=== PATIENT | female | born 1965 | race Caucasian/White ===

== ENCOUNTER 2020-06-04 13:06 | Emergency (ER) | payer OTHER, SELFPAY ==
[2020-06-04 13:21] VITALS: BP 126/82; PULSE 76; RESP 18; TEMP 37.2; O2SAT 96; BMI 27.1
--- NOTE | 2020-06-04 13:35 | ED_ITS ---
HPI - Animal Bite General Chief Complaint: Animal Bite Stated Complaint: Dog bite Time Seen by Provider: 06/04/20 13:23 Source: patient Mode of arrival: ambulatory Limitations: no limitations History of Present Illness HPI narrative: 50 for a female with no known past medical history presenting with complaint of dog bite to the palmar aspect of the right hand occurred just prior to arrival at home. She was petting her neighbor's dog and bit her causing abrasion like laceration to the palmar aspect just inferior to the webbing between the 4th and 5th finger. Dog is up-to-date on vaccination. She is not sure when her last tetanus vaccination was. States she did not have any pain discomfort just realized the laceration when she has slight bleeding. Currently there is no active bleeding. She has no other complaints. MD complaint: animal bite Onset (ago): minute(s) Animal: dog Description of animal: household pet Mechanism: bite Severity scale (1-10): 2 Context: playing with animal Associated symptoms: none Treatments prior to arrival: wound dressing(s) and irrigation Related Data Patient tetanus UTD: No Previous Rx's Medication Instructions Recorded amoxicillin-pot clavulanate 1 tab PO Q12H 10 Days #20 tab 06/04/20 [Augmentin] Allergies Allergy/AdvReac Type Severity Reaction Status Date / Time aspirin Allergy Unknown Unknown Verified 06/04/20 13:24 ibuprofen Allergy Unknown heartburns Verified 10/29/13 00:00 No Known Allergies Allergy Unverified 04/30/20 18:28 [No Known Allergies*] Review of Systems Review of Systems: Constitutional: No Weight loss, No Fever, No Chills, No Night Sweats, No Fatigue, No Malaise ENT/Mouth: No Hearing loss, No Ear Pain, No Nasal Congestion, No Sinus Pain, No Hoarseness, No sore throat, No Rhinorrhea, No Swallowing Difficulty Eyes: No Eye Pain, No Swelling, No Redness, No Foreign Body, No Discharge, No Vision Changes Cardiovascular: No Chest Pain, No SOB, No Dyspnea on Exertion, No Orthopnea, No Edema, No Palpitations Respiratory: No Cough, No Sputum, No Wheezing\ Gastrointestinal: No abdominal Pain Genitourinary: Musculoskeletal: No joint pain, No Myalgias, No Joint Swelling Skin: No Skin Lesions, No rash Neuro: No Weakness, No Numbness, No Paresthesias, No Loss of Consciousness, No Dizziness, No Headache Psych: No Anxiety/Panic, No Depression, No SI/HI/AH/VH, No Social Issues, Heme/Lymph: No Bruising, No Bleeding,No Lymphadenopathy Endocrine: No Polyuria, No Polydipsia, No Temperature Intolerance Yes all other systems are reviewed and are negative REPLACED BY [facility] Past Medical History Attestation statement: The following information was validated with the patient. Medical History (Updated 06/04/20 @ 13:55 by Marc Zelaya NP) Anxiety Depression Physical Exam Vital Signs: Vital Signs: Vital Signs Temp Pulse Resp BP Pulse Ox 06/04/20 13:21 98.9 F 76 18 126/82 96 Body Mass Index 27.1 Reviewed Course Course Course Narrative: Risk and benefits of having animal bite sutured including increased risk of infection versus cosmetic outcome versus loss of function this was reviewed. Patient was subsequently consented given localized anesthetic with 1% lidocaine and 1 loose suture was applied. No localized signs of infection induration or tender palpation. Full range of motion. Laceration superficial. Started on oral Augmentin/Tdap given. Patient will be discharged with clear precaution return follow-up instructions and 3 day wound check. Procedures Laceration Laceration 1: Site: hand (right hand ) Side (If applicable): right Size (cm): 1.5 Description: linear Depth: simple, single layer Local Anesthetic: lidocaine 1% Amount of anesthesia used (mL): 3 Pre-repair: irrigated extensively Skin layer closed with: nylon Size (cm): 4-0 Number of sutures: 1 Technique: simple, interrupted MDM - Animal Bite MDM Narrative Medical decision making narrative: Does not fully through the adipose tissue. Full range of motion. Able to make a fist. Finger to thumb within normal limits. Differential Diagnosis Differential diagnosis: Likely bite by animal and dog bite; Unlikely cat bite and rabies contact Lab Data Attestation: I reviewed the patient's lab results. Discharge Plan Discharge Clinical Impression: Bite by animal, Dog bite, Tetanus Patient Disposition: Home, Self-Care Instructions: Diphtheria/Acellular Pertussis/Tetanus Booster Vaccine (Tdap) (By..., Animal Bite (ED), Laceration (ED) Additional Instructions: today you were seen for the dog bite to her right and the cause a superficial laceration to the palmar aspect of the hand. Risk and benefits of getting a suture were reviewed. One suture was placed. Keep site clean and dry You are given a tetanus vaccination Given a dose of antibiotics Given antibiotics for 10 days Have recheck in 3 days to make sure there is no infection Have suture removed in 7-10 days Return if any concerns or worsening symptoms Otherwise return in 7-10 days to have your sutures removed Thank you Prescriptions: New amoxicillin-pot clavulanate [Augmentin] 875-125 mg tablet 1 tab PO Q12H 10 Days Qty: 20 RF: 0 Referrals: Marc Zelaya, HORSESHOER [Emergency Midlevel Provider] - 1 week ( return in 7-10 days to have sutures removed Have recheck through her primary care doctor in 3 days Return sooner if any concerns or worsening symptoms)
[2020-06-04] MEDS: Lidocaine HCl 1 % MPF 5 ML VIAL SUBCUT (13:38)
[2020-06-04] MEDS: Amoxicillin/Potassium Clav 875 MG TABLET PO (13:38)
== END 2020-06-04 14:08 | disposition home or self-care (01) ==
LOC: HO.ED 14:02
PROVIDERS: Emergency Provider Emergency Medicine
DX: S61.411A Laceration without foreign body of right hand, initial encounter (principal); S60.511A Abrasion of right hand, initial encounter; M79.641 Pain in right hand; W54.0XXA Bitten by dog, initial encounter; Y93.9 Activity, unspecified; Y92.009 Unspecified place in unspecified non-institutional (private) residence as the place of occurrence of the external cause; Y99.9 Unspecified external cause status
CPT/HCPCS: 12001; 90471; 90715; 99282; 99284

== ENCOUNTER 2020-06-08 10:20 | Emergency (ER) | payer OTHER, SELFPAY ==
[2020-06-08 11:04] VITALS: BP 117/81; PULSE 68; RESP 17; TEMP 36.6; O2SAT 97; BMI 27.1
--- NOTE | 2020-06-08 11:38 | ED_ITS ---
HPI - Wound/Laceration General Chief Complaint: Wound/Laceration Stated Complaint: suture removal Time Seen by Provider: 06/08/20 11:29 Source: patient Mode of arrival: ambulatory History of Present Illness HPI narrative: 54-year-old female with no significant past medical history presenting to ED for wound check s/p dog bite to right hand. Patient was seen and treated in the ED on 06/04, prescribed Augmentin, 1 suture was placed in pa lmar aspect of hand. Denies issues/complaints since wound repair. Denies fever, chills, drainage, streaking, redness Onset (ago): day(s) Related Data Previous Rx's Medication Instructions Recorded amoxicillin-pot clavulanate 1 tab PO Q12H 10 Days #20 tab 06/04/20 [Augmentin] Allergies Allergy/AdvReac Type Severity Reaction Status Date / Time aspirin Allergy Unknown Unknown Verified 06/04/20 13:24 ibuprofen Allergy Unknown heartburns Verified 10/29/13 00:00 No Known Allergies Allergy Verified 06/08/20 11:06 [No Known Allergies*] Review of Systems Review of Systems: Constitutional: No Weight loss, No Fever, No Chillsain Musculoskeletal: No joint pain, No Myalgias, No Joint Swelling Skin: + Skin Lesions, No rash Neuro: No Weakness, No Numbness, No Paresthesias Yes all other systems are reviewed and are negative [facility] Past Medical History Source: nursing notes reviewed Medical History (Updated 06/08/20 @ 11:38 by CHRISTIANO Polanco) Anxiety Depression Social History Social History Advance Directives: No Advance Directives Information Provided: No Physical Exam Vital Signs: Vital Signs: Vital Signs Temp Pulse Resp BP Pulse Ox 06/08/20 11:04 97.9 F 68 17 117/81 97 Body Mass Index 27.1 Const: General: cooperative and healthy appearing Orientation/consciousness: patient oriented x3 Limitations: no limitations HENMT: Head: Yes normal to inspection Ears: hearing grossly normal bilaterally General nose exam: Normal external nose present Face and sinus: Yes normal facial exam Eyes: General: appearance normal, both eyes and all related structures EOM: EOMs intact bilaterally Neck: Neck: Yes normal visual inspection Resp: Effort & Inspection: normal respiratory effort Cardio: Peripheral pulses: radial pulses present Skin: Rashes: no rashes Wounds: no wounds Neuro: General: patient oriented x3 Gait exam (Neuro): Normal gait present Extrem: Other: healing laceration noted to right hand palmar aspect between 4-5th digits with 1 suture intact. No surrounding erythema, fluctuance, induration, or streaking Discharge Plan Discharge Clinical Impression: Visit for wound check Patient Disposition: Home, Self-Care Instructions: Laceration (ED) Additional Instructions: your laceration is healing nicely. Continue taking previously prescribed antibiotic The sutures should be taken out 7-10 days after they were initially put in , which would be or Monday if area begins to look infected, is red, there is drainage, streaking, or you fever return to the ED immediately Prescriptions: No Action amoxicillin-pot clavulanate [Augmentin] 875-125 mg tablet 1 tab PO Q12H 10 Days Qty: 20 RF: 0 Referrals: Physician,Unknown [Primary Care Provider] - 5 days ( return to the ED in 3-5 days to have your stitches taken out)
== END 2020-06-08 11:43 | disposition home or self-care (01) ==
PROVIDERS: Emergency Provider Emergency Medicine
DX: Z48.00 Encounter for change or removal of nonsurgical wound dressing (principal)
CPT/HCPCS: 99283

== ENCOUNTER 2021-04-23 08:03 | Inpatient (IN) | payer OTHER, SELFPAY ==
[2021-04-23] VITALS (18 sets, daily range): BP systolic 100–149; BP diastolic 50–78; PULSE 32–49; RESP 10–20; TEMP 36.3–36.8; O2SAT 92–99; BMI 24.4; BMI 25.1
--- NOTE | ~2021-04-23 | CT_ITS ---
EXAMINATION: CT HEAD WITHOUT CONTRAST CLINICAL INFORMATION: Dizziness COMPARISON: MRI brain without and with contrast 06/24/2013 TECHNIQUE: Contiguous axial imaging was performed from the skull base to vertex without intravenous administration of contrast. Additional 2-D coronal and sagittal reformatted images are generated on the CT workstation and uploaded to PACS. This CT examination was performed using dose optimization techniques as appropriate, variously including the following: *Automated exposure control *Adjustment of mA and/or kV according to patient size (this includes techniques or standardized protocols for targeted exams where dose is matched to indication/reason for exam; i.e. extremities or head) *Use of iterative reconstruction technique DLP: 601 mGy-cm FINDINGS: There is no intracranial hemorrhage, hematoma, or extra-axial fluid collection. The ventricles are normal in size. There is no hydrocephalus, edema, or mass effect. The downey-white matter differentiation appears symmetric. There is no visible acute territorial infarct or mass lesion. The calvarium appears intact. There is no pneumocephalus or orbital emphysema. The visualized sinuses and middle ears and mastoid air cells show no significant mucosal thickening. There are no air-fluid levels. CT/CT head/brain wo con IMPRESSION: Unremarkable noncontrast CT head.
--- NOTE | ~2021-04-23 | XR_ITS ---
EXAMINATION: XR CHEST CLINICAL INFORMATION: Follow-up. New pacer wire placement. COMPARISON: None TECHNIQUE: Frontal view of the chest was obtained. FINDINGS: Lungs are slightly hyperexpanded. No evidence of pulmonary edema, pleural effusion or pneumothorax. Again noted is a dual lead cardiac pacemaker with intact leads in stable position compared to 04/24/2021. The tips of the leads overlie the right atrium and apex of right ventricle. The visualized bones are intact. XR/XR chest 1V IMPRESSION: * No pneumothorax. No evidence of complications from dual-chamber cardiac pacemaker placement. * No evidence of active congestive heart failure.
--- NOTE | ~2021-04-23 | FL_ITS ---
EXAMINATION: XR FLUOROSCOPY WITH IMAGES CLINICAL INFORMATION: Pacemaker insertion. COMPARISON: CXR from 08/24/2018 TECHNIQUE: Fluoroscopic imaging equipment utilized in the operating room for pacemaker insertion. Fluoroscopy time: 4 minutes DAP: 24.7 Gycm2 Images: 3 images are saved. FL/FL guidance in OR FINDINGS AND IMPRESSION: Fluoroscopic imaging equipment utilized during pacemaker insertion. The visualized cardiac pacing leads are intact and terminate over the right atrium and apex of right ventricle.
--- NOTE | ~2021-04-23 | XR_ITS ---
EXAMINATION: XR CHEST CLINICAL INFORMATION: New pacemaker COMPARISON: None TECHNIQUE: Frontal view of the chest was obtained. FINDINGS: Dual-lead pacemaker overlies left pectoral region with leads terminating over the right atrium and right ventricle. No pneumothorax. No pleural effusion or airspace consolidation. Lung volumes are normal. Cardiac and mediastinal contours are normal. No acute osseous findings. XR/XR chest 1V IMPRESSION: No acute pulmonary findings. Pacemaker leads terminate over the right atrium and right ventricle.
--- NOTE | 2021-04-23 08:30 | PC.NURSE ---
per pt - ?tia sx yesterday, pt thought that she had some slurred speech which was resolved. mlp (alla) aware. no neuro deficits noted.
--- NOTE | 2021-04-23 08:36 | ECG_ITS ---
Test Reason : GENERALMEDICATION Blood Pressure : / mmHG Vent. Rate : 070 BPM Atrial Rate : 070 BPM P-R Int : 188 ms QRS Dur : 098 ms QT Int : 548 ms P-R-T Axes : 065 056 054 degrees QTc Int : 591 ms Sinus rhythm with frequent , and consecutive Premature ventricular complexes Prolonged QT Abnormal ECG When compared with ECG of 23-APR-2021 08:44, Premature ventricular complexes are now Present Vent. rate has increased BY 32 BPM QT has lengthened Referred By: Randy Washington Electronically Signed By:ALANA AYALA
--- NOTE | 2021-04-23 08:51 | ED_ITS ---
HPI - General Adult General Chief complaint: General Medical Stated complaint: DIZZY Time Seen by Provider: 04/23/21 08:24 Source: patient Mode of arrival: ambulatory Limitations: no limitations History of Present Illness HPI narrative: Patient presents to ED for dizziness since Monday. Patient describes dizziness with tingling in hands and arms with nausea since Monday. Patient describes dizziness as like she is about to fall. Patient denies any new medication. Patient denies any change in diet or drug use. Patient denies any new meds. Patient denies being on any beta-opal. Patient denies any slurred speech, loss of vision, or paralysis of extremities. Denies any recent head trauma. Patient denies any facial droop. Related Data Previous Rx's Medication Instructions Recorded amoxicillin 875 mg-potassium 1 tab PO Q12H 10 Days #20 tab 06/04/20 clavulanate 125 mg tablet (Augmentin) Allergies Allergy/AdvReac Type Severity Reaction Status Date / Time aspirin Allergy Unknown Unknown Verified 06/04/20 13:24 ibuprofen Allergy Unknown heartburns Verified 10/29/13 00:00 No Known Allergies Allergy Verified 06/08/20 11:06 [No Known Allergies*] Review of Systems Review of Systems: Yes all other systems are reviewed and are negative Constitutional: Constitutional: Reports as per HPI and Reports no additional constitutional complaints Eyes: Eyes: Reports as per HPI and Reports no additional eye complaints ENT: Reports system reviewed and no additional complaints, except as documented, Reports as per HPI and Reports dizziness Cardiovascular: Cardiovascular: Reports as per HPI and Reports no additional cardiovascular complaints Gastrointestinal: Gastrointestinal: Reports as per HPI, Reports no additional gastrointestinal complaints, Reports nausea and Reports vomiting Genitourinary: Genitourinary: Reports no additional female genitourinary complaints and Reports as per HPI Musculoskeletal: Musculoskeletal: Reports no additional musculoskeletal complaints and Reports as per HPI Neurologic: Reports system reviewed and no additional complaints, except as documented, Reports as per HPI and Reports dizziness PMFSH Past Medical History Medical History (Updated 04/23/21 @ 15:45 by CHRISTIANO Lanier) Anxiety Depression Social History Social History Alcohol intake: never Patient Tobacco Use Status: Current everyday Tobacco user Use of substances other than those prescribed or required for medical reasons: No Advance Directives: Yes Advance Directives Information Provided: Yes Advance Directives on File: No Physical Exam Vital Signs: Vital Signs: Last Vital Signs Temp 97.8 F 04/23/21 14:55 Pulse 37 L 04/23/21 15:05 Resp 20 04/23/21 15:00 BP 116/67 04/23/21 15:05 Pulse Ox 95 04/23/21 15:00 Body Mass Index 24.4 Const: General: cooperative, healthy appearing, comfortable, no acute distress, well developed, alert, awake and Physically active HENMT: Head: Yes normal to inspection, Yes No palpable skull fracture present, Yes normocephalic and Yes atraumatic Eyes: General: appearance normal, both eyes and all related structures Neck: Neck: Yes normal visual inspection, Yes full ROM, Yes no lymphadenopathy, Yes no meningeal signs, Yes trachea midline, Yes supple and No tender Chest: Chest palpation & inspection: normal inspection of the chest and normal palpation of entire chest wall Resp: Effort & Inspection: normal respiratory effort and able to speak in co mplete sentences Cardio: Jugular venous distension: no JVD Heart sounds: S1 normal heart sound present and S2 normal heart sound present GI: Inspection: Yes normal to inspection and No abdominal wall ecchymosis Palpation (GI): Soft to palpation, not firm, nontender, no guarding and not rigid : General: No CVA tenderness and Yes no CVA tenderness Back/Spine/Pelvis: Back: no CVA tenderness, No CVA tenderness and No back tenderness Skin: General skin exam: no rashes or lesions noted and elasticity normal Neuro: Other: Negative facial droop. Negative slurred speech. All extremities equal strength 5+. Finger to nose and rapid hand movement intact. Negative pronator drift. General: no meningeal signs Extrem: General: Yes normal to inspection and Yes full ROM Psych: Appearance: grossly normal, well kempt and not disheveled Course Course Course Narrative: Patient bradycardic in the 30s on the monitor sinus. Blood pressure normotensive. With a cardiac evaluation and EKG. Electrolytes including magnesium ordered. Fluids ordered. Will consult cardiology. Reevaluation(s) Reevaluation #1: Patient head CT normal. First troponin positive. Negative for any neuro deficits. Patient still feel dizzy. Fluids ordered. Dr. Hines the cork grinder made aware. Patient denies any chest pain. Time: 11:29 Reevaluation #2: Patient rhythm strip shows PVC so new EKG was ordered which shows sinus bradycardia with PVCs. Dr. Davidson was contacted who came to evaluate the patient. Bedside heart ultrasound negative for any structural damage. He recommends pacemaker and epinephrine drip. Dr. Hines [facility] came to evaluate patient and recommend patient be admitted to ICU and that epinephrine should be canceled and patient placed on dopamine drip. Patient admitted to ICU. Time: 13:25 Medical Decision Making MDM Narrative Medical decision making narrative: Sinus bradycardia with PVCs. Will need pacemaker Lab Data Result diagrams: 04/23/21 09:10 04/23/21 09:10 Labs: Lab Results 04/23/21 04/23/21 04/23/21 Range/Units 09: 09:10 09:10 WBC 10.0 (4.8-10.8) X10*3/uL RBC 4.75 (4.20-5.50) X10*6/uL Hgb 14.3 (12.0-16.0) g/dl Hct 41.8 (37-47) % MCV 88.0 (80-98) fL MCH 30.1 (27.0-33.0) pg MCHC 34.2 (31.0-35.0) g/dl RDW 11.7 (11.0-16.0) % Plt Count 246 (160-400) X10*3/uL MPV 10.3 (9.4-12.3) fL Immature Gran % (Auto) 0.5 H (0.0-0.4) % Neut % (Auto) 68.8 (45-73) % Lymph % (Auto) 24.2 (20-40) % Nobles % (Auto) 5.8 (2-11) % Eos % (Auto) 0.3 (0-4) % Baso % (Auto) 0.4 (0-2) % Lymph # (Auto) 2.4 (1.2-4.9) X10*3/uL Nobles # (Auto) 0.6 (0.1-1.2) X10*3/uL Eos # (Auto) 0.0 (0.0-0.4) X10*3/uL Baso # (Auto) 0.0 (0.0-0.2) X10*3/uL Abs Immat Gran (auto) 0.05 H (0.00-0.03) X10*3/uL Absolute Neuts (auto) 6.9 (2.0-8.3) X10*3/uL Absolute Nucleated RBC 0.000 (0.0-0.012) X10*3/uL Nucleated RBC % (auto) 0.0 (0.0-0.2) /100WBC PT (9.9-13.0) SEC INR (0.9-1.1) APTT (24.1-38.0) SEC Sodium 138 (135-145) mmol/L Potassium 5.6 H (3.3-5.1) mmol/L Chloride 101 (96-108) mmol/L Carbon Dioxide 29 (22-29) mmol/L Anion Gap 14 (12-20) BUN 7 L (9-16) mg/dL Creatinine 0.81 (0.5-1.4) mg/dL Estim Creat Clear Calc 90.5 Estimated GFR > 60 Random Glucose 134 H (60-115) mg/dL Calcium 10.4 H (8.4-10.2) mg/dL Magnesium 2.0 (1.6-2.6) mg/dL Total Bilirubin 0.5 (0.0-1.0) mg/dL AST 25 (5-31) U/L ALT 27 (0-31) U/L Alkaline Phosphatase 67 (39-117) U/L Total Creatine Kinase 45 (26-140) U/L Troponin I High Sens (<3.5-17.0) ng/L Total Protein 7.0 (6.5-8.0) g/dL Albumin 4.5 (3.5-5.0) g/dL TSH 0.34 (0.32-4.0) uIU/mL Free T4 (0.71-1.85) ng/dL COVID-19 ([facility]) (Negative) COVID-19 Clin Com 04/23/21 04/23/21 04/23/21 Range/Units 09:10 09:10 09:10 WBC (4.8-10.8) X10*3/uL RBC (4.20-5.50) X10*6/uL Hgb (12.0-16.0) g/dl Hct (37-47) % MCV (80-98) fL MCH (27.0-33.0) pg MCHC (31.0-35.0) g/dl RDW (11.0-16.0) % Plt Count (160-400) X10*3/uL MPV (9.4-12.3) fL Immature Gran % (Auto) (0.0-0.4) % Neut % (Auto) (45-73) % Lymph % (Auto) (20-40) % Nobles % (Auto) (2-11) % Eos % (Auto) (0-4) % Baso % (Auto) (0-2) % Lymph # (Auto) (1.2-4.9) X10*3/uL Nobles # (Auto) (0.1-1.2) X10*3/uL Eos # (Auto) (0.0-0.4) X10*3/uL Baso # (Auto) (0.0-0.2) X10*3/uL Abs Immat Gran (auto) (0.00-0.03) X10*3/uL Absolute Neuts (auto) (2.0-8.3) X10*3/uL Absolute Nucleated RBC (0.0-0.012) X10*3/uL Nucleated RBC % (auto) (0.0-0.2) /100WBC PT 14.8 H (9.9-13.0) SEC INR 1.3 H (0.9-1.1) APTT 33.0 (24.1-38.0) SEC Sodium (135-145) mmol/L Potassium (3.3-5.1) mmol/L Chloride (96-108) mmol/L Carbon Dioxide (22-29) mmol/L Anion Gap (12-20) BUN (9-16) mg/dL Creatinine (0.5-1.4) mg/dL Estim Creat Clear Calc Estimated GFR Random Glucose (60-115) mg/dL Calcium (8.4-10.2) mg/dL Magnesium (1.6-2.6) mg/dL Total Bilirubin (0.0-1.0) mg/dL AST (5-31) U/L ALT (0-31) U/L Alkaline Phosphatase (39-117) U/L Total Creatine Kinase (26-140) U/L Troponin I High Sens 28.2 H* (<3.5-17.0) ng/L Total Protein (6.5-8.0) g/dL Albumin (3.5-5.0) g/dL TSH (0.32-4.0) uIU/mL Free T4 1.12 (0.71-1.85) ng/dL COVID-19 ([facility]) (Negative) COVID-19 Clin Com 04/23/21 04/23/21 Range/Units 09:11 11:29 WBC (4.8-10.8) X10*3/uL RBC (4.20-5.50) X10*6/uL Hgb (12.0-16.0) g/dl Hct (37-47) % MCV (80-98) fL MCH (27.0-33.0) pg MCHC (31.0-35.0) g/dl RDW (11.0-16.0) % Plt Count (160-400) X10*3/uL MPV (9.4-12.3) fL Immature Gran % (Auto) (0.0-0.4) % Neut % (Auto) (45-73) % Lymph % (Auto) (20-40) % Nobles % (Auto) (2-11) % Eos % (Auto) (0-4) % Baso % (Auto) (0-2) % Lymph # (Auto) (1.2-4.9) X10*3/uL Nobles # (Auto) (0.1-1.2) X10*3/uL Eos # (Auto) (0.0-0.4) X10*3/uL Baso # (Auto) (0.0-0.2) X10*3/uL Abs Immat Gran (auto) (0.00-0.03) X10*3/uL Absolute Neuts (auto) (2.0-8.3) X10*3/uL Absolute Nucleated RBC (0.0-0.012) X10*3/uL Nucleated RBC % (auto) (0.0-0.2) /100WBC PT (9.9-13.0) SEC INR (0.9-1.1) APTT (24.1-38.0) SEC Sodium (135-145) mmol/L Potassium (3.3-5.1) mmol/L Chloride (96-108) mmol/L Carbon Dioxide (22-29) mmol/L Anion Gap (12-20) BUN (9-16) mg/dL Creatinine (0.5-1.4) mg/dL Estim Creat Clear Calc Estimated GFR Random Glucose (60-115) mg/dL Calcium (8.4-10.2) mg/dL Magnesium (1.6-2.6) mg/dL Total Bilirubin (0.0-1.0) mg/dL AST (5-31) U/L ALT (0-31) U/L Alkaline Phosphatase (39-117) U/L Total Creatine Kinase (26-140) U/L Troponin I High Sens 27.2 H* (<3.5-17.0) ng/L Total Protein (6.5-8.0) g/dL Albumin (3.5-5.0) g/dL TSH (0.32-4.0) uIU/mL Free T4 (0.71-1.85) ng/dL COVID-19 ([facility]) Negative (Negative) COVID-19 Clin Com See Note ECG Data Interpretation: EKG 1: Miguel sinus bradycardia. Ventricular rate 38. Pr interval 192. QRS 102. QTC 459. Negative STEMI EKG 2: Sinus rhythm with PVC. Ventricular rate 70. Frontal 188. QRS 98. QTC 591. Negative STEMI Critical Care Time Critical Care Time Critical Care Time: Yes Total Critical Care Time: 60 Attestation: Labs ordered. Patient placed on pacer pads. Cardiology was notified. ICU attending notified. Patient started on dopamine drip. Discharge Plan Discharge Clinical Impression: Symptomatic bradycardia Patient Disposition: Admitted As Inpatient
[2021-04-23] MEDS: 0.9 % Sodium Chloride 1,000 ML 999 ML IV (09:13)
--- NOTE | 2021-04-23 09:26 | PC.NURSE ---
hr 32-42 pt /o extreme tirednes,, dry mouth, mlp (alla) aware.
[2021-04-23 09:28] LABS: MANUAL DIFF FLAG NO
[2021-04-23 09:30] LABS: Basophils Percent Auto 0.4 % (0-2); Eosinophils Percent Auto 0.3 % (0-4); Hematocrit 41.8 % (37-47); Hemoglobin 14.3 g/dl (12.0-16.0); Imm Gran Abs Auto 0.05 X10*3/uL (0.00-0.03); Imm Gran Pct Auto 0.5 % (0.0-0.4); Lymphocytes Absolute Auto 2.4 X10*3/uL (1.2-4.9); Lymphocytes Percent Auto 24.2 % (20-40); Mean Corpuscular HGB Conc 34.2 g/dl (31.0-35.0); Mean Corpuscular Hemoglobin 30.1 pg (27.0-33.0); Mean Platelet Volume 10.3 fL (9.4-12.3); Monocytes Absolute Auto 0.6 X10*3/uL (0.1-1.2); Monocytes Percent Auto 5.8 % (2-11); Neutrophils Absolute Auto 6.9 X10*3/uL (2.0-8.3); Neutrophils Percent Auto 68.8 % (45-73); Platelet Count 246 X10*3/uL (160-400); Red Blood Count 4.75 X10*6/uL (4.20-5.50); Red Cell Distribution Width 11.7 % (11.0-16.0)
[2021-04-23 09:36] LABS: INTERNATIONAL NORM RATIO 1.3 (0.9-1.1); Prothrombin Time 14.8 SEC (9.9-13.0)
[2021-04-23 09:44] LABS: IDNOW Serial# 9DD0AD1C
[2021-04-23 09:45] LABS: COVID-19 Test Negative (Negative)
[2021-04-23 09:50] LABS: Alanine Aminotransferase 27 U/L (0-31); Albumin Level 4.5 g/dL (3.5-5.0); Alkaline Phosphatase 67 U/L (39-117); Anion Gap 14 (12-20); Aspartate Amino Transferase 25 U/L (5-31); Bilirubin Total 0.5 mg/dL (0.0-1.0); Blood Urea Nitrogen 7 mg/dL (9-16); Calcium 10.4 mg/dL (8.4-10.2); Carbon Dioxide 29 mmol/L (22-29); Chloride 101 mmol/L (96-108); Creatinine Clr Calc Pharmacy 90.5; Estimated Glomerular Filt Rate > 60; Glucose Random 134 mg/dL (60-115); Potassium 5.6 mmol/L (3.3-5.1); Sodium 138 mmol/L (135-145)
[2021-04-23 09:53] LABS: Troponin-I High Sensitivity 28.2 ng/L (<3.5-17.0)
[2021-04-23 10:13] LABS: TSH reflex Free T4 0.34 uIU/mL (0.32-4.0)
--- NOTE | 2021-04-23 10:19 | CA_ITS ---
Transthoracic Echocardiogram Patient (Last, First, Middle): Ivette Mckenzie, Gender: Female Date of : 1965 Age: 55 Procedure Date: 04/23/2021 Procedure Type: Transthoracic Echocardiogram Location: ER Height: 182.88 cm Weight: 81.65 kg BSA: 2.04 m2 Heart Rate: bpm BP: 94 / 55 mmHg Insole Coverer: HAN Referring MD: Randy ALVARADO Symptoms: positive troponin with bradycardia Study Quality: Fair ECG Rhythm: Sinus Conclusions: - The left ventricular systolic function is normal. The calculated ejection fraction is 60% by biplane method. - No obvious valvular pathology seen on this study. Findings Left Ventricle Normal left ventricular cavity size. There is normal left ventricular wall thickness. The left ventricular systolic function is normal. The calculated ejection fraction is 60% by biplane method. There is no evidence of regional wall motion abnormalities. Diastolic function is normal for age. Right Ventricle Normal right ventricular cavity size and systolic function. Atria Both atria are normal in size. Aortic Valve There is a normal trileaflet aortic valve. There is no aortic valve stenosis. There is no aortic valve regurgitation. Mitral Valve There is trace mitral valve regurgitation. There is no mitral valve stenosis. Posterior leaflet not well visualized. Pulmonic Valve The pulmonic valve was not well visualized. Tricuspid Valve Normal tricuspid valve structure. There is trace tricuspid valve regurgitation. The pulmonary artery systolic pressure is normal. Great Vessels The asc aorta and aortic arch are normal in size. Venous The inferior vena cava is normal in size and collapses greater than 50% with inspiration. Pericardium/Pleural There is no evidence of pericardial effusion. Prior Study Comparison No prior study available for comparison. Recommendations, Care & Conclusions No obvious valvular pathology seen on this study. Measurements 2D Linear Measurements IVSd: 0.95 0.6-0.9/0.6-1.0 cm LVIDd: 4.10 3.9-5.3/4.2-5.9 cm LVIDd Index: 2.01 2.4-3.2/2.2-3.1 cm/m2 LVIDs: 2.96 2.0-3.6 cm LVPWd: 0.76 0.7-1.1 cm Ao Root: 3.40 2.1-3.5 cm LA Diam: 3.10 2.7-3.8/3.0-4.0 cm LAIDs Index: 1.52 1.5-2.3 cm/m2 LV Mass: 132.71 67-162/88-224 g LV Mass Index: 65.05 43-95/49-115 g/m2 LVOT Diam: 2.20 3.0+(-)1.3 cm 2D Systolic Function EF 4C: 61.10 >55% EF 2C: 63.20 >55% EF BiP: 60.30 >55% Mitral Valve MV Pk E: 0.55 MV PK A: 0.64 MV Decel Time: 576.00 E/A: 0.90 E'Lateral: 7.07 E'Medial: 9.25 E/E' Med: 6.00 E/E' Lat: 7.80 PHT: 169.00 MVA PHT: 1.30 Decel [place]: 0.96 Aortic Valve AoV Pk Garcia: 1.32 AoV Mn Garcia: 0.89 AoV VTI: 0.35 AoV Pk Grad: 7.00 Aov Mn Grad: 4.00 THAD Cont.VTI: 2.43 LVOT LVOT Pk Garcia: 0.91 LVOT Mn Garcia: 0.56 LVOT VTI: 0.22 LVOT Pk Grad: 3.00 LVOT Mn Grad: 2.00 LVOT Diam: 2.20 LVOT Area: 3.80 Diastolic Function MV Pk E: 0.55 MV Pk A: 0.64 E/A: 0.90 E'Medial: 9.25 E/E' Med: 6.00 E' Laterial: 7.07 E/E' Lat: 7.80 Right Ventricle TAPSE (mm): 2.82 TVS' Garcia: 13.70 Tricuspid Valve TR Pk Garcia: 2.44 TR Pk Grad: 24.00 RA Press: 3.00 RVSP: 27.00 Great Vessels Aorta Ao Root-2D: 3.40 2.0-3.7 cm Ao Asc: 2.90 2.1-3.4 cm Ao Arch: 3.10 Updated in Other Vendor System with Status of Final Darren Hines MD electronically signed on 04/23/2021 1:55:52 PM with status of Final
[2021-04-23] MEDS: Sodium Polystyrene Sulfon/Sorb 15 GM/60 ML ORAL.SUSP 45 GM PO (10:35)
--- NOTE | 2021-04-23 11:00 | PC.NURSE ---
pt placed on pacer pads.
--- NOTE | 2021-04-23 11:30 | PC.NURSE ---
icu and cardiac md(s) are at bedside, pt is aware of plan of care for admission to hosp. pt continues to be a/o x 3 no sob/wade noted skin pink warm dry speaks in full sentences. pt denies any pain/disc, c/o occasional numbness in bill hands.
--- NOTE | 2021-04-23 11:33 | ECG_ITS ---
Test Reason : BRADYCARDIA Blood Pressure : / mmHG Vent. Rate : 038 BPM Atrial Rate : 038 BPM P-R Int : 192 ms QRS Dur : 102 ms QT Int : 578 ms P-R-T Axes : 048 064 049 degrees QTc Int : 459 ms Marked sinus bradycardia Abnormal ECG No previous ECGs available Referred By: Randy Washington Electronically Signed By:ALNAA AYALA
[2021-04-23] MEDS: Magnesium Sulfate/H2O 2 GM/50 ML PIGGYBACK IV (11:44)
--- NOTE | 2021-04-23 11:59 | PC.NURSE ---
pacer pads applied. zoll at bedside. second iv established. pt comntinues to be naz in 30s. no diuzziness or chest pain at this time.
[2021-04-23 12:17] LABS: Troponin-I High Sensitivity 27.2 ng/L (<3.5-17.0)
--- NOTE | 2021-04-23 12:57 | P.HPCC_ITS ---
History of Present Illness Date of Service: 04/23/21 Chief Complaint: Syncope weakness and fatigue 55-year-old female smoker on no medications with no past medical history no cardiac disease and no family history of cardiac disease or sudden presents with multiple episodes of near-syncope always prevented from falling by grabbing onto a railing or wall and was noted to be in sinus bradycardia with prolonged QT interval of 560 milliseconds with runs of nonsustained V-tach probably bradycardia induced and therefore a risk for torsade Clearly needs to be admitted for permanent pacing as an overdrive mechanism Review of Systems Review of Systems: Yes all other systems are reviewed and are negative [facility] Past Medical History Medical History (Updated 04/23/21 @ 13:01 by Christy Davidson MD) Anxiety Depression Social History Social History Alcohol intake: never Patient Tobacco Use Status: Current everyday Tobacco user Use of substances other than those prescribed or required for medical reasons: No Advance Directives: Yes Advance Directives Information Provided: Yes Advance Directives on File: No Meds Allergies Allergy/AdvReac Type Severity Reaction Status Date / Time aspirin Allergy Unknown Unknown Verified 06/04/20 13:24 ibuprofen Allergy Unknown heartburns Verified 10/29/13 00:00 No Known Allergies Allergy Verified 06/08/20 11:06 [No Known Allergies*] Active Medications: Current Medications Generic Name Dose Route Start Last Admin Trade Name Freq PRN Reason Stop Dose Admin Magnesium Sulfate 2 gm in 50 mls @ 25 mls/hr 04/23/21 11:40 04/23/21 11:44 Magnesium Sulfate/H2o IV 04/23/21 13:39 50 mls/hr ONCE ONE Administration Epinephrine 5 mg/ Dextrose 255 mls @ 0 mls/hr 04/23/21 12:15 IVCONT .Q0M HORACE Protocol Per Protocol Dextrose/Sodium Chloride 1,000 mls @ 50 mls/hr 04/23/21 12:45 D5ns IVCONT .Q20H HORACE Dopamine HCl/Dextrose 400 mg in 250 mls @ 0 mls/hr 04/23/21 13:00 IVCONT .Q0M HORACE Protocol Per Protocol Cefazolin Sodium 1 gm/ Sodium 50 mls @ 100 mls/hr 04/23/21 12:53 Chloride IV 04/23/21 13:22 PREOP ONE Physical Exam Vital Signs: Vital Signs: Last Vital Signs Temp 98.3 F 04/23/21 08:22 Pulse 37 L 04/23/21 10:34 Resp 16 04/23/21 10:34 BP 149/76 H 04/23/21 10:34 Pulse Ox 95 04/23/21 10:34 Body Mass Index 24.4 Normal vital signs and awake alert oriented and nonfocal neurologically Bedside echo with normal class 1 function LV RV and no primary valve or pericardial disease Lungs clear with no adventitious sounds Abdomen benign no organomegaly Skin intact with no edema Results Labs CBC and Chem 7: 04/23/21 09:10 04/23/21 09:10 Labs: Laboratory Results - last 24 hr 04/23/21 04/23/21 04/23/21 09:09 09:10 09:10 MCV 88.0 MCH 30.1 MCHC 34.2 RDW 11.7 Plt Count 246 MPV 10.3 Immature Gran % (Auto) 0.5 H Neut % (Auto) 68.8 Lymph % (Auto) 24.2 [place] % (Auto) 5.8 Eos % (Auto) 0.3 Baso % (Auto) 0.4 Lymph # (Auto) 2.4 [place] # (Auto) 0.6 Eos # (Auto) 0.0 Baso # (Auto) 0.0 Abs Immat Gran (auto) 0.05 H Absolute Neuts (auto) 6.9 Absolute Nucleated RBC 0.000 Nucleated RBC % (auto) 0.0 PT INR APTT Anion Gap 14 Estim Creat Clear Calc 90.5 Estimated GFR > 60 Random Glucose 134 H Calcium 10.4 H Magnesium 2.0 Total Bilirubin 0.5 AST 25 ALT 27 Alkaline Phosphatase 67 Total Creatine Kinase 45 Troponin I High Sens Total Protein 7.0 Albumin 4.5 TSH 0.34 COVID-19 ([facility]) COVID-19 Clin Com 04/23/21 04/23/21 04/23/21 09:10 09:10 09:11 MCV MCH MCHC RDW Plt Count MPV Immature Gran % (Auto) Neut % (Auto) Lymph % (Auto) [place] % (Auto) Eos % (Auto) Baso % (Auto) Lymph # (Auto) [place] # (Auto) Eos # (Auto) Baso # (Auto) Abs Immat Gran (auto) Absolute Neuts (auto) Absolute Nucleated RBC Nucleated RBC % (auto) PT 14.8 H INR 1.3 H APTT 33.0 Anion Gap Estim Creat Clear Calc Estimated GFR Random Glucose Calcium Magnesium Total Bilirubin AST ALT Alkaline Phosphatase Total Creatine Kinase Troponin I High Sens 28.2 H* Total Protein Albumin TSH COVID-19 ([facility]) Negative COVID-19 Clin Com See Note 04/23/21 11:29 MCV MCH MCHC RDW Plt Count MPV Immature Gran % (Auto) Neut % (Auto) Lymph % (Auto) [place] % (Auto) Eos % (Auto) Baso % (Auto) Lymph # (Auto) [place] # (Auto) Eos # (Auto) Baso # (Auto) Abs Immat Gran (auto) Absolute Neuts (auto) Absolute Nucleated RBC Nucleated RBC % (auto) PT INR APTT Anion Gap Estim Creat Clear Calc Estimated GFR Random Glucose Calcium Magnesium Total Bilirubin AST ALT Alkaline Phosphatase Total Creatine Kinase Troponin I High Sens 27.2 H* Total Protein Albumin TSH COVID-19 ([facility]) COVID-19 Clin Com Imaging Radiologist's Impressions: Impressions Head CT 04/23/21 09:27 IMPRESSION: Unremarkable noncontrast CT head. Assessment and Plan (1) Symptomatic bradycardia: Status: Acute (2) Ventricular tachycardia, polymorphic: Status: Acute Admitted and temporizing with either epinephrine or dopamine to overdrive pace and then permanent dual-chamber pacemaker insertion
[2021-04-23] MEDS: Dextrose 5 % and 0.9 % NaCl 1,000 ML 50 ML IVCONT (13:06)
--- NOTE | 2021-04-23 13:18 | P.CONCA_ITS ---
History of Present Illness History of Present Illness Date of Service: 04/23/21 Chief complaint: DIZZY Narrative: This is a cardiology consultation regarding bradycardia. Patient denies any previous cardiac history whatsoever. No history of any coronary artery disease myocardial infarction of cardiomyopathy or arrhythmias are affect new cardiac issues all. She states that she was in her usual state of health till about 2 days ago or so. Then she started having a lot of dizziness. No clear anginal-type chest pains or in fact any chest pain whatsoever. No shortness of breath or any other cardiac symptoms. She was then evaluated in the ER and found to have significant sinus bradycardia and hence we have been asked to see her. Patient does not take any rate control medications at all. Review of Systems Review of Systems: Yes all other systems are reviewed and are negative Cardiovascular: Cardiovascular: Reports as per HPI, Reports no additional cardiovascular complaints, Denies acrocyanosis, Denies cool extremities, Denies painful fingertips, Denies chest pain, Denies chest pain at rest, Denies diaphoresis, Denies syncope, Denies irregular heart rhythm, Denies claudication, Denies leg edema, Reports lightheadedness, Denies palpitations and Denies dyspnea Respiratory: Respiratory: Denies dyspnea Neurologic: Denies syncope Endocrine: Endocrine: Denies palpitations PMFSH Past Medical History Medical History (Updated 04/23/21 @ 13:01 by Christy Davidson MD) Anxiety Depression Family History Pertinent family history: No significant family history Social History Social History Alcohol intake: never Patient Tobacco Use Status: Current everyday Tobacco user Use of substances other than those prescribed or required for medical reasons: No Advance Directives: Yes Advance Directives Information Provided: Yes Advance Directives on File: No Meds Allergies Allergy/AdvReac Type Severity Reaction Status Date / Time aspirin Allergy Unknown Unknown Verified 06/04/20 13:24 ibuprofen Allergy Unknown heartburns Verified 10/29/13 00:00 No Known Allergies Allergy Verified 06/08/20 11:06 [No Known Allergies*] Active Medications: Current Medications Generic Name Dose Route Start Last Admin Trade Name Freq PRN Reason Stop Dose Admin Magnesium Sulfate 2 gm in 50 mls @ 25 mls/hr 04/23/21 11:40 04/23/21 13:03 Magnesium Sulfate/H2o IV 04/23/21 13:39 Infused ONCE ONE Infusion Epinephrine 5 mg/ Dextrose 255 mls @ 0 mls/hr 04/23/21 12:15 IVCONT .Q0M HORACE Protocol Per Protocol Dextrose/Sodium Chloride 1,000 mls @ 50 mls/hr 04/23/21 12:45 04/23/21 13:06 D5ns IVCONT 50 mls/hr .Q20H HORACE Administration Dopamine HCl/Dextrose 400 mg in 250 mls @ 0 mls/hr 04/23/21 13:00 IVCONT .Q0M HORACE Protocol Per Protocol Cefazolin Sodium 1 gm/ Sodium 50 mls @ 100 mls/hr 04/23/21 12:53 Chloride IV 04/23/21 13:22 PREOP ONE Physical Exam Vital Signs: Vital Signs: Last Vital Signs Temp 98.3 F 04/23/21 08:22 Pulse 37 L 04/23/21 10:34 Resp 16 04/23/21 10:34 BP 149/76 H 04/23/21 10:34 Pulse Ox 95 04/23/21 10:34 Body Mass Index 24.4 Const: General: cooperative and no acute distress HENMT: Other: Unremarkable Neck: Neck: Yes normal visual inspection Chest: Chest palpation & inspection: normal inspection of the chest Resp: Auscultation: clear to auscultation bilaterally, no crackles and no wheezes Cardio: Jugular venous distension: no JVD Palpation: normal PMI Heart sounds: S1 normal heart sound present, S2 normal heart sound present, no gallops, no murmurs and no rubs GI: Palpation (GI): Soft to palpation Back/Spine/Pelvis: Other: unremarkable Skin: General skin exam: no rashes or lesions noted Neuro: Cranial nerves: Yes Other cranial nerve findings present Extrem: General: Yes no clubbing, cyanosis or edema Psych: Mental Status: other Results Labs and Meds Result diagrams: 04/23/21 09:10 04/23/21 09:10 Lab results: Laboratory Results - last 24 hr 04/23/21 04/23/21 04/23/21 09:09 09:10 09:10 WBC 10.0 RBC 4.75 Hgb 14.3 Hct 41.8 MCV 88.0 MCH 30.1 MCHC 34.2 RDW 11.7 Plt Count 246 MPV 10.3 Immature Gran % (Auto) 0.5 H Neut % (Auto) 68.8 Lymph % (Auto) 24.2 Sharp % (Auto) 5.8 Eos % (Auto) 0.3 Baso % (Auto) 0.4 Lymph # (Auto) 2.4 Sharp # (Auto) 0.6 Eos # (Auto) 0.0 Baso # (Auto) 0.0 Abs Immat Gran (auto) 0.05 H Absolute Neuts (auto) 6.9 Absolute Nucleated RBC 0.000 Nucleated RBC % (auto) 0.0 PT INR APTT Sodium 138 Potassium 5.6 H Chloride 101 Carbon Dioxide 29 Anion Gap 14 BUN 7 L Creatinine 0.81 Estim Creat Clear Calc 90.5 Estimated GFR > 60 Random Glucose 134 H Calcium 10.4 H Magnesium 2.0 Total Bilirubin 0.5 AST 25 ALT 27 Alkaline Phosphatase 67 Total Creatine Kinase 45 Troponin I High Sens Total Protein 7.0 Albumin 4.5 TSH 0.34 COVID-19 ([facility]) COVID-19 [employer] 04/23/21 04/23/21 04/23/21 09:10 09:10 09:11 WBC RBC Hgb Hct MCV MCH MCHC RDW Plt Count MPV Immature Gran % (Auto) Neut % (Auto) Lymph % (Auto) Sharp % (Auto) Eos % (Auto) Baso % (Auto) Lymph # (Auto) Sharp # (Auto) Eos # (Auto) Baso # (Auto) Abs Immat Gran (auto) Absolute Neuts (auto) Absolute Nucleated RBC Nucleated RBC % (auto) PT 14.8 H INR 1.3 H APTT 33.0 Sodium Potassium Chloride Carbon Dioxide Anion Gap BUN Creatinine Estim Creat Clear Calc Estimated GFR Random Glucose Calcium Magnesium Total Bilirubin AST ALT Alkaline Phosphatase Total Creatine Kinase Troponin I High Sens 28.2 H* Total Protein Albumin TSH COVID-19 ([facility]) Negative COVID-19 [employer] Com See Note 04/23/21 11:29 WBC RBC Hgb Hct MCV MCH MCHC RDW Plt Count MPV Immature Gran % (Auto) Neut % (Auto) Lymph % (Auto) Sharp % (Auto) Eos % (Auto) Baso % (Auto) Lymph # (Auto) Sharp # (Auto) Eos # (Auto) Baso # (Auto) Abs Immat Gran (auto) Absolute Neuts (auto) Absolute Nucleated RBC Nucleated RBC % (auto) PT INR APTT Sodium Potassium Chloride Carbon Dioxide Anion Gap BUN Creatinine Estim Creat Clear Calc Estimated GFR Random Glucose Calcium Magnesium Total Bilirubin AST ALT Alkaline Phosphatase Total Creatine Kinase Troponin I High Sens 27.2 H* Total Protein Albumin TSH COVID-19 ([facility]) COVID-19 Clin Com ECG Interpretation: EKG on admission with sinus bradycardia at 38/Min. Normal MN/QTc. In the repeat EKG, there are frequent PVCs. Imaging Radiologist's impression: Impressions Head CT 04/23/21 09:27 IMPRESSION: Unremarkable noncontrast CT head. Assessment and Plan (1) Symptomatic bradycardia: Status: Acute (2) Ventricular tachycardia, polymorphic: Status: Acute Pertinent data reviewed. Hemoglobin 14.3. White cell count 10. Plate lets 246. Potassium 5.6. Creatinine 0.81. Calcium 10.4. High sensitive troponins are 28 and 27. TSH is 0.34. Preliminary review of echocardiogram is with normal EF and we will review in detail once completed. Overall, she has persistent bradycardia and runs of PVCs/NSVT and at risk for polymorphic ventricular tachycardia. No obvious precipitating factors for the sinus bradycardia and she does not appear to be having any acute coronary syndrome at this time. Slight troponin leak is mainly from the bradycardia itself. We discussed about further care and this includes implantation of permanent pacemaker. Considering the clinical situation, she is agreeable. We will plan on implanting pacemaker at the earliest opportunity. We will follow up with you. Procedures Date of Service Date of Service: 04/23/21
--- NOTE | 2021-04-23 14:20 | PC.NURSE ---
pt had a bm (diarrhea, medium) this rn noted that pt heart rate increased to 51. md aware.
--- NOTE | 2021-04-23 14:34 | PC.NURSE ---
PT HAD MEDIUM SIZED BROWN SEMI SOFT/LIQUID STOOL. PT CLEANSED, LINEN CHANGED AND PATIENT REPOSITIONED. TOLERATED WITHOUT INCIDENT
[2021-04-23 14:39] LABS: Free T4 (Free Thyroxine) 1.12 ng/dL (0.71-1.85)
[2021-04-23] MEDS: DOPamine HCL/D5W 400 MG/250 ML PLAST..BAG 6.12 MG IVCONT (15:05)
--- NOTE | 2021-04-23 19:08 | ECG_ITS ---
Test Reason : RHYTHM CHECK Blood Pressure : / mmHG Vent. Rate : 046 BPM Atrial Rate : 046 BPM P-R Int : 190 ms QRS Dur : 106 ms QT Int : 638 ms P-R-T Axes : 053 048 047 degrees QTc Int : 558 ms Sinus bradycardia Anterior infarct , age undetermined T wave inversion now evident in Anterior leads Prolonged QT Abnormal ECG When compared with ECG of 23-APR-2021 11:40, T wave inversion now evident in Anterior leads Premature ventricular complexes are no longer Present Referred By: Judy Pabon Electronically Signed By:ALANA AYALA
[2021-04-23] MEDS: LORazepam 2 MG/ML VIAL 0.5 MG IVPUSH (19:25)
[2021-04-23 19:43] LABS: Anion Gap 11 (12-20); Blood Urea Nitrogen 6 mg/dL (9-16); Calcium 9.1 mg/dL (8.4-10.2); Carbon Dioxide 28 mmol/L (22-29); Chloride 105 mmol/L (96-108); Creatinine Clr Calc Pharmacy 107.9; Estimated Glomerular Filt Rate > 60; Glucose Random 125 mg/dL (60-115); Phosphorus 2.8 mg/dL (2.7-4.5); Potassium 2.9 mmol/L (3.3-5.1); Sodium 141 mmol/L (135-145)
[2021-04-23 21:55] LABS: Potassium 2.7 mmol/L (3.3-5.1)
[2021-04-23 22:05] LABS: Troponin-I High Sensitivity 13.9 ng/L (<3.5-17.0)
[2021-04-23] MEDS: Potassium Phosphate 30 MMOL in 0.9 % Sodium Chloride 500 ML 85 MMOL IV (22:36)
--- NOTE | 2021-04-23 22:42 | PC.NURSE ---
Pt admitted to ICU at approx 1730. Pt A&Ox4. Reports feeling anxious, tearful, new orders for PRN 0.5mg IVP ativan with some effect. 2nd degree type II on tele, HR 40s. Dopamine titrated per protocol. PA aware of labs, new order for IV kphos x 1 bag. C/O headache, given PRN tylenol. Denies dizziness, lightheadness, CP, or SOB. Urinating on bedpan. Skin intact. Pt/family aware of plan of care for PPM in AM.
[2021-04-23] MEDS: Acetaminophen 325 MG TABLET 650 MG PO (22:50)
[2021-04-24] VITALS (15 sets, daily range): BP systolic 87–147; BP diastolic 45–92; PULSE 39–64; RESP 13–22; TEMP 36.1–36.6; O2SAT 92–97; BMI 23.0
--- NOTE | 2021-04-24 | ECG_ITS ---
Test Reason : SP PACER Blood Pressure : / mmHG Vent. Rate : 060 BPM Atrial Rate : 060 BPM P-R Int : 212 ms QRS Dur : 096 ms QT Int : 476 ms P-R-T Axes : 066 060 057 degrees QTc Int : 476 ms Atrial-paced rhythm with prolonged AV conduction Abnormal ECG When compared with ECG of 23-APR-2021 19:31, Electronic atrial pacemaker has replaced Sinus rhythm T wave inversion no longer evident in Anterior leads QT has shortened Referred By: Christy Davidson Electronically Signed By:ALANA AYALA
[2021-04-24] MEDS: LORazepam 2 MG/ML VIAL 0.5 MG IVPUSH ×3 (04:41→16:58)
[2021-04-24 04:46] LABS: MANUAL DIFF FLAG NO
[2021-04-24 04:50] LABS: Basophils Percent Auto 0.4 % (0-2); Eosinophils Absolute Auto 0.2 X10*3/uL (0.0-0.4); Eosinophils Percent Auto 1.8 % (0-4); Hematocrit 38.8 % (37-47); Hemoglobin 13.5 g/dl (12.0-16.0); Imm Gran Abs Auto 0.03 X10*3/uL (0.00-0.03); Imm Gran Pct Auto 0.3 % (0.0-0.4); Lymphocytes Absolute Auto 3.6 X10*3/uL (1.2-4.9); Lymphocytes Percent Auto 31.8 % (20-40); Mean Corpuscular HGB Conc 34.8 g/dl (31.0-35.0); Mean Corpuscular Hemoglobin 30.1 pg (27.0-33.0); Mean Corpuscular Volume 86.6 fL (80-98); Mean Platelet Volume 10.1 fL (9.4-12.3); Monocytes Absolute Auto 0.7 X10*3/uL (0.1-1.2); Monocytes Percent Auto 6.2 % (2-11); Neutrophils Absolute Auto 6.7 X10*3/uL (2.0-8.3); Neutrophils Percent Auto 59.5 % (45-73); Platelet Count 193 X10*3/uL (160-400); Red Blood Count 4.48 X10*6/uL (4.20-5.50); Red Cell Distribution Width 11.9 % (11.0-16.0); White Blood Count 11.2 X10*3/uL (4.8-10.8)
[2021-04-24 04:55] LABS: INTERNATIONAL NORM RATIO 1.3 (0.9-1.1)
[2021-04-24 04:58] LABS: Partial Thromboplastin Time 31.8 SEC (24.1-38.0)
[2021-04-24 05:04] LABS: Calcium 8.6 mg/dL (8.4-10.2); Magnesium 1.9 mg/dL (1.6-2.6); Phosphorus 4.7 mg/dL (2.7-4.5)
[2021-04-24 05:09] LABS: B Type Natriuretic Peptide 172 pg/mL (<100)
[2021-04-24 06:08] LABS: Anion Gap 12 (12-20); Blood Urea Nitrogen 4 mg/dL (9-16); Calcium 8.8 mg/dL (8.4-10.2); Carbon Dioxide 27 mmol/L (22-29); Chloride 104 mmol/L (96-108); Creatinine Clr Calc Pharmacy 111.1; Estimated Glomerular Filt Rate > 60; Glucose Random 119 mg/dL (60-115); Potassium 3.1 mmol/L (3.3-5.1); Sodium 140 mmol/L (135-145)
[2021-04-24] MEDS: Potassium Chloride Packet 20 MEQ PACKET PO ×2 (07:36→12:26)
[2021-04-24] MEDS: Potassium Chloride/H20 20 MEQ/100 ML PIGGYBACK 50 MEQ IV (07:36)
--- NOTE | 2021-04-24 09:04 | HO.ANESPROP2 ---
[facility] Active Problems Active Problems: All Active Problems (Updated 04/23/21 @ 15:45 by CHRISTIANO Lanier) Ventricular tachycardia, polymorphic (Acute) Symptomatic bradycardia (Acute) Past Medical History Medical History Anxiety Depression Functional capacity: independent ambulation Patient : No Family History Family history of problems with anesthesia: No Surgical History History of Problems with Anesthesia: No Social History Social History Household Members: Family Housing: House Do you presently have visiting nurse or other home services: No Alcohol intake: never Patient Tobacco Use Status: Current everyday Tobacco user Tobacco use type: Cigarette Cigarette Packs Per Day: 1 Cigarettes Per Day: 20.0 Smoked in Last 30 Days: Yes e-Cigarette/Vaping Use: Never Used Patient Interested in Nicotine Replacement: Yes Patient Given Instructions on How to Stop Smoking: Yes Date Education Initiated: 04/23/21 Use of substances other than those prescribed or required for medical reasons: Yes Substance Use Type: Marijuana Substance Use Frequency: Socially Last Used Substance: Days (ago) Currently Displaying Signs/Symptoms of Drug Intoxication Withdrawal: No Any prior treatment program specific to substance use: No Have you been hit, kicked, punched, or otherwise hurt by someone within the past year? If so, by whom?: No Do you feel safe in your current relationship?: Yes Is there a partner from a previous relationship who is making you feel unsafe now?: No Are you made to feel afraid or neglected: No Spiritual Healthcare Practices: last rights at end of life [employer] Healthcare Practices: last rights at end of life Cultural Healthcare Practices: none per patient Advance Directives: Yes Advance Directives Information Provided: Yes Advance Directives on File: No Advance Directives Date on File: 04/23/21 Do you have thoughts of harming others: None Do you have a plan to hurt others: No Plan Recently lost weight without trying: Yes How much weight loss: 24-33 pounds Eating poorly because of decreased appetite: Yes Nutrition screen score: 6 Nutrition Risks: Poor intake 0-25% >4 days Patient : No : No Poor oral hygiene: No Meds Allergies Allergy/AdvReac Type Severity Reaction Status Date / Time aspirin Allergy Unknown Unknown Verified 06/04/20 13:24 ibuprofen Allergy Unknown heartburns Verified 10/29/13 00:00 No Known Allergies Allergy Verified 06/08/20 11:06 [No Known Allergies*] Active Medications: Current Medications Generic Name Dose Route Start Last Admin Trade Name Freq PRN Reason Stop Dose Admin Dopamine HCl/Dextrose 400 mg in 250 mls @ 0 mls/hr 04/23/21 13:00 04/23/21 19:16 IVCONT 3 mcg/kg/min .Q0M HORACE 9.19 mls/hr Titration Protocol Per Protocol Lorazepam 0.5 mg 04/23/21 19:08 04/24/21 08:00 Lorazepam 2 Mg/Ml Vial IVPUSH 0.5 mg Q4H PRN Administration anxiety Exam Exam Date and Time: April 24, [id number] Height,Weight and Vital Signs: Height 6 ft Weight 77.1 kg Last Vital Signs Temp 97.8 F 04/24/21 08:00 Pulse 39 L 04/24/21 08:00 Resp 13 04/24/21 08:00 BP 87/69 L 04/24/21 08:00 Pulse Ox 96 04/24/21 08:00 Pertinent Lab Results Pertinent Lab Results: Laboratory Tests 04/23/21 04/23/21 04/23/21 09:09 09:10 09:10 WBC 10.0 RBC 4.75 Hgb 14.3 Hct 41.8 MCV 88.0 MCH 30.1 MCHC 34.2 RDW 11.7 Plt Count 246 MPV 10.3 Immature Gran % (Auto) 0.5 H Neut % (Auto) 68.8 Lymph % (Auto) 24.2 [place] % (Auto) 5.8 Eos % (Auto) 0.3 Baso % (Auto) 0.4 Lymph # (Auto) 2.4 [place] # (Auto) 0.6 Eos # (Auto) 0.0 Baso # (Auto) 0.0 Abs Immat Gran (auto) 0.05 H Absolute Neuts (auto) 6.9 Absolute Nucleated RBC 0.000 Nucleated RBC % (auto) 0.0 PT INR APTT Sodium 138 Potassium 5.6 H Chloride 101 Carbon Dioxide 29 Anion Gap 14 BUN 7 L Creatinine 0.81 Estim Creat Clear Calc 90.5 Estimated GFR > 60 Random Glucose 134 H Calcium 10.4 H Phosphorus Magnesium 2.0 Total Bilirubin 0.5 AST 25 ALT 27 Alkaline Phosphatase 67 Total Creatine Kinase 45 Troponin I High Sens B-Natriuretic Peptide Total Protein 7.0 Albumin 4.5 TSH 0.34 Free T4 COVID-19 ([facility]) COVID-19 Clin Com 04/23/21 04/23/21 04/23/21 09:10 09:10 09:10 WBC RBC Hgb Hct MCV MCH MCHC RDW Plt Count MPV Immature Gran % (Auto) Neut % (Auto) Lymph % (Auto) [place] % (Auto) Eos % (Auto) Baso % (Auto) Lymph # (Auto) [place] # (Auto) Eos # (Auto) Baso # (Auto) Abs Immat Gran (auto) Absolute Neuts (auto) Absolute Nucleated RBC Nucleated RBC % (auto) PT 14.8 H INR 1.3 H APTT 33.0 Sodium Potassium Chloride Carbon Dioxide Anion Gap BUN Creatinine Estim Creat Clear Calc Estimated GFR Random Glucose Calcium Phosphorus Magnesium Total Bilirubin AST ALT Alkaline Phosphatase Total Creatine Kinase Troponin I High Sens 28.2 H* B-Natriuretic Peptide Total Protein Albumin TSH Free T4 1.12 COVID-19 ([facility]) COVID-19 [employer] 04/23/21 04/23/21 04/23/21 09:11 11:29 19:14 WBC RBC Hgb Hct MCV MCH MCHC RDW Plt Count MPV Immature Gran % (Auto) Neut % (Auto) Lymph % (Auto) [place] % (Auto) Eos % (Auto) Baso % (Auto) Lymph # (Auto) [place] # (Auto) Eos # (Auto) Baso # (Auto) Abs Immat Gran (auto) Absolute Neuts (auto) Absolute Nucleated RBC Nucleated RBC % (auto) PT INR APTT Sodium 141 Potassium 2.9 L D Chloride 105 Carbon Dioxide 28 Anion Gap 11 L BUN 6 L Creatinine 0.68 Estim Creat Clear Calc 107.9 Estimated GFR > 60 Random Glucose 125 H Calcium 9.1 D Phosphorus 2.8 Magnesium 2.0 Total Bilirubin AST ALT Alkaline Phosphatase Total Creatine Kinase Troponin I High Sens 27.2 H* B-Natriuretic Peptide Total Protein Albumin TSH Free T4 COVID-19 ([facility]) Negative COVID-19 [employer] See Note 04/23/21 04/23/21 04/24/21 21:20 21:20 04:14 WBC 11.2 H RBC 4.48 Hgb 13.5 Hct 38.8 MCV 86.6 MCH 30.1 MCHC 34.8 RDW 11.9 Plt Count 193 MPV 10.1 Immature Gran % (Auto) 0.3 Neut % (Auto) 59.5 Lymph % (Auto) 31.8 [place] % (Auto) 6.2 Eos % (Auto) 1.8 Baso % (Auto) 0.4 Lymph # (Auto) 3.6 [place] # (Auto) 0.7 Eos # (Auto) 0.2 Baso # (Auto) 0.0 Abs Immat Gran (auto) 0.03 Absolute Neuts (auto) 6.7 Absolute Nucleated RBC 0.000 Nucleated RBC % (auto) 0.0 PT INR APTT Sodium Potassium 2.7 L Chloride Carbon Dioxide Anion Gap BUN Creatinine Estim Creat Clear Calc Estimated GFR Random Glucose Calcium Phosphorus Magnesium Total Bilirubin AST ALT Alkaline Phosphatase Total Creatine Kinase Troponin I High Sens 13.9 B-Natriuretic Peptide Total Protein Albumin TSH Free T4 COVID-19 ([facility]) [facility] 04/24/21 04/24/21 04/24/21 04:14 04:14 04:14 WBC RBC Hgb Hct MCV MCH MCHC RDW Plt Count MPV Immature Gran % (Auto) Neut % (Auto) Lymph % (Auto) [place] % (Auto) Eos % (Auto) Baso % (Auto) Lymph # (Auto) [place] # (Auto) Eos # (Auto) Baso # (Auto) Abs Immat Gran (auto) Absolute Neuts (auto) Absolute Nucleated RBC Nucleated RBC % (auto) PT 15.0 H INR 1.3 H APTT 31.8 Sodium Potassium Chloride Carbon Dioxide Anion Gap BUN Creatinine Estim Creat Clear Calc Estimated GFR Random Glucose Calcium 8.6 Phosphorus 4.7 H Magnesium 1.9 Total Bilirubin AST ALT Alkaline Phosphatase Total Creatine Kinase Troponin I High Sens B-Natriuretic Peptide 172 H Total Protein Albumin TSH Free T4 COVID-19 ([facility]) COVID-19 [employer] 04/24/21 05:24 WBC RBC Hgb Hct MCV MCH MCHC RDW Plt Count MPV Immature Gran % (Auto) Neut % (Auto) Lymph % (Auto) [place] % (Auto) Eos % (Auto) Baso % (Auto) Lymph # (Auto) [place] # (Auto) Eos # (Auto) Baso # (Auto) Abs Immat Gran (auto) Absolute Neuts (auto) Absolute Nucleated RBC Nucleated RBC % (auto) PT INR APTT Sodium 140 Potassium 3.1 L Chloride 104 Carbon Dioxide 27 Anion Gap 12 BUN 4 L Creatinine 0.66 Estim Creat Clear Calc 111.1 Estimated GFR > 60 Random Glucose 119 H Calcium 8.8 Phosphorus Magnesium Total Bilirubin AST ALT Alkaline Phosphatase Total Creatine Kinase Troponin I High Sens B-Natriuretic Peptide Total Protein Albumin TSH Free T4 COVID-19 ([facility]) COVID-19 Clin Com Airway Mallampati Class: II TM Dist: >3cm Neck ROM: Full Heart: vRRR Lungs: CTA Assessment and Plan Final Anesthetic Review Family History of Problems with Anesthesia: No History of Problems with Anesthesia: No
--- NOTE | 2021-04-24 10:20 | PC.NURSE ---
Addendum entered by David Ricketts RN 04/24/21 15:36: x2 episodes vpaced up to 120, x40 beats, asymptomatic, BP stable, then AV paced temporarily, now A paced. MD aware. No changes at this time. Addendum entered by David Ricketts RN 04/24/21 12:49: Pt returned from OR at 1200. VSS, apaced 60s bpm. Pt is tired, oriented x4. Passed swallow eval. Bed locked and in lowest position. 20meq K given. tyenol given for mild back pain. Original Note: Report given to OR nurse at bedside. Pt taken to OR at 0937, dopamine drip was turned off along with IV potassium per anesthesiologist.
--- NOTE | 2021-04-24 12:04 | PM.CCPN ---
Subjective Subjective Date of Service: 04/24/21 Interval History: 55-year-old female with symptomatic bradycardia primarily sinus node dysfunction but there is evidence of AV joanne disease as well with prolonged AV delay and with secondary QT prolongation with was having nonsustained runs of V-tach and therefore a torsade risk She now had an uneventful uncomplicated permanent dual-chamber pacemaker placement with base rate of 60 QRS has narrowed in to a degree no significant ventricular ectopy Post pacemaker she is out of bed able to eat QT interval has narrow to 476 milliseconds with no ventricular ectopy so the device worked well in theory Critical Care Time (minutes): 60 Physical Exam Vital Signs: Vital Signs: Last Vital Signs Temp 97.8 F 04/24/21 08:00 Pulse 39 L 04/24/21 09:00 Resp 22 H 04/24/21 09:00 BP 111/53 L 04/24/21 09:00 Pulse Ox 96 04/24/21 08:00 Body Mass Index 23.0 Awake alert and nonfocal neurologically Currently the atrially paced and occasionally actually AV paced as a demonstration that she has more diffuse conduction disease then just sinus joanne to pacemaker is working appropriately Warm well perfused with intact skin and chest x-ray demonstrating no complication, no pneumothorax and excellent wire position in right atrial appendage and right ventricular apex Chest clear without adventitious sounds Benign abdomen Objective Data Labs CBC & Chem 7: 04/24/21 04:14 04/25/21 07:50 Labs: Laboratory Results - last 24 hr 04/23/21 04/23/21 04/23/21 09:10 11:29 19:14 WBC RBC Hgb Hct MCV MCH MCHC RDW Plt Count MPV Immature Gran % (Auto) Neut % (Auto) Lymph % (Auto) [place] % (Auto) Eos % (Auto) Baso % (Auto) Lymph # (Auto) [place] # (Auto) Eos # (Auto) Baso # (Auto) Abs Immat Gran (auto) Absolute Neuts (auto) Absolute Nucleated RBC Nucleated RBC % (auto) PT INR APTT Sodium 141 Potassium 2.9 L D Chloride 105 Carbon Dioxide 28 Anion Gap 11 L BUN 6 L Creatinine 0.68 Estim Creat Clear Calc 107.9 Estimated GFR > 60 Random Glucose 125 H Calcium 9.1 D Phosphorus 2.8 Magnesium 2.0 Troponin I High Sens 27.2 H* B-Natriuretic Peptide Free T4 1.12 04/23/21 04/23/21 04/24/21 21:20 21:20 04:14 WBC 11.2 H RBC 4.48 Hgb 13.5 Hct 38.8 MCV 86.6 MCH 30.1 MCHC 34.8 RDW 11.9 Plt Count 193 MPV 10.1 Immature Gran % (Auto) 0.3 Neut % (Auto) 59.5 Lymph % (Auto) 31.8 [place] % (Auto) 6.2 Eos % (Auto) 1.8 Baso % (Auto) 0.4 Lymph # (Auto) 3.6 [place] # (Auto) 0.7 Eos # (Auto) 0.2 Baso # (Auto) 0.0 Abs Immat Gran (auto) 0.03 Absolute Neuts (auto) 6.7 Absolute Nucleated RBC 0.000 Nucleated RBC % (auto) 0.0 PT INR APTT Sodium Potassium 2.7 L Chloride Carbon Dioxide Anion Gap BUN Creatinine Estim Creat Clear Calc Estimated GFR Random Glucose Calcium Phosphorus Magnesium Troponin I High Sens 13.9 B-Natriuretic Peptide Free T4 04/24/21 04/24/21 04/24/21 04:14 04:14 04:14 WBC RBC Hgb Hct MCV MCH MCHC RDW Plt Count MPV Immature Gran % (Auto) Neut % (Auto) Lymph % (Auto) [place] % (Auto) Eos % (Auto) Baso % (Auto) Lymph # (Auto) [place] # (Auto) Eos # (Auto) Baso # (Auto) Abs Immat Gran (auto) Absolute Neuts (auto) Absolute Nucleated RBC Nucleated RBC % (auto) PT 15.0 H INR 1.3 H APTT 31.8 Sodium Potassium Chloride Carbon Dioxide Anion Gap BUN Creatinine Estim Creat Clear Calc Estimated GFR Random Glucose Calcium 8.6 Phosphorus 4.7 H Magnesium 1.9 Troponin I High Sens B-Natriuretic Peptide 172 H Free T4 04/24/21 05:24 WBC RBC Hgb Hct MCV MCH MCHC RDW Plt Count MPV Immature Gran % (Auto) Neut % (Auto) Lymph % (Auto) [place] % (Auto) Eos % (Auto) Baso % (Auto) Lymph # (Auto) [place] # (Auto) Eos # (Auto) Baso # (Auto) Abs Immat Gran (auto) Absolute Neuts (auto) Absolute Nucleated RBC Nucleated RBC % (auto) PT INR APTT Sodium 140 Potassium 3.1 L Chloride 104 Carbon Dioxide 27 Anion Gap 12 BUN 4 L Creatinine 0.66 Estim Creat Clear Calc 111.1 Estimated GFR > 60 Random Glucose 119 H Calcium 8.8 Phosphorus Magnesium Troponin I High Sens B-Natriuretic Peptide Free T4 Quality Stroke Does the patient have a stroke diagnosis?: No VTE Prior VTE?: No VTE Risk Level:: Medical - low VTE Device Contraindication: N/A - Device Ordered VTE Drug Contraindication: Treatment Not Indicated Progress Note: A&P Assessment and plan (1) Ventricular tachycardia, polymorphic: Status: Acute (2) Symptomatic bradycardia: Status: Acute (3) Sick sinus syndrome due to sinoatrial node dysfunction: Status: Acute (4) Hypokalemia: Status: Acute Assessment and Plan: Doing beautifully post pacemaker now well protected and a candidate to go to telemetry bed to ambulate
--- NOTE | 2021-04-24 12:06 | P.OP_ITS ---
Operative Note Operative Note Date of Service: 04/24/21 Narrative: After sterile preparation and draping using fluoroscopic guidance a [place] dual-chamber permanent pacemaker was placed without complication First perform subclavian venogram without complication highlighting the subclav benigno venous system and then made careful incision and dissection to the level of the prepectoral fascia partially creating the pocket along the plane of the prepectoral fascia and securing all bleeders at that point gained separate entry x2 with the easy success to the subclavian vein passing retrograde with Seldinger technique 2 J-tip guidewires to the right atrium With 6 Sammarinese sheaths by then at 1st passed an active fixation right ventricular lead to the right ventricular apex with screw deployed the wire was well tethered with good injury current a 3 mV of ventricular QRS complex and the im pedance of about a 1000 Ohms in stable capture threshold was 0.5 volts and a 10 volts there was no phrenic irritation so that lead was sewn in tethered to the pectoral muscle in the floor of the pocket I then passed an active fixation right atrial lead to the right atrial appendage with a screw deployed well tethered excellent injury current impedance 450 Ohms 2 million volt P-waves and capture threshold was 1 volt and at 10 volts no evidence of phrenic irritation so that lead was sewn in tethered to the pectoral muscle in the floor of the pocket I then completed dissection along the plane of the prepectoral fascia to create a pocket placed both leads and screw them in place in the generator both well tethered no change in impedance final interrogation was excellent and the lead and generator placed in the pocket and the wound was closed in 3 layers and sterilely dressed patient removed from the table awake alert and intact chest x- ray pending
[2021-04-24] MEDS: Acetaminophen 325 MG TABLET 650 MG PO (12:26)
[2021-04-24 13:17] LABS: Lyme Abs Screen <0.90 index
[2021-04-25] VITALS: BP 94/66; PULSE 62; RESP 18; TEMP 36.9; O2SAT 95
[2021-04-25] MEDS: LORazepam 2 MG/ML VIAL 0.5 MG IVPUSH (01:58)
[2021-04-25] MEDS: Acetaminophen 325 MG TABLET 650 MG PO (01:59)
[2021-04-25 03:37] VITALS: BP 135/84; PULSE 64; RESP 18; TEMP 36.8; O2SAT 97
[2021-04-25 07:08] VITALS: BP 117/72; PULSE 59; RESP 18; TEMP 36.4; O2SAT 96
[2021-04-25 08:23] LABS: Alanine Aminotransferase 22 U/L (0-31); Albumin Level 3.9 g/dL (3.5-5.0); Alkaline Phosphatase 58 U/L (39-117); Anion Gap 11 (12-20); Aspartate Amino Transferase 21 U/L (5-31); Blood Urea Nitrogen 7 mg/dL (9-16); Calcium 9.3 mg/dL (8.4-10.2); Carbon Dioxide 27 mmol/L (22-29); Chloride 104 mmol/L (96-108); Creatinine Clr Calc Pharmacy 104.7; Estimated Glomerular Filt Rate > 60; Glucose Random 103 mg/dL (60-115); Potassium 3.2 mmol/L (3.3-5.1); Sodium 139 mmol/L (135-145); Total Protein 6.3 g/dL (6.5-8.0)
--- NOTE | 2021-04-25 08:51 | MHC.CM.PN ---
Patient lives with ; no prior services, no equipment, patient drives, fully independent. to transport home when ready, plan is home with . CM to follow.
[2021-04-25 10:40] VITALS: O2SAT 98
--- NOTE | 2021-04-25 10:53 | PM.PNCARD ---
Subjective Subjective Date of Service: 04/25/21 Interval history: Feels well. No complaints. Review of Systems Review of Systems Yes all other systems are reviewed and are negative Cardiovascular: Reports as per HPI, Reports no additional cardiovascular complaints, Denies acrocyanosis, Denies cool extremities, Denies painful fingertips, Denies chest pain, Denies chest pain at rest, Denies diaphoresis, Denies syncope, Denies irregular heart rhythm, Denies claudication, Denies leg edema, Reports lightheadedness, Denies palpitations and Denies dyspnea Respiratory: Denies dyspnea Denies syncope Endocrine: Denies palpitations Physical Exam Vital Signs: Last Vital Signs Temp 97.5 F 04/25/21 07:08 Pulse 59 04/25/21 07:08 Resp 18 04/25/21 07:08 BP 117/72 04/25/21 07:08 Pulse Ox 96 04/25/21 07:08 Body Mass Index 23.0 Const General: cooperative and no acute distress [facility] Other: Unremarkable Neck Neck: Yes normal visual inspection Chest Chest palpation & inspection: normal inspection of the chest Resp Auscultation: clear to auscultation bilaterally, no crackles and no wheezes Cardio Jugular venous distension: no JVD Palpation: normal PMI Heart sounds: S1 normal heart sound present, S2 normal heart sound present, no gallops, no murmurs and no rubs GI Palpation (GI): Soft to palpation Back/Spine/Pelvis Other: unremarkable Skin General skin exam: no rashes or lesions noted Neuro Cranial nerves: Yes Other cranial nerve findings present Extrem General: Yes no clubbing, cyanosis or edema Psych Mental Status: other Results Labs and Meds Result diagrams: 04/24/21 04:14 04/25/21 07:50 Lab results: Laboratory Results - last 24 hr 04/23/21 04/25/21 09:10 07:50 Sodium 139 Potassium 3.2 L Chloride 104 Carbon Dioxide 27 Anion Gap 11 L BUN 7 L D Creatinine 0.70 Estim Creat Clear Calc 104.7 Estimated GFR > 60 Random Glucose 103 Calcium 9.3 Total Bilirubin 1.0 AST 21 ALT 22 Alkaline Phosphatase 58 Total Protein 6.3 L Albumin 3.9 Lyme Screen IgG & IgM <0.90 Imaging Radiologist's impression: Impressions Guidance Fluoroscopy 04/24/21 08:43 FINDINGS AND IMPRESSION: Fluoroscopic imaging equipment utilized during pacemaker insertion. The visualized cardiac pacing leads are intact and terminate over the right atrium and apex of right ventricle. Chest X-Ray 04/24/21 12:57 IMPRESSION: No acute pulmonary findings. Pacemaker leads terminate over the right atrium and right ventricle. Chest X-Ray 04/25/21 08:14 IMPRESSION: * No pneumothorax. No evidence of complications from dual-chamber cardiac pacemaker placement. * No evidence of active congestive heart failure. Progress Note: A&P Assessment and plan (1) Symptomatic bradycardia: Status: Acute (2) Ventricular tachycardia, polymorphic: Status: Acute Assessment and Plan: Status post permanent pacemaker implantation for symptomatic bradycardia/PVCs/NSVT. Now feels much better. Normal pacemaker check/CXR unremarkable. Discharge planning. FU in office will be arranged. Fall Risk Details Current Medications: Current Medications Generic Name Dose Route Start Last Admin Trade Name Freq PRN Reason Stop Dose Admin Acetaminophen 650 mg 04/25/21 01:36 04/25/21 01:59 Acetaminophen 325 Mg Tablet PO 650 mg Q6H PRN Administration Pain, Mild (Pain Scale 1-3) Lorazepam 0.5 mg 04/23/21 19:08 04/25/21 01:58 Lorazepam 2 Mg/Ml Vial IVPUSH 0.5 mg Q4H PRN Administration anxiety Time Spent With Patient Time: Total time spent is greater than 50% in coordination of care (as documented) at patient's floor/unit and/or counseling patient: Time with patient: less than 15 minutes Procedures Date of Service Date of Service: 04/25/21
[2021-04-25 10:54] VITALS: BP 126/82; PULSE 67; RESP 18; TEMP 36.5; O2SAT 98
--- NOTE | 2021-04-25 11:18 | P.DS_ITS ---
DS: Providers Provider Date of Service: 04/25/21 Date of admission: 04/23/21 12:28 Primary care physician: Unknown Physician Consults: 04/23/21 13:21 Consult to Cardiology Stat Consulting Provider: Darren Hines Reason for consultation: Bradycardia DS: Diagnosis Discharge Diagnosis (1) Symptomatic bradycardia: Status: Acute (2) Ventricular tachycardia, polymorphic: Status: Acute DS: Summary Hospital Course Hospital Course: Admission note HPI 55-year-old female smoker on no medications with no past medical history no cardiac disease and no family history of cardiac disease or sudden presents with multiple episodes of near-syncope always prevented from falling by grabbing onto a railing or wall and was noted to be in sinus bradycardia with prolonged QT interval of 560 milliseconds with runs of nonsustained V-tach probably bradycardia induced and therefore a risk for torsade Clearly needs to be admitted for permanent pacing as an overdrive mechanism Hospital course The patient was admitted for evaluation of near-syncope and symptomatic bradycardia with prolonged QT interval. Admitted to the ICU where she was monitored and cardiac dual-chamber permanent pacemaker was placed with good response as her symptoms resolved and she was able to ambulate with no reported lightheadedness or near-syncope. QTC resolved. No recurrence of NSVT. Repeated CXR showed no concerns over the place of the pacemaker. Interrogation was done and threshold acceptable. Plan is to follow up with Cardiology in 2 weeks as outpatient. Time Spent with Patient Time attestation: Total time spent providing and/or coordinating discharge services: Discharge coordination time: Greater than 30 minutes Quality: Stroke Does the patient have a stroke diagnosis?: No Physical Exam Vital Signs: Vital Signs: Last Vital Signs Temp 97.7 F 04/25/21 10:54 Pulse 67 04/25/21 10:54 Resp 18 04/25/21 10:54 BP 126/82 04/25/21 10:54 Pulse Ox 98 04/25/21 10:54 Body Mass Index 23.0 Const: Other: Constitutional : Alert, oriented, not in distress Neck : Normal inspection, Supple Cardiovascular : RRR, S1 S2, no lower extremity edema, site of surgery clean with no drainage or bleeding noticed. Respiratory : Good bilateral air entry, no crackles, wheezes or rhonchi Gastrointestinal: soft, lax, Normal bowel sounds, Non tender Skin : Warm, Dry Neurological : Alert & oriented x3, No focal deficit DS: Data Data Completed and Pending Labs on day of discharge: Laboratory Results - last 24 hr 04/23/21 04/25/21 09:10 07:50 Sodium 139 Potassium 3.2 L Chloride 104 Carbon Dioxide 27 Anion Gap 11 L BUN 7 L D Creatinine 0.70 Estim Creat Clear Calc 104.7 Estimated GFR > 60 Random Glucose 103 Calcium 9.3 Total Bilirubin 1.0 AST 21 ALT 22 Alkaline Phosphatase 58 Total Protein 6.3 L Albumin 3.9 Lyme Screen IgG & IgM <0.90 Discharge Plan Discharge Patient Disposition: Home, Self-Care Discharge Diagnosis: Symptomatic bradycardia Referrals: Physician,Unknown [Primary Care Provider] - 1 Week Discharge Medications: Continued amoxicillin-pot clavulanate [Augmentin] 875-125 mg tablet 1 tab PO Q12H 10 Days Qty: 20 RF: 0 Discharge Orders: Discharge Order (Routine); Ordered 04/25/21 Ordered By: Jenna Burt Diet: advance to usual diet Activity on Discharge: As tolerated Stand Alone Forms: Patient Portal Discharge page Care Plan Goals: Read below Health Concerns: Read below Plan of Treatment: You were evaluated for dizziness and weakness. Found to have significantly slow heart rate. Evaluated by divisional merchandising manager who placed a pacemaker with good response as your heart rate improved and her symptoms resolved. You were able to ambulate with no reported dizziness or lightheadedness. Assessment: Keep the wound area covered and clean To follow-up with cardiology in 2 weeks
--- NOTE | 2021-04-25 11:54 | MHC.CM.PN ---
D/C order for home, self care. Patient's transport is today.
[2021-04-26 07:46] LABS: Calcium, Ionized 5.2 mg/dL (4.8-5.6)
[2021-04-26 14:16] LABS: Triiodothyronine T3 Free 3.2 pg/mL (2.3-4.2)
== END 2021-04-25 12:55 | disposition home or self-care (01) | DRG 171 ==
LOC: HO.ED 08:24 → HO.EDOVER 15:31 → HO.ICU 15:33 → HO.IMC 04-24 18:15
PROVIDERS: Physician Assistant; Admitting Provider Internal Medicine Cardiovascular Disease; Emergency Provider Emergency Medicine; Visit Provider Student in an Organized Health Care Education/Training Program
PROC: 0JH606Z Insertion of Pacemaker, Dual Chamber into Chest Subcutaneous Tissue and Fascia, Open Approach (ICD-10-PCS; principal; 2021-04-24 09:00)
DX: R00.1 Bradycardia, unspecified (principal); F17.210 Nicotine dependence, cigarettes, uncomplicated; I47.2 Ventricular tachycardia; F32.9 Major depressive disorder, single episode, unspecified; Z71.6 Tobacco abuse counseling; F41.9 Anxiety disorder, unspecified; Z20.822 Contact with and (suspected) exposure to COVID-19; R94.31 Abnormal electrocardiogram [ECG] [EKG]; Z88.6 Allergy status to analgesic agent
CPT/HCPCS: 36415; 70450; 71045; 80048; 80053; 82310; 82330; 82550; 83735; 83880; 84100; 84132; 84439; 84443; 84481; 84484; 85025; 85610; 85730; 86617; 86618; 87635; 93005; 93306; 96361; 96365; 96366; 99285; 99291; C1785; C1892; J0690; J1265; J2060; J2250; J3475; Q9967

== ENCOUNTER 2021-04-26 07:32 | Emergency (ER) | payer OTHER, SELFPAY ==
[2021-04-26] VITALS (8 sets, daily range): BP systolic 71–156; BP diastolic 30–130; PULSE 60–83; RESP 16–20; TEMP 36.2–36.6; O2SAT 95–98; BMI 23.0; BMI 22.5
--- NOTE | ~2021-04-26 | CT_ITS ---
EXAMINATION: CT ANGIOGRAM OF THE CHEST WITH AND WITHOUT CONTRAST (CT PULMONARY ANGIOGRAM FOR PE) CLINICAL INFORMATION: Reason for Exam syncope, s/p pacemaker insertion/ r/o PE COMPARISON: Previous chest x-ray most recent from earlier the same day TECHNIQUE: Prior to contrast administration, noncontrast localization images were obtained. Subsequently, multidetector volumetric imaging was performed from the thoracic inlet to below the diaphragms following the administration of 65 mL Omnipaque 350 intravenous contrast. No contrast reaction reported Sagittal, coronal, and MIP oblique sagittal reformatted images were obtained on the CT workstation, uploaded to PACS, and reviewed. This CT examination was performed using dose optimization techniques as appropriate, variously including the following: *Automated exposure control *Adjustment of mA and/or kV according to patient size (this includes techniques or standardized protocols for targeted exams where dose is matched to indication/reason for exam; i.e. extremities or head) *Use of iterative reconstruction technique Total exam dose-length product 418 mGy-cm FINDINGS: QUALITY OF STUDY/CONTRAST BOLUS: Satisfactory. PULMONARY ARTERIES: No central or segmental pulmonary emboli. THORACIC AORTA: No aneurysm or dissection. LUNG: No focal consolidation, nodules or masses. PLEURA: No pleural effusion or pneumothorax. MEDIASTINUM: There is a left subclavian pacemaker in satisfactory position. Normal heart size. No pericardial effusion. No hilar or mediastinal lymphadenopathy. No evidence of septal bowing or right heart strain. CHEST WALL/AXILLA: There is a small amount of air seen in the left anterior chest wall adjacent to the new left pacemaker. No fluid collection is seen. OSSEOUS STRUCTURES: There are recent appearing left third through sixth rib fractures.. There are degenerative changes of the spine. UPPER ABDOMEN: Unremarkable. No reflux of contrast into the hepatic veins to suggest elevated right heart pressures. CT/CT angio chest PE protocol IMPRESSION: No evidence of pulmonary embolism. Mild emphysema. Recent-appearing left anterior third through sixth rib fractures. VTE: negative
--- NOTE | ~2021-04-26 | XR_ITS ---
EXAMINATION: XR CHEST CLINICAL INFORMATION: Recent pacer. Assess for pulmonary edema. COMPARISON: Chest radiographs 04/25/2021, 04/24/2021, 08/24/2018. TECHNIQUE: Portable upright AP x2 views of the chest are obtained. FINDINGS: There is bipolar pacemaker with atrial and ventricular leads. The heart is normal in size. The hilar and mediastinal contours are normal. Vascularity is unremarkable. There is no vascular congestion. No airspace consolidation, pleural reaction, or effusion. The costophrenic sulci are clear. XR/XR chest 1V IMPRESSION: Unremarkable examination.
--- NOTE | 2021-04-26 08:49 | ECG_ITS ---
Test Reason : DIZINESS Blood Pressure : / mmHG Vent. Rate : 063 BPM Atrial Rate : 063 BPM P-R Int : 192 ms QRS Dur : 166 ms QT Int : 542 ms P-R-T Axes : 066 -82 090 degrees QTc Int : 554 ms AV dual-paced rhythm with occasional ventricular-paced complexes Abnormal ECG When compared with ECG of 24-APR-2021 12:56, AV dual-paced rhythm is now Present Referred By: Caron Gonzales Electronically Signed By:ALANA AYALA
--- NOTE | 2021-04-26 08:51 | ED_ITS ---
HPI - Dizziness General Chief Complaint: Dizziness Stated Complaint: SOB,FALL,HTN Time Seen by Provider: 04/26/21 07:57 Source: patient and EMS Mode of arrival: EMS Limitations: no limitations History of Present Illness HPI Narrative: Patient comes emergency room complaining of 4 episodes of dizziness in the last 10 hours. Patient states that she has the sensation that the room is spinning, then stops. Patient denies syncopal episodes. Patient was discharged from the hospital yesterday. Two days ago patient had as [place] dual-chamber permanent pacemaker inserted. Patient denies chest pain, no shortness of breath. Related Data Previous Rx's Medication Instructions Recorded amoxicillin 875 mg-potassium 1 tab PO Q12H 10 Days #20 tab 06/04/20 clavulanate 125 mg tablet (Augmentin) Allergies Allergy/AdvReac Type Severity Reaction Status Date / Time aspirin Allergy Unknown Unknown Verified 06/04/20 13:24 ibuprofen Allergy Unknown heartburns Verified 10/29/13 00:00 No Known Allergies Allergy Verified 06/08/20 11:06 [No Known Allergies*] Review of Systems Review of Systems: Constitutional : No Weight loss, No Fever, No Chills, No Night Sweats, No Fatigue, No Malaise ENT/Mouth : No Hearing loss, No Ear Pain, No Nasal Congestion, No Sinus Pain, No Hoarseness, No sore throat, No Rhinorrhea, No Swallowing Difficulty Eyes: No Eye Pain, No Swelling, No Redness, No Foreign Body, No Discharge, No Vision Changes Cardiovascular : No Chest Pain, No SOB, No Dyspnea on Exertion, No Orthopnea, No Edema, No Palpitations Respiratory : No Cough, No Sputum, No Wheezing, No Smoke Exposure, No Dyspnea Gastrointestinal : No Nausea, No Vomiting, No Diarrhea, No Constipation, No abdominal Pain, No Hematochezia, No Melena Genitourinary : no irregular bleeding, No Dysuria, No Urinary Frequency, No Hematuria, No Urinary Incontinence, No Urgency, No Flank Pain, No Urinary Flow Changes, No Hesitancy Musculoskeletal : No joint pain, No Myalgias, No Joint Swelling Skin : No Skin Lesions, No rash Neuro : No Weakness, No Numbness, No Paresthesias, No Loss of Consciousness, complaining of dizziness/room spinning No Headache Psych : No Anxiety/Panic, No Depression, No SI/HI/AH/VH, No Social Issues, Heme/Lymph: No Bruising, No Bleeding,No Lymphadenopathy Endocrine : No Polyuria, No Polydipsia, No Temperature Intolerance [facility] Past Medical History Medical History Anxiety Depression Social History Social History Household Members: Family Housing: House Do you presently have visiting nurse or other home services: No Alcohol intake: never Patient Tobacco Use Status: Current everyday Tobacco user Tobacco use type: Cigarette Cigarette Packs Per Day: 1 Cigarettes Per Day: 20.0 e-Cigarette/Vaping Use: Never Used Use of substances other than those prescribed or required for medical reasons: No Substance Use Type: Marijuana Advance Directives: No Advance Directives Information Provided: No Advance Directives Date on File: 04/23/21 Patient : No Physical Exam Vital Signs: Vital Signs: Last Vital Signs Temp 97.9 F 04/26/21 14:05 Pulse 60 04/26/21 15:13 Resp 18 04/26/21 15:13 BP 131/90 H 04/26/21 15:13 Pulse Ox 96 04/26/21 15:13 Body Mass Index 23.0 Const: Other: Appearance: Alert. Oriented X3. No acute distress. Eyes: Pupils equal, round and reactive to light. ENT: Pharynx normal. Neck: Normal inspection. Neck supple. No lymph nodes noted. No crepitus CVS: Normal heart rate and rhythm. Pulses normal. Normal S1 and S2 Respiratory: No respiratory distress. Breath sounds normal. No Wheezing. No rales Abdomen: Soft and nontender. No rigidity. No distention. good BS x4 Skin: Skin warm and dry. Normal skin color. Normal skin turgor. Extremities: No lower extremity edema. No Lacerations. No Rash Neuro: Oriented X 3. No motor deficit. No sensory deficit. Moving all extermities. No slurred speech. Course Course Course Narrative: Around 945, patient was found wandering in the hallways, stating that no one has talked to her, patient states that she was feeling dizzy and she put her back against the wall in the hallway and lowered herself down. Patient did not hit her head, did not lose consciousness. I told the patient that we had previously discussed the reason she came to the hospital, her discharge, her pacemaker. Patient states that she does not remember at all having any conversation with me or her nurse. Patient was escorted back to her bed. At this time, patient was able to walk back to her bed, did not feel dizzy. Patient's labs are pending. At this time, EKG still pending. Unfortunately, we do not have any rooms available, no techs. EKG has been requested multiple times. Unfortunately, the EKG machine is broken Patient remains asymptomatic, I discussed the patient with Dr. Delgado. At this time, we will go ahead and obtain a CT scan to rule out PE, the echocardiogram has already been ordered, it is pending. Echocardiogram was reviewed by Dr. Delgado, seems that the patient has Takotsubo cardiomyopathy. Patient has an ejection fraction of approximately 30%, fluids have been discontinued. Patient will be started on heparin bolus and drip, patient will be transferred to [facility] to the cardiac catheterization lab The CTA for PE study radiology report is still pending CTA was negative for PE. Dr. Delgado helped us to arrange the transfer to [facility]. MDM - Dizziness Lab Data Result diagrams: 04/26/21 12:23 04/26/21 12:23 Labs: Lab Results 04/26/21 04/26/21 04/26/21 Range/Units 12:23 12:23 12:23 WBC 12.1 H (4.8-10.8) X10*3/uL RBC 4.82 (4.20-5.50) X10*6/uL Hgb 14.5 (12.0-16.0) g/dl Hct 41.4 (37-47) % MCV 85.9 (80-98) fL MCH 30.1 (27.0-33.0) pg MCHC 35.0 (31.0-35.0) g/dl RDW 11.8 (11.0-16.0) % Plt Count 203 (160-400) X10*3/uL MPV 10.3 (9.4-12.3) fL Immature Gran % (Auto) 0.3 (0.0-0.4) % Neut % (Auto) 57.7 (45-73) % Lymph % (Auto) 34.6 (20-40) % Barton % (Auto) 6.4 (2-11) % Eos % (Auto) 0.7 (0-4) % Baso % (Auto) 0.3 (0-2) % Lymph # (Auto) 4.2 (1.2-4.9) X10*3/uL Barton # (Auto) 0.8 (0.1-1.2) X10*3/uL Eos # (Auto) 0.1 (0.0-0.4) X10*3/uL Baso # (Auto) 0.0 (0.0-0.2) X10*3/uL Abs Immat Gran (auto) 0.04 H (0.00-0.03) X10*3/uL Absolute Neuts (auto) 7.0 (2.0-8.3) X10*3/uL Absolute Nucleated RBC 0.000 (0.0-0.012) X10*3/uL Nucleated RBC % (auto) 0.0 (0.0-0.2) /100WBC Sodium 141 (135-145) mmol/L Potassium 3.7 (3.3-5.1) mmol/L Chloride 102 (96-108) mmol/L Carbon Dioxide 29 (22-29) mmol/L Anion Gap 14 (12-20) BUN 7 L (9-16) mg/dL Creatinine 0.80 (0.5-1.4) mg/dL Estim Creat Clear Calc 91.6 Estimated GFR > 60 Random Glucose 134 H (60-115) mg/dL Calcium 9.8 (8.4-10.2) mg/dL Total Bilirubin 0.8 (0.0-1.0) mg/dL Direct Bilirubin 0.3 (0.0-0.5) mg/dL AST 38 H D (5-31) U/L ALT 39 H (0-31) U/L Alkaline Phosphatase 59 (39-117) U/L Troponin I High Sens 1024.7 H* D (<3.5-17.0) ng/L B-Natriuretic Peptide 1072 H (<100) pg/mL Total Protein 6.8 (6.5-8.0) g/dL Albumin 4.4 (3.5-5.0) g/dL Discharge Plan Discharge Clinical Impression: Elevated troponin, Takotsubo cardiomyopathy Patient Disposition: Xfer Acute Care Hospital Transfer Details: [facility] Prescriptions: No Action amoxicillin-pot clavulanate [Augmentin] 875-125 mg tablet 1 tab PO Q12H 10 Days Qty: 20 RF: 0
--- NOTE | 2021-04-26 09:07 | HO.POSTANES ---
Post Anesthesia Evaluation Post Anesthesia Evaluation Vital Signs: Vital Signs Temp Pulse Resp BP Pulse Ox 04/26/21 07:51 97.1 F 60 17 135/95 H 95 Anesthesia: Monitored Mental Status: Awake Pain Control: Satisfactory Nausea/Vomiting: None Hydration: Adequate Anesthesia-Related Issues: No Anes. Related Issues
[2021-04-26] MEDS: Meclizine HCl 25 MG TABLET 50 MG PO (10:17)
[2021-04-26 12:27] LABS: MANUAL DIFF FLAG NO
[2021-04-26 12:32] LABS: Basophils Percent Auto 0.3 % (0-2); Eosinophils Absolute Auto 0.1 X10*3/uL (0.0-0.4); Eosinophils Percent Auto 0.7 % (0-4); Hematocrit 41.4 % (37-47); Hemoglobin 14.5 g/dl (12.0-16.0); Imm Gran Abs Auto 0.04 X10*3/uL (0.00-0.03); Imm Gran Pct Auto 0.3 % (0.0-0.4); Lymphocytes Absolute Auto 4.2 X10*3/uL (1.2-4.9); Lymphocytes Percent Auto 34.6 % (20-40); Mean Corpuscular Hemoglobin 30.1 pg (27.0-33.0); Mean Corpuscular Volume 85.9 fL (80-98); Mean Platelet Volume 10.3 fL (9.4-12.3); Monocytes Absolute Auto 0.8 X10*3/uL (0.1-1.2); Monocytes Percent Auto 6.4 % (2-11); Neutrophils Percent Auto 57.7 % (45-73); Platelet Count 203 X10*3/uL (160-400); Red Blood Count 4.82 X10*6/uL (4.20-5.50); Red Cell Distribution Width 11.8 % (11.0-16.0); White Blood Count 12.1 X10*3/uL (4.8-10.8)
[2021-04-26 12:49] LABS: Alanine Aminotransferase 39 U/L (0-31); Albumin Level 4.4 g/dL (3.5-5.0); Alkaline Phosphatase 59 U/L (39-117); Anion Gap 14 (12-20); Aspartate Amino Transferase 38 U/L (5-31); Bilirubin Direct 0.3 mg/dL (0.0-0.5); Bilirubin Total 0.8 mg/dL (0.0-1.0); Blood Urea Nitrogen 7 mg/dL (9-16); Calcium 9.8 mg/dL (8.4-10.2); Carbon Dioxide 29 mmol/L (22-29); Chloride 102 mmol/L (96-108); Creatinine Clr Calc Pharmacy 91.6; Estimated Glomerular Filt Rate > 60; Glucose Random 134 mg/dL (60-115); Potassium 3.7 mmol/L (3.3-5.1); Sodium 141 mmol/L (135-145); Total Protein 6.8 g/dL (6.5-8.0)
[2021-04-26 12:59] LABS: B Type Natriuretic Peptide 1072 pg/mL (<100)
--- NOTE | 2021-04-26 13:16 | CA_ITS ---
Transthoracic Echocardiogram Patient (Last, First, Middle): Ivette Mckenzie, Gender: Female Date of : 1965 Age: 55 Procedure Date: 04/26/2021 Procedure Type: Transthoracic Echocardiogram Location: ER Height: 182.88 cm Weight: 77.11 kg BSA: 1.99 m2 Heart Rate: bpm BP: 104 / 74 mmHg Tape Coater: Referring MD: Caron Gonzales MD Symptoms: s/p pacemaker, elevated trop, BNP Study Quality: Fair/Contrast Conclusions: - The left ventricular systolic function is moderately decreased. The visually estimated ejection fraction is between 30-35%. - The entire apex, the mid anterior, mid inferior, mid anterolateral, mid inferoseptal, mid anteroseptal, and mid inferolateral segments are akinetic. - Takotsubo vs multivessel disease. Findings Procedure Information Contrast agent, definity, is being given per protocol without apparent complications. Left Ventricle Normal left ventricular cavity size. There is normal left ventricular wall thickness. The left ventricular systolic function is moderately decreased. The visually estimated ejection fraction is between 30-35%. There is evidence of regional wall motion abnormalities. Diastolic function is indeterminate on the basis of available data. Wall Motion Rest Echo Findings The entire apex, the mid anterior, mid inferior, mid anterolateral, mid inferoseptal, mid anteroseptal, and mid inferolateral segments are akinetic. Right Ventricle Normal right ventricular cavity size and systolic function. Venous The inferior vena cava is normal in size and collapses greater than 50% with inspiration. Pericardium/Pleural There is no evidence of pericardial effusion. Prior Study Comparison Significant changes compared to prior study dated: 04/23/2021. EF 30-35% with RWMA Measurements 2D Linear Measurements IVSd: 0.87 0.6-0.9/0.6-1.0 cm LVIDd: 4.81 3.9-5.3/4.2-5.9 cm LVIDd Index: 2.42 2.4-3.2/2.2-3.1 cm/m2 LVIDs: 3.77 2.0-3.6 cm LVPWd: 1.05 0.7-1.1 cm LV Mass: 201.00 67-162/88-224 g LV Mass Index: 101.00 43-95/49-115 g/m2 2D Systolic Function EF 4C: 20.70 >55% EF 2C: 22.00 >55% EF BiP: 21.40 >55% Mitral Valve E'Lateral: 11.90 E'Medial: 4.35 Diastolic Function E'Medial: 4.35 E' Laterial: 11.90 Tricuspid Valve TR Pk Garcia: 2.39 TR Pk Grad: 23.00 Updated in Other Vendor System with Status of Final Nick Delgado MD electronically signed on 04/26/2021 4:56:33 PM with status of Final
[2021-04-26] MEDS: 0.9 % Sodium Chloride 1,000 ML 999 ML IVCONT (15:11)
[2021-04-26] MEDS: iohexoL 350 MG/ML 100 ML INFUS..BTL IV (15:47)
--- NOTE | 2021-04-26 16:03 | PC.NURSE ---
IV fluids stopped at this time per Dr. Gonzales. Dr. Gonzales to patients bedside to update patient on plan of care for heparin and possible transfer to [facility]
--- NOTE | 2021-04-26 16:47 | P.CONCA_ITS ---
History of Present Illness History of Present Illness Date of Service: 04/26/21 Requesting physician: Caron Gonzales Chief complaint: NSTEMI Narrative: 55-year-old female who presented to [facility] on April 23 with symptomatic sinus bradycardia and underwent permanent pacemaker placement. She said she did fine after going home but then started developing dizziness and lightheadedness. With these symptoms she presented to us. She was found to be orthostatic. Her high sensitivity troponin levels were elevated along with BNP level. She denied any chest discomfort or shortness of breath. Echocardiography showing LAD territory wall motion abnormality. The presentation seems more like takotsubo rather than multivessel disease. She also had CT pulmonary angiogram in the ER which did not show any pulmonary embolism. She was found to be orthostatic which is likely cause for her dizziness. She was given IV fluids in the ER. Review of Systems Review of Systems: Dizziness Yes all other systems are reviewed and are negative PMFSH Past Medical History Medical History Anxiety Depression Social History Social History Household Members: Family Housing: House Do you presently have visiting nurse or other home services: No Alcohol intake: never Patient Tobacco Use Status: Current everyday Tobacco user Tobacco use type: Cigarette Cigarette Packs Per Day: 1 Cigarettes Per Day: 20.0 e-Cigarette/Vaping Use: Never Used Substance Use Type: Marijuana Advance Directives Date on File: 04/23/21 Meds Allergies Allergy/AdvReac Type Severity Reaction Status Date / Time aspirin Allergy Unknown Unknown Verified 06/04/20 13:24 ibuprofen Allergy Unknown heartburns Verified 10/29/13 00:00 No Known Allergies Allergy Verified 06/08/20 11:06 [No Known Allergies*] Active Medications: Current Medications Generic Name Dose Route Start Last Admin Trade Name Freq PRN Reason Stop Dose Admin Heparin Sodium (Porcine) 3,100 unit 04/26/21 16:15 Heparin Sodium,Porcine 5,000 Unit/Ml Vial 40 unit/kg (3100 unit) IVPUSH PROTOCOL BOLUS PRN 40 unit/kg - Heparin Protocol Protocol Heparin Sodium/Sodium Chloride 25,000 unit in 250 mls @ 0 mls/hr 04/26/21 16:15 IVCONT .Q0M HORACE Protocol Per Protocol Physical Exam Vital Signs: Vital Signs: Last Vital Signs Temp 97.9 F 04/26/21 14:05 Pulse 60 04/26/21 15:13 Resp 18 04/26/21 15:13 BP 131/90 H 04/26/21 15:13 Pulse Ox 96 04/26/21 15:13 Body Mass Index 23.0 GENERAL APPEARANCE: in no acute distress, pleasant. NECK: no carotid bruit, no jugular venous distention. SKIN: left chest wall pacemaker site looks stable. HEART: no murmurs, regular rate and rhythm. LUNGS: clear to auscultation bilaterally. ABDOMEN: soft, nontender. EXTREMITIES: no edema. PERIPHERAL PULSES: equal. NEUROLOGIC: No gross deficits, AAO X 3 Results Labs and Meds Result diagrams: 04/26/21 17:48 04/26/21 12:23 Lab results: Laboratory Results - last 24 hr 04/26/21 04/26/21 04/26/21 12:23 12:23 12:23 WBC 12.1 H RBC 4.82 Hgb 14.5 Hct 41.4 MCV 85.9 MCH 30.1 MCHC 35.0 RDW 11.8 Plt Count 203 MPV 10.3 Immature Gran % (Auto) 0.3 Neut % (Auto) 57.7 Lymph % (Auto) 34.6 Hall % (Auto) 6.4 Eos % (Auto) 0.7 Baso % (Auto) 0.3 Lymph # (Auto) 4.2 Hall # (Auto) 0.8 Eos # (Auto) 0.1 Baso # (Auto) 0.0 Abs Immat Gran (auto) 0.04 H Absolute Neuts (auto) 7.0 Absolute Nucleated RBC 0.000 Nucleated RBC % (auto) 0.0 Sodium 141 Potassium 3.7 Chloride 102 Carbon Dioxide 29 Anion Gap 14 BUN 7 L Creatinine 0.80 Estim Creat Clear Calc 91.6 Estimated GFR > 60 Random Glucose 134 H Calcium 9.8 Total Bilirubin 0.8 Direct Bilirubin 0.3 AST 38 H D ALT 39 H Alkaline Phosphatase 59 Troponin I High Sens 1024.7 H* D B-Natriuretic Peptide 1072 H Total Protein 6.8 Albumin 4.4 Imaging Radiologist's impression: Impressions Chest X-Ray 04/26/21 13:03 IMPRESSION: Unremarkable examination. Chest CTA 04/26/21 14:08 IMPRESSION: No evidence of pulmonary embolism. Mild emphysema. Recent-appearing left anterior third through sixth rib fractures. VTE: negative Assessment and Plan (1) Elevated troponin: Status: Acute (2) Takotsubo cardiomyopathy: Status: Acute Pleasant 55-year-old female who recently had permanent pacemaker placement who is presenting with dizziness. She has been found to be orthostatic and given IV fluids. Her high sensitivity troponin level significantly elevated lot with the BNP level. Echocardiography showing reduced ejection fraction of 30 35% with distal 2/3 of the left ventricle showing severe akinesis with normal basal function. Overall echocardiography is consistent with takotsubo cardiomyopathy. Obviously multivessel disease cannot be ruled out. I have discussed with her in detail and we are going to transfer to [facility] to undergo cardiac catheterization tomorrow. Keep NPO after midnight. In the meantime she should stay on aspirin heparin drip. Dizziness is due to orthostatic hypertension. She has been given IV fluids. I would be careful with too much fluids as she has reduced ejection fraction. Thank you for allowing me to participate in the care of your patient. Please feel free to contact me if you have any questions. Procedures Date of Service Date of Service: 04/26/21
[2021-04-26] MEDS: Aspirin Enteric Coated 325 MG TABLET.DR PO (17:50)
[2021-04-26] MEDS: Heparin Sodium,Porcine 5,000 UNIT/ML VIAL 4000 UNIT IVPUSH (17:50)
[2021-04-26] MEDS: Heparin Sodium,Porcine/1/2NS 25,000 UNIT/250 ML IV.SOLN 9.25 UNIT IVCONT (17:54)
[2021-04-26 18:00] LABS: Hematocrit 38.5 % (37-47); Hemoglobin 13.6 g/dl (12.0-16.0); Mean Corpuscular HGB Conc 35.3 g/dl (31.0-35.0); Mean Corpuscular Hemoglobin 30.4 pg (27.0-33.0); Mean Corpuscular Volume 85.9 fL (80-98); Mean Platelet Volume 10.5 fL (9.4-12.3); Platelet Count 177 X10*3/uL (160-400); Red Blood Count 4.48 X10*6/uL (4.20-5.50); Red Cell Distribution Width 11.9 % (11.0-16.0); White Blood Count 11.3 X10*3/uL (4.8-10.8)
[2021-04-26 18:01] LABS: INTERNATIONAL NORM RATIO 1.4 (0.9-1.1); Prothrombin Time 16.1 SEC (9.9-13.0)
[2021-04-26 18:03] LABS: Partial Thromboplastin Time 31.3 SEC (24.1-38.0)
[2021-04-26 18:13] LABS: COVID-19 Test Negative (Negative); IDNOW Serial# 9DD0AD1C
== END 2021-04-26 18:25 | disposition short-term general hospital (02) ==
PROVIDERS: Emergency Provider Emergency Medicine
DX: I51.81 Takotsubo syndrome (principal); R77.8 Other specified abnormalities of plasma proteins; R42 Dizziness and giddiness; R06.02 Shortness of breath; Z20.822 Contact with and (suspected) exposure to COVID-19; Z79.899 Other long term (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
CPT/HCPCS: 36415; 71045; 71275; 80048; 80076; 83880; 84484; 85025; 85027; 85610; 85730; 87635; 93005; 93308; 96361; 96365; 96366; 96375; 96376; 99285; Q9957; Q9967

== ENCOUNTER 2023-09-27 11:40 | Emergency (ER) | payer MEDICAID, SELFPAY ==
--- NOTE | ~2023-09-27 | XR_ITS ---
EXAMINATION: XR HIP, LEFT CLINICAL INFORMATION: Left hip pain. Injury COMPARISON: None available. TECHNIQUE: Two views of the left hip. AP view pelvis FINDINGS: There is normal symmetry of bilateral hip joints and SI joints. No visible acute fracture, dislocation or subluxation seen. SI joints are symmetrical and normal. The soft tissues are normal. AP and lateral frog-leg views left hip reveal maintained left hip joint space. There is no visible acute fracture or dislocation. The soft tissues are normal. XR/XR hip LT w [id number] IMPRESSION: Unremarkable left hip exam. No visible acute fracture or dislocation seen. Unremarkable AP pelvis.
--- NOTE | ~2023-09-27 | XR_ITS ---
EXAMINATION: XR LUMBOSACRAL SPINE CLINICAL INFORMATION: Injury rule out fracture COMPARISON: None available. TECHNIQUE: Three views of the lumbosacral spine. FINDINGS: Moderate leftward convexity centered at L3. There is trace right lateral listhesis of L2 on L3 and left lateral listhesis of L3 on L4. Vertebral body heights appear maintained. There is no evidence of acute fracture. Moderate to advanced multilevel degenerative disc disease with endplate osteophyte formation and facet arthropathy. No abnormality of the visualized bony pelvis. No soft tissue abnormality is identified. XR/XR lumbar spine 2-3V IMPRESSION: 1. No evidence of acute fracture 2. Leftward convexity of the lumbar spine and moderate to advanced multilevel spondylosis.
[2023-09-27 16:18] VITALS: BP 158/84; PULSE 98; RESP 15; TEMP 36.1; O2SAT 97; BMI 21.7
--- NOTE | 2023-09-27 16:26 | ED_ITS ---
HPI - General Adult General Chief complaint: Extremity Injury, Lower Stated complaint: L Side Low Back Hip Leg Pain Related Data Previous Rx's Medication Instructions Recorded amoxicillin 875 mg-potassium 1 tab PO Q12H 10 days #20 tabs 06/04/20 clavulanate 125 mg tablet (Augmentin) Allergies Allergy/AdvReac Type Severity Reaction Status Date / Time aspirin Allergy Unknown Unknown Verified 06/04/20 13:24 ibuprofen Allergy Unknown heartburns Verified 10/29/13 00:00 [facility] Past Medical History Medical History Anxiety Depression Social History Social History Household Members: Family Housing: House Do you presently have visiting nurse or other home services: No Alcohol intake: never Patient Tobacco Use Status: Current everyday Tobacco user Tobacco use type: Cigarette Cigarette Packs Per Day: 1 Cigarettes Per Day: 20.0 e-Cigarette/Vaping Use: Never Used Substance Use Type: Marijuana Advance Directives: No Advance Directives Date on File: 04/23/21 Physical Exam ED Vital Signs: Vital Signs - 24 hr 09/27/23 16:18 Temperature 97.0 F Pulse Rate 98 Respiratory Rate 15 Blood Pressure 158/84 H Pulse Oximetry 97 Oxygen Delivery Method Room Air BMI result Body Mass Index 21.7 Course Course Course Narrative: Patient complains of left hip and low back pain after a minor fall, is concerned and wants x-rays, denies any numbness weakness or incontinence, denies other injury Injury occurred over a month ago X-rays ordered This rapid medical exam done in triage pending full evaluation and dispo by ER provider Discharge Plan Discharge Prescriptions: No Action amoxicillin-pot clavulanate [Augmentin] 875-125 mg tablet 1 tab PO Q12H 10 Days Qty: 20 0RF Interventions: LWBS Worksheet Last Done: 09/27/23 12:26
== END 2023-09-27 20:40 | disposition left against medical advice (07) ==
PROVIDERS: Emergency Provider Emergency Medicine
DX: M25.552 Pain in left hip (principal); M54.50 Low back pain, unspecified; Z91.81 History of falling
CPT/HCPCS: 72100; 73502; 99281; 99283

== ENCOUNTER 2023-09-27 21:19 | Emergency (ER) | payer MEDICAID, SELFPAY ==
[2023-09-27 21:24] VITALS: BP 140/85; PULSE 87; RESP 18; TEMP 36.4; O2SAT 94; BMI 21.7
--- OUTSIDE RECORDS SUMMARY | 2023-09-28 01:34 | XMS_ITS | Continuity of Care Document ---
Author Name Unknown Organization [facility] Address [address] [address]- Care Team Providers Care Running Specialist Name Role Phone Nevaeh Cantu Primary Care Physician [phone] [place] [facility] [place] 09/26/22 - 01/20/23 [facility] [address] [address]- Attending Physician: Anna Marie Huynh Admitting Physician: Anna Marie Huynh Referring Physician: Anna Marie Huynh Allergies, Adverse Reactions, Alerts No Known Allergies Immunizations Given and Recorded Vaccine Date Status Refusal Reason tetanus/diphtheria/pertussis, acel(Tdap) 06/04/20 Recorded tetanus-diphtheria toxoids (Td) 1 07/29/10 Given 1Admin Note: vis given Medications carvedilol 3.125 mg oral tablet 3.125 mg, 1, tablet, By Mouth, 2 times a day, # 60 tablet, Refills 0, Tot. Refills 0, Maintenance, 04/28/21 12:49:00 EDT, Route to Pharmacy Electronically, [facility], Partial fill uponpatient request if the prescription is for a schedu... Start Date: 04/28/21 Status: Ordered duloxetine 60 mg oral enteric coated capsule 1 capsule = 60 mg, By Mouth, Daily, Prescribed by PCP 04/30/21, # 30 capsule, 2 Refills, Maintenance, 04/30/21 0:00:00 EDT, EC Capsule, Partial fill upon patient request if the prescription is for a schedule II opioid drug. Start Date: 04/30/21 Status: Ordered LORazepam 1 mg oral tablet 1 tablet = 1 mg, By Mouth, 2 times a day, PRN Other, Severe anxiety; Prescribed by PCP 04/30/21, # 60 tablet, 0 Refills, Maintenance, 04/30/21 0:00:00 EDT, Tablet, Partial fill upon patient request ifthe prescription is for a schedule II opioid drug. Start Date: 04/30/21 Status: Ordered nicotine 14 mg/24 hr transdermal film, extended release 1 patch, Topically, Daily, Prescribed by PCP 04/30/21, # 28 patch, 2 Refills, Maintenance, 04/30/21 0:00:00 EDT, Patch, Partial fill upon patient request if the prescription is for a schedule II opioid drug. Start Date: 04/30/21 Status: Ordered Nicotine 2 mg gum 1 each = 2 mg, Chew, Every 2 hours, PRN as needed for smoking cessation, as directed on package labeling; Prescribed by PCP 04/30/21, # 110 each, 2 Refills, Maintenance, 04/30/21 0:00:00 EDT, Gum, Partial fill upon patient request if the prescription i... Start Date: 04/30/21 Status: Ordered Problem List Condition Confirmation Course Effective Dates Status H ealth Status Informant Anxiety Confirmed 06/07/11 Active CTS - Carpal tunnel syndrome Confirmed Active Depression Confirmed 11/15/10 Active Depression Confirmed Active Diverticulitis Confirmed Active History of marijuana use Confirmed Active LBP - Low back pain Confirmed 11/15/10 Active Nicotine use disorder Confirmed Active Social History Social History Type Response Smoking Status Current every day sm oker; Type: Cigarettes; Tobacco use times per day: 1 ppd; entered on: 04/27/15 Sex Patient Care team information Care Team Personnel Name: Nevaeh Cantu Position: S Outreach Member Role: PCP Address: Address: [address] [place] [address]- Care Team Related Persons Name: HANNAH MARI Address: [address] [place], [place] [address]
--- OUTSIDE RECORDS SUMMARY | 2023-09-28 01:34 | XMS_ITS | Continuity of Care Document ---
Author Name Unknown Organization [facility] Address [address] [address]- Care Team Providers Care Refrigeration Service Technician Name Role Phone Nevaeh Cantu Primary Care Physician En[facility] [place] Date(s): 06/20/23 - 06/27/23 [facility] [address] [address]- Attending Physician: Anna Marie Huynh Admitting Physician: Anna Marie Huynh Referring Physician: Anna Marie Huynh Allergies, Adverse Reactions, Alerts No Known Allergies Immunizations Given and Recorded Vaccine Date Status Refusal Reason tetanus/diphtheria/pertussis, acel(Tdap) 06/04/20 Recorded tetanus-diphtheria toxoids (Td) 1 07/29/10 Given 1Admin Note: vis given Medications carvedilol 3.125 mg oral tablet 3.125 mg, 1, tablet, By Mouth, 2 times a day, # 180 tablet, Refills 3, Tot. Refills 3, Maintenance,05/17/23 7:54:00 EDT, Route to Pharmacy Electronically, [facility], Partial fill upon patient request if the prescription is for a schedule II... Start Date: 05/17/23 Status: Ordered duloxetine 60 mg oral enteric [...] Care Team Personnel Name: Nevaeh Cantu Position: [facility] Outreach Member Role: PCP Address: Address: [address] [place] [address]- Care Team Related Persons Name: BUNNY SILVER Name: HANNAH MARI Address: [address] [place] [address]
--- OUTSIDE RECORDS SUMMARY | 2023-09-28 01:34 | XMS_ITS | Continuity of Care Document ---
Author Name Unknown Organization [facility] Address [address] [address]- Care Team Providers Care Services Manager Name Role Phone Nevaeh Cantu Primary Care Physician [phone] [place] [facility] [place] 08/12/21 - 08/19/21 [facility] [address] [address]- Attending Physician: Anna Marie Huynh Admitting Physician: Anna Marie Huynh Referring Physician: Anna Marie Huynh Allergies, Adverse Reactions, Alerts Substance Reaction Severity Status NKA Active Immunizations Given and Recorded Vaccine Date Status Refusal Reason tetanus/diphtheria/pertussis, acel(Tdap) 06/04/20 Recorded tetanus-diphtheria toxoids (Td) 1 07/29/10 Given 1Admin Note: vis given Medications carvedilol 3.125 mg oral tablet 3.125 mg, 1, tablet, By Mouth, 2 times a day, # 60 tablet, Refills 0, Tot. Refills 0, Maintenance, 04/28/21 12:49:00 EDT, Route to Pharmacy Electronically, [facility], Partial fill uponpatient request if [...] Date: 04/30/21 Status: Ordered Problem List Condition Effective Dates Status Health Status Inform ant Anxiety(Confirmed) 06/07/11 Active CTS - Carpal tunnel syndrome(Confirmed) Active Depression(Confirmed) 11/15/10 Active Depression(Confirmed) Active Diverticulitis(Confirmed) Active History of marijuana use(Confirmed) Active LBP - Low back pain(Confirmed) 11/15/10 Active Nicotine use disorder(Confirmed) Active Social History Social History Type Response Smoking Status Current every day augie mckenna; Type: Cigarettes; Tobacco use times per day: 1 ppd; entered on: 04/27/15 Sex
--- OUTSIDE RECORDS SUMMARY | 2023-09-28 01:34 | XMS_ITS | Continuity of Care Document ---
Author Name Unknown Organization [facility] Address [address] [address]- Care Team Providers Care Cad Detailer Name Role Phone Nevaeh Cantu Primary Care Physician [phone] En[place] [facility] [place] Date(s): 11/12/21 - 11/19/21 [facility] [address] [address]- Attending Physician: Anna Marie Huynh Admitting Physician: [...] 04/28/21 12:49:00 EDT, Route to Pharmacy Electronically, [facility], Partial fill uponpatient request if [...]
--- OUTSIDE RECORDS SUMMARY | 2023-09-28 01:34 | XMS_ITS | Continuity of Care Document ---
Author Name Unknown Organization [facility] Address [address] [address]- Care Team Providers Care Java Developer With Security Clearance Name Role Phone Nevaeh Cantu Primary Care Physician En[place] [facility] [place] Date(s): 09/19/23 - 09/26/23 [facility] [address] [address]- Attending Physician: Anna Marie Huynh Admitting Physician: [...] 180 tablet, Refills 3, Tot. Refills 3, Maintenance,08/10/23 14:10:00 EST, Route to Pharmacy Electronically, [facility], Partial fill upon patient request if the prescription is for a schedule I... Start Date: 08/10/23 Status: Ordered duloxetine 60 mg oral enteric [...] Care Team Personnel Name: Nevaeh Cantu Position: [facility] Outreach Member Role: PCP Address: Address: [address] [place] [address]- Care Team Related Persons Name: BUNNY SILVER Name: HANNAH MARI Address: [address] [place], [place] [address]
--- OUTSIDE RECORDS SUMMARY | 2023-09-28 01:34 | XMS_ITS | Continuity of Care Document ---
Author Name Unknown Organization [facility] Address [address] [address]- Care Team Providers Care Community Health Navigator Name Role Phone Nevaeh Cantu Primary Care Physician [phone] [facility] [place]11/21 - 11/18/21 [facility] [address] [address]- Attending Physician: Alfredo Hallman MD Admitting Physician: Alfredo Hallman MD Referring Physician: Alfredo Hallman MD Allergies, Adverse Reactions, Alerts No Known Allergies Immunizations Given and Recorded Vaccine Date Status Refusal Reason tetanus/diphtheria/pertussis, acel(Tdap) 06/04/20 Recorded tetanus-diphtheria toxoids (Td) 1 07/29/10 Given 1Admin Note: vis given Medications carvedilol 3.125 mg oral tablet 3.125 mg, 1, tablet, By Mouth, 2 times a day, # 60 tablet, Refills 0, Tot. Refills 0, Maintenance, 04/28/21 12:49:00 EDT, Route to Pharmacy Electronically, [facility], Partial fill uponpatient request [...]
--- OUTSIDE RECORDS SUMMARY | 2023-09-28 01:34 | XMS_ITS | Continuity of Care Document ---
Author Name Unknown Organization [facility] Address [address] [address]- Care Team Providers Care Dry Folder Cloth Name Role Phone Nevaeh Cantu Primary Care Physician [phone] Encounter [facility] [place] Date(s): 06/23/23 - 06/30/23 [facility] [address] [address]- Attending Physician: Anna Marie Huynh Admitting Physician: [...] Maintenance,05/17/23 7:54:00 EDT, Route to Pharmacy Electronically, [facility], Partial fill upon patient [...] Care Team Personnel Name: Nevaeh Cantu Position: [facility] Outreach Member Role: PCP Address: Address: [address] [place] [address]- Care Team Related Persons Name: BUNNY SILVER Name: HANNAH MARI Address: [address] [place] [address]
--- OUTSIDE RECORDS SUMMARY | 2023-09-28 01:34 | XMS_ITS | Continuity of Care Document ---
Author Name Unknown Organization [facility] Address [address] [address]- Care Team Providers Care Business Development Intern Name Role Phone Nevaeh Cantu Primary Care Physician [place] [facility] [place](s): 08/09/23 - 09/08/23 [facility] [address] [address]- [place] Allergies, Adverse Reactions, Alerts No Known Allergies Immunizations Given and Recorded Vaccine Date Status Refusal Reason tetanus/diphtheria/pertussis, acel(Tdap) 06/04/20 Recorded tetanus-diphtheria toxoids (Td) 1 07/29/10 Given 1Admin Note: vis given Medications carvedilol 3.125 mg oral tablet 3.125 mg, 1, tablet, By Mouth, 2 times a day, # 180 tablet, Refills 3, Tot. Refills 3, Maintenance,08/10/23 14:10:00 EST, Route to Pharmacy Electronically, [facility], Partial fill upon patient [...] Care Team Personnel Name: Nevaeh Cantu Position: [facility] Outreach Member Role: PCP Address: Address: [address] [place] [address]- Care Team Related Persons Name: BUNNY SILVER Name: HANNAH MARI Address: [address] [place] [address]
--- OUTSIDE RECORDS SUMMARY | 2023-09-28 01:35 | XMS_ITS | Continuity of Care Document ---
Author Name Unknown Organization [facility] Address [address] [address]- Care Team Providers Care Steel Pickler Name Role Phone Nevaeh Cantu Primary Care Physician [id number] Date(s): 12/21/22 - 01/20/23 [facility] [address] [address]- Attending Physician: Matthew Lopez Admitting Physician: Matthew Lopez Referring Physician: AdmtrMatthew Allergies, Adverse Reactions, Alerts No Known Allergies Immunizations Given and Recorded Vaccine Date Status Refusal Reason tetanus/diphtheria/pertussis, acel(Tdap) 06/04/20 Recorded tetanus-diphtheria toxoids (Td) 1 07/29/10 Given 1Admin Note: vis given Medications carvedilol 3.125 mg oral tablet 3.125 mg, 1, tablet, By Mouth, 2 times a day, # 60 tablet, Refills 0, Tot. Refills 0, Maintenance, 04/28/21 12:49:00 EDT, Route to Pharmacy Electronically, [facility], Partial fill uponpatient request if [...] HOME Outreach Member Role: PCP Address: Address: [address] [place] [address]- Care Team Related Persons Name: HANNAH MARI OR RUDOLPH Address: [address] [place] [address]
--- OUTSIDE RECORDS SUMMARY | 2023-09-28 01:35 | XMS_ITS | Continuity of Care Document ---
Author Name Unknown Organization [facility] Address [address] [address]- Care Team Providers Care Area Intelligence Technician Name Role Phone Nevaeh Cantu Primary Care Physician [place] [facility] [place] 05/05/21 - 06/04/21 [facility] [address] [address]- [place] Allergies, Adverse Reactions, Alerts Substance Reaction Severity [...] 04/28/21 12:49:00 EDT, Route to Pharmacy Electronically, [facility], Partial fill uponpatient request [...] Response Smoking Status Current every day sm aver; Type: Cigarettes; Tobacco use times per day: 1 ppd; entered on: 04/27/15 Sex
--- OUTSIDE RECORDS SUMMARY | 2023-09-28 01:35 | XMS_ITS | Continuity of Care Document ---
Author Name Unknown Organization [facility] Address [address] [address]- Care Team Providers Care Reversing Mill Roller Name Role Phone Nevaeh Cantu Primary Care Physician [place] [facility] [place]23[place]23 - 07/23/23 [facility] [address] [address]- Attending Physician: Matthew Lopez Admitting Physician: AdmtrMatthew Referring Physician: Admtr, Ar8 Allergies, Adverse Reactions, Alerts No Known Allergies Immunizations Given and Recorded Vaccine Date Status Refusal Reason tetanus/diphtheria/pertussis, acel(Tdap) 06/04/20 Recorded tetanus-diphtheria toxoids (Td) 1 07/29/10 Given 1Admin Note: vis given Medications carvedilol 3.125 mg oral tablet 3.125 mg, 1, tablet, By Mouth, 2 times a day, # 180 tablet, Refills 3, Tot. Refills 3, Maintenance,05/17/23 7:54:00 EDT, Route to Pharmacy Electronically, [facility], Partial fill upon patient [...] S Outreach Member Role: PCP Address: Address: [address] [place] [address]- Care Team Related Persons Name: BUNNY SILVER Name: HANNAH MARI Address: [address] [place], [place] [address]
--- OUTSIDE RECORDS SUMMARY | 2023-09-28 01:35 | XMS_ITS | Continuity of Care Document ---
Author Name Unknown Organization [facility] Address [address] [place] [address]- Care Team Providers Care Senior Designer/Art Director Name Role Phone Nevaeh Cantu Primary Care Physician Encounter [place] Date(s): 04/30/21 - 05/30/21 [facility] [address] [place] [address]- [place] Allergies, Adverse Reactions, Alerts Substance Reaction [...]
--- OUTSIDE RECORDS SUMMARY | 2023-09-28 01:35 | XMS_ITS | Continuity of Care Document ---
Author Name Unknown Organization [facility] Address [address] [address]- Care Team Providers Care Credit Risk Analyst Name Role Phone Nevaeh Cantu Primary Care Physician [place] [facility] [place] 03/25/22 - 04/01/22 [facility] [address] [address]- Attending Physician: Anna Marie Huynh Admitting Physician: [...] 04/28/21 12:49:00 EDT, Route to Pharmacy Electronically, [facility], Partial fill uponpatient request [...]
--- OUTSIDE RECORDS SUMMARY | 2023-09-28 01:35 | XMS_ITS | Continuity of Care Document ---
Author Name Unknown Organization [facility] Address [address] [address]- Care Team Providers Care Garden Worker Name Role Phone Nevaeh Cantu Primary Care Physician [phone] En[place] [facility] [place] Date(s): 06/01/23 - 07/01/23 [facility] [address] [address]- [place] Allergies, Adverse Reactions, Alerts No Known Allergies Immunizations Given and Recorded Vaccine Date Status Refusal Reason tetanus/diphtheria/pertussis, acel(Tdap) 06/04/20 Recorded tetanus-diphtheria toxoids (Td) 1 07/29/10 Given 1Admin Note: vis given Medications carvedilol 3.125 mg oral tablet 3.125 mg, 1, tablet, By Mouth, 2 times a day, # 180 tablet, Refills 3, Tot. Refills 3, Maintenance,05/17/23 7:54:00 EDT, Route to Pharmacy Electronically, [facility], Partial fill upon patient [...] Care Team Personnel Name: Nevaeh Cantu Position: [facility] Outreach Member Role: PCP Address: Address: [address] [place] [address]- Care Team Related Persons Name: BUNNY SILVER Name: HANNAH MARI Address: [address] [place] [address]
--- OUTSIDE RECORDS SUMMARY | 2023-09-28 01:35 | XMS_ITS | Continuity of Care Document ---
Author Name Unknown Organization [facility] Address [address] [address]- Care Team Providers Care Ergonomics Consultant Name Role Phone Nevaeh Cantu Primary Care Physician En[place] [facility] [place] Date(s): 09/21/22 - 09/28/22 [facility] [address] [address]- Attending Physician: Anna Marie Huynh Admitting Physician: [...] 04/28/21 12:49:00 EDT, Route to Pharmacy Electronically, [facility], Partial fill uponpatient request [...] S Outreach Member Role: PCP Address: Address: [address] [place] [address]- Care Team Related Persons Name: HANNAH MARI Address: [address] [place] [address]
--- OUTSIDE RECORDS SUMMARY | 2023-09-28 01:35 | XMS_ITS | Continuity of Care Document ---
Author Name Unknown Organization [facility] Address [address] [address]- Care Team Providers Care Trailer Chief Name Role Phone Nevaeh Cantu Primary Care Physician [place] [facility] [place] 06/24/22 - 07/01/22 [facility] [address] [address]- Attending Physician: Anna Marie Huynh Admitting Physician: [...] 04/28/21 12:49:00 EDT, Route to Pharmacy Electronically, [facility], Partial fill uponpatient request if [...] S Outreach Member Role: PCP Address: Address: [address] [place] [address]- Care Team Related Persons Name: HANNAH MARI Address: [address] [place] [address]
--- OUTSIDE RECORDS SUMMARY | 2023-09-28 01:35 | XMS_ITS | Continuity of Care Document ---
Author Name Unknown Organization [facility] Address [address] [address]- Care Team Providers Care Cleaning Laborer Name Role Phone Nevaeh Cantu Primary Care Physician [place] [facility] [place] 02/27/23 - 03/29/23 [facility] [address] [address]- Attending Physician: Matthew Lopez Admitting Physician: AdmtrMatthew [...] 04/28/21 12:49:00 EDT, Route to Pharmacy Electronically, [facility], Partial fill uponpatient request [...] S Outreach Member Role: PCP Address: Address: [address] [place] [address]- Care Team Related Persons Name: BUNNY SILVER Name: HANNAH MARI Address: [address] [place], [place] [address]
--- OUTSIDE RECORDS SUMMARY | 2023-09-28 01:35 | XMS_ITS | Continuity of Care Document ---
Author Name Unknown Organization [facility] Address [address] [address]- Care Team Providers Care Towel Rolling Machine Operator Name Role Phone Nevaeh Cantu Primary Care Physician [phone] [facility] [place] Date(s): 06/23/21 - 06/30/21 [facility] [address] [address]- Attending Physician: Edith Duke MD Admitting Physician: Srikanth HUANG, Edith Referring Physician: Edith Duke MD Allergies, Adverse Reactions, Alerts Substance Reaction Severity [...] 04/28/21 12:49:00 EDT, Route to Pharmacy Electronically, [facility], Partial fill uponpatient request [...]
--- OUTSIDE RECORDS SUMMARY | 2023-09-28 01:35 | XMS_ITS | Continuity of Care Document ---
Author Name Unknown Organization [facility] Address [address] [address]- Care Team Providers Care Piercing Artist Name Role Phone Nevaeh Cantu Primary Care Physician En[place] [facility] [place] Date(s): 03/23/22 - 03/30/22 [facility] [address] [address]- Attending Physician: Anna Marie Huynh Admitting Physician: [...] 04/28/21 12:49:00 EDT, Route to Pharmacy Electronically, [facility], Partial fill uponpatient request [...]
--- OUTSIDE RECORDS SUMMARY | 2023-09-28 01:35 | XMS_ITS | Continuity of Care Document ---
Author Name Unknown Organization [facility] Address [address] [address]- Care Team Providers Care Party Plan Sales Unit Sales Leader Name Role Phone Nevaeh Cantu Primary Care Physician [phone] Encounter [facility] [place] Date(s): 11/30/22 - 02/15/23 [facility] [address] [address]- Attending Physician: Anna Marie Huynh Admitting Physician: Anna Marie Huynh Referring Physician: Nevaeh Cantu Allergies, Adverse Reactions, Alerts No Known Allergies Immunizations Given and Recorded Vaccine Date Status Refusal Reason tetanus/diphtheria/pertussis, acel(Tdap) 06/04/20 Recorded tetanus-diphtheria toxoids (Td) 1 07/29/10 Given 1Admin Note: vis given Medications carvedilol 3.125 mg oral tablet 3.125 mg, 1, tablet, By Mouth, 2 times a day, # 60 tablet, Refills 0, Tot. Refills 0, Maintenance, 04/28/21 12:49:00 EDT, Route to Pharmacy Electronically, [facility], Partial fill uponpatient request [...] Outreach Member Role: PCP Address: Address: [address] [place] [address]- Care Team Related Persons Name: HANNAH MARI Address: [address] [place] [address]
--- OUTSIDE RECORDS SUMMARY | 2023-09-28 01:35 | XMS_ITS | Continuity of Care Document ---
Author Name Unknown Organization [facility] Address [address] [address]- Care Team Providers Care Tap Dancer Name Role Phone Nevaeh Cantu Primary Care Physician En[place] [facility] [place] Date(s): 03/02/23 - 06/30/23 [facility] [address] [address]- Attending Physician: Anna Marie Huynh Admitting Physician: [...] Maintenance,05/17/23 7:54:00 EDT, Route to Pharmacy Electronically, [facility] # [facility], Partial fill upon patient [...] Care Team Personnel Name: Nevaeh Cantu Position: [facility] Outreach Member Role: PCP Address: Address: [address] [place] [address]- Care Team Related Persons Name: BUNNY SILVER Name: HANNAH MARI Address: [address] [place] [address]
--- OUTSIDE RECORDS SUMMARY | 2023-09-28 01:35 | XMS_ITS | Continuity of Care Document ---
Author Name Unknown Organization [facility] Address [address] [address]- Care Team Providers Care Software Development Analyst Name Role Phone Nevaeh Cantu Primary Care Physician En[place] [facility] [place] Date(s): 03/25/22 - 04/24/22 [facility] [address] [address]- Attending Physician: Matthew Lopez Admitting Physician: AdmMatthew espinal Referring Physician: Admtr, Ar8 Allergies, Adverse Reactions, [...] 04/28/21 12:49:00 EDT, Route to Pharmacy Electronically, [facility], Partial fill uponpatient request [...] Response Smoking Status Current every day augie oker; Type: Cigarettes; Tobacco use times per day: 1 ppd; entered on: 04/27/15 Sex Care Team Personnel Name: Nevaeh Cantu Address: [address] [place] [address]
--- OUTSIDE RECORDS SUMMARY | 2023-09-28 01:35 | XMS_ITS | Continuity of Care Document ---
Author Name Unknown Organization [facility] Address [address] [address]- Care Team Providers Care Coppersmith Apprentice Name Role Phone Nevaeh Cantu Primary Care Physician [place] [facility] [id number] Date(s): 12/16/21 - 01/15/22 [facility] [address] [address]- Attending Physician: Matthew Lopez Admitting Physician: Matthew [...] 04/28/21 12:49:00 EDT, Route to Pharmacy Electronically, [facility], Partial fill uponpatient request [...]
--- OUTSIDE RECORDS SUMMARY | 2023-09-28 01:35 | XMS_ITS | Continuity of Care Document ---
Author Name Unknown Organization [facility] Address [address] [address]- Care Team Providers Care Ammonia Print Operator Name Role Phone Nevaeh aCntu Primary Care Physician [phone] [place] [facility] [place]23 - 09/08/23 [facility] [address] [address] [place] Allergies, Adverse Reactions, Alerts No Known Allergies Immunizations Given and Recorded Vaccine Date Status Refusal Reason tetanus/diphtheria/pertussis, acel(Tdap) 06/04/20 Recorded tetanus-diphtheria toxoids (Td) 1 07/29/10 Given 1Admin Note: vis given Medications carvedilol 3.125 mg oral tablet 3.125 mg, 1, tablet, By Mouth, 2 times a day, # 180 tablet, Refills 3, Tot. Refills 3, Maintenance,08/10/23 14:10:00 EST, Route to Pharmacy Electronically, [id number], Partial fill upon patient [...] Care Team Personnel Name: Nevaeh Cantu Position: [facility] Outreach Member Role: PCP Address: Address: [address] [place] [address]- Care Team Related Persons Name: BUNNY SILVER Name: HANNAH MARI Address: [address] [place] [address]
--- OUTSIDE RECORDS SUMMARY | 2023-09-28 01:35 | XMS_ITS | Continuity of Care Document ---
Author Name Unknown Organization [facility] Address [address] [address]- Care Team Providers Care Last Sorter Name Role Phone Nevaeh Cantu Primary Care Physician [place] [facility] [place] 12/16/21 - 12/23/21 [facility] [address] [address]- Attending Physician: Anna Marie Huynh Admitting Physician: [...] 04/28/21 12:49:00 EDT, Route to Pharmacy Electronically, [facility], Partial fill uponpatient request [...] pain(Confirmed) 11/15/10 Active Nicotine use disorder(Confirmed) Active Vital Signs Most recent to oldest [Reference Range]: 1 Height 182 cm (12/16/21 11:05 AM) Weight 86 kg (12/16/21 11:05 AM) Oxygen Saturation [94-100 %] 97 % (12/16/21 11:05 AM) Pulse Rate [55-90 bpm] 65 bpm (12/16/21 11:05 AM) Body Mass Index [18.5-24.99] 25.96 *H* (12/16/21 11:05 AM) Blood Pressure [90-138/55-84 mm Hg] 121/ 74mm Hg (12/16/21 11:05 AM) Blood pressure sites Arm, left (12/16/21 11:05 AM) Weight Obtained Via Standing scale (12/16/21 11:05 AM) Social History Social History Type Response Smoking Status Current every day augie mckenna; Type: Cigarettes; Tobacco use times per day: 1 ppd; entered on: 04/27/15 Sex
--- OUTSIDE RECORDS SUMMARY | 2023-09-28 01:36 | XMS_ITS | Continuity of Care Document ---
Author Name Unknown Organization [facility] Address [address] [place] [address]- Care Team Providers Care Venue Coordinator Name Role Phone Nevaeh Cantu Primary Care Physician Encounter [facility] [place] Date(s): 04/26/21 - 04/28/[address] [address] Discharge Disposition: A-D/C Home Attending Physician: Stevenson Almanza MD Admitting Physician: Jian Vicente DO Referring Physician: Not on Staff, Referring MD Allergies, Adverse Reactions, Alerts Substance Reaction Severity Status NKA Active Immunizations Given and Recorded Vaccine Date Status Refusal Reason tetanus/diphtheria/pertussis, acel(Tdap) 06/04/20 Recorded tetanus-diphtheria toxoids (Td) 1 07/29/10 Given 1Admin Note: vis given Medications carvedilol 3.125 mg oral tablet 3.125 mg, Tablet, By Mouth, 04/28/21 12:58:00 EDT Start Date: 04/28/21 Stop Date: 04/28/21 Status: Completed carvedilol 3.125 mg oral tablet 3.125 mg, 1, tablet, By Mouth, 2 times a day, # 60 tablet, Refills 0, Tot. Refills 0, Maintenance, 04/28/21 12:49:00 EDT, Route to Pharmacy Electronically, [facility], Partial fill uponpatient request if the prescription is for a schedu... Start Date: 04/28/21 Status: Ordered MorPHINE Inj 2 mg, Injection, IV Push Slowly, Every 4 hours, PRN for Pain , Moderate, Routine, 04/26/21 20:15:00EDT Start Date: 04/26/21 Stop Date: 04/28/21 Status: Discontinued Problem List Condition Effective Dates Status Health Status Inform ant Anxiety(Confirmed) 06/07/11 Active CTS - Carpal tunnel syndrome(Confirmed) Active Depression(Confirmed) 11/15/10 Active Depression(Confirmed) Active Diverticulitis(Confirmed) Active History of marijuana use(Confirmed) Active LBP - Low back pain(Confirmed) 11/15/10 Active Nicotine use disorder(Confirmed) Active Vital Signs Most recent to oldest [Reference Range]: 1 2 3 Height 182 cm (04/28/21 1:56 PM) 182 cm (04/28/21 10:00 AM) 182 cm (04/28/21 8:19 AM) Weight 77.9 kg (04/28/21 6:57 AM) 78.8 kg (04/27/21 6:48 AM) 81.1 kg (04/26/21 7:40 PM) Oxygen Saturation [94-100 %] 97 % (04/28/21 1:56 PM) 100 % (04/28/21 8:19 AM) 95 % (04/28/21 2:22 AM) Pulse Rate [55-90 bpm] 74 bpm (04/28/21 1:56 PM) 60 bpm (04/28/21 1:04 PM) 62 bpm (04/28/21 8:19 AM) Body Mass Index [18.5-24.99] 24.48 (04/26/21 7:40 PM) Blood Pressure [90-138/55-84 mm Hg] 112/94mm Hg (04/28/21 1:56 PM) 123/96mm Hg (04/28/21 1:04 PM) 117/87mm Hg (04/28/21 8:19 AM) Respiratory Rate [16-30 br/min] 20 br/min (04/28/21 1:56 PM) 18 br/min (04/28/21 8:19 AM) 18 br/min (04/28/21 3:20 AM) Temperature [96.8-100.4 DegF] 99.5 DegF (04/28/21 1:56 PM) 98.3 DegF (04/28/21 8:19 AM) 97.7 DegF (04/28/21 2:22 AM) Mode of Delivery (Oxygen) Room air (04/28/21 1:56 PM) Room air (04/28/21 8:19 AM) Room air (04/28/21 2:22 AM) Blood pressure sites Arm, left (04/28/21 1:56 PM) Arm, left (04/28/21 8:19 AM) Arm, left (04/28/21 2:22 AM) Temperature Route Temporal (04/28/21 1:56 PM) Temporal (04/28/21 8:19 AM) Temporal (04/28/21 2:22 AM) Dry Weight 82 kg (04/26/21 7:40 PM) Weight Obtained Via Bed scale (04/28/21 6:57 AM) Bed scale (04/27/21 6:48 AM) Bed scale (04/26/21 7:40 PM) Dry Weight Obtained Via Patient/family s tated (04/26/21 7:40 PM) Social History Social History Type Response Smoking Status Current every day augie mckenna; Type: Cigarettes; Tobacco use times per day: 1 ppd; entered on: 04/27/15 Sex
--- OUTSIDE RECORDS SUMMARY | 2023-09-28 01:36 | XMS_ITS | Continuity of Care Document ---
Author Name Unknown Organization [facility] Address [address] [address]- Care Team Providers Care Hazardous Material Specialist Name Role Phone Nevaeh Cantu Primary Care Physician Encounter [facility] [place] Date(s): 06/22/22 - 06/29/22 [facility] [address] [address]- Attending Physician: Anna Marie Huynh Admitting Physician: [...] 04/28/21 12:49:00 EDT, Route to Pharmacy Electronically, [facility], Partial fill uponpatient request [...] S Outreach Member Role: PCP Address: Address: [address] [place] [address]- Care Team Related Persons Name: HANNAH MARI Address: [address] [place] [address]
--- OUTSIDE RECORDS SUMMARY | 2023-09-28 01:36 | XMS_ITS | Continuity of Care Document ---
Author Name Unknown Organization [facility] Address [address] [address]- Care Team Providers Care Aadc Plans Staff Officer Name Role Phone Nevaeh Cantu Primary Care Physician Encounter [facility] [place] Date(s): 11/12/21 - 12/12/21 [facility] [address] [address]- Attending Physician: Matthew Lopez Admitting Physician: AdmtrMatthew [...] 04/28/21 12:49:00 EDT, Route to Pharmacy Electronically, [facility], Partial fill uponpatient request [...]
[2023-09-28 02:30] VITALS: BP 136/77; PULSE 89; RESP 18; TEMP 36.6; O2SAT 95
--- NOTE | 2023-09-28 03:32 | ED.GENADULT ---
HPI - General Adult General Chief complaint: Extremity Injury, Lower Stated complaint: L side low back, knee, hip pain Time Seen by Provider: 09/28/23 03:03 History of Present Illness HPI narrative: The patient is a 58-year-old woman who has been having problems since August 09 (almost 2 months ago) when she had a fall at her home. She says that at that time her son and gotten quite upset and accidentally posterior so that she fell backwards over a suitcase. She landed mostly on her buttocks. At the time she was able to get herself up and did not feel acutely injured but subsequently developed pain in her lower back and in the left hip region. She says that since the fall almost 2 months ago she has had a discomfort and a sense of stiffness in her back that prevents her from standing up straight or walking properly. She has discomfort that extends from the left lower back down the left leg. She does not have any difficulty with bowel or bladder control. No fever, sweats, chills. She is very frustrated that her ability to walk and feel comfortable and to stand up straight has been so impaired since this fall 2 months ago. She has not seen any medical provider for these symptoms before [facility]. Related Data Previous Rx's Medication Instructions Recorded amoxicillin 875 mg-potassium 1 tab PO Q12H 10 days #20 tabs 06/04/20 clavulanate 125 mg tablet (Augmentin) Allergies Allergy/AdvReac Type Severity Reaction Status Date / Time aspirin Allergy Unknown Unknown Verified 09/27/23 21:24 ibuprofen Allergy Unknown heartburns Verified 09/27/23 21:24 Review of Systems Review of Systems: Yes all other systems are reviewed and are negative [facility] Past Medical History Medical History Anxiety Depression Social History Social History Household Members: Family Housing: House Do you presently have visiting nurse or other home services: No Alcohol intake: never Patient Tobacco Use Status: Current everyday Tobacco user Tobacco use type: Cigarette Cigarette Packs Per Day: 1 Cigarettes Per Day: 20.0 e-Cigarette/Vaping Use: Never Used Substance Use Type: Marijuana Advance Directives: No Advance Directives Information Provided: Yes Advance Directives Date on File: 04/23/21 Physical Exam ED Vital Signs: Vital Signs - 24 hr 09/27/23 21:24 09/28/23 02:30 Temperature 97.6 F 97.9 F Pulse Rate 87 89 Respiratory Rate 18 18 Blood Pressure 140/85 H 136/77 Pulse Oximetry 94 95 Oxygen Delivery Method Room Air Room Air BMI result Body Mass Index 21.7 Const Other: The patient is awake and alert. She has a somewhat dejected affect. She walks with a stooped gait and limps mildly. HENMT Other: Face is symmetrical. Mucous membranes moist. Eyes Other: Pupils are round equal, conjunctivae are clear, extraocular movements intact Resp Effort & Inspection: normal respiratory effort Auscultation: clear to auscultation bilaterally Cardio Rate: regular rate Rhythm: regular rhythm Heart sounds: S1 normal heart sound present and S2 normal heart sound present GI Other: Abdomen is soft and nontender. Back/Spine/Pelvis Other: The patient has some diffuse tenderness in the left lumbar region. She has a negative straight leg raise test and a negative contralateral straight leg raise test. Skin Other: Skin is dry and unremarkable. Neuro Other: The patient is awake and alert. Cranial nerves are grossly intact. She seems to have intact strength in all 4 extremities. She walks with a stooped gait. She also walks with a limp. However she seems to have intact strength in her extremities. She has 2+ reflexes at the knees and ankles. Extrem Other: No peripheral edema. No calf swelling or tenderness Medical Decision Making Medical Decision Making MDM Narrative: The patient presents for evaluation of low back and left hip discomfort she has had for almost 2 months after a fall at home. She has not sought medical care before. She comes saying that she wanted to get an x-ray to evaluate her pains. X-rays of the lumbar spine and the left hip were obtained. Lumbar spine x-ray shows leftward convexity of the lumbar spine and moderate to advanced multilevel spondylolysis but no evidence of acute fracture. The left hip x-ray is unremarkable. I do not feel the patient has any neurological deficits. The patient says she has been taking acetaminophen without much relief. She actually says her pain is not terribly severe she was more concerned about her sense of difficulty walking and of being stooped and being unable to stand up straight. I am somewhat puzzled by the patient's description of her complaints. She has certainly not drug-seeking. I offered her a prescription for muscle relaxants. She was not interested. She says she does not tolerate ibuprofen very well and therefore she seems to be only using acetaminophen which she says is not very helpful. My overall impression is that the patient does not have an acutely dangerous injury but she is certainly seems impaired by her symptoms. I think she may need to see a healthcare financial analyst or other musculoskeletal specialists. She is encouraged to contact her primary care doctor's office for a possible referral. Discharge Plan Discharge Clinical Impression: Back pain, Left hip pain, Fall, Difficulty walking Patient Disposition: Home, Self-Care Additional Instructions: Your x-ray shows some arthritis in your back but does not show any fractures. I think you will likely need to see some kind of a musculoskeletal specialist. Please contact your regular doctor's office and let them know that you had to come to the emergency room because your symptoms since the fall have been so debilitating. I think you will likely need to have a referral to a musculoskeletal specialist such as a healthcare financial analyst. A healthcare financial analyst is a physician who specializes in musculoskeletal problems. Continue to use acetaminophen (Tylenol) as needed for pain. You may also use ibuprofen if you can tolerate it. Please follow-up soon with your regular doctor's office and I hope you will also be able to get a referral to a musculoskeletal specialist soon. Return to the emergency room if significantly worse. Prescriptions: No Action amoxicillin-pot clavulanate [Augmentin] 875-125 mg tablet 1 tab PO Q12H 10 Days Qty: 20 0RF Referrals: [facility] [Provider Group] (Back pain, difficulty walking) Interventions: ED Discharge Assessment Last Done: 09/28/23 03:49 Discharge Date/Time: 09/28/23 03:50
== END 2023-09-28 03:50 | disposition home or self-care (01) ==
PROVIDERS: Emergency Provider Emergency Medicine
DX: M54.50 Low back pain, unspecified (principal); M25.552 Pain in left hip; R26.2 Difficulty in walking, not elsewhere classified; F17.210 Nicotine dependence, cigarettes, uncomplicated
CPT/HCPCS: 99282; 99283

== ENCOUNTER 2024-11-08 06:49 | Emergency (ER) | payer MEDICAID, SELFPAY ==
[2024-11-08 07:03] VITALS: BP 101/76; BP 144/70; PULSE 60; PULSE 65; RESP 18; TEMP 36.8; O2SAT 97; O2SAT 98; BMI 20.4
--- NOTE | 2024-11-08 07:21 | ED_ITS ---
HPI - Psych General Chief Complaint: Back Pain/Injury Stated Complaint: Lower back&shoulder blade pain x3days injured x1yr Time Seen by Provider: 11/08/24 06:56 Source: patient, EMS and old records reviewed Mode of arrival: EMS Limitations: no limitations History of Present Illness ED Provider: DANIELLA HPI Narrative: 59 yo female with PMH of bipolar compliant with medications, PPM due to SSS who notes she has been so anxious and not sleeping x 3 nights despite trying benzos and benadryl. She denies fevers, rashses, numbness, weakness, trauma. She states the pain goes along her upper spine to lower spine. No b/b incontinence no saddle anesthesia. She states she is compliant with all her meds. She has no SI/HI and does not want to see crisis as she feels her providers are very involved. She has no n/v/d. MD complaint: anxiety (insomnia, back pain) Onset (ago): day(s) (3) Duration: getting worse History of same: Yes Relieving factors: none Exacerbating factors: other Associated psychiatric symptoms: other Associated symptoms: other (back muscle pain) Treatments prior to arrival: none Related Data Previous Rx's ?Medication ?Instructions ?Recorded amoxicillin 875 mg-potassium 1 tab PO Q12H 10 days #20 tabs 06/04/20 clavulanate 125 mg tablet (Augmentin) Allergies Allergy/AdvReac Type Severity Reaction Status Date / Time aspirin Allergy Mild Headache Verified 11/08/24 07:06 ibuprofen Allergy Mild heartburns Verified 11/08/24 07:06 Review of Systems 2 Review of Systems: Constitutional : No Fever, No Chills ENT/Mouth : No Ear Pain, No Nasal Congestion, No sore throat Eyes: No Eye Pain, No Swelling, No Redness Cardiovascular : No Chest Pain, No SOB Respiratory : No Cough, No Sputum, No Dyspnea Gastrointestinal : No Nausea, No Vomiting, No Diarrhea, No Hematochezia, No Melena Genitourinary : No Dysuria, No Urinary Frequency, No Hematuria Musculoskeletal : No Myalgias, pos back pain Skin : No Skin Lesions, No rash Neuro : No Weakness, No Numbness, No Paresthesias, No Dizziness, No Headache Psych : positive Anxiety, positive Depression, no SI/HI All other systems reviewed and are negative [facility] Past Medical History Attestation statement: The following information was validated with the patient. Source: old records reviewed Medical History Anxiety Depression Social History Social History Household Members: Family Housing: House Do you presently have visiting nurse or other home services: No Alcohol intake: never Patient Tobacco Use Status: Current everyday Tobacco user Tobacco use type: Cigarette Cigarette Packs Per Day: 1 Cigarettes Per Day: 20.0 Smoked in Last 30 Days: No e-Cigarette/Vaping Use: Never Used Use of substances other than those prescribed or required for medical reasons: Yes Substance Use Type: Marijuana Advance Directives: No Advance Directives Information Provided: Yes Advance Directives Date on File: 04/23/21 Do you have a plan to hurt others: No Plan Patient : No Physical Exam 2 Vital Signs: Vital Signs: Last Vital Signs Temp 98.3 F 11/08/24 07:03 Pulse 65 11/08/24 07:03 Resp 18 11/08/24 07:03 BP 101/76 11/08/24 07:03 Pulse Ox 97 11/08/24 07:03 O2 Del Method Room Air 11/08/24 07:03 BMI result Body Mass Index 20.4 Appearance: Alert. Oriented X3. No acute distress. anxious pacing cannot sit still Eyes: Pupils equal, round and reactive to light. ENT: Pharynx normal. Neck: Normal inspection. Neck supple. CVS: Normal heart rate and rhythm. Pulses normal. Respiratory: No respiratory distress. Breath sounds normal. Abdomen: Soft and nontender. Back: ttp along both paraspinals but no midline ttp she is intact both upper and lower ext normal pulses and no weakness, no rash noted on back Skin: Skin warm and dry. Normal skin color. Normal skin turgor. Extremities: No lower extremity edema. No calf ttp Neuro: Oriented X 3. No motor deficit. No sensory deficit. CN2-12 intact Medications Administered Discontinued Medications Generic Name Dose Route Start Last Admin Trade Name Freq PRN Reason Stop Dose Admin Diphenhydramine HCl 50 mg 11/08/24 07:11 11/08/24 07:30 Diphenhydramine Hcl 50 Mg/Ml Vial IM 11/08/24 07:12 50 mg ONCE ONE Administration Lorazepam 2 mg 11/08/24 07:11 11/08/24 07:30 Lorazepam 2 Mg/Ml Vial IM 11/08/24 07:12 2 mg STAT STA Administration Medical Decision Making Medical Decision Making [facility] Narrative: 59 yo female with PMH of bipolar compliant with medications, PPM due to SSS here with c/o back pain aches, spasms she denies numbness, weakness, n/v/d she has no fevers and no rash. She is NV intact at this time will obtain lytes and start with IM medications. I did offer crisis for her insomnia and possible manic episode but she declines at this time. No red flags at this time on exam and no signs of cauda equina. Differential Diagnosis Differential Diagnoses: The differential diagnosis associated with the presentation includes muscle cramps, manic, lyte abnormality Admission/Observation Consideration of admission/observation: Escalation of care including admission/observation considered symptoms resovled and patient is asking to go home, family at bedside Lab Data [facility] Lab Attestation statement: I reviewed the patient's lab results. 11/08/24 07:44 11/08/24 07:44 Labs: Lab Results 11/08/24 Range/Units 07:44 WBC 12.5 H (4.8-10.8) X10*3/uL RBC 4.80 (4.20-5.50) X10*6/uL Hgb 13.9 (12.0-16.0) g/dl Hct 39.4 (37.0-47.0) % MCV 82.1 (80.0-98.0) fL MCH 29.0 (27.0-33.0) pg MCHC 35.3 H (31.0-35.0) g/dl RDW 12.6 (11.0-16.0) % Plt Count 219 (160-400) X10*3/uL MPV 9.1 L (9.4-12.3) fL Immature Gran % (Auto) 0.3 (0.0-0.4) % Neut % (Auto) 67.2 (45-73) % Lymph % (Auto) 26.4 (20-40) % Arenac % (Auto) 5.0 (2-11) % Eos % (Auto) 0.6 (0-4) % Baso % (Auto) 0.5 (0-2) % Lymph # (Auto) 3.3 (1.2-4.9) X10*3/uL A[place]ac # (Auto) 0.6 (0.1-1.2) X10*3/uL Eos # (Auto) 0.1 (0.0-0.4) X10*3/uL Baso # (Auto) 0.1 (0.0-0.2) X10*3/uL Abs Immat Gran (auto) 0.04 H (0.00-0.03) X10*3/uL Absolute Neuts (auto) 8.4 H (2.0-8.3) x10*3/uL Absolute Nucleated RBC 0.000 (0.0-0.012) X10*3/uL Nucleated RBC % (auto) 0.0 (0.0-0.2) /100WBC Independent Historian Clinical information obtained from an independent historian. History obtained from or confirmed by: EMS External Record Review External record reviewed: Outpatient record Discharge Plan Discharge Clinical Impression: Muscle strain Insomnia Qualifiers: Insomnia type: unspecified Qualified Code(s): G47.00 - Insomnia, unspecified Patient Disposition: Home, Self-Care Instructions: Insomnia (ED), Muscle Spasm (ED) Additional Instructions: labs are reassuring and electrolytes are normal please follow up with your therapist and psychiatrist rest and stay hydrated return for any worsening symptoms or concerns. Prescriptions: No Action amoxicillin-pot clavulanate [Augmentin] 875-125 mg tablet 1 tab PO Q12H 10 Days Qty: 20 0RF Print Language: Mauritanian
[2024-11-08] MEDS: LORazepam 2 MG/ML VIAL IM (07:30)
[2024-11-08] MEDS: diphenhydrAMINE HCL 50 MG/ML VIAL IM (07:30)
--- NOTE | 2024-11-08 07:33 | PC.NURSE ---
patient a&ox3, very anxious, medicated with IM meds per order, tech to do straight stick, plan of care ongoing
[2024-11-08 07:49] LABS: MANUAL DIFF FLAG NO
[2024-11-08 07:51] LABS: Basophils Absolute Auto 0.1 X10*3/uL (0.0-0.2); Basophils Percent Auto 0.5 % (0-2); Eosinophils Absolute Auto 0.1 X10*3/uL (0.0-0.4); Eosinophils Percent Auto 0.6 % (0-4); Hematocrit 39.4 % (37.0-47.0); Hemoglobin 13.9 g/dl (12.0-16.0); Imm Gran Abs Auto 0.04 X10*3/uL (0.00-0.03); Imm Gran Pct Auto 0.3 % (0.0-0.4); Lymphocytes Absolute Auto 3.3 X10*3/uL (1.2-4.9); Lymphocytes Percent Auto 26.4 % (20-40); Mean Corpuscular HGB Conc 35.3 g/dl (31.0-35.0); Mean Corpuscular Volume 82.1 fL (80.0-98.0); Mean Platelet Volume 9.1 fL (9.4-12.3); Monocytes Absolute Auto 0.6 X10*3/uL (0.1-1.2); Neutrophils Absolute Auto 8.4 x10*3/uL (2.0-8.3); Neutrophils Percent Auto 67.2 % (45-73); Platelet Count 219 X10*3/uL (160-400); Red Cell Distribution Width 12.6 % (11.0-16.0); White Blood Count 12.5 X10*3/uL (4.8-10.8)
[2024-11-08 08:02] LABS: Ethanol < 10 mg/dL
[2024-11-08 08:03] LABS: Alanine Aminotransferase 15 U/L (0-31); Albumin Level 4.5 g/dL (3.5-5.0); Alkaline Phosphatase 76 U/L (39-117); Anion Gap 13 (12-20); Aspartate Amino Transferase 20 U/L (5-31); Bilirubin Direct 0.1 mg/dL (0.0-0.5); Bilirubin Total 0.4 mg/dL (0.0-1.0); Blood Urea Nitrogen 9 mg/dL (9-16); Calcium 9.7 mg/dL (8.4-10.2); Carbon Dioxide 27 mmol/L (22-29); Chloride 103 mmol/L (96-108); Creatinine Clr Calc Pharmacy 72.4; Estimated Glomerular Filt Rate > 60; Glucose Random 114 mg/dL (60-115); Magnesium 1.8 mg/dL (1.6-2.6); Potassium 3.8 mmol/L (3.3-5.1); Sodium 139 mmol/L (135-145); Total Protein 7.5 g/dL (6.5-8.0)
[2024-11-08 08:25] VITALS: BP 106/72; PULSE 68; RESP 18; TEMP 36.8; O2SAT 97
--- NOTE | 2024-11-08 08:25 | PC.NURSE ---
pt states medication worked and wishes to discharge to home with family at bedside
== END 2024-11-08 08:26 | disposition home or self-care (01) ==
PROVIDERS: Emergency Provider Emergency Medicine; PCP Dentist General Practice
DX: S39.012A Strain of muscle, fascia and tendon of lower back, initial encounter (principal); X58.XXXA Exposure to other specified factors, initial encounter; G47.00 Insomnia, unspecified; F41.9 Anxiety disorder, unspecified; F32.A Depression, unspecified; F17.210 Nicotine dependence, cigarettes, uncomplicated; F12.90 Cannabis use, unspecified, uncomplicated; Y93.9 Activity, unspecified; Y92.9 Unspecified place or not applicable; Y99.9 Unspecified external cause status
CPT/HCPCS: 36415; 80048; 80076; 80307; 83735; 85025; 96372; 99283; 99284; J1200; J2060

== ENCOUNTER 2024-11-12 02:48 | Inpatient (IN) | payer MEDICAID, SELFPAY ==
[2024-11-12] VITALS (14 sets, daily range): BP systolic 100–122; BP diastolic 47–74; PULSE 69–93; RESP 16–188; TEMP 36.1–37.6; O2SAT 88–99; BMI 19.0; BMI 21.0
--- NOTE | ~2024-11-12 | CT_ITS ---
CLINICAL HISTORY: hpyoxia, fever, hip fracture CTA chest with 3-D postprocessing Comparison: CR - XR CHEST 1V - 11/12/24 04:02 EDT Findings: Study quality is adequate for the diagnosis of pulmonary embolism. No pulmonary embolism. Heart size within normal limits. RV/LV ratio is normal. No calcified coronary artery disease. Left chest wall dual lead cardiac pacemaker. No aortic dissection or aneurysm. Mild calcified atherosclerotic disease. No lymphadenopathy. Mild bronchial wall thickening with secretions in the airways, most prominent in the right lower lobe. Paraseptal emphysema measures up to 3.2 cm. Confluent centrilobular emphysema. Mild amount of subsegmental, dependent and compressive atelectasis. Pulmonary nodules measure up to 3 mm. No pneumothorax. Trace left pleural fluid. No acute osseous or soft tissue abnormality. Question partially visualized left hydronephrosis versus parapelvic cyst. Subcentimeter low attenuating lesion in the left kidney which is too small to characterize. Impression: No pulmonary embolism. Mild bronchial wall thickening with secretions in the airways which are most prominent in the right lower may indicate bronchitis. No evidence of aspiration pneumonia. Pulmonary nodules measuring up to 3 mm, likely infectious/inflammatory. No follow-up is required in low risk individuals. High risk individuals have the option of a 1 year follow-up chest CT. Question partially visualized left hydronephrosis versus parapelvic cyst. Correlate with urinalysis. This document has been electronically signed by: Maritza Conde MD on 11/13/2024 18:40:48
--- NOTE | ~2024-11-12 | CT_ITS ---
CLINICAL HISTORY: fall CT head without contrast Comparison: None Findings: No intra-axial mass, midline shift, hydrocephalus, or acute hemorrhage. No significant atrophy-like change or white matter disease. Mild mucosal thickening is seen in bilateral ethmoid air cells and right sphenoid sinus. The orbits are unremarkable. There is no acute fracture. IMPRESSION: 1. No acute intracranial findings. This document has been electronically signed by: Bhanu Easley on 11/12/2024 06:21:49
--- NOTE | ~2024-11-12 | XR_ITS ---
CLINICAL HISTORY: sp fall 1 view chest x-ray Comparison: None Findings: No consolidation or effusion. Heart size is normal. No acute fracture. Left anterior chest wall pacemaker with 2 intact appearing leads. IMPRESSION: 1. No acute findings. This document has been electronically signed by: Andrea Woods MD, PHD on 11/12/2024 04:31:15
--- NOTE | ~2024-11-12 | XR_ITS ---
CLINICAL HISTORY: fall 3 view, pelvis and right hip Comparison: None Findings: Right femoral neck fracture. Osteopenia. Moderate degenerative changes in the hips bilaterally. The soft tissues are unremarkable. IMPRESSION: Right femoral neck fracture. Osteopenia This document has been electronically signed by: Andrea Woods MD, PHD on 11/12/2024 04:32:53
--- NOTE | ~2024-11-12 | XR_ITS ---
EXAMINATION: XR PELVIS 1-2 VIEWS HISTORY: rt hip kellie COMPARISON: Comparison is made with the prior examination dated 11/12/2024. FINDINGS: A single AP view of the pelvis is submitted. The patient is status post right total hip arthroplasty. The orthopedic elements are in anatomic alignment on this single AP view. The left hip joint space is maintained. There are postoperative changes in the soft tissues. XR/XR pelvis 1-2V IMPRESSION: Status post right total hip arthroplasty. Electronically signed by: Francis Bowman MD 11/13/2024 08:06 AM EDT
--- NOTE | 2024-11-12 03:04 | ECG_ITS ---
Test Reason : SYNCOPE Blood Pressure : */* mmHG Vent. Rate : 77 BPM Atrial Rate : 77 BPM P-R Int : 172 ms QRS Dur : 88 ms QT Int : 410 ms P-R-T Axes : 51 58 68 degrees QTcB Int : 463 ms Sinus rhythm with Premature supraventricular complexes Nonspecific ST abnormality Abnormal ECG When compared with ECG of 26-Apr-2021 13:56, Sinus rhythm has replaced Electronic ventricular pacemaker Referred By: Generic ED Physician Electronically Signed By: SHAJI PEREZ
--- NOTE | 2024-11-12 03:15 | PC.NURSE ---
Pt aox4, on arrival o2 sat 88% RA. Placed on 2L with improvement to 94%. 1 PPD smoker for 30 years.
--- NOTE | 2024-11-12 03:16 | ED_ITS ---
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 in the box fell and patient felt since then been complaining of pain in the right hip no other in his no head injury patient is unable to stand up or extend her right thigh because of pain Related Data Previous Rx's ?Medication ?Instructions ?Recorded amoxicillin 875 mg-potassium 1 tab PO Q12H 10 days #20 tabs 06/04/20 clavulanate 125 mg tablet (Augmentin) Allergies Allergy/AdvReac Type Severity Reaction Status Date / Time aspirin Allergy Mild Headache Verified 11/12/24 03:10 ibuprofen Allergy Mild heartburns Verified 11/12/24 03:10 Review of Systems 2 Review of Systems: Yes all other systems are reviewed and are negative [facility] Past Medical History Medical History Sick sinus syndrome due to sinoatrial node dysfunction Anxiety Depression Social History Social History Household Members: Family Housing: House Do you presently have visiting nurse or other home services: No Alcohol intake: never Patient Tobacco Use Status: Current everyday Tobacco user Tobacco use type: Cigarette Cigarette Packs Per Day: 1 Cigarettes Per Day: 20.0 Smoked in Last 30 Days: Yes e-Cigarette/Vaping Use: Never Used Use of substances other than those prescribed or required for medical reasons: No Substance Use Type: Marijuana Advance Directives: No Advance Directives Information Provided: Yes Advance Directives Date on File: 04/23/21 Do you have a plan to hurt others: No Plan Nutrition Risks: No Nutritional Risk Patient : No Physical Exam 2 Vital Signs: Vital Signs: Last Vital Signs Temp 98.3 F 11/12/24 05:22 Pulse 93 11/12/24 05:22 Resp 20 11/12/24 05:22 BP 100/54 L 11/12/24 05:22 Pulse Ox 92 11/12/24 05:22 O2 Del Method Nasal Cannula 11/12/24 05:22 O2 Flow Rate 4 04/01/25 05:22 BMI result Body Mass Index 19.0 Appearance: Alert. Oriented X3. No acute distress. Eyes: PERRLA, No Nystagmus ENT: Pharynx normal. Oral Mucosa moist Neck: Normal inspection. Neck supple. No midline tenderness CVS: Normal heart rate and rhythm. Pulses normal. Respiratory: No respiratory distress. Equal air entry bilateral, no wheezing/rales/rhonchi Abdomen: Soft and nontender. Bowel sounds are present, no mass palpable, no CVA tenderness Skin: Skin warm and dry. Normal skin color. Normal skin turgor. Extremities: No lower extremity edema. No calf tenderness tenderness right greater trochanteric area and right groin unable to extend her leg because of pain no deformity Neuro: Oriented X 3. No motor deficit. No sensory deficit.No cerebellar signs , cranial nerves II-XII intact Medications Administered Generic Name Dose Route Start Last Admin Trade Name Freq PRN Reason Stop Dose Admin Morphine Sulfate 4 mg 11/12/24 05:18 11/12/24 05:39 Morphine Sulfate 4 Mg/Ml Cartridge IVPUSH 4 mg Q4H PRN Administration Pain, Severe (Pain Scale 7-10) Protocol Discontinued Medications Generic Name Dose Route Start Last Admin Trade Name Freq PRN Reason Stop Dose Admin Sodium Chloride 1,000 mls @ 999 mls/hr 11/12/24 04:09 11/12/24 05:35 Ns IV 11/12/24 05:09 Infused .Q1H1M ONE Infusion Morphine Sulfate 4 mg 11/12/24 03:30 11/12/24 04:06 Morphine Sulfate 4 Mg/Ml Cartridge IVPUSH 11/12/24 03:31 4 mg ONCE ONE Administration Protocol Morphine Sulfate 4 mg 11/12/24 05:36 11/12/24 05:59 Morphine Sulfate 4 Mg/Ml Cartridge IVPUSH 11/12/24 05:37 Not Given ONCE ONE Protocol Ondansetron HCl 4 mg 11/12/24 03:30 11/12/24 04:06 Ondansetron Hcl 4 Mg/2 Ml Vial IVPUSH 11/12/24 03:31 4 mg ONCE ONE Administration Medical Decision Making Medical Decision Making MDM Narrative: patient with mechanical fall with right hip and will get the x-ray and lab showed elevated creatinine and BUN likely prerenal will give IV fluids Differential Diagnosis Differential Diagnoses: The differential diagnosis associated with the presentation includes Admission/Observation Consideration of admission/observation: Escalation of care including admission/observation considered Consult Healthcare Provider Management of the patient was discussed with: Hospitalist and [employer] Agent Team Member Ortho, admit to hospitalist service Lab Data MDM Lab Attestation statement: I reviewed the patient's lab results. 11/12/24 03:24 11/12/24 03:24 Labs: Lab Results 11/12/24 Range/Units 03:24 WBC 16.4 H (4.8-10.8) X10*3/uL RBC 4.46 (4.20-5.50) X10*6/uL Hgb 12.8 (12.0-16.0) g/dl Hct 38.1 (37.0-47.0) % MCV 85.4 (80.0-98.0) fL MCH 28.7 (27.0-33.0) pg MCHC 33.6 (31.0-35.0) g/dl RDW 12.7 (11.0-16.0) % Plt Count 181 (160-400) X10*3/uL MPV 8.9 L (9.4-12.3) fL Immature Gran % (Auto) 0.5 H (0.0-0.4) % Neut % (Auto) 58.3 (45-73) % Lymph % (Auto) 30.0 (20-40) % [facility] [facility] % (Auto) 8.5 (2-11) % Eos % (Auto) 2.2 (0-4) % Baso % (Auto) 0.5 (0-2) % Lymph # (Auto) 4.9 (1.2-4.9) X10*3/uL [facility] [place] # (Auto) 1.4 H (0.1-1.2) X10*3/uL Eos # (Auto) 0.4 (0.0-0.4) X10*3/uL Baso # (Auto) 0.1 (0.0-0.2) X10*3/uL Abs Immat Gran (auto) 0.09 H (0.00-0.03) X10*3/uL Absolute Neuts (auto) 9.6 H (2.0-8.3) x10*3/uL Absolute Nucleated RBC 0.000 (0.0-0.012) X10*3/uL Nucleated RBC % (auto) 0.0 (0.0-0.2) /100WBC Sodium 137 (135-145) mmol/L Potassium 3.4 (3.3-5.1) mmol/L Chloride 100 (96-108) mmol/L Carbon Dioxide 24 (22-29) mmol/L Anion Gap 16 (12-20) BUN 28 H (9-16) mg/dL Creatinine 2.07 H (0.5-1.4) mg/dL Estim Creat Clear Calc 29.3 Estimated GFR 25 Random Glucose 97 (60-115) mg/dL Calcium 8.5 D (8.4-10.2) mg/dL Total Bilirubin 0.4 (0.0-1.0) mg/dL AST 30 (5-31) U/L ALT 23 (0-31) U/L Alkaline Phosphatase 73 (39-117) U/L Troponin I High Sens 4.5 (<3.5-17.0) ng/L Total Protein 7.0 (6.5-8.0) g/dL Albumin 4.2 (3.5-5.0) g/dL Independent Interpretation I performed an independent interpretation of an: Plain X-Ray Radiology Impression Discussion of test interpretation with radiology: I have reviewed the radiologist's reading. Radiologist Impression: CLINICAL HISTORY: fall 3 view, pelvis and right hip Comparison: None Findings: Right femoral neck fracture. Osteopenia. Moderate degenerative changes in the hips bilaterally. The soft tissues are unremarkable. IMPRESSION: Right femoral neck fracture. Osteopenia This document has been electronically signed by: Andrea Woods MD, PHD on 11/12/2024 04:32:53 Discharge Plan Discharge Clinical Impression: Closed fracture of neck of right femur Patient Disposition: Admitted As Inpatient
[2024-11-12 03:33] LABS: Basophils Absolute Auto 0.1 X10*3/uL (0.0-0.2); Basophils Percent Auto 0.5 % (0-2); Eosinophils Absolute Auto 0.4 X10*3/uL (0.0-0.4); Eosinophils Percent Auto 2.2 % (0-4); Hematocrit 38.1 % (37.0-47.0); Hemoglobin 12.8 g/dl (12.0-16.0); Imm Gran Abs Auto 0.09 X10*3/uL (0.00-0.03); Imm Gran Pct Auto 0.5 % (0.0-0.4); Lymphocytes Absolute Auto 4.9 X10*3/uL (1.2-4.9); MANUAL DIFF FLAG NO; Mean Corpuscular HGB Conc 33.6 g/dl (31.0-35.0); Mean Corpuscular Hemoglobin 28.7 pg (27.0-33.0); Mean Corpuscular Volume 85.4 fL (80.0-98.0); Mean Platelet Volume 8.9 fL (9.4-12.3); Monocytes Absolute Auto 1.4 X10*3/uL (0.1-1.2); Monocytes Percent Auto 8.5 % (2-11); Neutrophils Absolute Auto 9.6 x10*3/uL (2.0-8.3); Neutrophils Percent Auto 58.3 % (45-73); Platelet Count 181 X10*3/uL (160-400); Red Blood Count 4.46 X10*6/uL (4.20-5.50); Red Cell Distribution Width 12.7 % (11.0-16.0); White Blood Count 16.4 X10*3/uL (4.8-10.8)
--- OUTSIDE RECORDS SUMMARY | 2024-11-12 03:37 | XMS_ITS | Clinical Summary ---
Author Organization [facility] Address [address] [place] [address] Care Team Providers Care Central Stores Attendant Name Role Phone Jeremías Jones MD Primary Care Provider [phone] Source Comments PLEASE NOTE, if this patient is a minor, it may be UNLAWFUL to discuss sensitive information that is contained in these records (such as FAMILY PLANNING, MENTAL HEALTH or SUBSTANCE ABUSE) with the minor patient's parent or other person without the patient's specific authorization.[facility] Allergies Active Allergy Reactions Criticality Noted Date Comments Gabapentin Other (See Comments) 11/11/2023 suicidal Medications nicotine, polacrilex, (NICORETTE) 4 mg gumIndications:To bacco dependence due to cigarettes Take 1 Each by mouth as needed for smoking cessation 110 Each 11/07/19 19 Active nicotine (NICODERM CQ) 14 mg/24 hr patchIndications: Tobacco dependence due to cigarettes Place 1 Patch onto the skin once daily (every 24 hours) 28 Patch 2 04/30/20 21 Active nicotine, polacrilex, (NICORETTE) 2 mg gumIndications:To bacco dependence due to cigarettes Take 1 Each by mouth as needed for smoking cessation 110 Each 2 04/30/20 21 Active carvediloL (COREG) 3.125 mg tabletIndications :Pacemaker,Non-ST elevated myocardial infarction (HCC-CMS),Takotsu jacob cardiomyopathy TAKE ONE TABLET BY MOUTH TWICE A DAY WITH MEALS 60 Tablet 2 03/08/20 23 Active ibuprofen 600 mg tabletIndications :Chronic apical periodontitis Take 1 Tablet by mouth 4 (four) times daily as needed for mild pain 20 Tablet 08/09/20 23 Active naloxone (NARCAN) 4 mg/actuation nasal sprayIndications: Degenerative lumbar disc Place 1 [place] into the nostril(s) as needed for opioid reversal (Overdose) 2 Each 11/11/19 24 Active HYDROcodone-aceta minophen (NORCO) 5-325 mg per tabletIndications :Degenerative lumbar disc Take 1 Tablet by mouth every 8 (eight) hours as needed for pain 15 Tablet 11/11/19 24 Active DULoxetine (CYMBALTA) [address] capsuleIndication s:Moderate episode of recurrent major depressive disorder ([facility]) Take 1 Capsule by mouth 3 (three) times daily for 90 days 90 Capsule 2 09/09/19 25 025 Active lamoTRIgine (LAMICTAL) 100 mg tabletIndications :Moderate episode of recurrent major depressive disorder ([facility]),Bipolar II disorder ([facility]) Take 1 Tablet by mouth 3 (three) times daily for 90 days 90 Tablet 2 09/09/19 25 025 Active LORazepam (ATIVAN) 1 mg tabletIndications :Severe anxiety TAKE ONE TABLET BY MOUTH TWICE A DAY NEEDED FOR ANXIETY 60 Tablet 10/08/19 25 Active cyclobenzaprine (FLEXERIL) 5 mg tabletIndications :Degenerative lumbar disc TAKE ONE TABLET BY MOUTH AT BEDTIME NEEDED FOR MUSCLE SPASM 30 Tablet 3 11/09/19 25 Active cyclobenzaprine (FLEXERIL) 5 mg tabletIndications :Degenerative lumbar disc TAKE ONE TABLET BY MOUTH AT BEDTIME NEEDED FOR MUSCLE SPASM 30 Tablet 3 06/03/20 24 025 Discontinued Active Problems Problem Noted Date Diagnosed Date Bipolar II disorder ([facility]) 08/15/2023 Generalized anxiety disorder 04/05/2023 Moderate episode of recurren t major depressive disorder ([facility]) 04/05/2023 Non-ST elevated myocardial infarction ([facility]) 05/04/2021 Overview (11/27/2023): Followed by Cardiology in [facility] Reports normal PCI Pacemaker 04/28/2021 Overview (11/27/2023): Placed while in [facility] Apr 24, 2021 Diagnosed with broken heart syndrome Followed by Cardiology in [facility] Tobacco dependence due to cigarettes 11/12/2018 Anxiety and depression 11/06/2018 Overview (11/27/2023): Following department Fibromyalgia 11/06/2018 Primary osteoarthritis involving multiple joints 11/06/2018 Encounters Date Type Department Care Team Description 11/06/2024 / INTERIM [address] [phone] Jody Reynolds LM Generalized anxiety disorder (Primary Dx); Moderate episode of recurrent major depressive disorder (HCC-CMS); Bipolar II disorder (HCC-CMS); Severe anxiety 10/03/2024 2:30 PM EST / Visits [address] [phone] Jody Reynolds LMHC Generalized anxiety disorder (Primary Dx); Moderate episode of recurrent major depressive disorder (HCC-CMS); Bipolar II disorder (HCC-CMS); Severe anxiety 09/12/2024 4:00 PM EST / Visits [address] [phone] Jody Reynolds [facility] Generalized anxiety disorder (Primary Dx); Moderate episode of recurrent major depressive disorder (HCC-CMS); Bipolar II disorder (HCC-CMS); Severe anxiety 09/09/2024 1:00 PM EST / Visits [address] [phone] Tracey Salinas PMHNP Generalized anxiety disorder (Primary Dx); Moderate episode of recurrent major depressive disorder (HCC-CMS); Bipolar II disorder (HCC-CMS); Severe anxiety from Last 3 Months Immunizations Immunization Administration Dates Next Due PFIZER COVID VACCINE, PURPLE CAP, 12+ 12/09/2020 ,11/18/2020 TDAP 06/04/2020 Family History Medical History Relation Name Comments Cancer Father LUNG No Known Problems Maternal Grandfather No Known Problems Maternal Grandmother Breast cancer Mother Hypertension Mother No Known Problems Paternal Grandfather No Known Problems Paternal Grandmother Cancer Sister LUNG, LIVER, HO DKIGN LYMPHOMA Relation Name Status Comments Brother Alive Father Maternal Grandfather Maternal Grandmother Mother Paternal Grandfather Paternal Grandmother Sister Social History Tobacco Use Types Packs/Day Years Used Date Smoking Tobacco: Every Day Cigarettes 1 30 Smokeless Tobacco: Never Tobacco Cessation:Ready to Q uit: No; Counseling Given: Yes Alcohol Use Standard Drinks/Week Comments No 0 (1 standard drink = 0.6 oz pur e alcohol) Social Connections Answer Date Recorded Connectedness 0 04/30/2021 Financial Resource Strain Answer Date R ecorded Financial Resource Strain 0 2020 Stress Answer Date Recorded Stress 0 04/30/2021 Physical Activity Answer Date Recorded Physical Activity 0 04/08/2019 Food Insecurity Answer Date Recorded Food 0 04/30/2021 Transportation Needs Answer Date Record ed Transportation 0 04/30/2021 Housing Stability Answer Date Recorded Housing 0 04/30/2021 Safety and Environment Answer Date Tello rded Safety 0 04/30/2021 Utilities Answer Date Recorded Utilities 0 04/30/2021 Employment Answer Date Recorded Employment 0 04/08/2019 Comments No Sex and Gender Information Value Date Recorded Sex Assigned at Female 11/06/2018 6:49 AM PDT Legal Sex Female 6:16 AM PST Gender Identity Female 11/06/2018 6:49 AM PDT Sexual Orientation Straight 11/06/2018 6: 49 AM PDT Last Filed Vital Signs Vital Sign Reading Time Taken Comments Blood Pressure 111/71 02/13/2024 9:02 AM EDT Pulse 73 02/13/2024 9:02 AM EDT Temperature 37 ??C (98.6 ??F) 11/27/2023 1:14 PM EDT Respiratory Rate 16 11/27/2023 1:14 PM EDT Oxygen Saturation 95% 11/27/2023 1:14 PM EDT Inhaled Oxygen Concentration - - Weight 73.9 kg (163 lb) 11/27/2023 1:14 PM EDT Height 182.9 cm (6') 04/30/2021 10:03 AM EDT Body Mass Index 22.11 04/30/2021 10:03 AM EDT Plan of Treatment Health Maintenance Due Date Last Done Comments Anxiety Screening 1965 HPV Screening 1965 Hepatitis C Screening 1965 Pap + HPV 1965 HIV Screening 1980 Imm-Hepatitis B (1 of 3 - 19 + 3-dose series) 1984 Imm-Pneumococcal (1 of 2 - PCV) 1984 Cervical Cancer Screening 1986 Pap Smear 1986 Breast Cancer Screening (Mammogram) 2005 CT Colonography 2010 Colonoscopy 2010 Colorectal Cancer Screening 2010 FIT/gFOBT 2010 Fecal DNA 2010 Flexible Sigmoidoscopy 2010 Imm-Zoster, Recombinant (1 of 2) 2015 Lung Cancer Screening 2015 Diabetes Screening 11/06/2021 11/06/2018, 11/06/2018 Lipid Screening 11/07/2023 11/06/2018 Depression Monitoring 02/26/2024 11/27/2023 , 06/02/2022, 08/02/2021, Additional history exists Ues-UGLKS-[id number] ( season) 2024 05/15/2023, 07/14/2021, 12/09/2020, Additional history exists Imm-Influenza (#1) 2024 Dental Examination 06/30/2024 06/28/2023 Alcohol and Drug Screen 08/14/2024 11/27/19 24, 08/02/2021, 04/30/2021, Additional history exists Tobacco Cessation Counseling (#1) 11/26/2024 024 Hypertension Screening (#1) 02/12/2025 Dental FMX/Pano 08/11/2028 08/09/2023 Imm-DTaP/Tdap/Td (2 - Td or Tdap) 06/04/2030 020, 07/29/2010 Cervical Ablation/Cold-Knife Conization Discontinued Cervical Cryotherapy Discontinued Colposcopy Discontinued Endometrial Biopsy Discontinued Excision/Leep Discontinued HPV Genotyping Discontinued Vaginal Pap Discontinued Vulvoscopy Discontinued Procedures Procedure Name Priority Date/Time Associated Diagnosis Comments PANORAMIC RADIOGRAPHIC IMAGE Routine 08/09/2023 3:40 PM EST Chronic apical periodontitis Full PERIODIC ORAL EVALUATION ESTABLISHED PATIENT Routine 06/28/2023 2:20 PM EST Encounter for dental examination and cleaning with abnormal findings Caries Retained tooth root COMPREHENSIVE METABOLIC PANEL Routine 11/06/2018 2:01 PM EDT Encounter for medical examination to establish care LIPID PANEL Routine 11/06/2018 2:01 PM EDT Encounter for medical examination to establish care from Last 3 Months or Most Recently Relevant to Health Maintenance Results * (ABNORMAL) LIPID PANEL (11/06/2018 2:01 PM EDT) CHOLESTEROL 205(H) 0 - 200 mg/dL [facility] TRIGLYCERIDES 106 0 - 150 mg/dL [facility] HDL CHOLESTEROL 48 >40 mg/dL [facility] LDL CALCULATED 136(H) 0 - 100 mg/dL [facility] TC-HDLC RATIO 4.3 0 - 4.4 mg/dL [facility] Blood specimen (specimen) Blood / Unknown 11/06/2018 2:01 PM EDT 11/06/2018 4:30 PM EDT Narrative [facility] - 11/06/2018 7:21 PM EDT [facility], [place] [address] Manager Intranet - Dionna Evans MD PT ID [id number] ORD# [id number] Nevaeh Espino PA-C LAB - BLOOD DRAW Edited Result - Final Performing Organization Address City/State/[facility] [place] [address], * (ABNORMAL) COMPRE METAB PANEL (11/06/2018 2:01 PM EDT) GLUCOSE 103(H) 70 - 100 mg/dL [facility] Comment:Reference range appl icable to fasting specimens only BUN 9 5 - 25 mg/dL [facility] CREAT 0.82 0.5 - 1.1 mg/dL [facility] GLOMERULAR FILTRATION RATE > 60 [facility] Comment: If patient is -Ukrainian, multiply result by 1.21 Chronic Kidney Disease: < 60 ml/min/1.73 square meters Kidney Failure: < 15 ml/min/1.73 square meters SODIUM 137 133 - 145 mmol/L [facility] POTASSIUM 4.5 3.5 - 5.5 mmol/L [facility] CHLORIDE 100 96 - 110 mmol/L [facility] CO2 30 21 - 32 mmol/L [facility] ANION GAP 7 3 - 11 [facility] CALCIUM 9.5 8.5 - 10.5 mg/dL [facility] TOTAL PROTEIN 8.0 6.0 - 8.0 G/dL [facility] ALBUMIN 4.6 3.2 - 5.0 G/dL [facility] BILI, TOTAL 0.4 0.0 - 1.4 mg/dL [facility] SGOT 17 10 - 42 U/L [facility] SGPT 22 10 - 60 U/L [facility] ALK PHOS 55 42 - 121 U/L [facility] Blood specimen (specimen) Blood / Unknown 11/06/2018 2:01 PM EDT 11/06/2018 4:30 PM EDT Narrative [facility] - 11/06/2018 7:21 PM EDT [facility] [employer], [place] [address] Manager Intranet - Dionna Evans MD PT ID [id number] ORD# [id number] Nevaeh Espino PA-C LAB - BLOOD DRAW Edited Result - Final [facility] [address] [place] [address], from Last 3 Months or Most Recently Relevant to Health Maintenance Insurance [place] [facility] [employer] [address] [employer] Care Teams [employer] Attendant Relationship Specialty Start Date End Date Jeremías Jones MD [address] [place] [address] PCP - General Family Medicine, Physician 08/15/23
--- OUTSIDE RECORDS SUMMARY | 2024-11-12 03:37 | XMS_ITS | Clinical Summary ---
Author Organization [facility] it Address [address] [place] [address] Care Team Providers Care Import Clerk Name Role Phone Hector Ricketts MD Primary Care Provider [phone] Surgical History Surgery Date Site/Laterality Comments OTHER SURGICAL HISTORY Left PROCEDURE: HISTORY OTHER; COMMENT: left wrist OTHER SURGICAL HISTORY N/A PROCEDURE: HISTORY OTHER; COMMENT: tubes tied Medical History Medical History Date Comments Pacemaker DX:Pacemaker Fibromyalgia DX:Fibromyalgia Anxiety disorder DX:Anxiety diso rder Depression DX:Depression Menopause DX:Menopause Other somatoform disorders DX:Ot her somatoform disorders; COMMENT: fatigue Weakness DX:Weakness; COM MENT: b/l arm and leg weakness Memory change DX:Memory change ; COMMENT: memory problems Loss of sensation DX:Loss of sen sation Difficulty balancing DX:Difficul ty balancing Urinary incontinence DX:Urinary incontinence; COMMENT: difficulty starting and stoppig stream Broken bones DX:Broken bones Arm pain DX:Arm pain; COM MENT: B/L arm and leg pain; leg pain while walking Joint pain DX:Joint pain; C OMMENT: joint pain and swelling; swelling in hands and feet Rheumatoid arthritis (CMS/HCC) D X:Rheumatoid arthritis (HCC) Wears glasses DX:Wears glasses Nasal congestion DX:Nasal conges tion Abdominal pain DX:Abdominal linnea n Change in bowel habits DX:Change in bowel habits Autoimmune disease (CMS/HCC) DX: Autoimmune disease (HCC); COMMENT: fibromyalgia Social History Tobacco Use Types Packs/Day Years Used Date Smoking Tobacco: Every Day Smokeless Tobacco: Never Comments Unknown Sex and Gender Information Value Date Recorded Sex Assigned at Not on file Legal Sex Female 1:37 AM EST Gender Identity Not on file Sexual Orientation Not on file Obstetrics History Last Filed Vital Signs Vital Sign Reading Time Taken Comments Blood Pressure - - Pulse - - Temperature - - Respiratory Rate - - Oxygen Saturation - - Inhaled Oxygen Concentration - - Weight 72.6 kg (160 lb) 12/01/2023 11:21 AM EDT Height 175.3 cm (5' 9 ) 12/01/2023 11:21 AM EDT Body Mass Index 23.63 12/01/2023 11:21 AM EDT Plan of Treatment Health Maintenance Due Date Last Done Comments Breast Cancer Screening 1965 Hepatitis B Vaccines (1 of 3 - 19+ 3-dose series) 1984 Pneumococcal Vaccine: 50+ Years (1 of 2 - PCV) 1984 Pneumococcal Vaccine: Pediatrics (0 to 5 Years) and At-Risk Patients (6 to 64 Years) (1 of 2 - PCV) 1984 Cervical Cancer Screening: P ap Smear 1986 Zoster Vaccines (1 of 2) 2015 Cholesterol Screening (Lipid Panel) 03/15/2024 Colorectal Cancer Screening: Colonoscopy 03/15/2024 HIV Screening 03/15/2024 Hepatitis C Screening 03/15/2024 Lung Cancer Screening (Low Dose CT) 03/15/2024 Social Influencers of Health Screening 03/15/2024 COVID-19 Vaccine (4 - 2023-2 5 season) 2024 07/14/2021, 12/09/2020, 11/18/2020 Influenza Vaccine (#1) 2024 Depression Screening 11/26/2024 11/27/2023 DTaP,Tdap,and Td Vaccines (2 - Td or Tdap) 06/04/2030 06/04/2020, 07/29/2010 RSV Immunization Patients 60 + Years Old (1 - 1-dose 75+ series) 2040 HIB Vaccines Aged Out No longer eligi ble based on patient's age to complete this topic HPV Vaccines Aged Out No longer eligi ble based on patient's age to complete this topic Hepatitis A Vaccines Aged Out No long er eligible based on patient's age to complete this topic IPV Vaccines Aged Out No longer eligi ble based on patient's age to complete this topic MMR Vaccines Aged Out No longer eligi ble based on patient's age to complete this topic Meningococcal ACWY Vaccine Aged Out N o longer eligible based on patient's age to complete this topic Meningococcal B Vacine Aged Out No lo nger eligible based on patient's age to complete this topic RSV Immunization Patients Under 20 months Aged Out No longer eligible b ased on patient's age to complete this topic Varicella Vaccines Aged Out No longer eligible based on patient's age to complete this topic Care Teams Import Clerk Relationship Specialty Start Date End Date Hector Ricketts MD [address] [place] [address] PCP - General 06/14/18
[2024-11-12 03:54] LABS: Troponin-I High Sensitivity 4.5 ng/L (<3.5-17.0)
[2024-11-12 03:58] LABS: Alanine Aminotransferase 23 U/L (0-31); Albumin Level 4.2 g/dL (3.5-5.0); Alkaline Phosphatase 73 U/L (39-117); Anion Gap 16 (12-20); Aspartate Amino Transferase 30 U/L (5-31); Bilirubin Total 0.4 mg/dL (0.0-1.0); Blood Urea Nitrogen 28 mg/dL (9-16); Calcium 8.5 mg/dL (8.4-10.2); Carbon Dioxide 24 mmol/L (22-29); Chloride 100 mmol/L (96-108); Creatinine Clr Calc Pharmacy 29.3; Estimated Glomerular Filt Rate 25; Glucose Random 97 mg/dL (60-115); Potassium 3.4 mmol/L (3.3-5.1); Sodium 137 mmol/L (135-145)
[2024-11-12] MEDS: ondansetron HCL 4 MG/2 ML VIAL IVPUSH (04:06)
[2024-11-12] MEDS: Morphine Sulfate 4 MG/ML CARTRIDGE IVPUSH ×3 (04:06→08:50)
[2024-11-12] MEDS: 0.9 % Sodium Chloride 1,000 ML 999 ML IV (04:16)
--- NOTE | 2024-11-12 05:19 | PM.IMHP ---
History of Present Illness Date of Service: 11/12/24 Chief Complaint: Fall This is a 59-year-old female with pertinent history of sick sinus syndrome status post pacemaker, mood disorder, tobacco use disorder who presents to the emergency department for evaluation after a fall and right leg pain. Patient states that she was in her garage trying to grab papers when boxes behind her fell. She was trying to grab the boxes and she lost her balance and fell. Patient has been having right leg pain since the fall. Did not lose consciousness. No jerking movement of extremities. No chest pain or palpitations prior to the fall. Patient does endorse poor p.o. intake that has been ongoing for the last few days and dizziness which is worse with standing. No vomiting or diarrhea. No fever, chills, shortness of breath, abdominal pain, changes in urinary or bowel habits. In the emergency department, imaging with right femoral neck fracture and serum creatinine found to be 2.07 Review of Systems Constitutional: Constitutional: Reports fatigue, Reports malaise, Reports poor appetite and Reports weakness ENT: Reports dizziness Cardiovascular: Cardiovascular: Reports no additional cardiovascular complaints Respiratory: Respiratory: Reports no additional respiratory complaints Gastrointestinal: Gastrointestinal: Reports no additional gastrointestinal complaints Genitourinary: Genitourinary: Reports no additional female genitourinary complaints Musculoskeletal: Musculoskeletal: Reports arthralgias Neurologic: Reports dizziness and Reports weakness Endocrine: Endocrine: Reports fatigue [facility] Medical History Sick sinus syndrome due to sinoatrial node dysfunction Anxiety Depression Pertinent family history: No family history of early CAD Social History Household Members: Family Housing: House Do you presently have visiting nurse or other home services: No Alcohol intake: never Patient Tobacco Use Status: Current everyday Tobacco user Tobacco use type: Cigarette Cigarette Packs Per Day: 1 Cigarettes Per Day: 20.0 Smoked in Last 30 Days: Yes e-Cigarette/Vaping Use: Never Used Use of substances other than those prescribed or required for medical reasons: No Substance Use Type: Marijuana Advance Directives: No Advance Directives Information Provided: Yes Advance Directives Date on File: 04/23/21 Do you have a plan to hurt others: No Plan Patient : No Meds Allergies Allergy/AdvReac Type Severity Reaction Status Date / Time aspirin Allergy Mild Headache Verified 11/12/24 03:10 ibuprofen Allergy Mild heartburns Verified 11/12/24 03:10 Physical Exam Vital Signs and Narrative: Vital Signs: Last Vital Signs Temp 98.1 F 11/12/24 03:05 Pulse 85 11/12/24 04:11 Resp 188 H 11/12/24 04:11 BP 102/69 11/12/24 04:11 Pulse Ox 94 11/12/24 04:11 O2 Del Method Nasal Cannula 11/12/24 04:11 O2 Flow Rate 2 11/12/24 04:11 BMI result Body Mass Index 19.0 Middle-aged female lying in bed in no distress Neck supple, no JVD Regular rate and rhythm, S1-S2 heard Regular breath sounds bilaterally, no wheezing or crackles appreciated Abdomen soft nontender, no guarding, no rigidity Patient is awake, alert and oriented to self, place, time and person ; no focal motor deficit Psych: Normal mood Limited right lower extremity movement due to pain Results Labs 11/12/24 03:24 11/12/24 03:24 Labs: Laboratory Results - last 24 hr 11/12/24 03:24 MCV 85.4 MCH 28.7 MCHC 33.6 RDW 12.7 Plt Count 181 MPV 8.9 L Immature Gran % (Auto) 0.5 H Neut % (Auto) 58.3 Lymph % (Auto) 30.0 [place] % (Auto) 8.5 Eos % (Auto) 2.2 Baso % (Auto) 0.5 Lymph # (Auto) 4.9 [place] # (Auto) 1.4 H Eos # (Auto) 0.4 Baso # (Auto) 0.1 Abs Immat Gran (auto) 0.09 H Absolute Neuts (auto) 9.6 H Absolute Nucleated RBC 0.000 Nucleated RBC % (auto) 0.0 Anion Gap 16 Estim Creat Clear Calc 29.3 Estimated GFR 25 Random Glucose 97 Calcium 8.5 D Total Bilirubin 0.4 AST 30 ALT 23 Alkaline Phosphatase 73 Total Protein 7.0 Albumin 4.2 Assessment and Plan (1) Closed fracture of neck of right femur: Status: Acute (2) Acute kidney injury: Status: Acute Plan This is a 59-year-old female with pertinent history of sick sinus syndrome status post pacemaker, mood disorder, tobacco use disorder who presents to the emergency department for evaluation after a fall and right leg pain. #. Acute right femoral neck fracture due to mechanical fall: Will admit patient with IV morphine p.r.n. for analgesia. Consulted Orthopedic surgery, appreciate assistance. CT head pending #. Preoperative risk: RCRI score 1. Obtaining BNP #. Presyncope, orthostatic: Resuscitating with IV crystalloids. #. Acute kidney injury stage II: Monitor creatinine urine output with crystalloid resuscitation. Avoid nephrotoxins #. Leukocytosis, reactive #. Mood disorder: Continue home mood stabilizers #. Tobacco use disorder: Refused nicotine patch Med rec pending DVT prophylaxis: Hold Lovenox until orthopedic surgery evaluation Full code Admit as inpatient and will require two night minimum hospital stay for surgical management of right femoral neck fracture, monitoring of kidney function (as above), which is not possible in a lesser acute setting. Quality Stroke Does the patient have a stroke diagnosis?: No VTE Prior VTE?: No VTE Risk Level:: Medical - moderate - high VTE Device Contraindication: Treatment Not Tolerated VTE Drug Contraindication: Treatment Not Indicated
[2024-11-12 05:39] LABS: INTERNATIONAL NORM RATIO 1.2 (0.9-1.1); Prothrombin Time 13.5 SEC (10.9-12.4)
[2024-11-12 07:00] LABS: Appearance Urine Clear; Color Urine Yellow; Glucose Urine UA Negative (Negative); Leukocyte Esterase Urine Negative (Negative); Nitrite Urine Negative (Negative); Specific Gravity - Urine <= 1.005 (1.005-1.025); Urine Blood Negative (Negative); Urine Ketones Negative (Negative); Urine Protein Trace mg/dL (Neg-Trace)
[2024-11-12 07:14] LABS: Bacteria Urine None Seen (None Seen); Granular Casts Urine Present; RBC Urine 0-2 /HPF (0-2); WBC Urine 0-5 /HPF (0-5)
[2024-11-12 08:46] LABS: B Type Natriuretic Peptide 98 pg/mL (<100)
[2024-11-12] MEDS: 0.9 % Sodium Chloride Flush 3 ML SYRINGE IVFLUSH ×2 (08:54→20:44)
--- NOTE | 2024-11-12 09:25 | HO.PM.IMPN ---
Subjective Subjective Date of Service: 11/12/24 Interval History: pain Physical Exam Vital Signs: Vital Signs: Last Vital Signs Temp 98.4 F 11/12/24 08:41 Pulse 73 11/12/24 08:41 Resp 18 11/12/24 08:41 BP 107/62 11/12/24 08:41 Pulse Ox 96 11/12/24 08:41 O2 Del Method Nasal Cannula 11/12/24 08:41 O2 Flow Rate 4.0 11/12/24 08:41 BMI result Body Mass Index 21.0 General: AO X 3, in acute distress Resp: CTA bilateral, no accessory muscles used CVS: S1,S2,RRR GI: soft, non tender, non distended Neuro: motor grossly intact, alert Psych: appropriate affect, appropriate insight Objective Data Active Medications Acetaminophen (Acetaminophen 325 Mg Tablet) 650 mg PO Q6H PRN PRN Reason: Pain, Mild 1-3,fever,headache Calcium Carbonate (Calcium Carbonate 750 Mg Tab.Chew) 750 mg PO Q4H PRN PRN Reason: Heartburn Hydromorphone HCl (Hydromorphone Hcl 1 Mg/Ml Syringe) 1 mg IVPUSH Q3H PRN; Protocol PRN Reason: Pain, Severe (Pain Scale 7-10) Lorazepam (Lorazepam 2 Mg/Ml Vial) 1 mg IVPUSH Q4H PRN PRN Reason: Anxiety Magnesium Hydroxide (Milk Of Magnesia 30 Ml Oral.Susp) 30 ml PO DAILY PRN PRN Reason: Constipation Melatonin (Melatonin 3 Mg Tablet) 6 mg PO BEDTIME PRN PRN Reason: Insomnia Ondansetron HCl (Ondansetron Hcl 4 Mg/2 Ml Vial) 4 mg IVPUSH Q8H PRN PRN Reason: Nausea and Vomiting Sodium Chloride (0.9 % Sodium Chloride Flush 3 Ml Syringe) 3 ml IVFLUSH QSHIFT [facility] Last Admin: 11/12/24 08:54 Dose: 3 ml Documented By: BUD Labs 11/12/24 03:24 11/12/24 03:24 Labs: Laboratory Results - last 24 hr 11/12/24 11/12/24 11/12/24 03:24 05:22 06:45 MCV 85.4 MCH 28.7 MCHC 33.6 RDW 12.7 Plt Count 181 MPV 8.9 L Immature Gran % (Auto) 0.5 H Neut % (Auto) 58.3 Lymph % (Auto) 30.0 [place] % (Auto) 8.5 Eos % (Auto) 2.2 Baso % (Auto) 0.5 Lymph # (Auto) 4.9 [place] # (Auto) 1.4 H Eos # (Auto) 0.4 Baso # (Auto) 0.1 Abs Immat Gran (auto) 0.09 H Absolute Neuts (auto) 9.6 H Absolute Nucleated RBC 0.000 Nucleated RBC % (auto) 0.0 PT 13.5 H INR 1.2 H Anion Gap 16 Estim Creat Clear Calc 29.3 Estimated GFR 25 Random Glucose 97 Calcium 8.5 D Total Bilirubin 0.4 AST 30 ALT 23 Alkaline Phosphatase 73 B-Natriuretic Peptide Total Protein 7.0 Albumin 4.2 Urine Color Yellow Urine Appearance Clear Urine pH 5.0 Ur Specific Matthews <= 1.005 Urine Protein Trace Urine Glucose (UA) Negative Urine Ketones Negative Urine Blood Negative Urine Nitrite Negative Ur Leukocyte Esterase Negative Urine RBC 0-2 Urine WBC 0-5 Ur Squamous Epith Cells 3-5 Urine Bacteria None Seen Hyaline Casts 6-10 Granular Casts Present 11/12/24 08:17 MCV MCH MCHC RDW Plt Count MPV Immature Gran % (Auto) Neut % (Auto) Lymph % (Auto) [place] % (Auto) Eos % (Auto) Baso % (Auto) Lymph # (Auto) [place] # (Auto) Eos # (Auto) Baso # (Auto) Abs Immat Gran (auto) Absolute Neuts (auto) Absolute Nucleated RBC Nucleated RBC % (auto) PT INR Anion Gap Estim Creat Clear Calc Estimated GFR Random Glucose Calcium Total Bilirubin AST ALT Alkaline Phosphatase B-Natriuretic Peptide 98 Total Protein Albumin Urine Color Urine Appearance Urine pH Ur Specific Matthews Urine Protein Urine Glucose (UA) Urine Ketones Urine Blood Urine Nitrite Ur Leukocyte Esterase Urine RBC Urine WBC Ur Squamous Epith Cells Urine Bacteria Hyaline Casts Granular Casts Assessment and Plan (1) Acute kidney injury: Status: Acute Plan 59M PMH sick sinus syndrome status post pacer, takotsubo cardiomyopathy, mood disorder presented with fall and right leg pain and to have acute kidney injury Mechanical fall complicated by acute right femoral neck fracture Plan for OR today Continue pain control Acute kidney injury Likely prerenal, given IV fluids, monitor Mood disorder Patient unclear on home meds, will restart when confirmed Full code reason for continued hospitalization: Surgery pending Quality Stroke Does the patient have a stroke diagnosis?: No VTE Prior VTE?: No VTE Risk Level:: Medical - moderate - high VTE Device Contraindication: Treatment Not Tolerated VTE Drug Contraindication: Treatment Not Indicated
[2024-11-12] MEDS: HYDROmorphone HCl 1 MG/ML SYRINGE IVPUSH ×4 (09:31→20:41)
--- NOTE | 2024-11-12 09:52 | P.CONOP_ITS ---
History of Present Illness HPI Consult date: 11/12/24 Chief complaint: fall Narrative: 59 yo female admitted to the medical service after sustaining a right femoral neck fracture . She states she was in her garage and she went to cotton picker some paper when she felt light headed and fell, landing on the right side. She was unable to get up and ambulate. She lives at home and is independent with all ADL's . She smokes 1PPD, denies alcohol use. She does smoke marijuana. She has a pacemaker due to SSS. Not on anticoag. Upon admission, orthopedics was consulted for further recommendations. Review of Systems 2 Review of Systems: Yes all other systems are reviewed and are negative [facility] Past Medical History Medical History Sick sinus syndrome due to sinoatrial node dysfunction Anxiety Depression Social History Social History Household Members: Significant Other and Children Housing: House Do you presently have visiting nurse or other home services: No Alcohol intake: never Patient Tobacco Use Status: Current everyday Tobacco user Tobacco use type: Cigarette Cigarette Packs Per Day: 1 Cigarettes Per Day: 20.0 e-Cigarette/Vaping Use: Never Used Substance Use Type: Marijuana Advance Directives Date on File: 04/23/21 Meds Allergies Allergy/AdvReac Type Severity Reaction Status Date / Time aspirin Allergy Mild Headache Verified 11/12/24 03:10 ibuprofen Allergy Mild heartburns Verified 11/12/24 03:10 Active Medications: Current Medications Acetaminophen (Acetaminophen 325 Mg Tablet) 650 mg PO Q6H PRN PRN Reason: Pain, Mild 1-3,fever,headache Calcium Carbonate (Calcium Carbonate 750 Mg Tab.Chew) 750 mg PO Q4H PRN PRN Reason: Heartburn Hydromorphone HCl (Hydromorphone Hcl 1 Mg/Ml Syringe) 1 mg IVPUSH Q3H PRN; Protocol PRN Reason: Pain, Severe (Pain Scale 7-10) Last Admin: 11/12/24 09:31 Dose: 1 mg Lorazepam (Lorazepam 2 Mg/Ml Vial) 1 mg IVPUSH Q4H PRN PRN Reason: Anxiety Magnesium Hydroxide (Milk Of Magnesia 30 Ml Oral.Susp) 30 ml PO DAILY PRN PRN Reason: Constipation Melatonin (Melatonin 3 Mg Tablet) 6 mg PO BEDTIME PRN PRN Reason: Insomnia Ondansetron HCl (Ondansetron Hcl 4 Mg/2 Ml Vial) 4 mg IVPUSH Q8H PRN PRN Reason: Nausea and Vomiting Sodium Chloride (0.9 % Sodium Chloride Flush 3 Ml Syringe) 3 ml IVFLUSH QSHIFT [facility] Last Admin: 11/12/24 08:54 Dose: 3 ml Physical Exam 2 Vital Signs: Vital Signs: Last Vital Signs Temp 98.4 F 11/12/24 08:41 Pulse 73 11/12/24 08:41 Resp 18 11/12/24 08:41 BP 107/62 11/12/24 08:41 Pulse Ox 96 11/12/24 08:41 O2 Del Method Nasal Cannula 11/12/24 08:41 O2 Flow Rate 4.0 11/12/24 08:41 BMI result Body Mass Index 21.0 Const: General: cooperative, healthy appearing, comfortable, no acute distress, well developed and alert Orientation/consciousness: patient oriented x3 HEENT: Head: Yes normal to inspection, Yes normocephalic and Yes atraumatic Eyes: General: appearance normal, both eyes and all related structures Neck: Neck: Yes normal visual inspection and Yes no lymphadenopathy Resp: Effort & Inspection: normal respiratory effort and able to speak in complete sentences Cardio: Rate: regular rate Peripheral pulses: Peripheral pulses 2+ throughout GI: Inspection: Yes normal to inspection Palpation (GI): Soft to palpation Skin: General skin exam: no rashes or lesions noted Neuro: General: patient oriented x3 Extrem: Other: Right hip skin intact. Abraison on the knee. No open wounds to the hip or thigh. She is resting with a pillow under the knee. She is unable to perform SLR. She can perform plantar and dorsi flexion. NVI. Psych: Appearance: grossly normal Mental Status: mental status grossly normal Results Labs 11/12/24 03:24 11/12/24 03:24 Labs: Abnormal lab results 11/12/24 11/12/24 Range/Units 03:24 05:22 WBC 16.4 H (4.8-10.8) X10*3/uL MPV 8.9 L (9.4-12.3) fL Immature Gran % (Auto) 0.5 H (0.0-0.4) % [place]ke # (Auto) 1.4 H (0.1-1.2) X10*3/uL Abs Immat Gran (auto) 0.09 H (0.00-0.03) X10*3/uL Absolute Neuts (auto) 9.6 H (2.0-8.3) x10*3/uL PT 13.5 H (10.9-12.4) SEC INR 1.2 H (0.9-1.1) BUN 28 H (9-16) mg/dL Creatinine 2.07 H (0.5-1.4) mg/dL H & H 11/12/24 Range/Units 03:24 Hgb 12.8 (12.0-16.0) g/dl Hct 38.1 (37.0-47.0) % Coagulation 11/12/24 Range/Units 05:22 INR 1.2 H (0.9-1.1) All other labs normal. Diagnostic results Hip x-ray: image reviewed (right hip: IMPRESSION: Right femoral neck fracture. Osteopenia) Assessment and Plan (1) Closed fracture of neck of right femur: Status: Acute Plan I discussed the case with Dr Ruiz and explained the extent of the injury to the patient and options available which include surgical intervention. I explained the procedure in detail along with the length of recovery and rehab course. I explained the risk, benefits and alternatives. Risk including, but not limited to infection, blood clots, bleeding, non union or malunion and nerve/tissue damage to surrounding areas. I answered all their questions and with their understanding they have consented to move forward with Operative Fixation of the right femur . The patient will be T&S, med clearance obtained and NPO . Procedures Date of Service Date of Service: 11/12/24
[2024-11-12] MEDS: Lactated Ringers 1,000 ML 999 ML IV (10:00)
--- NOTE | 2024-11-12 13:47 | PHA.MEDREC ---
Addendum entered by Titi Jackson RPh 11/12/24 14:18: Reviewed by [facility] Original Note: Pharmacy Consult ? Medication Reconciliation Pharmacy has completed the medication reconciliation. Spoke to patient to confirm med list. Patient was able to name all his medications, however she didn't know the doses. Patient states she fills from [facility]. Utilized list from [facility] to confirm med list.
[2024-11-12] MEDS: LORazepam 2 MG/ML VIAL 1 MG IVPUSH (14:54)
--- NOTE | 2024-11-12 17:40 | MHC.SHP ---
Pre-Procedural Eval Section A - 24 Hr Update-Section A only Date of Service: 11/12/24 The patient is an INPATIENT: Yes Changes since office visit: No Cold of Flu in the past 2 weeks, No New Medical Problems, No Changes in Medication and No Patient answered all questions The patient has been examined within 24 hours of the surgical procedure. The History & Physical has been completed within 30 days and I have reviewed it.: Yes Section B - Complete if H&P > 30 days Chief Complaint: fall Allergies: Allergies Allergy/AdvReac Type Severity Reaction Status Date / Time aspirin Allergy Mild Headache Verified 11/12/24 03:10 ibuprofen Allergy Mild heartburns Verified 11/12/24 03:10 Plan I have reviewed the history and physical and performed a pertinent physical examination on my patient. No changes have occurred unless specified. Time Spent With Patient Time: Total time managing care of this patient today ____ minutes.
[2024-11-12] MEDS: ceFAZolin Sodium/Dextrose,Iso 2 GM/50 ML PIGGYBACK IV (18:10)
--- NOTE | 2024-11-12 19:29 | PM.OP ---
Brief Operative Note Date of Service: 11/12/24 Pre-op diagnosis: Right femoral neck fracture Post-op diagnosis: same Procedure: Right hip kellie Implants: Ehsan Accolade2 #6 [id number] +0/46 Surgeon: Girish Ruiz MD Anesthesia: GETA and local Was an Dean Of Admissions used for this Procedure?: Yes Dean Of Admissions: Moni Steen Estimated blood loss (mL): 200 IV fluids (mL): 1,000 Pathology: other Condition: stable Disposition: PACU
[2024-11-12] MEDS: fentaNYL citrate/PF 100 MCG/2 ML VIAL 50 MCG IVPUSH ×2 (20:10→20:15)
--- NOTE | 2024-11-12 21:29 | PC.NURSE ---
pt arrived form pacu drowsy and in pain 10 to rt hip/knee. vs on arrival 115/69, p 69, rr 18, o2 92 on 2l, t 98.9. prn dilaudid given on arrival with good result. daughter Gely called per request on [phone] with no answers, message left.
[2024-11-13] VITALS (8 sets, daily range): BP systolic 95–116; BP diastolic 51–68; PULSE 78–91; RESP 14–17; TEMP 36.6–38.5; O2SAT 70–93
[2024-11-13] MEDS: HYDROmorphone HCl 1 MG/ML SYRINGE IVPUSH (04:18)
--- NOTE | 2024-11-13 07:25 | PM.PNORT ---
Subjective Subjective Date of Service: 11/13/24 Interval history: POD1 s/p right hip kellie Patient is resting in bed comfortably No overnight events Pain is managed No additional complaints Physical Exam Vital Signs: Vital Signs: Last Vital Signs Temp 98 F 11/13/24 06:40 Pulse 79 11/13/24 06:40 Resp 15 11/13/24 06:40 BP 116/68 11/13/24 06:40 Pulse Ox 92 11/13/24 06:40 O2 Del Method Nasal Cannula 11/13/24 06:40 O2 Flow Rate 4 11/13/24 06:40 BMI result Body Mass Index 21.0 Const: General: cooperative, healthy appearing and no acute distress Resp: Effort & Inspection: normal respiratory effort and able to speak in complete sentences Cardio: Rate: regular rate Peripheral pulses: Peripheral pulses 2+ throughout GI: Palpation (GI): Soft to palpation Skin: Lesions: no lesions Rashes: no rashes Extrem: Other: right hip dressing is c/d/i. Able to dorsi/plantar flex. Calf is supple and nontender. Sensation intact. Pedal pulse intact. Procedures Date of Service Date of Service: 11/13/24 Progress Note: A&P Assessment and plan (1) Closed fracture of neck of right femur: Status: Acute (2) S/P hip hemiarthroplasty: Status: Acute Plan Continue pain mgmnt Begin Lovenox for dvt ppx begin PT/OT for Rt hip kellie - WBAT, posterior precuations Dispo planning-Pending PT eval, pain mgmnt Time Spent With Patient Time: Total time managing care of this patient today ____ minutes. Quality Stroke Does the patient have a stroke diagnosis?: No VTE Prior VTE?: No VTE Risk Level:: Medical - moderate - high VTE Device Contraindication: Treatment Not Tolerated VTE Drug Contraindication: Treatment Not Indicated
[2024-11-13 07:39] LABS: MANUAL DIFF FLAG NO
[2024-11-13 07:47] LABS: Basophils Percent Auto 0.2 % (0-2); Eosinophils Percent Auto 0.1 % (0-4); Hematocrit 33.3 % (37.0-47.0); Hemoglobin 11.5 g/dl (12.0-16.0); Imm Gran Abs Auto 0.05 X10*3/uL (0.00-0.03); Imm Gran Pct Auto 0.4 % (0.0-0.4); Lymphocytes Absolute Auto 1.3 X10*3/uL (1.2-4.9); Lymphocytes Percent Auto 10.5 % (20-40); Mean Corpuscular HGB Conc 34.5 g/dl (31.0-35.0); Mean Corpuscular Hemoglobin 29.3 pg (27.0-33.0); Mean Corpuscular Volume 84.9 fL (80.0-98.0); Mean Platelet Volume 9.8 fL (9.4-12.3); Monocytes Percent Auto 8.2 % (2-11); Neutrophils Absolute Auto 9.8 x10*3/uL (2.0-8.3); Neutrophils Percent Auto 80.6 % (45-73); Platelet Count 150 X10*3/uL (160-400); Red Blood Count 3.92 X10*6/uL (4.20-5.50); Red Cell Distribution Width 12.6 % (11.0-16.0); White Blood Count 12.2 X10*3/uL (4.8-10.8)
[2024-11-13 08:03] LABS: Anion Gap 12 (12-20); Blood Urea Nitrogen 14 mg/dL (9-16); Calcium 8.6 mg/dL (8.4-10.2); Carbon Dioxide 27 mmol/L (22-29); Chloride 103 mmol/L (96-108); Estimated Glomerular Filt Rate > 60; Glucose Random 115 mg/dL (60-115); Potassium 3.6 mmol/L (3.3-5.1); Sodium 138 mmol/L (135-145)
--- NOTE | 2024-11-13 08:32 | HO.POSTANES ---
Post Anesthesia Evaluation Post Anesthesia Evaluation Date of Service: 11/13/24 Vital Signs: Vital Signs Temp Pulse Resp BP Pulse Ox O2 Del Method O2 Flow Rate 11/13/24 06:40 98 F 79 15 116/68 92 Nasal Cannula 4 11/12/24 23:23 96.9 F 71 16 122/73 96 Nasal Cannula 2 11/12/24 20:35 98.9 F 69 18 115/69 92 Nasal Cannula 2 Anesthesia: General Mental Status: Awake Pain Control: Satisfactory Nausea/Vomiting: None Hydration: Adequate Anesthesia-Related Issues: No Anes. Related Issues
[2024-11-13] MEDS: 0.9 % Sodium Chloride Flush 3 ML SYRINGE IVFLUSH ×3 (08:57→16:01)
--- NOTE | 2024-11-13 08:57 | P.PNIM_ITS ---
Subjective Subjective Date of Service: 11/13/24 Interval History: pain improved Physical Exam 2 Vital Signs: Vital Signs: Last Vital Signs Temp 98 F 11/13/24 06:40 Pulse 79 11/13/24 06:40 Resp 15 11/13/24 06:40 BP 116/68 11/13/24 06:40 Pulse Ox 92 11/13/24 06:40 O2 Del Method Nasal Cannula 11/13/24 06:40 O2 Flow Rate 4 11/13/24 06:40 BMI result Body Mass Index 21.0 General: AO X 3, no acute distress Resp: CTA bilateral, no accessory muscles used CVS: S1,S2,RRR GI: soft, non tender, non distended Neuro: motor grossly intact, alert Psych: appropriate affect, appropriate insight Objective Data Active Medications Acetaminophen (Acetaminophen 325 Mg Tablet) 650 mg PO Q6H PRN PRN Reason: Pain, Mild 1-3,fever,headache Calcium Carbonate (Calcium Carbonate 750 Mg Tab.Chew) 750 mg PO Q4H PRN PRN Reason: Heartburn Enoxaparin Sodium (Enoxaparin Sodium 40 Mg/0.4 Ml Syringe) 40 mg SUBCUT Q24H HORACE Lorazepam (Lorazepam 2 Mg/Ml Vial) 1 mg IVPUSH Q4H PRN PRN Reason: Anxiety Last Admin: 11/12/24 14:54 Dose: 1 mg Documented By: BUD Magnesium Hydroxide (Milk Of Magnesia 30 Ml Oral.Susp) 30 ml PO DAILY PRN PRN Reason: Constipation Melatonin (Melatonin 3 Mg Tablet) 6 mg PO BEDTIME PRN PRN Reason: Insomnia Naloxone HCl (Naloxone Hcl 0.4 Mg/Ml Vial) 0.04 mg IVPUSH Q5M PRN PRN Reason: Excessive sedation or RR < 8 Ondansetron HCl (Ondansetron Hcl 4 Mg/2 Ml Vial) 4 mg IVPUSH Q8H PRN PRN Reason: Nausea and Vomiting Oxycodone HCl (Oxycodone Hcl Immed Release 5 Mg Tablet) 5 mg PO Q4H PRN PRN Reason: Pain, Severe (Pain Scale 7-10) Sodium Chloride (0.9 % Sodium Chloride Flush 3 Ml Syringe) [address] [facility] Last Admin: 11/12/24 20:44 Dose: 3 ml Documented By: NIDA Car 11/13/24 07:36 11/13/24 07:36 Labs: Laboratory Results - last 24 hr 11/12/24 11/13/24 10:23 07:36 MCV 84.9 MCH 29.3 MCHC 34.5 RDW 12.6 Plt Count 150 L MPV 9.8 Immature Gran % (Auto) 0.4 Neut % (Auto) 80.6 H Lymph % (Auto) 10.5 L [place] % (Auto) 8.2 Eos % (Auto) 0.1 Baso % (Auto) 0.2 Lymph # (Auto) 1.3 [place] # (Auto) 1.0 Eos # (Auto) 0.0 Baso # (Auto) 0.0 Abs Immat Gran (auto) 0.05 H Absolute Neuts (auto) 9.8 H Absolute Nucleated RBC 0.000 Nucleated RBC % (auto) 0.0 Anion Gap 12 Estim Creat Clear Calc 83.0 Estimated GFR > 60 Random Glucose 115 Calcium 8.6 Blood Type A Positive Antibody Screen NEGATIVE Assessment and Plan (1) Acute kidney injury: Status: Acute Plan 59M PMH sick sinus syndrome status post pacer, takotsubo cardiomyopathy, mood disorder presented with fall and right leg pain and to have acute kidney injury Mechanical fall complicated by acute right femoral neck fracture s/p right hip hemiarthroplasty 11/12/24 lovenox for dvt prophylaxis WBAT, PT pain controlled Acute kidney injury Likely prerenal, given IV fluids, resolved Mood disorder cotinue lamictal, cymbalta, ativan history of takotsubo cardiomyopathy conitnue coreg Full code reason for continued hospitalization: dispo planning (SNF) Quality Stroke Does the patient have a stroke diagnosis?: No VTE Prior VTE?: No VTE Risk Level:: Medical - moderate - high VTE Device Contraindication: Treatment Not Tolerated VTE Drug Contraindication: Treatment Not Indicated
[2024-11-13] MEDS: oxyCODONE HCl Immed Release 5 MG TABLET PO ×2 (08:59→23:48)
[2024-11-13] MEDS: DULoxetine HCl 20 MG CAPSULE.DR PO ×3 (09:20→20:05)
[2024-11-13] MEDS: carvediloL 3.125 MG TABLET PO ×2 (09:20→20:03)
[2024-11-13] MEDS: lamoTRIgine 100 MG TABLET PO ×3 (09:20→20:05)
[2024-11-13] MEDS: Acetaminophen 325 MG TABLET 650 MG PO ×3 (10:25→23:49)
[2024-11-13] MEDS: LORazepam 2 MG/ML VIAL 1 MG IVPUSH (10:29)
--- NOTE | 2024-11-13 10:42 | P.OP_ITS ---
Operative Note Operative Note Date of Service: 11/12/24 Narrative: Date of Service: 11/12/24 Pre-op diagnosis: Right femoral neck fracture Post-op diagnosis: same Procedure: Right hip kellie Implants: Ehsan Accolade2 #6 127 +0/46 Surgeon: Girish Ruiz MD Anesthesia: GETA and local Was an Drier Take Off Tender used for this Procedure?: Yes Drier Take Off Tender: Mnoi Steen Estimated blood loss (mL): 200 IV fluids (mL): 1,000 Pathology: other Condition: stable Disposition: PACU Procedure in detail: Patient was brought to the operative room placed in the lateral decubitus position. All bony prominences were well padded and the was prepped and draped in standard sterile fashion. IV antibiotics per weight were administered and a time-out was called to identify proper site proper procedure proper surgeon. Radiographs were available and confirmed. I began by making a curvilinear incision over the posterolateral aspect of the greater trochanter. Dissection was taken down to the tensor fascia which was incised in line with the incision and a Charnley retractor was placed. The hip was internally rotated and the external rotators were identified. All vessels in the area were cauterized and a full-thickness capsular/external rotator layer was developed in a hockey-stick fashion starting just proximal to the piriformis. This layer was tagged and the displaced femoral neck fracture was identified. Clean-up cuts was performed while protecxtion the posterolateral soft tissues and the head was removed and measured (46mm) on the back table. I then copiously irrigated the acetabulum and removed all bony fragments. Once this was done I used a cookie cutter to lateralize and a Charnley awl to identify the canal and then sequentially broached up to a 127 deg #6 I then trialed with a standard head and a bipolar component matching the femoral head size. I was satisfied with the range of motion and stability and length. Therefore I removed all instrumentation and copiously irrigated. I then placed my final femoral implant and then retrialed. I was satisfied with the +0/46 implant. My final bipolar components were then placed. I closed the capsular layer with FiberWire. I performed a layered closure with felix on skin. The patient was placed in sterile dressing extuba marlene brought to recovery room in stable condition there were no known complications.
--- NOTE | 2024-11-13 11:01 | PM.DS ---
DS: Providers Provider Date of Service: 11/13/24 Date of admission: 11/12/24 05:18 Date of discharge: 11/13/24 Primary care physician: Unknown Physician Consults: 11/12/24 05:18 Consult to Orthopedics Routine Consulting [place] [facility] Reason for consultation: right femur fracture DS: Diagnosis Discharge Diagnosis (1) Acute kidney injury: Status: Acute DS: Summary Hospital Course Hospital Course: from initial hpi: 59-year-old female with pertinent history of sick sinus syndrome status post pacemaker, mood disorder, tobacco use disorder who presents to the emergency department for evaluation after a fall and right leg pain. Patient states that she was in her garage trying to grab papers when boxes behind her fell. She was trying to grab the boxes and she lost her balance and fell. Patient has been having right leg pain since the fall. Did not lose consciousness. No jerking movement of extremities. No chest pain or palpitations prior to the fall. Patient does endorse poor p.o. intake that has been ongoing for the last few days and dizziness which is worse with standing. No vomiting or diarrhea. No fever, chills, shortness of breath, abdominal pain, changes in urinary or bowel habits. In the emergency department, imaging with right femoral neck fracture and serum creatinine found to be 2.07 hospital course: Patient was admitted for mechanical fall complicated by acute right femoral neck fracture. Underwent right hip hemiarthroplasty on 11/12/2024. Tolerated procedure well, will be on Lovenox for 6 weeks for DVT prophylaxis, weight-bearing as tolerated PT at home. For acute kidney injury this was likely prerenal and resolved with IV fluids. For mood disorder was continued on Lamictal, Cymbalta, Ativan. For history of takotsubo cardiomyopathy was continued on carvedilol. Time Attestation Discharge Coordination Time (in mins): 34 Quality: Safe Use of Opioids Does Pt have an Active Cancer Diagnosis on the Problem List?: No Quality: Stroke Does the patient have a stroke diagnosis?: No Physical Exam Vital Signs: Vital Signs: Last Vital Signs Temp 98 F 11/13/24 06:40 Pulse 82 11/13/24 09:16 Resp 15 11/13/24 06:40 BP 108/63 11/13/24 09:16 Pulse Ox 92 11/13/24 06:40 O2 Del Method Nasal Cannula 11/13/24 06:40 O2 Flow Rate 4 11/13/24 06:40 BMI result Body Mass Index 21.0 General: AO X 3, no acute distress Resp: CTA bilateral, no accessory muscles used CVS: S1,S2,RRR GI: soft, non tender, non distended Neuro: motor grossly intact, alert Psych: appropriate affect, appropriate insight DS: Data Data Completed and Pending Completed studies during hospitalization [Text1]: Procedures Insertion of Pacemaker Lead into Right Atrium, Percutaneous Approach (04/23/21) Insertion of Pacemaker Lead into Right Ventricle, Percutaneous Approach (04/23/21) Insertion of Pacemaker, Dual Chamber into Chest Subcutaneous Tissue and Fascia, Open Approach (04/23/21) Pending studies at discharge: Pending at discharge 11/12/24 19:05 Surgical [PTH] Routine Labs on day of discharge: Laboratory Results - last 24 hr 11/12/24 11/13/24 10:23 07:36 WBC 12.2 H RBC 3.92 L Hgb 11.5 L Hct 33.3 L MCV 84.9 MCH 29.3 MCHC 34.5 RDW 12.6 Plt Count 150 L MPV 9.8 Immature Gran % (Auto) 0.4 Neut % (Auto) 80.6 H Lymph % (Auto) 10.5 L [place] % (Auto) 8.2 Eos % (Auto) 0.1 Baso % (Auto) 0.2 Lymph # (Auto) 1.3 [place] # (Auto) 1.0 Eos # (Auto) 0.0 Baso # (Auto) 0.0 Abs Immat Gran (auto) 0.05 H Absolute Neuts (auto) 9.8 H Absolute Nucleated RBC 0.000 Nucleated RBC % (auto) 0.0 Sodium 138 Potassium 3.6 Chloride 103 Carbon Dioxide 27 Anion Gap 12 BUN 14 Creatinine 0.81 Estim Creat Clear Calc 83.0 Estimated GFR > 60 Random Glucose 115 Calcium 8.6 Blood Type A Positive Antibody Screen NEGATIVE Discharge Plan Discharge Anticipated Discharge Date/Time: 11/13/24 10:57 Patient Disposition: Home Health Service Discharge Diagnosis: yisel, hip fracture Referrals: [facility] [Other] - 1 Week Margaret Toro PA-C [Physician Manager [employer] Intelligence] - 11/26/24 10:00 am (11/26/24 at 10a with ) Physician,Unknown J [Primary Care Provider] - 1 Week Discharge Medications: New oxycodone 5 mg Tablet 5 mg PO Q4H PRN (Reason: Pain, Severe (Pain Scale 7-10)) 10 Days Qty: 10 0RF Rx Instructions: Partial Fill upon patient request. enoxaparin 40 mg/0.4 mL Syringe 40 mg subcut Q24H 42 Days Qty: 16.8 0RF Continued carvedilol 3.125 mg Tablet 3.125 mg PO BID Rx Instructions: must administer with a meal/food lorazepam 1 mg Tablet 1 mg PO BID PRN (Reason: Anxiety) lamotrigine 100 mg Tablet 100 mg PO TID cyclobenzaprine 5 mg Tablet 5 mg PO BEDTIME PRN (Reason: Muscle Spasm) duloxetine 20 mg Capsule,Delayed Release(Dr/Ec) 20 mg PO TID Discharge Orders: Discharge Order (Routine); Ordered 11/13/24 Ordered By: Jose Daniel Castro Diet: Advance to usual diet Activity on Discharge: Use cane or walker Stand Alone Forms: Patient Portal Discharge page Print Language: Turkmen Activity Restrictions/Additional Instructions: Physical Therapy for total hip arthroplasty: posterior precautions, gait training, ROM, strength Limit stair climbing No showering, no tub bath-keep dressing clean, dry and intact No driving x 6 weeks Continue Lovenox x 6 weeks Follow up with [facility] [place] 2 [place] Care Plan Goals: recovery Health Concerns: hip fracture Plan of Treatment: see above Assessment: see above
--- NOTE | 2024-11-13 11:03 | W.MHC.F2F ---
Service Date Service Date: 11/13/24 Encounter Date of encounter: 11/13/24 Reasons for Services Signs and symptoms assessed: post hip fracture pain Reason for physical therapy: home safety and mobility, therapeutic exercises, restore joint function and gait/transfer training Homebound: Leaving the home is medically contraindicated at this time without the asist of a device and/or another person due th the listed conditions above and below. Reason homebound: unable to drive Certification: Based on the above findings, I certify that this patient is confined to the home and needs intermittent [facility] care, physical therapy and/or speech therapy, or continues to need occupational therapy. The patient is under my care, and I have initiated the establishment of the plan of care. The patient will be followed by a physician who will periodically review the plan of care. Time Spent With Patient Time: Total time managing care of this patient today ____ minutes.
--- NOTE | 2024-11-13 12:10 | MHC.CM.PN ---
pt dcd today with [facility]
[2024-11-13] MEDS: cefTRIAXone sodium 1 GM VIAL IVPUSH (16:45)
[2024-11-13 17:08] LABS: Lactic Acid 1.2 mmol/L (0.5-2.0)
[2024-11-13] MEDS: Enoxaparin Sodium 40 MG/0.4 ML SYRINGE SUBCUT (17:28)
[2024-11-13] MEDS: iohexoL 350 MG/ML 100 ML INFUS..BTL IV (18:13)
[2024-11-13] MEDS: Melatonin 3 MG TABLET 6 MG PO (20:02)
[2024-11-14] MEDS: 0.9 % Sodium Chloride Flush 3 ML SYRINGE IVFLUSH ×2 (02:54→07:44)
[2024-11-14] MEDS: Cyclobenzaprine HCl 5 MG TABLET PO (03:35)
[2024-11-14] MEDS: oxyCODONE HCl Immed Release 5 MG TABLET PO (04:08)
[2024-11-14] MEDS: Calcium Carbonate 750 MG TAB.CHEW PO (04:11)
[2024-11-14 07:18] VITALS: BP 96/52; PULSE 76; RESP 18; TEMP 37; O2SAT 91
[2024-11-14] MEDS: Acetaminophen 325 MG TABLET 650 MG PO (07:45)
[2024-11-14] MEDS: DULoxetine HCl 20 MG CAPSULE.DR PO (07:45)
[2024-11-14] MEDS: guaiFENesin LA 600 MG TAB.ER.12H PO (07:46)
[2024-11-14] MEDS: carvediloL 3.125 MG TABLET PO (07:46)
[2024-11-14] MEDS: lamoTRIgine 100 MG TABLET PO (07:46)
[2024-11-14] MEDS: Albuterol/Iprat 2.5/0.5MG 3 ML AMPUL.NEB INHALE (07:52)
[2024-11-14 07:56] VITALS: PULSE 76; RESP 16; O2SAT 95
[2024-11-14] MEDS: methylPREDNISolone Sod Succ 40 MG/ML VIAL IVPUSH (08:10)
--- NOTE | 2024-11-14 09:59 | PM.PNORT ---
Subjective Subjective Date of Service: 11/14/24 Interval history: POD2 s/p right hip kellie Patient is resting in chair comfortably Working with OT No overnight events Pain is managed No additional complaints Physical Exam Vital Signs: Vital Signs: Last Vital Signs Temp 98.6 F 11/14/24 07:18 Pulse 76 11/14/24 07:56 Resp 16 11/14/24 07:56 BP 96/52 L 11/14/24 07:18 Pulse Ox 91 L 11/14/24 07:18 O2 Del Method Nasal Cannula 11/14/24 07:18 O2 Flow Rate 2 11/14/24 07:18 BMI result Body Mass Index 21.0 Const: General: cooperative, healthy appearing and no acute distress Resp: Effort & Inspection: normal respiratory effort and able to speak in complete sentences Cardio: Rate: regular rate Peripheral pulses: Peripheral pulses 2+ throughout GI: Palpation (GI): Soft to palpation Skin: Lesions: no lesions Rashes: no rashes Extrem: Other: right hip dressing is c/d/i. Able to dorsi/plantar flex. Calf is supple and nontender. Sensation intact. Pedal pulse intact. Procedures Date of Service Date of Service: 11/14/24 Progress Note: A&P Assessment and plan (1) Closed fracture of neck of right femur: Status: Acute (2) S/P hip hemiarthroplasty: Status: Acute Plan Continue pain mgmnt Begin Lovenox for dvt ppx begin PT/OT for Rt hip kellie - WBAT, posterior precuations Dispo planning-Pending PT eval, pain mgmnt Time Spent With Patient Time: Total time managing care of this patient today ____ minutes. Quality Stroke Does the patient have a stroke diagnosis?: No VTE Prior VTE?: No VTE Risk Level:: Medical - moderate - high VTE Device Contraindication: Treatment Not Tolerated VTE Drug Contraindication: Treatment Not Indicated
[2024-11-14 11:38] LABS: Adenovirus PCR Not Detected (Not Detect.); Bordetella parapertussis PCR Not Detected (Not Detect.); Bordetella pertussis PCR Not Detected (Not Detect.); Chlamydia pneumoniae PCR Not Detected (Not Detect.); Coronavirus 229E PCR Not Detected (Not Detect.); Coronavirus HKU1 PCR Not Detected (Not Detect.); Coronavirus NL63 PCR Not Detected (Not Detect.); Coronavirus OC43 PCR Not Detected (Not Detect.); Human metapneumovirus PCR Not Detected (Not Detect.); Influenza A PCR Not Detected (Not Detect.); Influenza B PCR Not Detected (Not Detect.); Mycoplasma pneumoniae PCR Not Detected (Not Detect.); Parainfluenza 1 PCR Not Detected (Not Detect.); Parainfluenza 2 PCR Not Detected (Not Detect.); Parainfluenza 3 PCR Not Detected (Not Detect.); Parainfluenza 4 PCR Not Detected (Not Detect.); RSV PCR Not Detected (Not Detect.); Rhino/Enterovirus PCR Not Detected (Not Detect.)
[2024-11-14 11:55] LABS: Influenza A H1 PCR Not Detected (Not Detect.); Influenza A H1-2009 PCR Not Detected (Not Detect.); Influenza A H3 PCR Not Detected (Not Detect.); SARS-CoV-2 PCR Not Detected (Not Detect.)
[2024-11-14 11:59] VITALS: PULSE 73; PULSE 75; PULSE 81; PULSE 83; O2SAT 84; O2SAT 86; O2SAT 91
--- NOTE | 2024-11-14 12:37 | PM.DS ---
DS: Providers Provider Date of Service: 11/14/24 Date of admission: 11/12/24 05:18 Date of discharge: 11/14/24 Primary care physician: Unknown Physician Consults: 11/12/24 05:18 Consult to Orthopedics Routine Consulting Provider: [facility] Reason for consultation: right femur fracture DS: Diagnosis Discharge Diagnosis (1) Closed fracture of neck of right femur: Status: Acute (2) S/P hip hemiarthroplasty: Status: Acute (3) Acute kidney injury: Status: Acute (4) Hypoxia: Status: Acute (5) COPD (chronic obstructive pulmonary disease): Status: Acute DS: Summary Hospital Course Hospital Course: from initial hpi: 59-year-old female with pertinent history of sick sinus syndrome status post pacemaker, mood disorder, tobacco use disorder who presents to the emergency department for evaluation after a fall and right leg pain. Patient states that she was in her garage trying to grab papers when boxes behind her fell. She was trying to grab the boxes and she lost her balance and fell. Patient has been having right leg pain since the fall. Did not lose consciousness. No jerking movement of extremities. No chest pain or palpitations prior to the fall. Patient does endorse poor p.o. intake that has been ongoing for the last few days and dizziness which is worse with standing. No vomiting or diarrhea. No fever, chills, shortness of breath, abdominal pain, changes in urinary or bowel habits. In the emergency department, imaging with right femoral neck fracture and serum creatinine found to be 2.07 hospital course: Patient was admitted for mechanical fall complicated by acute right femoral neck fracture. Underwent right hip hemiarthroplasty on 11/12/2024. Tolerated procedure well, will be on Lovenox for 6 weeks for DVT prophylaxis, weight-bearing as tolerated PT at home. To follow with Orthopedics as outpatient. For acute kidney injury this was likely prerenal and resolved with IV fluids. For mood disorder was continued on Lamictal, Cymbalta, Ativan. For history of takotsubo cardiomyopathy was continued on carvedilol. She was noted to have hypoxia at rest and with ambulation. CTA negative for any formation but has evidence of Bronchial wall thikening and lung nodules suggestive of COPD from chronic smoking. Advised to quit smoking and evaluated for home O2 where she needs 2L with rest and 3 with ambulation. to be followed by [facility] for disease management. PRN Albuterol inhaler prescribed as well. To follow with PCP as outpatient for repeat CT scan in 1 year to follow on nodules. Time Attestation Discharge Coordination Time (in mins): 42 Quality: Safe Use of Opioids Does Pt have an Active Cancer Diagnosis on the Problem List?: No Quality: Stroke Does the patient have a stroke diagnosis?: No Physical Exam Vital Signs: Vital Signs: Last Vital Signs Temp 98.6 F 11/14/24 07:18 Pulse 76 11/14/24 07:56 Resp 16 11/14/24 07:56 BP 96/52 L 11/14/24 07:18 Pulse Ox 91 L 11/14/24 07:18 O2 Del Method Nasal Cannula 11/14/24 07:18 O2 Flow Rate 2 11/14/24 07:18 BMI result Body Mass Index 21.0 Const: Other: Constitutional : Awake, interactive, not in distress Neck : Normal inspection, Supple Cardiovascular : RRR, no JVP, no lower extremity edema Respiratory : good bilateral air entry, no crackles, wheezes or rhonchi Gastrointestinal: soft, lax, Normal bowel sounds, Non tender Skin : Warm, Dry, Right LE surgical wound covered with dressing Neurological : Alert & oriented x3, No focal deficit DS: Data Data Completed and Pending Completed studies during hospitalization [Text1]: Pending at discharge 11/12/24 19:05 Surgical [PTH] Routine Procedures Insertion of Pacemaker Lead into Right Atrium, Percutaneous Approach (04/23/21) Insertion of Pacemaker Lead into Right Ventricle, Percutaneous Approach (04/23/21) Insertion of Pacemaker, Dual Chamber into Chest Subcutaneous Tissue and Fascia, Open Approach (04/23/21) Labs on day of discharge: Laboratory Results - last 24 hr 11/13/24 11/13/24 16:40 17:38 Lactic Acid 1.2 Respiratory Panel [place] See Note Adenovirus (Rapid PCR) Not Detected B.pert (TEM-PCR) Not Detected B.parapertussis DNA PCR Not Detected C. pneumoniae DNA (PCR) Not Detected Coronavirus OC43 (PCR) Not Detected Coronavirus HKU1 (PCR) Not Detected Coronavirus 229E (PCR) Not Detected Coronavirus NL63 (PCR) Not Detected Human Metapneumovir PCR Not Detected Influenza A (RT-PCR) Not Detected Influenza A (H1) PCR Not Detected Influ A (H1/09) PCR Not Detected Influenza A (H3) PCR Not Detected Influenza B (RT-PCR) Not Detected M. pneumoniae (PCR) Not Detected Parainfluenza 1 (PCR) Not Detected Parainfluenza 2 (PCR) Not Detected Parainfluenza 3 (PCR) Not Detected Parainfluenza 4 (PCR) Not Detected RSV (PCR) Not Detected Entero/Rhino (PCR) Not Detected SARS-CoV-2 RNA (RT-PCR) Not Detected Imaging CT scan - chest: Radiologist's impression: ITS Impressions Pelvis X-Ray 11/12/24 19:50 IMPRESSION: Status post right total hip arthroplasty. Electronically signed by: Francis Bowman MD 11/13/2024 08:06 AM EDT Discharge Plan Discharge Anticipated Discharge Date/Time: 11/13/24 10:57 Patient Disposition: Home Health Service Discharge Diagnosis: yisel, hip fracture Referrals: [facility] [Other] - 1 Week Margaret Toro PA-C [Physician Vibration Engineer] - 11/26/24 10:00 am (11/26/24 at 10a with ) Physician,Renard Vicente [Primary Care Provider] - 1 Week Discharge Medications: New oxycodone 5 mg Tablet 5 mg PO Q4H PRN (Reason: Pain, Severe (Pain Scale 7-10)) 10 Days Qty: 10 0RF Rx Instructions: Partial Fill upon patient request. enoxaparin 40 mg/0.4 mL Syringe 40 mg subcut Q24H 42 Days Qty: 16.8 0RF Continued carvedilol 3.125 mg Tablet 3.125 mg PO BID Rx Instructions: must administer with a meal/food lorazepam 1 mg Tablet 1 mg PO BID PRN (Reason: Anxiety) lamotrigine 100 mg Tablet 100 mg PO TID cyclobenzaprine 5 mg Tablet 5 mg PO BEDTIME PRN (Reason: Muscle Spasm) duloxetine 20 mg Capsule,Delayed Release(Dr/Ec) 20 mg PO TID Discharge Orders: Discharge Order (Routine); Ordered 11/14/24 Ordered By: Jenna Burt Diet: Advance to usual diet Activity on Discharge: Use cane or walker Stand Alone Forms: Patient Portal Discharge page Print Language: Mongolian Activity Restrictions/Additional Instructions: Physical Therapy for total hip arthroplasty: posterior precautions, gait training, ROM, strength Limit stair climbing No showering, no tub bath-keep dressing clean, dry and intact No driving x 6 weeks Continue Lovenox x 6 weeks Follow up with [facility] in 2 weeks Care Plan Goals: recovery Health Concerns: hip fracture Plan of Treatment: see above Assessment: see above
--- NOTE | 2024-11-14 13:03 | MHC.CM.PN ---
DP: PT HAS BEEN MEDICALLY CLEARED FOR DC HOME WITH NEW [facility] FOR NURSING AND P.T.. PT WILL HAVE NEW HOME 02. PT HAS OWN RIDE HOME.
[2024-11-14 15:08] VITALS: BP 98/54; PULSE 81; RESP 18; TEMP 36.9; O2SAT 92
== END 2024-11-14 15:41 | disposition home health service (06) | DRG 323 ==
LOC: HO.ED 03:35 → HO.EDOVER 05:24 → HO.S3 07:30
PROVIDERS: Internal Medicine; Orthopaedic Surgery; Admitting Provider Student in an Organized Health Care Education/Training Program; Emergency Provider Internal Medicine; Visit Provider Student in an Organized Health Care Education/Training Program
PROC: 0SRR0JA Replacement of Right Hip Joint, Femoral Surface with Synthetic Substitute, Uncemented, Open Approach (ICD-10-PCS; principal; 2024-11-12 15:40)
DX: S72.001A Fracture of unspecified part of neck of right femur, initial encounter for closed fracture (principal); N17.9 Acute kidney failure, unspecified; I49.5 Sick sinus syndrome; W19.XXXA Unspecified fall, initial encounter; F17.210 Nicotine dependence, cigarettes, uncomplicated; F39 Unspecified mood [affective] disorder; J44.9 Chronic obstructive pulmonary disease, unspecified; R09.02 Hypoxemia; Z95.0 Presence of cardiac pacemaker; Z71.6 Tobacco abuse counseling; Z20.822 Contact with and (suspected) exposure to COVID-19; Z79.899 Other long term (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
CPT/HCPCS: 36415; 70450; 71045; 71275; 72170; 73502; 80048; 80053; 81001; 83605; 83880; 84484; 85025; 85610; 86850; 86900; 86901; 87040; 87633; 88305; 88311; 93005; 97116; 97162; 97166; 97530; 99285; C1776; J0690; J0696; J1100; J1171; J1650; J2003; J2060; J2250; J2270; J2405; J2704; J2795; J2919; J3010; J7120; Q9967

== ENCOUNTER → 2024-11-12 03:04 | Outpatient (BNV) | payer MEDICAID, SELFPAY | PROVIDERS: Admitting Provider Student in an Organized Health Care Education/Training Program; Emergency Provider Internal Medicine; Visit Provider Internal Medicine | DX: I49.1 Atrial premature depolarization (principal) | CPT/HCPCS: 93010 ==

== ENCOUNTER → 2024-11-12 03:30 | Outpatient (BNV) | payer MEDICAID, SELFPAY | PROVIDERS: Emergency Provider Internal Medicine; Visit Provider General Practice | DX: S72.051A Unspecified fracture of head of right femur, initial encounter for closed fracture (principal); R55 Syncope and collapse; I49.5 Sick sinus syndrome; Z95.0 Presence of cardiac pacemaker | CPT/HCPCS: 70450; 71045; 73502 ==

== ENCOUNTER 2024-11-12 05:18 | Outpatient (BNV) | payer MEDICAID, SELFPAY | END 2024-11-13 15:56 | PROVIDERS: Admitting Provider Student in an Organized Health Care Education/Training Program; Emergency Provider Internal Medicine; Visit Provider Radiology Diagnostic Radiology | DX: R91.1 Solitary pulmonary nodule (principal) | CPT/HCPCS: 71275 ==

== ENCOUNTER → 2024-11-12 05:18 | Outpatient (BNV) | payer MEDICAID, SELFPAY | PROVIDERS: Admitting Provider Student in an Organized Health Care Education/Training Program; Emergency Provider Internal Medicine; Visit Provider Student in an Organized Health Care Education/Training Program | DX: S72.001A Fracture of unspecified part of neck of right femur, initial encounter for closed fracture (principal); Z96.649 Presence of unspecified artificial hip joint; N17.9 Acute kidney failure, unspecified; R09.02 Hypoxemia; J44.9 Chronic obstructive pulmonary disease, unspecified | CPT/HCPCS: 99239 ==

== ENCOUNTER → 2024-11-12 05:18 | Outpatient (BNV) | payer MEDICAID, SELFPAY | PROVIDERS: Admitting Provider Student in an Organized Health Care Education/Training Program; Emergency Provider Internal Medicine; Visit Provider Physician Assistant | DX: S72.001A Fracture of unspecified part of neck of right femur, initial encounter for closed fracture (principal); Z96.649 Presence of unspecified artificial hip joint | CPT/HCPCS: 99024 ==

== ENCOUNTER 2024-11-26 09:00 | Outpatient (REF) | payer MEDICAID, SELFPAY ==
--- NOTE | ~2024-11-26 | XR_ITS ---
EXAMINATION: XR PELVIS 1-2 VIEWS HISTORY: M25.559 - Pain in unspecified hip COMPARISON: Comparison is made with the prior examination dated 11/12/2024. FINDINGS: Two AP views of the pelvis is submitted. The patient is again noted to be status post right total hip arthroplasty. The orthopedic elements are in anatomic alignment on this single AP view. There is no radiographic evidence of loosening. There is no fracture or dislocation. The left hip joint space is maintained. There is degenerative disc disease of the lower lumbar spine. XR/XR pelvis 1-2V IMPRESSION: Status post right total hip arthroplasty. Electronically signed by: Francis Bowman MD 11/26/2024 01:31 PM EDT
== END 2024-11-26 09:01 | disposition home or self-care (01) ==
LOC: HO.HOSX 09:00
PROVIDERS: Visit Provider Physician Assistant
DX: M25.559 Pain in unspecified hip (principal); Z96.641 Presence of right artificial hip joint
CPT/HCPCS: 72170; 99212

== ENCOUNTER 2024-11-26 10:18 | Outpatient (AMB) | payer MEDICAID, SELFPAY ==
--- NOTE | 2024-11-26 10:29 | MHC.OFFVIS ---
Vital Signs 11/26/24 10:36 Height 6 ft Weight 130 lb BMI 17.6 Intake Visit Reasons: PO s/p rt hip kellie 11/12/24 with NE Intake Note: Ivette is a 59 year old female who presents today with a walker for a post operative appointment s/p rt hip kellie 11/12/24 NE. Patient reports she is stiff and haivng pain. Allergies aspirin Allergy (Mild, Verified 11/26/24 10:38) Headache ibuprofen Allergy (Mild, Verified 11/26/24 10:38) heartburns HPI HPI PO s/p rt hip kellie 11/12/24 with NE: Details: Ms. Mckenzie is a 59-year-old female who presents to the office today status post right hip hemiarthroplasty performed on 11/12/[address] Ruiz. She is using a walker to assist with ambulation. Overall she is doing very well. She reports that she was prescribed oxygen therapy but it is unclear who was the ordering provider. She also is wondering how long she will have to continue the Lovenox injections. She denies any pain just reports some soreness. No additional complaints. [facility] Medical History Sick sinus syndrome due to sinoatrial node dysfunction Anxiety Depression Social History Household Members: Significant Other and Children Housing: House Do you presently have visiting nurse or other home services: No Alcohol intake: never Comment: medicated, pain tolerable Patient Tobacco Use Status: Current everyday Tobacco user Tobacco use type: Cigarette Cigarette Packs Per Day: 1 Cigarettes Per Day: 20.0 e-Cigarette/Vaping Use: Never Used Substance Use Type: Marijuana Advance Directives Date on File: 04/23/21 Review of Systems Const All systems reviewed & are unremarkable except as noted in HPI and below Physical Exam Vital Signs: BMI result Body Mass Index 17.6 Const General: cooperative, healthy appearing and no acute distress Resp Effort & Inspection: normal respiratory effort and able to speak in complete sentences Cardio Rate: regular rate Peripheral pulses: Peripheral pulses 2+ throughout Skin Lesions: no lesions Rashes: no rashes Extrem Other: Right hip incision site is clean dry and intact. No surrounding erythema or drainage. No signs of infection. [place] intact. NVI. Assessment & Plan Assessment & Plan (1) S/P hip hemiarthroplasty: Code(s): Z96.649 - Presence of unspecified artificial hip joint Category: Surgical (2) Closed fracture of neck of right femur: Code(s): S72.001A - Fracture of unspecified part of neck of right femur, initial encounter for closed fracture Category: Medical Plan Ms. Mckenzie is a 59-year-old female who presents to the office today status post right hip hemiarthroplasty performed on 11/12/[address] Ruiz. She is using a walker to assist with ambulation. Overall she is doing very well. She reports that she was prescribed oxygen therapy but it is unclear who was the ordering provider. She also is wondering how long she will have to continue the Lovenox injections. She denies any pain just reports some soreness. No additional complaints. While in the office today felix were removed and Steri-Strips were applied. Recommend continuing [facility] services for physical therapy to work on glute core and quad strengthening. She should continue the Lovenox injections for a total of 42 days or 6 weeks status post surgery. Patient states that she has been overall noncompliant but I did educate the importance of preventing DVT with this medication. She should not drive until 6 weeks postop and off all narcotic medications. Patient understands and accepts. I will see her back in 4 weeks with repeat x-rays, sooner if needed. X-rays of the pelvis which were obtained while in the office today and were reviewed by me, Margaret Toro PA-C, revealed intact right hip hemiarthroplasty with satisfactory alignment. Orders: Orders XR pelvis 1-2V Today M25.559 - Pain in unspecified hip Coding Level of Care Code Global (03030) Diagnoses S/P hip hemiarthroplasty Z96.649 Closed fracture of neck of right femur S72.001A
[2024-11-26 10:36] VITALS: BMI 17.6
--- OUTSIDE RECORDS SUMMARY | 2024-11-26 12:16 | XMS_ITS | Clinical Summary ---
Author Organization [facility] Address [address] [place] [address] Care Team Providers Care Tub Wash Operator Name Role Phone Jeremías Jones MD Primary Care Provider [phone] Source Comments PLEASE NOTE, if this patient [...] nasal sprayIndications: Degenerative lumbar disc Place 1 [place] into the nostril(s) as needed for opioid reversal (Overdose) 2 Each 11/11/19 24 Active HYDROcodone-aceta minophen (NORCO) 5-325 mg per tabletIndications :Degenerative lumbar disc Take 1 Tablet by mouth every 8 (eight) hours as needed for pain 15 Tablet 11/11/19 24 Active DULoxetine (CYMBALTA) [address] capsuleIndication s:Moderate episode of recurrent major depressive disorder ([facility]) Take 1 Capsule by mouth 3 (three) times daily for 90 days 90 Capsule 2 09/09/19 25 2024 Active lamoTRIgine (LAMICTAL) 100 mg tabletIndications :Moderate episode of recurrent major depressive disorder ([facility]),Bipolar II disorder ([facility]) Take 1 Tablet by mouth 3 (three) times daily for 90 days 90 Tablet 2 09/09/19 25 2024 Active cyclobenzaprine (FLEXERIL) 5 mg tabletIndications :Degenerative lumbar disc TAKE ONE TABLET BY MOUTH AT BEDTIME NEEDED FOR MUSCLE SPASM 30 Tablet 3 11/09/19 25 Active LORazepam (ATIVAN) 1 mg tabletIndications :Severe anxiety Take 1 Tablet by mouth 2 (two) times daily as needed for anxiety 60 Tablet 11/16/19 25 Active cyclobenzaprine (FLEXERIL) 5 mg tabletIndications :Degenerative lumbar disc TAKE ONE TABLET BY MOUTH AT BEDTIME NEEDED FOR MUSCLE SPASM 30 Tablet 3 06/03/20 24 2024 Discontinued LORazepam (ATIVAN) 1 mg tabletIndications :Severe anxiety TAKE ONE TABLET BY MOUTH TWICE A DAY NEEDED FOR ANXIETY 60 Tablet 10/08/19 25 2024 Discontinued(R eorder (E-Cancel Not Sent)) Active Problems Problem Noted Date Diagnosed Date Bipolar II disorder ([facility]) 08/15/2023 Generalized anxiety disorder 04/05/2023 Moderate episode of recurren t major depressive disorder ([facility]) 04/05/2023 Non-ST elevated myocardial infarction ([facility]) 05/04/2021 Overview (11/27/2023): Followed by Cardiology in [facility] Reports normal PCI Pacemaker 04/28/2021 Overview (11/27/2023): Placed while in [facility] Apr 24, 2021 Diagnosed with broken heart syndrome Followed by Cardiology in [facility] Tobacco dependence due to cigarettes 11/12/2018 Anxiety and depression 11/06/2018 Overview (11/27/2023): Following department Fibromyalgia 11/06/2018 Primary osteoarthritis involving multiple joints 11/06/2018 Encounters Date Type Department Care Team Description 11/06/2024 / INTERIM [address] [phone] Jody Reynolds LMHC Generalized anxiety disorder (Primary Dx); Moderate episode of recurrent major depressive disorder (HCC-CMS); Bipolar II disorder (HCC-CMS); Severe anxiety 10/03/2024 2:30 PM EST / Visits [address] [phone] Jody Reynolds LMHC Generalized anxiety disorder (Primary Dx); Moderate episode of recurrent major depressive disorder (HCC-CMS); Bipolar II disorder (HCC-CMS); Severe anxiety 09/12/2024 4:00 PM EST / Visits [address] [phone] Jody Reynolds LMHC Generalized anxiety disorder (Primary Dx); Moderate episode of recurrent major depressive disorder (HCC-CMS); Bipolar II disorder (HCC-CMS); Severe anxiety 09/09/2024 1:00 PM EST [facility] Visits [address] [phone] Tracey Salinas IZZY Generalized anxiety disorder (Primary Dx); Moderate episode of recurrent major depressive disorder (HCC-CMS); Bipolar II disorder (HCC-CMS); Severe anxiety from Last 3 Months Immunizations Immunization Administration Dates Next Due PFIZER [employer] VACCINE, PURPLE CAP, 12+ 12/09/2020 ,11/18/2020 TDAP [...] 11/27/2023 , 06/02/2022, 08/02/2021, Additional history exists [id number] ( season) 2024 05/15/2023, 07/14/2021, 12/09/2020, Additional [...] EDT) CHOLESTEROL 205(H) 0 - 200 mg/dL [facility] TRIGLYCERIDES 106 0 - 150 mg/dL [facility] HDL CHOLESTEROL 48 >40 mg/dL [facility] LDL CALCULATED 136(H) 0 - 100 mg/dL [facility] TC-HDLC RATIO 4.3 0 - 4.4 mg/dL [facility] Blood specimen (specimen) Blood / Unknown 11/06/2018 2:01 PM EDT 11/06/2018 4:30 PM EDT Narrative [facility] - 11/06/2018 7:21 PM EDT [facility] [employer], [place] [address] Fretted Instrument Repairer - Dionna Evans MD PT ID [id number] ORD# [id number] Nevaeh Espino PA-C LAB - BLOOD DRAW [place] [address], * (ABNORMAL) COMPRE METAB PANEL (11/06/2018 2:01 PM EDT) GLUCOSE 103(H) 70 - 100 mg/dL [facility] Comment:Reference range appl icable to fasting specimens only BUN 9 5 - 25 mg/dL [facility] CREAT 0.82 0.5 - 1.1 mg/dL [facility] GLOMERULAR FILTRATION RATE > 60 [facility] Comment: If patient is -[place]agu[place], multiply result by 1.21 Chronic Kidney Disease: < 60 ml/min/1.73 square meters Kidney Failure: < 15 ml/min/1.73 square meters SODIUM 137 133 - 145 mmol/L [facility] POTASSIUM 4.5 3.5 - 5.5 mmol/L [facility] CHLORIDE 100 96 - 110 mmol/L [facility] CO2 30 21 - 32 mmol/L [facility] ANION GAP 7 3 - 11 [facility] CALCIUM 9.5 8.5 - 10.5 mg/dL [facility] TOTAL PROTEIN 8.0 6.0 - 8.0 G/dL [facility] ALBUMIN 4.6 3.2 - 5.0 G/dL [facility] BILI, TOTAL 0.4 0.0 - 1.4 mg/dL [facility] SGOT 17 10 - 42 U/L [facility] SGPT 22 10 - 60 U/L [facility] ALK PHOS 55 42 - 121 U/L [facility] Blood specimen (specimen) Blood / Unknown 11/06/2018 2:01 PM EDT 11/06/2018 4:30 PM EDT Narrative [facility] - 11/06/2018 7:21 PM EDT [facility], [place] [address] Fretted Instrument Repairer - Dionna Evans MD PT ID [id number] ORD# [id number] Nevaeh Espino PA-C LAB - BLOOD DRAW Edited Result - Final [facility] [address] [place] [address], from Last 3 Months or Most Recently Relevant to Health Maintenance [place] [facility] [address] ACO Care Teams Tub Wash Operator Relationship Specialty Start Date End Date Jeremías Jones MD [address] [place] [address] PCP - General Family Medicine, Physician 08/15/23
--- OUTSIDE RECORDS SUMMARY | 2024-11-26 12:17 | XMS_ITS | Clinical Summary ---
Author Organization [facility] it Address [address] [place] [address] Care Team Providers Care Police District Switchboard Operator Name Role Phone Hector Ricketts MD Primary Care Provider [phone] Surgical History Surgery Date Site/Laterality Comments OTHER [...] swelling in hands and feet Rheumatoid arthritis (CMS/ C V24, CMS/[facility] V28) DX:Rheumatoid arthritis (HCC ) Wears glasses DX:Wears glasses Nasal congestion DX:Nasal conges tion Abdominal pain DX:Abdominal linnea n Change in bowel habits DX:Change in bowel habits Autoimmune disease ([facility] V24) DX:Autoimmune disease (HCC); COMMENT: fibromyalgia Social History Tobacco [...] 2023-2 5 season) 2024 07/14/2021, 12/09/2020, 11/18/2020 Depression Screening 11/26/2024 11/27/2023 Influenza Vaccine (Season Ended) 2025 DTaP,Tdap,and Td Vaccines (2 - Td or Tdap) 06/04/2030 06/04/2020, 07/29/2010 RSV Immunization Adult Patients (1 - 1-dose 75+ series) 2040 HIB [...] age to complete this topic Meningococcal B Vaccine Aged Out No l onger eligible based on patient's age to complete this topic RSV Immunization Patients Under 20 months Aged Out No longer eligible b ased on patient's age to complete this topic Varicella Vaccines Aged Out No longer eligible based on patient's age to complete this topic Care Teams Police District Switchboard Operator Relationship Specialty Start Date End Date Hector Ricketts MD [address] [place] [address] PCP - General 06/14/18
== END 2024-11-26 11:00 | disposition home or self-care (01) ==
LOC: HO.HOS 10:18
PROVIDERS: Visit Provider Physician Assistant
DX: Z96.649 Presence of unspecified artificial hip joint (principal); S72.001A Fracture of unspecified part of neck of right femur, initial encounter for closed fracture
CPT/HCPCS: 99024

== ENCOUNTER → 2024-11-26 10:26 | Outpatient (BNV) | payer MEDICAID, SELFPAY | PROVIDERS: Visit Provider Radiology Diagnostic Radiology | DX: M25.551 Pain in right hip (principal); M25.552 Pain in left hip; Z96.641 Presence of right artificial hip joint | CPT/HCPCS: 72170 ==

== ENCOUNTER 2024-12-14 23:12 | Emergency (ER) | payer MEDICAID, SELFPAY ==
--- NOTE | ~2024-12-14 | XR_ITS ---
CLINICAL HISTORY: post surgical pain 3 view, pelvis and right hip Comparison: X-ray of the pelvis from 11/26 2024 Findings: No acute fracture or definite hardware loosening right hip arthroplasty. Minimal lucency of the greater trochanter likely mild bone resorption. Adjacent soft tissue swelling and soft tissue calcifications are present. [id number]-[id number] effusion present. Portions of the pelvis including sacrum and SI joints are obscured. Moderate osteoarthritis of the left hip. Moderate to severe stool burden. IMPRESSION: No acute fracture or hardware loosening of the right hip arthroplasty. This document has been electronically signed by: Miguelangel Odom MD on 12/15/2024 00:30:04
[2024-12-14 23:20] VITALS: BP 123/81; BP 129/79; PULSE 62; PULSE 67; RESP 16; TEMP 36.6; O2SAT 97; O2SAT 98; BMI 18.8
[2024-12-14 23:22] VITALS: BP 129/79; PULSE 62; RESP 16; TEMP 36.6; O2SAT 97
--- NOTE | 2024-12-15 00:38 | ED.GENADULT ---
HPI - General Adult General Chief complaint: Extremity Problem Stated complaint: Partial hip replacement x4 weeks pain 9/10 Time Seen by Provider: 12/15/24 00:28 Source: patient and EMS Mode of arrival: EMS Limitations: no limitations History of Present Illness ED Provider: DR. Black HPI narrative: 59-year-old female s/p right kellie hip arthroplastic surgery on 11/12/2024, after surgery patient is been taking oxycodone for pain control and muscle relaxant at home patient still gets cramps and muscle spasm in the right hip area after the surgery that it is not completely relieved with the medicine that she has at home, declined any trauma, no injury, no fall, no fever, no chills, skin over the incision is healing with no exudate or discharge. No lower extremity swelling or tenderness otherwise. Related Data Home Medications ?Medication ?Instructions ?Recorded ?Confirmed carvedilol 3.125 mg tablet 3.125 mg PO BID 11/12/24 11/12/24 cyclobenzaprine 5 mg tablet 5 mg PO BEDTIME PRN Muscle Spasm 11/12/24 11/12/24 duloxetine 20 mg capsule,delayed 20 mg PO TID 11/12/24 11/12/24 release lamotrigine 100 mg tablet 100 mg PO TID 11/12/24 11/12/24 lorazepam 1 mg tablet 1 mg PO BID PRN Anxiety 11/12/24 11/12/24 Previous Rx's ?Medication ?Instructions ?Recorded enoxaparin 40 mg/0.4 mL 40 mg (0.4 mL) subcut Q24H 42 days 11/13/24 subcutaneous syringe #16.8 mL oxycodone 5 mg tablet 5 mg PO Q4H PRN Pain, Severe (Pain 11/13/24 Scale 7-10) 10 days #10 tabs albuterol sulfate 90 mcg/actuation 2 puff inhalation Q6H PRN 11/14/24 aerosol inhaler shortness of breath or wheezing #6.7 grams oxycodone 5 mg tablet 5 mg PO Q6H PRN pain 7 days #28 12/12/24 tabs diazepam 2 mg tablet (Valium) 2 mg PO BID PRN muscle spasm #5 12/15/24 tabs Allergies Allergy/AdvReac Type Severity Reaction Status Date / Time aspirin Allergy Mild Headache Verified 12/14/24 23:22 ibuprofen Allergy Mild heartburns Verified 12/14/24 23:22 Review of Systems Review of Systems: All other systems are reviewed and are negative Constitutional: Reports as per HPI and Reports no additional constitutional complaints Eyes: Reports as per HPI and Reports no additional eye complaints Reports system reviewed and no additional complaints, except as documented Cardiovascular: Reports as per HPI and Reports no additional cardiovascular complaints Respiratory: Reports as per HPI and Reports no additional respiratory complaints Gastrointestinal: Reports as per HPI and Reports no additional gastrointestinal complaints Genitourinary: Reports no additional female genitourinary complaints Musculoskeletal: Reports no additional musculoskeletal complaints Skin/Breast: Reports system reviewed and no additional complaints, except as docu Psychiatric: Reports no additional psychiatric complaints Endocrine: Reports no additional endocrine complaints Hematologic/Lymphatic: Reports no additional hematologic/lymphatic complaints Allergic/Immunologic: Reports no additional allergic/immunologic complaints Reports system reviewed and no additional complaints, except as documented and Reports Abnormal speech present [facility] Past Medical History Medical History Sick sinus syndrome due to sinoatrial node dysfunction Anxiety Depression Social History Social History Household Members: Significant Other and Children Housing: House Do you presently have visiting nurse or other home services: No Alcohol intake: never Comment: medicated, pain tolerable Patient Tobacco Use Status: Current everyday Tobacco user Tobacco use type: Cigarette Cigarette Packs Per Day: 1 Cigarettes Per Day: 20.0 e-Cigarette/Vaping Use: Never Used Substance Use Type: Marijuana Advance Directives Date on File: 04/23/21 Physical Exam ED Vital Signs: Vital Signs - 24 hr 12/14/24 23:20 12/14/24 23:22 Temperature 97.9 F 97.9 F Pulse Rate 62 62 Respiratory Rate 16 16 Blood Pressure 129/79 129/79 Pulse Oximetry 97 97 Oxygen Delivery Method Room Air Room Air BMI result Body Mass Index 18.8 Vital signs have been reviewed and appear to be correct. Blood pressure elevated. Heart rate normal. Respiratory rate normal. Temperature normal. Oxygen saturation normal. Appearance: Alert. Oriented X3. No acute distress. Head: Normal external exam. Normocephalic. Atraumatic. No Umanzor signs noted. No raccoon eyes noted Eyes: PERRLA. EOMI. Conjunctiva and sclera normal. Eyelids normal. ENT: TM's Normal. Pharynx normal. Uvula midline. Moist mucous membranes. No trismus noted. No drooling noted. No muffled voice noted. Neck: Normal inspection. Neck supple. FROM. No adenopathy. Thyroid Normal. No meningeal signs. No neck mass noted. CVS: Normal heart rate and rhythm. Heart sound normal. No murmurs noted. Pulses normal throughout. Respiratory: No respiratory distress. Painless inspiration. Breath sounds normal. No wheezes/rales/rhonchi noted. Chest nontender. No accessory muscle usage noted or decreased air movement noted. Abdomen: Soft and nontender. Bowel sounds normal in all 4 quadrants. No distention noted. No organomegaly noted. No visible injury noted. Back: No CVA tenderness. Full range of motion noted. Skin: Skin warm and dry. Normal skin color. Normal skin turgor. No rashes/lesions/lacerations noted. Extremities: Right hip: No redness, no hotness, no exudate, no discharge, incision appear dry, clean, and intact. Hip joint is full range of motion, no hotness or redness. Neuro: Oriented X 3. Cranial nerve exam: II-XII are grossly intact No motor deficit. No sensory deficit. Reflexes normal. Course Reevaluation(s) Reevaluation #1: S/p kellie arthroplasty of right hip patient is doing well postoperatively except for severe muscle spasm around the right hip area causing severe discomfort for the patient. Will prescribe Valium and follow-up with Dr. Ruiz. Time: 00:46 Medical Decision Making Differential Diagnosis Differential Diagnoses: The differential diagnosis associated with the presentation includes ( Right hip hardware malfunction, postoperative complication, postoperative skin infection.) Admission/Observation Consideration of admission/observation: Escalation of care including admission/observation considered Independent Interpretation I performed an independent interpretation of an: Plain X-Ray ( Right hip:No acute fracture or hardware loosening of the right hip arthroplasty.) Radiology Impression Discussion of test interpretation with radiology: I have reviewed the radiologist's reading. Discharge Plan Discharge Clinical Impression: Cramps of right lower extremity Patient Disposition: Home, Self-Care Instructions: Muscle Spasm (ED) Prescriptions: New diazepam [Valium] 2 mg tablet 2 mg PO BID PRN (Reason: muscle spasm) Qty: 5 0RF No Action oxycodone 5 mg tablet 5 mg PO Q6H PRN (Reason: pain) 7 Days Qty: 28 0RF Rx Instructions: Partial Fill upon patient request. Do not fill until 12/13/24 carvedilol 3.125 mg Tablet 3.125 mg PO BID Rx Instructions: must administer with a meal/food lorazepam 1 mg Tablet 1 mg PO BID PRN (Reason: Anxiety) lamotrigine 100 mg Tablet 100 mg PO TID cyclobenzaprine 5 mg Tablet 5 mg PO BEDTIME PRN (Reason: Muscle Spasm) duloxetine 20 mg Capsule,Delayed Release(Dr/Ec) 20 mg PO TID oxycodone 5 mg Tablet 5 mg PO Q4H PRN (Reason: Pain, Severe (Pain Scale 7-10)) 10 Days Qty: 10 0RF Rx Instructions: Partial Fill upon patient request. enoxaparin 40 mg/0.4 mL Syringe 40 mg subcut Q24H 42 Days Qty: 16.8 0RF albuterol sulfate 90 mcg/actuation HFA aerosol inhaler 2 puff inhalation Q6H PRN (Reason: shortness of breath or wheezing) Qty: 6.7 0RF Print Language: Urdu
[2024-12-15] MEDS: diazePAM 2 MG TABLET PO (00:47)
[2024-12-15 01:18] VITALS: BP 129/79; PULSE 62; RESP 16; TEMP 36.6; O2SAT 97
== END 2024-12-15 01:19 | disposition home or self-care (01) ==
PROVIDERS: Emergency Provider Emergency Medicine
DX: R25.2 Cramp and spasm (principal); M25.551 Pain in right hip; Z79.899 Other long term (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; F17.210 Nicotine dependence, cigarettes, uncomplicated
CPT/HCPCS: 73502; 99283; 99284

== ENCOUNTER → 2024-12-14 23:40 | Outpatient (BNV) | payer MEDICAID, SELFPAY | PROVIDERS: Emergency Provider Emergency Medicine; Visit Provider Radiology Neuroradiology | DX: M25.551 Pain in right hip (principal) | CPT/HCPCS: 73502 ==

== ENCOUNTER 2024-12-24 09:45 | Outpatient (REF) | payer MEDICAID, SELFPAY ==
--- OUTSIDE RECORDS SUMMARY | 2024-12-25 10:24 | XMS_ITS | Clinical Summary ---
[facility] it Address [address] [place] [address] Care Team Providers Care Banana Ripening Room Supervisor Name Role Phone Hector Ricketts MD Primary Care Provider [phone] Surgical History Surgery Date Site/Laterality Comments OTHER [...] and feet Rheumatoid arthritis (CMS/ C V24, CMS/[facility] V28) DX:Rheumatoid arthritis (HCC ) Wears glasses DX:Wears glasses Nasal congestion DX:Nasal conges tion Abdominal pain DX:Abdominal linnea n Change in bowel habits DX:Change in bowel habits Autoimmune disease ([facility] V24) DX:Autoimmune disease (HCC); COMMENT: fibromyalgia [...] age to complete this topic Care Teams Banana Ripening Room Supervisor Relationship Specialty Start Date End Date Hector Ricektts MD [address] [place] [address] PCP - General 06/14/18
--- OUTSIDE RECORDS SUMMARY | 2024-12-25 10:24 | XMS_ITS | Clinical Summary ---
Author Organization [facility] Address [address] [place] [address] Care Team Providers Care Extractor Plant Operator Name Role Phone Jeremías Jones MD Primary Care Provider [phone] Source Comments PLEASE NOTE, if this patient [...] nasal sprayIndications:D egenerative lumbar disc Place 1 [place] into the nostril(s) as needed for opioid reversal (Overdose) 2 Each 4 Active HYDROcodone-acetam inophen (NORCO) 5-325 mg per tabletIndications: Degenerative lumbar disc Take 1 Tablet by mouth every 8 (eight) hours as needed for pain 15 Tablet 4 Active DULoxetine (CYMBALTA) [address] capsuleIndications :Moderate episode of recurrent major depressive disorder ([facility]) Take 1 Capsule by mouth 3 (three) times daily for 90 days 90 Capsule 2 5 Active lamoTRIgine (LAMICTAL) 100 mg tabletIndications: Moderate episode of recurrent major depressive disorder ([facility]),Bipolar II disorder ([facility]) Take 1 Tablet by mouth 3 [...] Noted Date Diagnosed Date Bipolar II disorder ([facility]) 08/15/2023 Generalized anxiety disorder 04/05/2023 Moderate episode of recurren t major depressive disorder ([facility]) 04/05/2023 Non-ST elevated myocardial infarction ([facility]) 05/04/2021 Overview (11/27/2023): Followed by Cardiology in [facility] Reports normal PCI Pacemaker 04/28/2021 Overview (11/27/2023): Placed while in [facility] Apr 24, 2021 Diagnosed with broken heart syndrome Followed by Cardiology in [facility] Tobacco dependence due to cigarettes 11/12/2018 Anxiety and depression 11/06/2018 Overview (11/27/2023): Following department Fibromyalgia 11/06/2018 Primary osteoarthritis involving multiple joints 11/06/2018 Encounters Date Type Department Care Team Description 11/06/2024 /[address] [address] Jody Reynolds, ALEJANDRO Generalized anxiety disorder (Primary Dx); Moderate episode of recurrent major depressive disorder (HCC-CMS); Bipolar II disorder (HCC-CMS); Severe anxiety 10/03/2024 2:30 PM EST / Visits [address] [address] Jody Reynolds LMHC Generalized anxiety [...] Health Maintenance Due Date Last Done Comments HPV Screening 1965 Hepatitis C Screening 1965 [...] Screening 2015 Diabetes Screening 11/06/2021 11/06/2018, 11/06/2018 Anxiety Screening 06/02/2023 06/02/2022 Lipid Screening 11/07/2023 11/06/2018 Depression Monitoring 02/26/2024 11/27/2023 , 06/02/2022, 08/02/2021, Additional history exists [id number] ( season) 2024 05/15/2023, 07/14/2021, 12/09/2020, Additional [...] AM EDT) 11/15/2024 3:0 0 AM EDT [facility] Provider Default SCAN OTHER ORDERS Final Re sult * (ABNORMAL) LIPID PANEL (11/06/2018 2:01 PM EDT) CHOLESTEROL 205(H) 0 - 200 mg/dL [facility] TRIGLYCERIDES 106 0 - 150 mg/dL [facility] HDL CHOLESTEROL 48 >40 mg/dL [facility] LDL CALCULATED 136(H) 0 - 100 mg/dL [facility] TC-HDLC RATIO 4.3 0 - 4.4 mg/dL [facility] Blood specimen (specimen) Blood / Unknown 11/06/2018 2:01 PM EDT 11/06/2018 4:30 PM EDT Narrative [facility] - 11/06/2018 7:21 PM EDT [facility] [place], a member of [address] [address] Window Clerk - Dionna Evans MD PT ID [id number] ORD# [id number] Nevaeh Espino PA-C LAB - BLOOD DRAW Edited Result - Final [facility] [address] [place] [address], * (ABNORMAL) COMPRE METAB PANEL (11/06/2018 2:01 PM EDT) GLUCOSE 103(H) 70 - 100 mg/dL [facility] Comment:Reference range appl icable to fasting specimens only BUN 9 5 - 25 mg/dL [facility] CREAT 0.82 0.5 - 1.1 mg/dL [facility] GLOMERULAR FILTRATION RATE > 60 [facility] Comment: If patient is -[place], multiply result by 1.21 Chronic Kidney Disease: < 60 ml/min/1.73 square meters Kidney Failure: < 15 ml/min/1.73 square meters SODIUM 137 133 - 145 mmol/L [facility] POTASSIUM 4.5 3.5 - 5.5 mmol/L [facility] CHLORIDE 100 96 - 110 mmol/L [facility] CO2 30 21 - 32 mmol/L [facility] ANION GAP 7 3 - 11 [facility] CALCIUM 9.5 8.5 - 10.5 mg/dL [facility] TOTAL PROTEIN 8.0 6.0 - 8.0 G/dL [facility] ALBUMIN 4.6 3.2 - 5.0 G/dL [facility] BILI, TOTAL 0.4 0.0 - 1.4 mg/dL [facility] SGOT 17 10 - 42 U/L [facility] SGPT 22 10 - 60 U/L [facility] ALK PHOS 55 42 - 121 U/L [facility] Blood specimen (specimen) Blood / Unknown 11/06/2018 2:01 PM EDT 11/06/2018 4:30 PM EDT Narrative [facility] - 11/06/2018 7:21 PM EDT [employer], a member of [address] [address] Window Clerk - Dionna Evans MD PT ID [id number] ORD# [id number] Nevaeh Espino PA-C LAB - BLOOD DRAW Edited Result - Final [facility] [address] [place] [address], from Last 3 Months or Most Recently Relevant to Health Maintenance Insurance [place] [address] [phone] [facility] [place] [address] [employer] Care Teams Extractor Plant Operator Relationship Specialty Start Date End Date Jeremías Jones MD [address] [place] [address] PCP - General Family Medicine, Physician 08/15/23
== END 2024-12-24 09:46 | disposition home or self-care (01) ==
LOC: HO.HOSX 09:45
PROVIDERS: Visit Provider Physician Assistant
DX: M25.551 Pain in right hip (principal); S72.001A Fracture of unspecified part of neck of right femur, initial encounter for closed fracture; Z96.641 Presence of right artificial hip joint
CPT/HCPCS: 99212

== ENCOUNTER 2024-12-24 12:58 | Outpatient (AMB) | payer MEDICAID, SELFPAY ==
--- NOTE | 2024-12-24 13:03 | MHC.OFFVIS ---
Vital Signs 12/24/24 13:28 Height 5 ft 11 in Weight 135 lb BMI 18.8 Intake Visit Reasons: PO - right hip kellie 11/12/24 NE Intake Note: Ivette is a 59 year old female who presents today for a post op appointment s/p right hip kellie 11/12/24 NE. At her last appointment was recommended to work with [facility] physical therapy to work on glute core and quad strengthening. She is doing better today, she was having a lot of pain a couple days ago. Patient was having a lot of pain and numbness behind her thigh. She also canceled her [facility] services due to being able to do the exercises on her own. Allergies aspirin Allergy (Mild, Verified 12/24/24 13:27) Headache ibuprofen Allergy (Mild, Verified 12/24/24 13:27) heartburns HPI HPI PO - right hip kellie 11/12/24 NE: Details: Ms. Mckenzie is a 59-year-old female who presents to the office today for routine follow-up status post right hip hemiarthroplasty performed on 11/12/[address] Ruiz. Overall the patient is doing very well. She has discontinued the use of a walker and has transitioned to using a cane. She does occasionally feel some soreness and pain in the right hip. She has discontinued home physical therapy at this time. She denies any additional complaints. [facility] Medical History Sick sinus syndrome due to sinoatrial node dysfunction Anxiety Depression Social History Household Members: Significant Other and Children Housing: House Do you presently have visiting nurse or other home services: No Alcohol intake: never Comment: medicated, pain tolerable Patient Tobacco Use Status: Current everyday Tobacco user Tobacco use type: Cigarette Cigarette Packs Per Day: 1 Cigarettes Per Day: 20.0 e-Cigarette/Vaping Use: Never Used Substance Use Type: Marijuana Advance Directives Date on File: 04/23/21 Review of Systems Const All systems reviewed & are unremarkable except as noted in HPI and below Physical Exam Vital Signs: BMI result Body Mass Index 18.8 Const General: cooperative, healthy appearing and no acute distress Resp Effort & Inspection: normal respiratory effort and able to speak in complete sentences Extrem Other: Right hip incision site is completely healed and well approximated. There is no surrounding erythema or drainage. No signs of infection. Ambulating with the use of a cane. Assessment & Plan Assessment & Plan (1) Closed fracture of neck of right femur: Code(s): S72.001A - Fracture of unspecified part of neck of right femur, initial encounter for closed fracture Category: Medical (2) S/P hip hemiarthroplasty: Code(s): Z96.649 - Presence of unspecified artificial hip joint Category: Surgical Plan Ms. Mckenzie is a 59-year-old female who presents to the office today for routine follow-up status post right hip hemiarthroplasty performed on 11/12/[address] Ruiz. Overall the patient is doing very well. She has discontinued the use of a walker and has transitioned to using a cane. She does occasionally feel some soreness and pain in the right hip. She has discontinued home physical therapy at this time. She denies any additional complaints. While in the office today, I discussed continuation of home exercise program. She will continue with posterior hip precautions. She can continue using the cane as needed to assist with ambulation and stability. I did send a refill of oxycodone 5 mg p.o. Q 8 hours p.r.n. pain. She will follow up at the three-month postoperative deneen, sooner if needed. X-rays of the right hip which were obtained on 12-15-24 reveal intact orthopedic hardware with satisfactory alignment. No evidence of hardware loosening or periprosthetic fracture. Orders: Orders XR hip RT min 2V Today M25.559 - Pain in unspecified hip Medications: Changed From oxycodone Partial Fill upon patient request. Do not fill until 12/13/24 5 mg PO Q6H 7 days PRN 28 tabs 0RF pain To oxycodone Partial Fill upon patient request. Do not fill until 12/13/24 5 mg PO Q8H PRN 21 tabs 0RF pain 7 days Coding Level of Care Code Global (18028) Diagnoses Closed fracture of neck of right femur S72.001A S/P hip hemiarthroplasty Z96.649
[2024-12-24 13:28] VITALS: BMI 18.8
--- OUTSIDE RECORDS SUMMARY | 2024-12-24 14:01 | XMS_ITS | Clinical Summary ---
[facility] [address] [place] [address] Care Team Providers Care Corporate Licensed Broker Name Role Phone Hector Ricketts MD Primary Care Provider [phone] Surgical History Surgery Date Site/Laterality Comments OTHER [...] and feet Rheumatoid arthritis (CMS/ C V24, CMS/[facility] V28) DX:Rheumatoid arthritis (HCC ) Wears glasses DX:Wears glasses Nasal congestion DX:Nasal conges tion Abdominal pain DX:Abdominal linnea n Change in bowel habits DX:Change in bowel habits Autoimmune disease ([facility] V24) DX:Autoimmune disease (HCC); COMMENT: fibromyalgia Social [...] age to complete this topic Care Teams Corporate Licensed Broker Relationship Specialty Start Date End Date Hector Ricketts MD [address] [place] [address] PCP - General 06/14/18
--- OUTSIDE RECORDS SUMMARY | 2024-12-24 14:01 | XMS_ITS | Clinical Summary ---
Author Organization [facility] Address [address] [place] [address] Care Team Providers Care Tobacco Educator Name Role Phone Jeremías Jones MD Primary Care Provider [phone] Source Comments PLEASE NOTE, if this patient [...] suicidal Medications nicotine, polacrilex, (NICORETTE) 4 mg gumIndications:Tob acco dependence due to cigarettes Take 1 Each by mouth as needed for smoking cessation 110 Each 9 Active nicotine (NICODERM CQ) 14 mg/24 hr patchIndications:T obacco dependence due to cigarettes Place 1 Patch onto the skin once daily (every 24 hours) 28 Patch 2 1 Active nicotine, polacrilex, (NICORETTE) 2 mg gumIndications:Tob acco dependence due to cigarettes Take 1 Each by mouth as needed for smoking cessation 110 Each 2 1 Active carvediloL (COREG) 3.125 mg tabletIndications: Pacemaker,Non-ST elevated myocardial infarction (HCC-CMS),Takotsub o cardiomyopathy TAKE ONE TABLET BY MOUTH TWICE A DAY WITH MEALS 60 Tablet 2 3 Active ibuprofen 600 mg tabletIndications: Chronic apical periodontitis Take 1 Tablet by mouth 4 (four) times daily as needed for mild pain 20 Tablet 3 Active naloxone (NARCAN) 4 mg/actuation nasal sprayIndications:D egenerative lumbar disc Place 1 [place] into the nostril(s) as needed for opioid reversal (Overdose) 2 Each 4 Active HYDROcodone-acetam inophen (NORCO) 5-325 mg per tabletIndications: Degenerative lumbar disc Take 1 Tablet by mouth every 8 (eight) hours as needed for pain 15 Tablet 4 Active DULoxetine (CYMBALTA) [address] capsuleIndications :Moderate episode of recurrent major depressive disorder ([facility]-CMS) Take 1 Capsule by mouth 3 (three) times daily for 90 days 90 Capsule 2 5 Active lamoTRIgine (LAMICTAL) 100 mg tabletIndications: Moderate episode of recurrent major depressive disorder ([facility]-CMS),Bipolar II disorder ([facility]) Take 1 Tablet by mouth 3 (three) times daily for 90 days 90 Tablet 2 5 Active cyclobenzaprine (FLEXERIL) 5 mg tabletIndications: Degenerative lumbar disc TAKE ONE TABLET BY MOUTH AT BEDTIME NEEDED FOR MUSCLE SPASM 30 Tablet 3 5 Active LORazepam (ATIVAN) 1 mg tabletIndications: Severe anxiety Take 1 Tablet by mouth 2 (two) times daily as needed for anxiety 60 Tablet 5 Active Active Problems Problem Noted Date Diagnosed Date Bipolar II disorder ([facility]) 08/15/2023 Generalized anxiety disorder 04/05/2023 Moderate episode of recurren t major depressive disorder ([facility]) 04/05/2023 Non-ST elevated myocardial infarction ([facility]) 05/04/2021 Overview (11/27/2023): Followed by Cardiology in [facility] Reports normal PCI Pacemaker 04/28/2021 Overview (11/27/2023): Placed while in [facility] Apr 24, 2021 Diagnosed with broken heart syndrome Followed by Cardiology in [facility] Tobacco dependence due to cigarettes 11/12/2018 Anxiety and depression 11/06/2018 Overview (11/27/2023): Following department Fibromyalgia 11/06/2018 Primary osteoarthritis involving multiple joints 11/06/2018 Encounters Date Type Department Care Team Description 11/06/2024 /[address] [address] Jody Reynolds, ALEJANDRO Generalized anxiety disorder (Primary Dx); Moderate episode of recurrent major depressive disorder (HCC-CMS); Bipolar II disorder (HCC-CMS); Severe anxiety 10/03/2024 2:30 PM EST / Visits [address] [address] Jody Reynolds LMHC Generalized anxiety [...] Date Last Done Comments Anxiety Screening 1965 06/02/2022 HPV Screening 1965 Hepatitis C Screening 1965 [...] 11/27/2023 , 06/02/2022, 08/02/2021, Additional history exists [id number] ( season) 2024 05/15/2023, 07/14/2021, 12/09/2020, Additional [...] Procedure Name Priority Date/Time Associated Diagnosis Comments HEALTH HISTORY SCANNED DOCUMENT 11/15/2024 3:00 AM EDT PANORAMIC RADIOGRAPHIC IMAGE Routine 08/09/2023 3:40 PM [...] Recently Relevant to Health Maintenance Results * HEALTH HISTORY SCANNED DOCUMENT (11/15/2024 3:00 AM EDT) 11/15/2024 3:0 0 AM EDT [facility] Provider Default SCAN OTHER ORDERS Final Re sult * (ABNORMAL) LIPID PANEL (11/06/2018 2:01 PM EDT) CHOLESTEROL 205(H) 0 - 200 mg/dL [facility] TRIGLYCERIDES 106 0 - 150 mg/dL [facility] HDL CHOLESTEROL 48 >40 mg/dL [facility] LDL CALCULATED 136(H) 0 - 100 mg/dL [facility] TC-HDLC RATIO 4.3 0 - 4.4 mg/dL [facility] Blood specimen (specimen) Blood / Unknown 11/06/2018 2:01 PM EDT 11/06/2018 4:30 PM EDT Narrative [facility] - 11/06/2018 7:21 PM EDT [facility] [place], a member of [employer] [address] [address] Radio Frequency Design Engineer - Dionna Evans MD PT ID [id number] ORD# [id number] Nevaeh Espino PA-C LAB - BLOOD DRAW Edited Result - Final [facility] [address] [place] [address], * (ABNORMAL) COMPRE METAB PANEL (11/06/2018 2:01 PM EDT) GLUCOSE 103(H) 70 - 100 mg/dL [facility] Comment:Reference range appl icable to fasting specimens only BUN 9 5 - 25 mg/dL [facility] CREAT 0.82 0.5 - 1.1 mg/dL [facility] GLOMERULAR FILTRATION RATE > 60 [facility] Comment: If patient is -Estonian, multiply result by 1.21 Chronic Kidney Disease: < 60 ml/min/1.73 square meters Kidney Failure: < 15 ml/min/1.73 square meters SODIUM 137 133 - 145 mmol/L [facility] POTASSIUM 4.5 3.5 - 5.5 mmol/L [facility] CHLORIDE 100 96 - 110 mmol/L [facility] CO2 30 21 - 32 mmol/L [facility] ANION GAP 7 3 - 11 [facility] CALCIUM 9.5 8.5 - 10.5 mg/dL [facility] TOTAL PROTEIN 8.0 6.0 - 8.0 G/dL [facility] ALBUMIN 4.6 3.2 - 5.0 G/dL [facility] BILI, TOTAL 0.4 0.0 - 1.4 mg/dL [facility] SGOT 17 10 - 42 U/L [facility] SGPT 22 10 - 60 U/L [facility] ALK PHOS 55 42 - 121 U/L [facility] Blood specimen (specimen) Blood / Unknown 11/06/2018 2:01 PM EDT 11/06/2018 4:30 PM EDT Narrative [facility] - 11/06/2018 7:21 PM EDT [facility], a member of [address] [address] Radio Frequency Design Engineer - Dionna Evans MD PT ID [id number] ORD# [id number] Nevaeh Espino PA-C LAB - BLOOD DRAW Edited Result - Final [address] [address], from Last 3 Months or Most Recently Relevant to Health Maintenance Insurance [place] [facility] [address] ACO Care Teams Tobacco Educator Relationship Specialty Start Date End Date Jeremías Jones MD [address] [place] [address] PCP - General Family Medicine, Physician 08/15/23
== END 2024-12-24 13:41 | disposition home or self-care (01) ==
LOC: HO.HOS 12:59
PROVIDERS: Visit Provider Physician Assistant
DX: S72.001A Fracture of unspecified part of neck of right femur, initial encounter for closed fracture (principal); Z96.649 Presence of unspecified artificial hip joint
CPT/HCPCS: 99024

== ENCOUNTER 2025-02-05 12:45 | Emergency (ER) | payer MEDICAID, SELFPAY ==
--- NOTE | 2025-02-05 | ECG_ITS ---
Test Reason : syncope Blood Pressure : */* mmHG Vent. Rate : 65 BPM Atrial Rate : 65 BPM P-R Int : 190 ms QRS Dur : 104 ms QT Int : 472 ms P-R-T Axes : 72 81 64 degrees QTcB Int : 490 ms Normal sinus rhythm Minimal voltage criteria for LVH, may be normal variant ( Ant product ) Prolonged QT Abnormal ECG When compared with ECG of 12-Nov-2024 03:13, No significant changes seen Referred By: Generic ED Physician Electronically Signed By: SHAJI PEREZ
--- NOTE | ~2025-02-05 | XR_ITS ---
EXAMINATION: XR CHEST CLINICAL INFORMATION: syncope, hx of smoking COMPARISON: November 12, 2024 TECHNIQUE: 2 views of the chest were obtained. FINDINGS: Left upper chest pacemaker with leads in right atrium and right ventricle appears unchanged. Lungs are hyperexpanded. Lungs are clear. No bony abnormality. Heart size normal. XR/XR chest 2V IMPRESSION: No acute disease, 2-lead pacemaker is unchanged. Electronically signed by: Sebastian Mcclure MD 02/05/2025 03:41 PM EDT
[2025-02-05 12:56] VITALS: BP 108/75; BP 121/79; PULSE 62; PULSE 64; RESP 15; TEMP 36.7; O2SAT 98; O2SAT 99; BMI 19.8
[2025-02-05 13:08] VITALS: BP 130/79; PULSE 60; RESP 18; O2SAT 96
[2025-02-05 13:10] VITALS: O2SAT 96
[2025-02-05 13:12] LABS: MANUAL DIFF FLAG NO
[2025-02-05 13:14] LABS: Basophils Percent Auto 0.6 % (0-2); Eosinophils Percent Auto 0.1 % (0-4); Hematocrit 38.4 % (37.0-47.0); Hemoglobin 13.8 g/dl (12.0-16.0); Imm Gran Abs Auto 0.02 X10*3/uL (0.00-0.03); Imm Gran Pct Auto 0.3 % (0.0-0.4); Lymphocytes Absolute Auto 1.7 X10*3/uL (1.2-4.9); Lymphocytes Percent Auto 24.3 % (20-40); Mean Corpuscular HGB Conc 35.9 g/dl (31.0-35.0); Mean Corpuscular Hemoglobin 29.2 pg (27.0-33.0); Mean Corpuscular Volume 81.4 fL (80.0-98.0); Mean Platelet Volume 9.5 fL (9.4-12.3); Monocytes Absolute Auto 0.4 X10*3/uL (0.1-1.2); Monocytes Percent Auto 5.1 % (2-11); Neutrophils Absolute Auto 4.7 x10*3/uL (2.0-8.3); Neutrophils Percent Auto 69.6 % (45-73); Platelet Count 202 X10*3/uL (160-400); Red Blood Count 4.72 X10*6/uL (4.20-5.50); Red Cell Distribution Width 11.9 % (11.0-16.0); White Blood Count 6.8 X10*3/uL (4.8-10.8)
[2025-02-05 13:38] LABS: Alanine Aminotransferase 6 U/L (0-31); Albumin Level 4.3 g/dL (3.5-5.0); Alkaline Phosphatase 58 U/L (39-117); Anion Gap 16 (12-20); Aspartate Amino Transferase 22 U/L (5-31); Bilirubin Total 0.5 mg/dL (0.0-1.0); Blood Urea Nitrogen 9 mg/dL (9-16); Calcium 9.3 mg/dL (8.4-10.2); Carbon Dioxide 25 mmol/L (22-29); Chloride 104 mmol/L (96-108); Creatinine Clr Calc Pharmacy 94.6; Estimated Glomerular Filt Rate > 60; Glucose Random 134 mg/dL (60-115); Magnesium 1.9 mg/dL (1.6-2.6); Potassium 3.2 mmol/L (3.3-5.1); Sodium 142 mmol/L (135-145); Total Protein 6.8 g/dL (6.5-8.0)
[2025-02-05 13:47] LABS: Troponin-I High Sensitivity < 2.7 ng/L (<3.5-17.0)
[2025-02-05 14:00] VITALS: BP 101/72; PULSE 66; RESP 16; O2SAT 96
--- NOTE | 2025-02-05 14:41 | ED_ITS ---
HPI - General Adult General Chief complaint: Syncope Stated complaint: Poss sz, - stroke scale, nondiag 12 lead Time Seen by Provider: 02/05/25 14:40 History of Present Illness ED Provider: Jojo DYER narrative: The patient is a 59-year-old woman who has a history of sick sinus syndrome and a pacemaker. Following placement of her pacemaker she had an episode of an acute cardiac syndrome that was felt to be takotsubo syndrome. She also has a history of a hip replacement. She is a lifelong smoker who still smokes. She says that she woke up feeling somewhat weak this morning and stayed home and rested. At 1 point she was watching TV with her daughter. She stood up and went outside to smoke a cigarette. She then returned and sat down on the couch to watch more TV when she started to feel lightheaded and dizzy. She then apparently passed out and her daughter was concerned because she seemed to be making gurgling noises. The daughter called 911. The patient says that she remembers feeling lightheaded before she passed out. She says the next thing she knows was that her daughter was on the phone with 911. She then felt generalized weakness and generalized tingling and numbness on her face in her hands. The patient does not recall having a previous episode of a syncopal episode. She does not have a history of any seizures. There was no tongue biting. There was no incontinence. Related Data Home Medications ?Medication ?Instructions ?Recorded ?Confirmed carvedilol 3.125 mg tablet 3.125 mg PO BID 11/12/24 cyclobenzaprine 5 mg tablet 5 mg PO BEDTIME PRN Muscle Spasm 11/12/24 11/12/24 duloxetine 20 mg capsule,delayed 20 mg PO TID 11/12/24 11/12/24 release lamotrigine 100 mg tablet 100 mg PO TID 11/12/2411/12 lorazepam 1 mg tablet 1 mg PO BID PRN Anxiety 09/0711/12/24 Previous Rx's ?Medication ?Instructions ?Recorded enoxaparin 40 mg/0.4 mL 40 mg (0.4 mL) subcut Q24H 4 2 days 11/13/24 subcutaneous syringe #16.8 mL oxycodone 5 mg tablet 5 mg PO Q4H PRN Pain, Severe (Pain 11/13/24 Scale 7-10) 10 days #10 tabs albuterol sulfate 90 mcg/actuation 2 puff inhalation Q 6H PRN 11/14/24 aerosol inhaler shortness of breath or wheez ing #6.7 grams diazepam 2 mg tablet (Valium) 2 mg PO BID PRN muscle s pasm #5 12/15/24 tabs oxycodone 5 mg tablet 5 mg PO Q8H PRN pain 7 days #21 12/24/24 tabs Allergies Allergy/AdvReac Type Severity Reaction Status Date / Time aspirin Allergy Mild Headache Verified 02/05/25 13:00 ibuprofen Allergy Mild heartburns Verified 02/05/25 13:00 Review of Systems 2 Review of Systems: Yes all other systems are reviewed and are negative [facility] Past Medical History Medical History Sick sinus syndrome due to sinoatrial node dysfunction Anxiety Depression Social History Social History Household Members: Significant Other and Children Housing: House Do you presently have visiting nurse or other home services: No Alcohol intake: never Comment: medicated, pain tolerable Patient Tobacco Use Status: Current everyday Tobacco user Tobacco use type: Cigarette Cigarette Packs Per Day: 1 Cigarettes Per Day: 20.0 Smoked in Last 30 Days: Yes e-Cigarette/Vaping Use: Never Used Substance Use Type: Marijuana Substance Use Frequency: Chronic Longstanding Advance Directives: Yes Advance Directives on File: Yes Advance Directives Date on File: 04/23/21 Physical Exam ED Vital Signs: Vital Signs - 24 hr 02/05/25 12:56 02/05/25 13:08 02/05/25 13:10 Temperature 98.0 F Pulse Rate 64 60 Respiratory Rate 15 18 Blood Pressure 108/75 130/79 Pulse Oximetry 98 96 96 Oxygen Delivery Method Room Air Room Air Room Air 02/05/25 14:00 Temperature Pulse Rate 66 Respiratory Rate 16 Blood Pressure 101/72 Pulse Oximetry 96 Oxygen Delivery Method Room Air BMI result Body Mass Index 19.8 Const Other: The patient is a tall, slim 59-year-old. She looks somewhat chronically ill. She does not appear acutely ill. Orientation/consciousness: patient oriented x3 HENMT Other: The face is symmetrical. ?Mucous membranes moist. Eyes Other: Pupils are round equal, conjunctivae are clear, extraocular movements intact Neck Neck: Yes normal visual inspection, Yes full ROM, Yes no lymphadenopathy and Yes no JVD Resp Effort & Inspection: normal respiratory effort Auscultation: clear to auscultation bilaterally Cardio Rate: regular rate Rhythm: regular rhythm Heart sounds: S1 normal heart sound present and S2 normal heart sound present GI Other: Abdomen is flat, soft, nontender Skin Other: The skin is dry and unremarkable Neuro General: patient oriented x3, gait normal, tone normal, moves all extremities, no focal motor deficits and CN's II-XI intact bilaterally Extrem Other: There is no calf swelling or tenderness. No asymmetry. No peripheral edema. Medications Administered Discontinued Medications Generic Name Dose Route Start Last Admin Trade Name Freq PRN Reason Stop Dose Admin Sodium Chloride 1,000 mls @ 999 mls/hr 02/05/25 15:00 02/05/25 15:04 Ns IV 02/05/25 16:00 999 mls/hr .Q1H1M [facility] Administration Medical Decision Making Medical Decision Making [facility] Narrative: The patient was brought to the hospital by ambulance after a syncopal episode at her home. I believe this was a syncopal episode and not a seizure. There was no tongue biting. No incontinence. There was no description of a postictal phase. The patient seems to have returned to a normal level of alertness quite quickly. Additionally there was a prodromal sense of feeling dizzy. This episode happened after she had gone out to smoke a cigarette in the heat and then come back inside. I therefore think this is probably more of a postural or possibly vagal episode. The patient has a history of pacemaker but I do not think her history is suggestive of any pacemaker etiology of syncope. She has a normal sinus rhythm on her EKG. It is a fairly normal-looking EKG. The patient is a smoker who still smokes but she says she does not really have any history of any lung disease and is on no inhalers. Her lungs are fairly clear. Chest x-ray is clear. Basic labs are unremarkable and I think noncontributory to the patient's presentation. The patient was given a L of IV fluids. She was also complaining of back pain that she describes as her fibromyalgia pain. I believe this is a chronic pain. She was given a dose of ketorolac. The patient does not seem to be very compliant at following up with doctors. She has not seen her PCP or a electrician's assistant in over a year. She is encouraged to make appointments with both her PCP and her electrician's assistant to follow up on this episode. Lab Data 02/05/25 13:07 02/05/25 13:07 Labs: Lab Results 02/05/25 Range/Units 13:07 WBC 6.8 (4.8-10.8) X10*3/uL RBC 4.72 D (4.20-5.50) X10*6/uL Hgb 13.8 (12.0-16.0) g/dl Hct 38.4 (37.0-47.0) % MCV 81.4 (80.0-98.0) fL MCH 29.2 (27.0-33.0) pg MCHC 35.9 H (31.0-35.0) g/dl RDW 11.9 (11.0-16.0) % Plt Count 202 D (160-400) X10*3/uL MPV 9.5 (9.4-12.3) fL Immature Gran % (Auto) 0.3 (0.0-0.4) % Neut % (Auto) 69.6 (45-73) % Lymph % (Auto) 24.3 (20-40) % [place] % (Auto) 5.1 (2-11) % Eos % (Auto) 0.1 (0-4) % Baso % (Auto) 0.6 (0-2) % Lymph # (Auto) 1.7 (1.2-4.9) X10*3/uL [place] # (Auto) 0.4 (0.1-1.2) X10*3/uL Eos # (Auto) 0.0 (0.0-0.4) X10*3/uL Baso # (Auto) 0.0 (0.0-0.2) X10*3/uL Abs Immat Gran (auto) 0.02 (0.00-0.03) X10*3/uL Absolute Neuts (auto) 4.7 (2.0-8.3) x10*3/uL Absolute Nucleated RBC 0.000 (0.0-0.012) X10*3/uL Nucleated RBC % (auto) 0.0 (0.0-0.2) /100WBC Sodium 142 (135-145) mmol/L Potassium 3.2 L (3.3-5.1) mmol/L Chloride 104 (96-108) mmol/L Carbon Dioxide 25 (22-29) mmol/L Anion Gap 16 (12-20) BUN 9 (9-16) mg/dL Creatinine 0.67 (0.5-1.4) mg/dL Estim Creat Clear Calc 94.6 Estimated GFR > 60 Random Glucose 134 H (60-115) mg/dL Calcium 9.3 D (8.4-10.2) mg/dL Magnesium 1.9 (1.6-2.6) mg/dL Total Bilirubin 0.5 (0.0-1.0) mg/dL AST 22 (5-31) U/L ALT 6 (0-31) U/L Alkaline Phosphatase 58 (39-117) U/L Troponin I High Sens < 2.7 (<3.5-17.0) ng/L Total Protein 6.8 (6.5-8.0) g/dL Albumin 4.3 (3.5-5.0) g/dL Independent Interpretation I performed an independent interpretation of an: EKG Interpretation: EKG at 1256 shows normal sinus rhythm at 65 beats per minute. I did not feel there were any acute findings present. EKG machine measured a QTC of 490. It was my impression that QTc interval is less than this. Discharge Plan Discharge Clinical Impression: Episode of syncope Patient Disposition: Home, Self-Care Additional Instructions: Think that you had a fainting episode today. This may has been related to some degree of dehydration or the heat. I do not think you had a seizure. Please plan on following up with your regular doctor. Also please plan on following up with your electrician's assistant. Therefore please rest and take it easy today. Make sure you drink lot of fluids and eat well. Please call your primary care doctor's office and your cardiology office tomorrow morning for a follow up appointment to discuss this episode further. Please do your best to minimize smoking. Return to the emergency room if you feel significantly worse. Prescriptions: No Action carvedilol 3.125 mg Tablet 3.125 mg PO BID Rx Instructions: must administer with a meal/food lorazepam 1 mg Tablet 1 mg PO BID PRN (Reason: Anxiety) lamotrigine 100 mg Tablet 100 mg PO TID cyclobenzaprine 5 mg Tablet 5 mg PO BEDTIME PRN (Reason: Muscle Spasm) duloxetine 20 mg Capsule,Delayed Release(Dr/Ec) 20 mg PO TID oxycodone 5 mg Tablet 5 mg PO Q4H PRN (Reason: Pain, Severe (Pain Scale 7-10)) 10 Days Qty: 10 0RF Rx Instructions: Partial Fill upon patient request. enoxaparin 40 mg/0.4 mL Syringe 40 mg subcut Q24H 42 Days Qty: 16.8 0RF albuterol sulfate 90 mcg/actuation HFA aerosol inhaler 2 puff inhalation Q6H PRN (Reason: shortness of breath or wheezing) Qty: 6.7 0RF diazepam [Valium] 2 mg tablet 2 mg PO BID PRN (Reason: muscle spasm) Qty: 5 0RF oxycodone 5 mg tablet 5 mg PO Q8H PRN (Reason: pain) 7 Days Qty: 21 0RF Rx Instructions: Partial Fill upon patient request. Do not fill until 12/13/24 Referrals: [facility] [Provider Group] Referral Note: syncope, smoking Anna Marie Perez PA [Physician Tourism Radio Presenter, Medical] Referral Note: syncope, pacemaker Print Language: Korean
--- NOTE | 2025-02-05 15:01 | PC.NURSE ---
Patient is a 59-year-old female with pertinent history of sick sinus syndrome status post pacemaker, mood disorder, tobacco use disorder who presents to the emergency department for evaluation of a possible syncopal episode. States was watching TV with daughter in which she felt dizzy and passed out . c/o generalized weakness. flatbed driver applied and NSR noted. Respirations even and non-labored. Abdomen soft, non-tender with positive bowel sounds. Positive pedal pulses with no edema.
[2025-02-05] MEDS: 0.9 % Sodium Chloride 1,000 ML 999 ML IV (15:04)
[2025-02-05 16:00] VITALS: BP 148/79; PULSE 61; RESP 16; TEMP 36.7; O2SAT 99
[2025-02-05] MEDS: Ketorolac Tromethamine 15 MG/ML VIAL 10 MG IVPUSH (16:21)
--- OUTSIDE RECORDS SUMMARY | 2025-02-05 16:22 | XMS_ITS | Clinical Summary ---
Author Organization [facility] Address [address] [place] [address] Care Team Providers Care Seal Extrusion Operator Name Role Phone Jeremías Jones MD Primary Care Provider [phone] Source Comments PLEASE NOTE, if this patient [...] nasal sprayIndications:D egenerative lumbar disc Place 1 [place] into the nostril(s) as needed for opioid reversal (Overdose) 2 Each 4 Active HYDROcodone-acetam inophen (NORCO) 5-325 mg per tabletIndications: Degenerative lumbar disc Take 1 Tablet by mouth every 8 (eight) hours as needed for pain 15 Tablet 4 Active DULoxetine (CYMBALTA) [address] capsuleIndications :Moderate episode of recurrent major depressive disorder ([facility]) Take 1 Capsule by mouth 3 (three) times daily for 90 days 90 Capsule 2 5 Active lamoTRIgine (LAMICTAL) 100 mg tabletIndications: Moderate episode of recurrent major depressive disorder ([facility]),Bipolar II disorder ([facility]) Take 1 Tablet by mouth 3 [...] Diagnosed Date Bipolar II disorder ([facility]) 08/15/2023 Generalized anxiety disorder 04/05/2023 Moderate episode of recurren t major depressive disorder ([facility]) 04/05/2023 Non-ST elevated myocardial infarction ([facility]) 05/04/2021 Overview (11/27/2023): Followed by Cardiology in [facility] Reports normal PCI Pacemaker 04/28/2021 Overview (11/27/2023): Placed while in [facility] Apr 24, 2021 Diagnosed with broken heart syndrome Followed by Cardiology in [facility] Tobacco dependence due to cigarettes 11/12/2018 Anxiety and depression 11/06/2018 Overview (11/27/2023): Following department Fibromyalgia 11/06/2018 Primary osteoarthritis involving multiple joints 11/06/2018 Encounters Date Type Department Care Team Description 11/06/2024 / INTERIM [address] [address] Jody Reynolds LMHC from Last 3 Months Immunizations Immunization Administration [...] 73 02/13/2024 9:02 AM EDT Temperature 37 C (98.6 F) 11/27/2023 1:14 PM EDT Respiratory Rate 16 [...] 11/27/2023 , 06/02/2022, 08/02/2021, Additional history exists [id number] ( season) 2024 05/15/2023, 07/14/2021, 12/09/2020, Additional history exists Dental Examination 06/30/2024 06/28/2023 Alcohol and Drug Screen 08/14/2024 11/27/19 24, 08/02/2021, 04/30/2021, Additional history exists Tobacco Cessation Counseling (#1) 11/26/2024 024 Hypertension Screening (#1) 02/12/2025 Imm-Influenza (Season Ended) 2025 Dental FMX/Pano 08/11/2028 08/09/2023 Imm-DTaP/Tdap/Td (2 - [...] SCANNED DOCUMENT (11/15/2024 3:00 AM EDT) 11/15/2024 3:00 AM EDT [facility] Provider Default SCAN OTHER ORDERS Final Re sult * (ABNORMAL) LIPID PANEL (11/06/2018 2:01 PM EDT) CHOLESTEROL 205(H) 0 - 200 mg/dL [facility] TRIGLYCERIDES 106 0 - 150 mg/dL [facility] HDL CHOLESTEROL 48 >40 mg/dL [facility] LDL CALCULATED 136(H) 0 - 100 mg/dL [facility] TC-HDLC RATIO 4.3 0 - 4.4 mg/dL [facility] Blood specimen (specimen) Blood / Unknown 11/06/2018 2:01 PM EDT 11/06/2018 4:30 PM EDT Narrative [facility] - 11/06/2018 7:21 PM EDT [employer], [place] [address] Offset Proof Press Operator - Dionna Evans MD PT ID [id number] ORD# [id number] Nevaeh Espino PA-C LAB - BLOOD DRAW Edited Result - Final [facility] [address] [place] [address], * (ABNORMAL) COMPRE METAB PANEL (CMP) (11/06/2018 2:01 PM EDT) GLUCOSE 103(H) 70 - 100 mg/dL [facility] Comment:Reference range appl icable to fasting specimens only BUN 9 5 - 25 mg/dL [facility] CREAT 0.82 0.5 - 1.1 mg/dL [facility] GLOMERULAR FILTRATION RATE > 60 [facility] Comment: If patient is -Thai, multiply result by 1.21 Chronic Kidney Disease: [...] [facility]INIC [facility] - 11/06/2018 7:21 PM EDT [employer], a member of [facility] [address] [place] [address] Offset Proof Press Operator - Dionna Evans MD PT ID [id number] ORD# [id number] Nevaeh Espino PA-C LAB - BLOOD DRAW Edited Result - Final [facility] [address] [place] [address], from Last 3 Months or Most Recently Relevant to Health Maintenance Insurance [place] D[place] [facility] Care Teams Seal Extrusion Operator Relationship Specialty Start Date End Date Jeremías Jones MD [address] [place] [address] PCP - General Family Medicine, Physician 08/15/23
[2025-02-05 16:52] VITALS: BP 148/79; PULSE 61; RESP 16; TEMP 36.7; O2SAT 99
== END 2025-02-05 16:53 | disposition home or self-care (01) ==
PROVIDERS: Emergency Provider Emergency Medicine
DX: R55 Syncope and collapse (principal); R20.0 Anesthesia of skin; R42 Dizziness and giddiness; R11.0 Nausea; F17.210 Nicotine dependence, cigarettes, uncomplicated; R94.31 Abnormal electrocardiogram [ECG] [EKG]; Z79.899 Other long term (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
CPT/HCPCS: 36415; 71046; 80053; 83735; 84484; 85025; 93005; 96361; 96374; 99284; 99285; J1885

== ENCOUNTER → 2025-02-05 12:56 | Outpatient (BNV) | payer MEDICAID, SELFPAY | PROVIDERS: Emergency Provider Emergency Medicine; Visit Provider Internal Medicine | DX: R94.31 Abnormal electrocardiogram [ECG] [EKG] (principal); R55 Syncope and collapse | CPT/HCPCS: 93010 ==

== ENCOUNTER → 2025-02-05 14:53 | Outpatient (BNV) | payer MEDICAID, SELFPAY | PROVIDERS: Emergency Provider Emergency Medicine; Visit Provider Radiology Diagnostic Radiology | DX: R55 Syncope and collapse (principal) | CPT/HCPCS: 71046 ==

== ENCOUNTER 2025-03-27 08:42 | Outpatient (REF) | payer MEDICAID, SELFPAY ==
--- OUTSIDE RECORDS SUMMARY | 2025-03-28 08:59 | XMS_ITS | Clinical Summary ---
[facility] Address [address] [place] [address] Care Team Providers Care Movie Actor Name Role Phone Hector Ricketts MD Primary Care Provider [phone] Surgical History Surgery Date Site/Laterality Comments OTHER [...] and feet Rheumatoid arthritis (CMS/ C V24, [facility] V28) DX:Rheumatoid arthritis (HCC ) Wears glasses DX:Wears glasses Nasal congestion DX:Nasal conges tion Abdominal pain DX:Abdominal linnea n Change in bowel habits DX:Change in bowel habits Autoimmune disease ([facility] V24) DX:Autoimmune disease (HCC); COMMENT: fibromyalgia [...] Years (1 of 2 - PCV) 1984 Cervical Cancer Screening: P ap Smear 1986 Zoster Vaccines (1 of 2) 2015 Colorectal Cancer Screening: Colonoscopy 03/15/2024 HIV Screening 03/15/2024 Hepatitis C Screening 03/15/2024 Social Influencers of Health Screening 03/15/2024 COVID-19 Vaccine (4 - 2023-2 5 season) 2024 07/14/2021, 12/09/2020, 11/18/2020 Depression Screening 08/14/2024 Influenza Vaccine (#1) 2025 DTaP,Tdap,and Td Vaccines (2 - Td [...] age to complete this topic Care Teams Movie Actor Relationship Specialty Start Date End Date Hector Ricketts MD [address] [place] [address] PCP - General 06/14/18
--- OUTSIDE RECORDS SUMMARY | 2025-03-28 08:59 | XMS_ITS | Clinical Summary ---
Author Organization [facility] Address [address] [place] [address] Care Team Providers Care Change Management Administrator Name Role Phone Unavailable Primary Care Provider Unavailabl e Encounters Date Type Department Care Team Description 03/04/2025 Population Health Risk Score [facility] Care [facility] (C3) Department [address] [facility] [address] [place] [id number] Provider, Population Health Generic from Last 3 Months Social History Tobacco Use Types Packs/Day Years Used Date Smoking Tobacco: Never Assessed Comments Unknown Sex and Gender Information Value Date Recorded Sex Assigned at Not on file Legal Sex Female 9:18 PM EDT Gender Identity Not on file Sexual Orientation Not on file Plan of Treatment Health Maintenance Due Date Last Done Comments CT Colonography 1965 Colonoscopy 1965 Colorectal Cancer Screening 1965 Depression Screening 1965 FIT DNA/Cologuard 1965 FIT 1965 FOBT 1965 HIV Screening 1965 SDOH Screening 1965 Sigmoidoscopy 1965 Disability Screening 1965 Alcohol/Substance Use Screening 1977 Tobacco Screening 1977 Hepatitis C Screening 1983 DTaP/Tdap/Td Vaccines (1 - Tdap) 1984 Hepatitis B Vaccines (1 of 3 - 19+ 3-dose series) 1984 Pap Smear 1986 Cervical Cancer Screening 1995 HPV/Cotest 1995 Mammogram 2005 Pneumococcal Vaccine: 50+ Ye ars (1 of 1 - PCV) 2015 Zoster Vaccines (1 of 2) 2015 COVID-19 Vaccine ( - 2023-2 5 season) 2024 Influenza Vaccine (#1) 2025 RSV Patients and Pa tients Aged 60 years or older (1 - 1-dose 75+ series) 2040 HIB [...] patient's age to complete this topic Meningococcal Vaccine Aged Out No geneva juan c eligible based on patient's age to complete this topic RSV under 20 months Aged Out No longe r eligible based on patient's age to complete this topic Rotavirus Vaccines Aged Out No longer eligible based on patient's age to complete this topic
--- OUTSIDE RECORDS SUMMARY | 2025-03-28 08:59 | XMS_ITS | Clinical Summary ---
Author Organization [facility] Address [address] [place] [address] Care Team Providers Care Hand Bobbin Cleaner Name Role Phone Jeremías Jones MD Primary Care Provider [phone] Source Comments PLEASE NOTE, if this patient [...] 3.125 mg tabletIndications: Pacemaker,Non-ST elevated myocardial infarction (CMS & HHS-HCC),Takotsubo cardiomyopathy TAKE ONE TABLET BY MOUTH TWICE A DAY WITH MEALS 60 Tablet 2 3 Active ibuprofen 600 mg tabletIndications: Chronic apical periodontitis Take 1 Tablet by mouth 4 (four) times daily as needed for mild pain 20 Tablet 3 Active naloxone (NARCAN) 4 mg/actuation nasal sprayIndications:D egenerative lumbar disc Place 1 [place] into the nostril(s) as needed for opioid reversal (Overdose) 2 Each 4 Active HYDROcodone-acetam inophen (NORCO) 5-325 mg per tabletIndications: Degenerative lumbar disc Take 1 Tablet by mouth every 8 (eight) hours as needed for pain 15 Tablet 4 Active DULoxetine (CYMBALTA) [address] capsuleIndications :Moderate episode of recurrent major depressive disorder ([facility]) Take 1 Capsule by mouth 3 (three) times daily for 90 days 90 Capsule 2 5 Active lamoTRIgine (LAMICTAL) 100 mg tabletIndications: Moderate episode of recurrent major depressive disorder ([facility]),Bipolar II disorder ([facility]) Take 1 Tablet by mouth 3 (three) [...] Noted Date Diagnosed Date Bipolar II disorder ([facility]) 08/15/2023 Generalized anxiety disorder 04/05/2023 Moderate episode of recurren t major depressive disorder ([facility]) 04/05/2023 Non-ST elevated myocardial infarction ([facility]) 05/04/2021 Overview (11/27/2023): Followed by Cardiology in [facility] Reports normal PCI Pacemaker 04/28/2021 Overview (11/27/2023): Placed while in [facility] Apr 24, 2021 Diagnosed with broken heart syndrome Followed by Cardiology in [facility] Tobacco dependence due to cigarettes 11/12/2018 Anxiety and depression 11/06/2018 Overview (11/27/2023): Following department Fibromyalgia 11/06/2018 Primary osteoarthritis involving multiple joints 11/06/2018 Immunizations Immunization Administration Dates Next Due [employer] VACCINE, PURPLE CAP, 12+ 12/09/2020 ,11/18/2020 TDAP [...] 6:49 AM PDT Sexual Orientation Straight 11/06/2018 6 :49 AM PDT Last Filed Vital Signs Vital [...] - 19 + 3-dose series) 1984 Imm-Pneumococcal 50+ (1 of 2 - PCV) 1984 Cervical Cancer Screening 1986 Pap Smear 1986 Breast Cancer Screening (Mammogram) 2005 CT Colonography 2010 Colonoscopy 2010 Colorectal Cancer Screening 2010 FIT/gFOBT 2010 Fecal DNA 2010 Flexible Sigmoidoscopy 2010 Imm-Zoster, Recombinant (1 of 2) 2015 Diabetes Screening 11/06/2021 11/06/2018, 11/06/2018 Anxiety Screening 06/02/2023 06/02/2022 Lipid Screening 11/07/2023 11/06/2018 Depression Monitoring 02/26/2024 11/27/2023 , 06/02/2022, 08/02/2021, Additional history exists [id number] ( season) 2024 05/15/2023, 07/14/2021, 12/09/2020, Additional history exists Dental Examination 06/30/2024 06/28/2023 Alcohol and Drug Screen 08/14/2024 11/27/19 24, 08/02/2021, 04/30/2021, Additional history exists Tobacco Screening 11/10/2024 11/11/2023 Tobacco Cessation Counseling (#1) 11/26/2024 024 Hypertension Screening (#1) 02/12/2025 Imm-Influenza (#1) 2025 Dental FMX/Pano 08/11/2028 08/09/2023 Imm-DTaP/Tdap/Td (2 [...] EDT) CHOLESTEROL 205(H) 0 - 200 mg/dL [facility] TRIGLYCERIDES 106 0 - 150 mg/dL [facility] HDL CHOLESTEROL 48 >40 mg/dL [facility] LDL CALCULATED 136(H) 0 - 100 mg/dL [facility] TC-HDLC RATIO 4.3 0 - 4.4 mg/dL [facility] Blood specimen (specimen) Blood / Unknown 11/06/2018 2:01 PM EDT 11/06/2018 4:30 PM EDT Narrative [facility] - 11/06/2018 7:21 PM EDT [facility], [place] [address] [employer] - Dionna Evans MD PT ID [id number] ORD# [id number] Nevaeh Espino PA-C LAB - BLOOD DRAW Edited [place] [address], * (ABNORMAL) COMPRE METAB PANEL (CMP) (11/06/2018 2:01 PM EDT) GLUCOSE 103(H) 70 - 100 mg/dL [facility] Comment:Reference range appl icable to fasting specimens only BUN 9 5 - 25 mg/dL [facility] CREAT 0.82 0.5 - 1.1 mg/dL [facility] GLOMERULAR FILTRATION RATE > 60 [facility] Comment: If patient is -Bangladeshi, multiply result by 1.21 Chronic Kidney Disease: < 60 ml/min/1.73 square meters Kidney Failure: < 15 ml/min/1.73 square meters SODIUM 137 133 - 145 mmol/L [facility] POTASSIUM 4.5 3.5 - 5.5 mmol/L [facility] CHLORIDE 100 96 - 110 mmol/L [facility] CO2 30 21 - 32 mmol/L [facility] ANION GAP 7 3 - 11 [facility] CALCIUM 9.5 8.5 - 10.5 mg/dL [facility] TOTAL PROTEIN 8.0 6.0 - 8.0 G/dL [facility] ALBUMIN 4.6 3.2 - 5.0 G/dL [facility] BILI, TOTAL 0.4 0.0 - 1.4 mg/dL [facility] SGOT 17 10 - 42 U/L [facility] SGPT 22 10 - 60 U/L [facility] ALK PHOS 55 42 - 121 U/L [facility] Blood specimen (specimen) Blood / Unknown 11/06/2018 2:01 PM EDT 11/06/2018 4:30 PM EDT Narrative [facility] - 11/06/2018 7:21 PM EDT [facility], [place] [address] [employer] - Dionna Evans MD PT ID [id number] ORD# [id number] Nevaeh Espino PA-C LAB - BLOOD DRAW Edited [place] - [place] [address], from Last 3 Months or Most Recently Relevant to Health Maintenance [place] [facility] [address] [employer] Care Teams Hand Bobbin Cleaner Relationship Specialty Start Date End Date Jeremías Jones MD [address] [place] [address] PCP - General Family Medicine, Physician 08/15/23
== END 2025-03-27 08:43 | disposition home or self-care (01) ==
LOC: HO.HOSX 08:42
PROVIDERS: Visit Provider Physician Assistant
DX: Z13.89 Encounter for screening for other disorder (principal)

== ENCOUNTER 2025-05-15 09:53 | Inpatient (IN) | payer MEDICAID, SELFPAY ==
[2025-05-15] VITALS (9 sets, daily range): BP systolic 101–120; BP diastolic 64–71; PULSE 60–88; RESP 16–20; TEMP 36–37; O2SAT 86–95; BMI 2492.7; BMI 17.8
--- NOTE | 2025-05-15 | ECG_ITS ---
Test Reason : SOB Blood Pressure : */* mmHG Vent. Rate : 62 BPM Atrial Rate : 62 BPM P-R Int : 164 ms QRS Dur : 96 ms QT Int : 442 ms P-R-T Axes : 68 86 64 degrees QTcB Int : 448 ms Artifact in tracing Normal sinus rhythm Normal ECG When compared with ECG of 05-Feb-2025 12:56, No significant change was found Referred By: Generic ED Physician Electronically Signed By: SHAJI PEREZ
--- NOTE | ~2025-05-15 | CT_ITS ---
CLINICAL HISTORY: left renal hydronephrosis CT abdomen and pelvis without contrast Comparison: US/SR - US RENAL BI - 05/18/25 14:03 EDT Findings: The lung bases are clear. There is moderate left-sided hydronephrosis. The left ureter is distended to the level of the upper pelvis where there appears to be a transition point. At the level of transition, there is a question of soft tissue thickening of the left ureter ( series 2 images 47- 52 ). There is also a 7 mm calcification in the region of the transition point, but this is felt to more likely represent a phleboliths than a ureteral calculus. Remaining abdominal organs are unremarkable. The gallbladder is poorly distended. There are no calcified gallstones. There is moderate fecal retention within the proximal colon. There is no focal bowel edema. There is no evidence of bowel obstruction. There is moderate distention of the urinary bladder. Pelvic contents are otherwise unremarkable. The appendix is not definitively seen. There are no secondary findings to suggest appendicitis. The bones are intact. IMPRESSION: There is moderate hydronephrosis of the left kidney and mild left-sided hydroureter with possible soft tissue thickening at the level of the transition point within the pelvis. Neoplasm needs exclusion. This could be further evaluated with contrast-enhanced CT to include renal expiratory phase imaging. This document has been electronically signed by: Laury Amado MD on 05/18/2025 19:43:35
--- NOTE | ~2025-05-15 | FL_ITS ---
EXAMINATION: FL GUIDANCE ONLY HISTORY: Left ureteral stone COMPARISON: Correlation is made with a CT of the abdomen and pelvis without contrast dated 05/18/2025. TECHNIQUE: Fluoroscopy time: 21.8 seconds. Cumulative Dose: 3.2498 mGy. DAP: 1.4136 Gycm2 Images: 6. FINDINGS: Fluoroscopic spot films of the left abdomen demonstrate injection of the ureter. A filling defect is noted, consistent with a calculus or mass. The final images demonstrate a stent in place. FL/FL guidance in [place] IMPRESSION: Fluoroscopy during procedure. Please see procedure report for additional information. Electronically signed by: Francis Bowman MD 05/22/2025 07:05 AM EDT
--- NOTE | ~2025-05-15 | US_ITS ---
CLINICAL HISTORY: left sided flank pain US Renal Comparison: None provided Findings: Right kidney normal size and echotexture, 10.9 cm length. Left kidney normal size and echotexture, 10.4 cm length. Moderate hydronephrosis of the left kidney. The proximal portion of the left ureter is also dilated. The mid and distal aspects of the left ureter were not visualized. The urinary bladder is evaluated in limited fashion. Ureteral jets were not visualized. IMPRESSION: Moderate hydronephrosis of the left kidney. This document has been electronically signed by: Laury Amado MD on 05/18/2025 16:25:13
--- NOTE | ~2025-05-15 | XR_ITS ---
EXAMINATION: XR CHEST CLINICAL INFORMATION: dyspnea COMPARISON: Previous chest x-ray January 2025 TECHNIQUE: 2 views of the chest were obtained. FINDINGS: Left subclavian dual chamber pacemaker with leads projecting over the right atrium and right ventricle. No significant abnormality is noted involving the heart, lungs, mediastinum, bony thorax or soft tissues. Degenerative changes of the spine. XR/XR chest 2V IMPRESSION: No evidence for acute disease in the chest. Electronically signed by: Jennifer Morgan MD 05/15/2025 11:13 AM EDT
[2025-05-15] MEDS: Albuterol Sulfate 2.5 MG, Albuterol/Iprat 2.5/0.5MG 3 ML 3 ML INHALE (10:38)
--- NOTE | 2025-05-15 10:50 | ED.GENADULT ---
HPI - General Adult General Chief complaint: Dyspnea Stated complaint: trouble breathing the past couple of days Time Seen by Provider: 05/15/25 10:48 Source: patient Mode of arrival: ambulatory Limitations: no limitations History of Present Illness ED Provider: DESIRAE BOWER PA-C HPI narrative: 59 yo F with PMH significant for anxiety, depression, COPD, sick sinus syndrome s/p pacemaker presents to the ED today for evaluation of shortness of breath and cough x1 week. Reports her son was recently ill. She initially thought she just had a cold however shortness of breath has been worsening. Reports chest congestion and heaviness with increased sputum production that is yellow in color. Rescue albuterol inhaler has not been improving her shortness of breath however does aid in expelling her sputum. Reports smoking 1 pdd. Has been unable to smoke x3 days d/t symptoms. She is not dependent on oxygen at home. Denies chest pain, palpitations, n/v, leg swelling or pain. Reports hip surgery in november of this year (7 mo ago). No recent immobilization or long trips. Related Data Home Medications ?Medication ?Instructions ?Recorded ?Confirmed metoprolol succinate 50 mg 50 mg PO DAILY 05/15/25 05/15/25 tablet,extended release 24 hr Allergies Allergy/AdvReac Type Severity Reaction Status Date / Time aspirin Allergy Mild Headache Verified 05/15/25 10:04 ibuprofen Allergy Mild heartburns Verified 05/15/25 10:04 Review of Systems Review of Systems: Yes all other systems are reviewed and are negative PMFSH Past Medical History Attestation statement: The following information was validated with the patient. Source: old records reviewed and nursing notes reviewed Medical History Sick sinus syndrome due to sinoatrial node dysfunction Anxiety Depression Social History Social History Household Members: Significant Other, Children and Adopted Family Housing: House Do you presently have visiting nurse or other home services: No Alcohol intake: never Comment: medicated, pain tolerable Patient Tobacco Use Status: Current everyday Tobacco user Tobacco use type: Cigarette Cigarette Packs Per Day: 1 Cigarettes Per Day: 20.0 Years Smoked: 30 e-Cigarette/Vaping Use: Never Used Substance Use Type: Marijuana Advance Directives Date on File: 04/23/21 service: No Physical Exam ED Vital Signs: Vital Signs - 24 hr 05/15/25 10:01 05/15/25 10:39 05/15/25 11:46 Temperature 98.6 F Pulse Rate 88 60 Respiratory Rate 20 16 Blood Pressure 101/64 Pulse Oximetry 88 L 86 L Oxygen Delivery Method Room Air Oxygen Flow Rate 05/15/25 12:12 Temperature 98.2 F Pulse Rate 69 Respiratory Rate 16 Blood Pressure 105/68 Pulse Oximetry 88 L Oxygen Delivery Method Nasal Cannula Oxygen Flow Rate 3 BMI result Body Mass Index 2492.7 Hypoxic to 88% on RA, not tachycardic, afebrile. General: thin appearing, no acute distress Skin: Warm, dry, intact. No rashes or lesions. Head: Normocephalic, atraumatic. EENT: Hearing is intact b/l. Conjunctiva clear. PERRLA. EOM intact. Moist mucous membranes.? Cardiac: Chest wall symmetric. RRR Lungs: no respiratory distress. No tripoding. Congested cough noted. There are diffuse expiratory wheezes and rhonchi. Back: No midline spinous or paraspinal tenderness. No step off deformity. Ext: No peripheral edema. No calf tenderness bilaterally. Neuro: AOx3. Normal speech. Ambulating with steady gait Course Course Course Narrative: 1230 -- Chemistry showing leukocytosis to 10.9, no left shift. no anemia, h&h stable. chemistry showing hypokalemia to 3.1, mag wnl. no IVAN. CO2 30 likely secondary to COPD. no IVAN. random glucose 121, no gap. trop wnl at 3.6. negative covid, flu. ekg showing nsr without acute ischemic changes or st elevations. > patient treated w/ albuterol, IV Solu-Medrol and IV magnesium > placed on 3 L nasal cannula > desatted to 84% on room air during ambulatory O2 trial > ceftriaxone ordered. Concern for acute exacerbation of COPD. given hypoxia, will reach out to hospitalist regarding admission. patient agreeable. Medications Administered Generic Name Dose Route Start Last Admin Trade Name Freq PRN Reason Stop Dose Admin Acetaminophen 650 mg 05/15/25 14:17 05/16/25 20:31 Acetaminophen 325 Mg Tablet PO 650 mg Q6H PRN Administration Pain, Mild 1-3,fever,headache Albuterol/Ipratropium 3 ml 05/15/25 20:00 05/17/25 20:04 Albuterol/Iprat 2.5/0.5mg 3 Ml Ampul.Neb INHALE 3 ml RQ6H WHILE AWAKE HORACE Administration Calcium Carbonate 750 mg 05/15/25 14:17 05/17/25 08:37 Calcium Carbonate 750 Mg Tab.Chew PO 750 mg Q4H PRN Administration Heartburn Heparin Sodium (Porcine) 5,000 unit 05/15/25 14:30 05/17/25 14:21 Heparin Sodium,Porcine 5,000 Unit/Ml Vial SUBCUT 5,000 unit Q12H HORACE Administration Methylprednisolone Sodium Succinate 40 mg 05/15/25 23:00 05/17/25 14:22 Methylprednisolone Sod Succ 40 Mg/Ml Vial IVPUSH 40 mg Q12H HORACE Administration Metoprolol Succinate 50 mg 05/16/25 09:00 05/16/25 08:37 Metoprolol Succinate Er 50 Mg Tab.Er.24h PO 50 mg On Hold: 05/16/25 23:22 DAILY HORACE Administration Protocol Nicotine 14 mg 05/15/25 14:50 05/17/25 08:37 Nicotine 14 Mg Patch.Td24 TRANSDERMA 14 mg DAILY HORACE Administration Sodium Chloride 3 ml 05/15/25 16:00 05/17/25 20:01 0.9 % Sodium Chloride Flush 3 Ml Syringe IVFLUSH 3 ml QSHIFT HORACE Administration Discontinued Medications Generic Name Dose Route Start Last Admin Trade Name Freq PRN Reason Stop Dose Admin Ceftriaxone Sodium 1 gm 05/15/25 11:50 05/15/25 13:50 Ceftriaxone Sodium 1 Gm Vial IVPUSH 05/15/25 11:51 1 gm ONCE ONE Administration Albuterol Sulfate 2.5 mg/ 0 mg 05/15/25 10:33 05/15/25 10:38 Albuterol/Ipratropium 3 ml INHALE 05/15/25 10:34 5 dose ONCE ONE Administration Magnesium Sulfate 2 gm in 50 mls @ 150 mls/hr 05/15/25 10:59 05/15/25 11:50 Magnesium Sulfate/H2o IV 05/15/25 11:18 Infused ONCE ONE Infusion Potassium Chloride 10 meq in 100 mls @ 100 mls/hr 05/15/25 12:15 05/15/25 22:05 Potassium Chloride/H20 IV 05/15/25 14:14 Infused Q1H HORACE Infusion Sodium Chloride 1,000 mls @ 100 mls/hr 05/16/25 18:00 05/17/25 06:28 Ns IV 05/17/25 03:59 Infused .Q10H HORACE Infusion Lactated Ringer's 1,000 mls @ 999 mls/hr 05/16/25 20:07 05/16/25 21:21 Lr IV 05/16/25 21:07 Infused .Q1H1M STA Infusion Lorazepam 0.5 mg 05/15/25 22:23 05/15/25 22:41 Lorazepam 0.5 Mg Tablet PO 05/15/25 22:24 0.5 mg ONCE ONE Administration Methylprednisolone Sodium Succinate 80 mg 05/15/25 10:59 05/15/25 11:30 Methylprednisolone Sod Succ 125 Mg/2 Ml Vial IVPUSH 05/15/25 11:00 80 mg ONCE ONE Administration Potassium Chloride 40 meq 05/15/25 14:43 05/15/25 15:35 Potassium Chloride Er 20 Meq Tab.Er.Prt PO 05/15/25 14:44 40 meq ONCE ONE Administration Medical Decision Making Medical Decision Making MDM Narrative: 59 yo F with PMH significant for anxiety, depression, COPD, sick sinus syndrome s/p pacemaker presents to the ED today for evaluation of shortness of breath and cough x1 week. patient is hypoxic to 88% on RA. placed on 3L NC. on exam, no respiratory distress. No tripoding. Congested cough noted. There are diffuse expiratory wheezes and rhonchi. Differential diagnosis includes anemia, electrolyte abnormality, ACS, pneumonia, bronchitis, viral syndrome, COPD exacerbation Plan for labs, vbg, ekg, cxr, viral swabs, ed bronch protocol, re-eval. Differential Diagnosis Differential Diagnoses: The differential diagnosis associated with the presentation includes as above. Admission/Observation Patient to be admitted to medicine for management of acute COPD exacerbation. Consult Healthcare Provider Management of the patient was discussed with: Hospitalist Lab Data MDM Lab Attestation statement: I reviewed the patient's lab results. as above. 05/16/25 20:28 05/16/25 20:28 Labs: Lab Results 05/15/25 05/15/25 05/15/25 Range/Units 11:18 11:19 11:30 WBC 10.9 H (4.8-10.8) X10*3/uL RBC 4.82 (4.20-5.50) X10*6/uL Hgb 14.3 (12.0-16.0) g/dl Hct 40.0 (37.0-47.0) % MCV 83.0 (80.0-98.0) fL MCH 29.7 (27.0-33.0) pg MCHC 35.8 H (31.0-35.0) g/dl RDW 12.9 (11.0-16.0) % Plt Count 94 L D (160-400) X10*3/uL MPV 10.7 (9.4-12.3) fL Immature Gran % (Auto) 0.6 H (0.0-0.4) % Neut % (Auto) 67.2 (45-73) % Lymph % (Auto) 23.3 (20-40) % Randall % (Auto) 8.7 (2-11) % Eos % (Auto) 0.0 (0-4) % Baso % (Auto) 0.2 (0-2) % Lymph # (Auto) 2.5 (1.2-4.9) X10*3/uL Randall # (Auto) 0.9 (0.1-1.2) X10*3/uL Eos # (Auto) 0.0 (0.0-0.4) X10*3/uL Baso # (Auto) 0.0 (0.0-0.2) X10*3/uL Abs Immat Gran (auto) 0.06 H (0.00-0.03) X10*3/uL Absolute Neuts (auto) 7.3 (2.0-8.3) x10*3/uL Absolute Nucleated RBC 0.000 (0.0-0.012) X10*3/uL Nucleated RBC % (auto) 0.0 (0.0-0.2) /100WBC Hold Blue Top SEE NOTE VBG pH 7.36 (7.32-7.43) VBG pCO2 53 mmHg VBG pO2 36 mmHg VBG HCO3 30 H (22-26) mmol/L VBG O2 Saturation 52.0 % VBG Base Excess 3.6 mmol/L Sodium 137 (135-145) mmol/L Potassium 3.1 L (3.3-5.1) mmol/L Chloride 96 (96-108) mmol/L Carbon Dioxide 30 H (22-29) mmol/L Anion Gap 14 (12-20) BUN 15 (9-16) mg/dL Creatinine 0.80 (0.5-1.4) mg/dL Estim Creat Clear Calc -28.7 Estimated GFR > 60 Random Glucose 121 H (60-115) mg/dL Lactic Acid (0.5-2.0) mmol/L Calcium 9.1 (8.4-10.2) mg/dL Magnesium 1.9 (1.6-2.6) mg/dL Total Bilirubin 0.4 (0.0-1.0) mg/dL AST 27 (5-31) U/L ALT 7 (0-31) U/L Alkaline Phosphatase 54 (39-117) U/L Troponin I High Sens 3.6 (<3.5-17.0) ng/L Total Protein 7.8 (6.5-8.0) g/dL Albumin 4.6 (3.5-5.0) g/dL COVID-19 ([facility]) Negative (Negative) COVID-19 Clin Com See Note Influenza Type A ([facility]) Negative (Negative) Influenza Type B ([facility]) Negative (Negative) Influenza A & B Note See Note 05/15/25 Range/Units 12:24 WBC (4.8-10.8) X10*3/uL RBC (4.20-5.50) X10*6/uL Hgb (12.0-16.0) g/dl Hct (37.0-47.0) % MCV (80.0-98.0) fL MCH (27.0-33.0) pg MCHC (31.0-35.0) g/dl RDW (11.0-16.0) % Plt Count (160-400) X10*3/uL MPV (9.4-12.3) fL Immature Gran % (Auto) (0.0-0.4) % Neut % (Auto) (45-73) % Lymph % (Auto) (20-40) % Randall % (Auto) (2-11) % Eos % (Auto) (0-4) % Baso % (Auto) (0-2) % Lymph # (Auto) (1.2-4.9) X10*3/uL Randall # (Auto) (0.1-1.2) X10*3/uL Eos # (Auto) (0.0-0.4) X10*3/uL Baso # (Auto) (0.0-0.2) X10*3/uL Abs Immat Gran (auto) (0.00-0.03) X10*3/uL Absolute Neuts (auto) (2.0-8.3) x10*3/uL Absolute Nucleated RBC (0.0-0.012) X10*3/uL Nucleated RBC % (auto) (0.0-0.2) /100WBC Hold Blue Top VBG pH (7.32-7.43) VBG pCO2 mmHg VBG pO2 mmHg VBG HCO3 (22-26) mmol/L VBG O2 Saturation % VBG Base Excess mmol/L Sodium (135-145) mmol/L Potassium (3.3-5.1) mmol/L Chloride (96-108) mmol/L Carbon Dioxide (22-29) mmol/L Anion Gap (12-20) BUN (9-16) mg/dL Creatinine (0.5-1.4) mg/dL Estim Creat Clear Calc Estimated GFR Random Glucose (60-115) mg/dL Lactic Acid 2.7 H* (0.5-2.0) mmol/L Calcium (8.4-10.2) mg/dL Magnesium (1.6-2.6) mg/dL Total Bilirubin (0.0-1.0) mg/dL AST (5-31) U/L ALT (0-31) U/L Alkaline Phosphatase (39-117) U/L Troponin I High Sens (<3.5-17.0) ng/L Total Protein (6.5-8.0) g/dL Albumin (3.5-5.0) g/dL COVID-19 ([facility]) (Negative) COVID-19 Clin Com Influenza Type A ([facility]) (Negative) Influenza Type B ([facility]) (Negative) Influenza A & B Note Independent Interpretation I performed an independent interpretation of an: EKG and Plain X-Ray Interpretation: EKG showing normal sinus rhythm, rate of 63 beats per minute, QT 442, QTC 448, no acute ischemic changes or ST elevations. Chest x-ray without infiltrate or consolidation Radiology Impression Discussion of test interpretation with radiology: I have reviewed the radiologist's reading. Radiologist Impression: Procedure(s): XR chest 2V Accession Number(s): [id number] cc: [place],[facility]; Blake Webb Reason for Exam: dyspnea EXAMINATION: XR CHEST CLINICAL INFORMATION: dyspnea COMPARISON: Previous chest x-ray January 2025 TECHNIQUE: 2 views of the chest were obtained. FINDINGS: Left subclavian dual chamber pacemaker with leads projecting over the right atrium and right ventricle. No significant abnormality is noted involving the heart, lungs, mediastinum, bony thorax or soft tissues. Degenerative changes of the spine. XR/XR chest 2V IMPRESSION: No evidence for acute disease in the chest. Electronically signed by: Jennifer Morgan MD 05/15/2025 11:13 AM EDT RP External Record Review External record reviewed: Inpatient record Prescription Management I considered prescription management with: Antibiotic Chronic Conditions Patient?s care impacted by: Other (COPD) Social Determinants Patient?s care significantly limited by Social Determinants of Health including: Other Social Determinant of Health Critical Care Time Critical Care Time Critical Care Time: Yes Total Critical Care Time: 43 Attestation: Critical care time in the amount of 43 minutes has been provided to the patient in terms of direct patient care, frequent reevaluation, consultation with hospitalist, review and interpretation of medical data and results, and management of potentially life-threatening conditions. This is all outside of any medical procedures. Discharge Plan Discharge Clinical Impression: Acute hypoxic respiratory failure, COPD exacerbation Patient Disposition: Admitted As Inpatient Interventions: Admission Worksheet (ED) Last Done: 05/15/25 20:18 Discharge Date/Time: 05/15/25 22:07
[2025-05-15] MEDS: Magnesium Sulfate/H2O 2 GM/50 ML PIGGYBACK IV (11:30)
[2025-05-15 11:35] LABS: MANUAL DIFF FLAG NO
[2025-05-15 11:35] LABS: Venous Blood Gas Refer to POC result
[2025-05-15 11:35] LABS: VBG HCO3 30 mmol/L (22-26); VBG O2 % Saturation 52.0 %
[2025-05-15 11:48] LABS: Hematocrit 40.0 % (37.0-47.0); Hemoglobin 14.3 g/dl (12.0-16.0); Imm Gran Abs Auto 0.06 X10*3/uL (0.00-0.03); Imm Gran Pct Auto 0.6 % (0.0-0.4); Lymphocytes Absolute Auto 2.5 X10*3/uL (1.2-4.9); Mean Corpuscular HGB Conc 35.8 g/dl (31.0-35.0); Mean Corpuscular Hemoglobin 29.7 pg (27.0-33.0); Mean Corpuscular Volume 83.0 fL (80.0-98.0); NRBC Abs Auto 0.000 X10*3/uL (0.0-0.012); NRBC Pct Auto 0.0 /100WBC (0.0-0.2); Red Blood Count 4.82 X10*6/uL (4.20-5.50); White Blood Count 10.9 X10*3/uL (4.8-10.8)
[2025-05-15 11:51] LABS: Alanine Aminotransferase 7 U/L (0-31); Albumin Level 4.6 g/dL (3.5-5.0); Alkaline Phosphatase 54 U/L (39-117); Anion Gap 14 (12-20); Aspartate Amino Transferase 27 U/L (5-31); Blood Urea Nitrogen 15 mg/dL (9-16); Calcium 9.1 mg/dL (8.4-10.2); Carbon Dioxide 30 mmol/L (22-29); Chloride 96 mmol/L (96-108); Creatinine Clr Calc Pharmacy -28.7; Estimated Glomerular Filt Rate > 60; Magnesium 1.9 mg/dL (1.6-2.6); Potassium 3.1 mmol/L (3.3-5.1); Sodium 137 mmol/L (135-145); Total Protein 7.8 g/dL (6.5-8.0)
[2025-05-15 11:57] LABS: Troponin-I High Sensitivity 3.6 ng/L (<3.5-17.0)
[2025-05-15 12:16] LABS: Platelet Count 94 X10*3/uL (160-400)
[2025-05-15 12:21] LABS: IDNOW Serial# 55D5AD1C
[2025-05-15 12:22] LABS: Influenza B2 Negative (Negative)
[2025-05-15 12:23] LABS: COVID-19 Test Negative (Negative); IDNOW Serial# 58CA691E
--- OUTSIDE RECORDS SUMMARY | 2025-05-15 12:27 | XMS_ITS | Clinical Summary ---
Author Organization [facility] Address [address] [place] [address] Care Team Providers Care Sanitation Worker Hosing Machinery Name Role Phone Jeremías Jones MD Primary Care Provider [phone] Source Comments PLEASE NOTE, if this patient [...] (COREG) 3.125 mg tabletIndications: Pacemaker,Non-ST elevated myocardial infarction,Takotsu jacob cardiomyopathy TAKE ONE TABLET BY MOUTH TWICE A DAY WITH MEALS 60 Tablet 2 3 Active ibuprofen 600 mg tabletIndications: Chronic apical periodontitis Take 1 Tablet by mouth 4 (four) times daily as needed for mild pain 20 Tablet 3 Active naloxone (NARCAN) 4 mg/actuation nasal sprayIndications:D egenerative lumbar disc Place 1 [place] into the nostril(s) as needed for opioid reversal (Overdose) 2 Each 4 Active HYDROcodone-acetam inophen (NORCO) 5-325 mg per tabletIndications: Degenerative lumbar disc Take 1 Tablet by mouth every 8 (eight) hours as needed for pain 15 Tablet 4 Active DULoxetine (CYMBALTA) [address] capsuleIndications :Moderate episode of recurrent major depressive disorder Take 1 Capsule by mouth 3 (three) times daily for 90 days 90 Capsule 2 5 Active lamoTRIgine (LAMICTAL) 100 mg tabletIndications: Moderate episode of recurrent major depressive disorder,Bipolar II disorder Take 1 Tablet by mouth 3 (three) [...] Noted Date Diagnosed Date Bipolar II disorder 08/15/2023 Generalized anxiety disorder 04/05/2023 Moderate episode of recurrent major depressive d isorder 04/05/2023 Non-ST elevated myocardial infarction 05/04/2021 Overview (11/27/2023): Followed by Cardiology in [facility] Reports normal PCI Pacemaker 04/28/2021 Overview (11/27/2023): Placed while in [facility] Apr 24, 2021 Diagnosed with broken heart syndrome Followed by Cardiology in [facility] Tobacco dependence due to cigarettes 11/12/2018 Anxiety and depression 11/06/2018 Overview (11/27/2023): Following department Fibromyalgia 11/06/2018 Primary osteoarthritis involving multiple joints 11/06/2018 Encounters Date Type Department Care Team Description 05/14/2025 / TELEPHONE [id number] [place] [address] Jody Reynolds LMHC from Last 3 Months [...] Screening 06/02/2023 06/02/2022 Lipid Screening 11/07/2023 11/06/2018 Dental Examination 06/30/2024 06/28/2023 Alcohol and Drug Screen 08/14/2024 11/27/19 24, 08/02/2021, 04/30/2021, Additional history exists Tobacco Screening 11/10/2024 11/11/2023 Tobacco Cessation Counseling (#1) 11/26/2024 024 Hypertension Screening (#1) 02/12/2025 [id number] ( season) 2025 05/15/2023, 07/14/2021, 12/09/2020, Additional history exists Imm-Influenza (#1) 2025 Depression Monitoring 08/14/2025 05/14/2025 , 11/27/2023, 06/02/2022, Additional history exists Dental FMX/Pano 08/11/2028 08/09/2023 Imm-DTaP/Tdap/Td (2 - [...] EDT) CHOLESTEROL 205(H) 0 - 200 mg/dL [facility] TRIGLYCERIDES 106 0 - 150 mg/dL [facility] HDL CHOLESTEROL 48 >40 mg/dL [facility] LDL CALCULATED 136(H) 0 - 100 mg/dL [facility] TC-HDLC RATIO 4.3 0 - 4.4 mg/dL [facility] Blood specimen (specimen) Blood / Unknown 11/06/2018 2:01 PM EDT 11/06/2018 4:30 PM EDT Narrative [facility] - 11/06/2018 7:21 PM EDT [facility], [place] [address] Psychometrician - Dionna Evans MD PT ID [id number] ORD# [id number] us Nevaeh Espino PA-C LAB - BLOOD DRAW Edited [place] [address], * (ABNORMAL) COMPRE METAB PANEL (CMP) (11/06/2018 2:01 PM EDT) GLUCOSE 103(H) 70 - 100 mg/dL [facility] Comment:Reference range appl icable to fasting specimens only BUN 9 5 - 25 mg/dL [facility] CREAT 0.82 0.5 - 1.1 mg/dL [facility] GLOMERULAR FILTRATION RATE > 60 [facility] Comment: If patient is -Kazakh, multiply result by 1.21 Chronic Kidney Disease: < 60 ml/min/1.73 square meters Kidney Failure: < 15 ml/min/1.73 square meters SODIUM 137 133 - 145 mmol/L [facility] POTASSIUM 4.5 3.5 - 5.5 mmol/L [facility] CHLORIDE 100 96 - 110 mmol/L [facility] CO2 30 21 - 32 mmol/L [facility] ANION GAP 7 3 - 11 [facility] CALCIUM 9.5 8.5 - 10.5 mg/dL [facility] TOTAL PROTEIN 8.0 6.0 - 8.0 G/dL [facility] ALBUMIN 4.6 3.2 - 5.0 G/dL [facility] BILI, TOTAL 0.4 0.0 - 1.4 mg/dL [facility] SGOT 17 10 - 42 U/L [facility] SGPT 22 10 - 60 U/L [facility] ALK PHOS 55 42 - 121 U/L [facility] Blood specimen (specimen) Blood / Unknown 11/06/2018 2:01 PM EDT 11/06/2018 4:30 PM EDT Narrative [facility] - 11/06/2018 7:21 PM EDT [facility], [place] [address] Psychometrician - Dionna Evans MD PT ID [id number] ORD# [id number] Nevaeh Espino PA-C LAB - BLOOD DRAW Edited Result - Final [address] [address], from Last 3 Months or Most Recently Relevant to Health Maintenance [place] [facility] [address] ACO Care Teams Sanitation Worker Hosing Machinery Relationship Specialty Start Date End Date Jeremías Jones MD [facility] [place] [address] PCP - General Family Medicine, Physician 08/15/23
--- OUTSIDE RECORDS SUMMARY | 2025-05-15 12:27 | XMS_ITS | Clinical Summary ---
Author Organization [facility] Address [address] [place] [address] Care Team Providers Care Tester Armature Or Fields Name Role Phone Unavailable Primary Care Provider Unavailabl e Encounters Date Type Department Care Team Description 03/04/2025 Population Health Risk Score [facility] ([facility] Department [address] [facility] [address] [place] [id number] Provider, Population Health Generic from Last 3 [...] Tobacco Screening 1977 Hepatitis C Screening 1983 Hepatitis B Vaccines (1 of 3 - 19+ 3-dose series) 1984 Pap Smear 1986 Cervical Cancer Screening 1995 HPV/Cotest 1995 Mammogram 2005 Pneumococcal Vaccine: 50+ Years (1 of 1 - PCV) 2015 Zoster Vaccines (1 of 2) 2015 COVID-19 Vaccine ( - 2024-2 6 season) 2025 12/09/2020, 11/18/2020 Influenza Vaccine (#1) 2025 DTaP/Tdap/Td Vaccines (2 - T d or Tdap) 06/04/2030 06/04/2020 RSV Patients and Patients Aged 60 years or older (1 - [...]
--- OUTSIDE RECORDS SUMMARY | 2025-05-15 12:27 | XMS_ITS | Encounter Summary ---
Author Organization [facility] Address [address] [place] [address] Care Team Providers Care Regional Clinical Research Associate Name Role Phone Jeremías Jones MD Primary Care Provider Encounter Details Date Type Department Care Team (Late st Contact Info) Description 05/14/2025 / TELEPHONE [facility] [address] [place] [id number] [facility] [address] [place] [address] Social History Tobacco Use Types Packs/Day Years Used Date Smoking Tobacco: Every Day Cigarettes 1 30 Smokeless Tobacco: Never Alcohol Use Standard Drinks/Week Comments No 0 [...] Orientation Straight 11/06/2018 6: 49 AM PDT documented as of this encounter Nursing Notes * La Nena Ballard - 05/14/2025 9:53 AM EDT T/W called client to assess PHQ9. Client answered all questions and requested an appointment. Client would like to see PCP for a breathing issue and behavorial provider for new sessions. Client stated that she will call to schedule both later today or this week. documented in this encounter Plan of Treatment Not on file documented as of this encounter Visit Diagnoses Diagnosis Generalized anxiety disorder- Primary Moderate episode of recurrent major depressive disorder Bipolar II disorder Other bipolar disorders Severe anxiety documented in this encounter Additional Health Concerns Assessment Noted Time PHQ-9 Depression Total Score: 6 05/14/20 25 9:57 AM PDT documented as of this encounter Care Teams Regional Clinical Research Associate Relationship Specialty Start Date End Date Jeremías Jones MD [address] [place] [address] PCP - General Family Medicine, Physician 08/15/23 documented as of this encounter
--- OUTSIDE RECORDS SUMMARY | 2025-05-15 12:27 | XMS_ITS | Clinical Summary ---
[facility] Organization [facility] Address [address] [place] [address] Care Team Providers Care Professor Of Radiology Name Role Phone Hector Ricketts MD Primary Care Provider [phone] Surgical History Surgery Date Site/Laterality Comments OTHER [...] Rheumatoid arthritis (CMS/ C V24, CMS/[facility] V28) DX:Rheumatoid arthritis (HCC ) Wears glasses DX:Wears glasses Nasal congestion DX:Nasal conges tion Abdominal pain DX:Abdominal linnea n Change in bowel habits DX:Change in bowel habits Autoimmune disease ([facility] V24) DX:Autoimmune disease (HCC); COMMENT: fibromyalgia Social [...] Last Done Comments Breast Cancer Screening 1965 Colorectal Cancer Screening: Colonoscopy 1965 Hepatitis B Vaccines (1 of 3 - 19+ 3-dose series) 1984 Pneumococcal Vaccine: 50+ Years (1 of 2 - PCV) 1984 Cervical Cancer Screening: P ap Smear 1986 Zoster Vaccines (1 of 2) 2015 HIV Screening 03/15/2024 Hepatitis C Screening 03/15/2024 Social Influencers of Health Screening 03/15/2024 Depression Screening 08/14/2024 COVID-19 Vaccine (4 - 2024-2 6 season) 2025 07/14/2021, 12/09/2020, 11/18/2020 Influenza Vaccine (#1) 2025 DTaP,Tdap,and Td Vaccines [...] age to complete this topic Care Teams Professor Of Radiology Relationship Specialty Start Date End Date Hector Ricketts MD [address] [place] [address] PCP - General 06/14/18
[2025-05-15] MEDS: Potassium Chloride/H20 10 MEQ/100 ML PIGGYBACK 100 MEQ IV ×2 (13:50→15:35)
--- NOTE | 2025-05-15 14:03 | PHA.MEDREC ---
Addendum entered by Mick Daniels PharmD 05/15/25 14:51: Added Metoprolol per provider request. Addendum entered by Mick Daniels PharmD 05/15/25 14:16: reviewed Original Note: Pharmacy Consult ? Medication Reconciliation Pharmacy has completed the medication reconciliation. Spoke with pt and she confirmed her medications. Pt confirmed she stopped all her medications but Carvedilol back in January-February by her Dr, due to complications with them. Pt states she was told to stop Carvedilol this past Monday and was told to start Metoprolol Succinate 50mg tab but has not been able to start that yet; called pt pharmacy and they confirmed that medication is ready for the pt to forklift picker.
--- NOTE | 2025-05-15 14:28 | PM.IMHP ---
History of Present Illness Date of Service: 05/15/25 Attending physician on admission: Annette Samuel Chief Complaint: Shortness of breath This is a 59-year-old female who presents to the emergency department with shortness of breath. Patient reports for the past 1 week she is having dyspnea on exertion. She also reports dry cough and generally feeling unwell. Her son was also recently sick with upper respiratory symptoms. In the emergency department she was noted to be hypoxic with an initial saturation of 88% on room air, follow-up oxygen saturation of 86% on room air. Due to persistent hypoxia she was placed on 2 L nasal cannula with improvement of her oxygen saturation of 93%. Chest x-ray showed no evidence for acute disease. Lab work significant for leukocytosis of 10.9, thrombocytopenia with platelets of 94, potassium 3.1, lactic acid 2.7. She received empiric antibiotics, a breathing treatment, IV Solu-Medrol and potassium replacement. For this reason she will be admitted to the hospital for further management Review of Systems Review of Systems: Yes all other systems are reviewed and are negative Constitutional: Constitutional: Denies chills and Denies fever(s) ENT: Denies dizziness Cardiovascular: Cardiovascular: Denies chest pain Neurologic: Denies dizziness [facility] Medical History Sick sinus syndrome due to sinoatrial node dysfunction Anxiety Depression Social History Household Members: Significant Other and Children Housing: House Do you presently have visiting nurse or other home services: No Alcohol intake: never Comment: medicated, pain tolerable Patient Tobacco Use Status: Current everyday Tobacco user Tobacco use type: Cigarette Cigarette Packs Per Day: 1 Cigarettes Per Day: 20.0 Smoked in Last 30 Days: Yes e-Cigarette/Vaping Use: Never Used Substance Use Type: Marijuana Advance Directives: Yes Advance Directives on File: Yes Advance Directives Date on File: 04/23/21 Meds Allergies Allergy/AdvReac Type Severity Reaction Status Date / Time aspirin Allergy Mild Headache Verified 05/15/25 10:04 ibuprofen Allergy Mild heartburns Verified 05/15/25 10:04 Home Medications ?Medication ?Instructions ?Recorded ?Confirmed ?Last Taken ?Type metoprolol succinate 50 mg 50 mg PO DAILY 05/15/25 05/15/25 Unknown History tablet,extended release 24 hr Physical Exam Vital Signs and Narrative: Vital Signs: Last Vital Signs Temp 98.2 F 05/15/25 13:47 Pulse 67 05/15/25 13:47 Resp 16 05/15/25 13:47 BP 109/65 05/15/25 13:47 Pulse Ox 93 05/15/25 13:47 O2 Del Method Nasal Cannula 05/15/25 13:47 O2 Flow Rate 2 05/15/25 13:47 BMI result Body Mass Index 2492.7 Const: General: alert and awake Nutritional Appearance: average body habitus Orientation/consciousness: patient oriented x3 Resp: Other: b/l expiratory wheezing Effort & Inspection: no respiratory distress Cardio: Rate: regular rate GI: Inspection: No distended Neuro: General: patient oriented x3, No moves all extremities and No CN's II-XI intact bilaterally Extrem: General: No pedal edema Results Labs 05/15/25 11:19 05/15/25 11:19 Labs: Laboratory Results - last 24 hr 05/15/25 05/15/25 05/15/25 11:18 11:19 11:30 MCV 83.0 MCH 29.7 MCHC 35.8 H RDW 12.9 Plt Count 94 L D MPV 10.7 Immature Gran % (Auto) 0.6 H Neut % (Auto) 67.2 Lymph % (Auto) 23.3 [place] % (Auto) 8.7 Eos % (Auto) 0.0 Baso % (Auto) 0.2 Lymph # (Auto) 2.5 [place] # (Auto) 0.9 Eos # (Auto) 0.0 Baso # (Auto) 0.0 Abs Immat Gran (auto) 0.06 H Absolute Neuts (auto) 7.3 Absolute Nucleated RBC 0.000 Nucleated RBC % (auto) 0.0 Hold Blue Top SEE NOTE VBG pH 7.36 VBG pCO2 53 VBG pO2 36 VBG HCO3 30 H VBG O2 Saturation 52.0 VBG Base Excess 3.6 Anion Gap 14 Estim Creat Clear Calc -28.7 Estimated GFR > 60 Random Glucose 121 H Lactic Acid Calcium 9.1 Magnesium 1.9 Total Bilirubin 0.4 AST 27 ALT 7 Alkaline Phosphatase 54 Troponin I High Sens 3.6 Total Protein 7.8 Albumin 4.6 COVID-19 ([facility]) Negative COVID-19 Clin Com See Note Influenza Type A ([facility]UL) Negative Influenza Type B (JE[facility] PAUL) Negative Influenza A & B Note See Note 05/15/25 12:24 MCV MCH MCHC RDW Plt Count MPV Immature Gran % (Auto) Neut % (Auto) Lymph % (Auto) [place] % (Auto) Eos % (Auto) Baso % (Auto) Lymph # (Auto) [place] # (Auto) Eos # (Auto) Baso # (Auto) Abs Immat Gran (auto) Absolute Neuts (auto) Absolute Nucleated RBC Nucleated RBC % (auto) Hold Blue Top VBG pH VBG pCO2 VBG pO2 VBG HCO3 VBG O2 Saturation VBG Base Excess Anion Gap Estim Creat Clear Calc Estimated GFR Random Glucose Lactic Acid 2.7 H* Calcium Magnesium Total Bilirubin AST ALT Alkaline Phosphatase Troponin I High Sens Total Protein Albumin COVID-19 ([facility]) COVID-19 Clin Com Influenza Type A (JEAN PAUL) Influenza Type B (JEAN PAUL) Influenza A & B Note Imaging Radiologist's Impressions: Impressions Chest X-Ray 05/15/25 11:00 IMPRESSION: No evidence for acute disease in the chest. Electronically signed by: Jennifer Morgan MD 05/15/2025 11:13 AM EDT RP Assessment and Plan (1) COPD (chronic obstructive pulmonary disease): Status: Acute (2) Acute hypoxic respiratory failure: Status: Acute Plan This is a 59-year-old female with history of presumed COPD, symptomatic bradycardia s/p PPM placement, takotsubo cardiomypathy with recovered EF, tobacco dependence who presents to the ED with shortness of breath found to be hypoxic Acute respiratory failure with hypoxia due to presumed exacerbation of COPD Patient denies previous diagnosis of COPD but was d/c with oxygen in november 2024 with presumed diagnosis of copd. she did not use the oxygen possible underlying viral illness precipitating acute exacerbation, will check respiratory panel continue treatment wiht IV steroids, scheduled breathing treatments continue supplemental oxygen, wean as tolerated may need home o2 eval prior to discharge depending on clinical course Acute lactic acidosis Likely type due to breathing treatments vs hypoxia not due to sepsis trend Hypokalemia Replace and follow tobacco dependence smoking cessation advised NRT h/o ventricular tachycardia/h/o cardiomyopathy previously on carvedilol, on Monday was changed to metoprolol, but has not yet picked it up will start metoprolol thrombocytopenia trend CBC does not have PCP, recommended to obtain PCP dvt ppx - heparin Quality Stroke Does the patient have a stroke diagnosis?: No VTE Prior VTE?: No VTE Risk Level:: Medical - moderate - high VTE Device Contraindication: N/A - Device Ordered VTE Drug Contraindication: N/A - Med Ordered
[2025-05-15 14:36] LABS: Reflex Lactate? Lactic Acid Added
[2025-05-15 15:10] LABS: ~Lactic Acid-LAB USE ONLY 1.2 mmol/L (0.5-2.0)
[2025-05-15] MEDS: Potassium Chloride ER 20 MEQ TAB.ER.PRT 40 MEQ PO (15:35)
[2025-05-15] MEDS: Nicotine 14 MG PATCH.TD24 TRANSDERMA (15:36)
[2025-05-15] MEDS: 0.9 % Sodium Chloride Flush 3 ML SYRINGE IVFLUSH ×2 (15:41→22:42)
--- NOTE | 2025-05-15 20:18 | HO.NURTONUR ---
Chief Complaint: Shortness of breath 59-year-old female, full code, regular diet, allergies to aspirin and ibuprofen, who presents to the emergency department with shortness of breath. Patient reports for the past 1 week she is having dyspnea on exertion. She also reports dry cough and generally feeling unwell. Her son was also recently sick with upper respiratory symptoms. In the emergency department she was noted to be hypoxic with an initial saturation of 88% on room air, follow-up oxygen saturation of 86% on room air. Due to persistent hypoxia she was placed on 2 L nasal cannula with improvement of her oxygen saturation of 93%. Chest x-ray showed no evidence for acute disease. Lab work significant for leukocytosis of 10.9, thrombocytopenia with platelets of 94, potassium 3.1, lactic acid 2.7. She received empiric antibiotics, a breathing treatment, IV Solu-Medrol and potassium replacement. For this reason she will be admitted to the hospital for further management Plan Acute respiratory failure with hypoxia due to presumed exacerbation of COPD Patient denies previous diagnosis of COPD but was d/c with oxygen in november 2024 with presumed diagnosis of copd. she did not use the oxygen possible underlying viral illness precipitating acute exacerbation respiratory panel pending continue treatment wiht IV steroids, scheduled breathing treatments 20g IV to the left ac nothing running at this time
[2025-05-15] MEDS: Albuterol/Iprat 2.5/0.5MG 3 ML AMPUL.NEB INHALE (21:12)
[2025-05-16] VITALS (10 sets, daily range): BP systolic 80–124; BP diastolic 50–76; PULSE 60–67; RESP 12–18; TEMP 36–36.5; O2SAT 85–94; BMI 17.8
[2025-05-16 07:32] LABS: Blood Urea Nitrogen 13 mg/dL (9-16); Calcium 8.8 mg/dL (8.4-10.2); Carbon Dioxide 31 mmol/L (22-29); Chloride 100 mmol/L (96-108); Creatinine Clr Calc Pharmacy 98.3; Estimated Glomerular Filt Rate > 60; Sodium 137 mmol/L (135-145)
[2025-05-16 07:39] LABS: Anion Gap 12 (12-20); Potassium 4.6 mmol/L (3.3-5.1)
[2025-05-16] MEDS: Albuterol/Iprat 2.5/0.5MG 3 ML AMPUL.NEB INHALE ×3 (07:49→20:06)
[2025-05-16] MEDS: Nicotine 14 MG PATCH.TD24 TRANSDERMA (08:36)
[2025-05-16] MEDS: Metoprolol Succinate ER 50 MG TAB.ER.24H PO (08:37)
[2025-05-16] MEDS: 0.9 % Sodium Chloride Flush 3 ML SYRINGE IVFLUSH ×3 (08:38→23:29)
[2025-05-16 08:44] LABS: Chlamydia pneumoniae PCR Not Detected (Not Detect.); Coronavirus 229E PCR Not Detected (Not Detect.); Coronavirus HKU1 PCR Not Detected (Not Detect.); Coronavirus NL63 PCR Not Detected (Not Detect.); Coronavirus OC43 PCR Not Detected (Not Detect.); RSV PCR Not Detected (Not Detect.); Rhino/Enterovirus PCR Not Detected (Not Detect.)
[2025-05-16 08:54] LABS: Influenza A H1 PCR Not Detected (Not Detect.); Influenza A H1-2009 PCR Not Detected (Not Detect.); Influenza A H3 PCR Not Detected (Not Detect.); SARS-CoV-2 PCR Not Detected (Not Detect.)
--- NOTE | 2025-05-16 11:23 | MHC.CM.PN ---
THIS CM MET WITH PT, SHE REPORTS LIVING AT HOME WITH OTHERS, AND USES A CANE. PT STATES HER HCP IS HER AND DAUGHTER, COPY REQUESTED. DCP: RETURN HOME SELF-CARE, WILL ARRANGE HER OWN TRANSPORT HOME AT [place]. PCP: PT GOES TO [facility], NO PCP. LOCAL LIST OF PCP'S GIVEN TO PT
--- NOTE | 2025-05-16 13:41 | MHC.CLN ---
CONSULT PT QUALIFIES FOR NON-SEVERE MALNUTRITION IN THE CONTEXT OF ACUTE ILLNESS PT WITH MILDLY DEPLETED SUBCUTANEOUS FAT AND MUSCLE MASS WITH 6% NONSIGNIFICANT WT LOSS X6 MONTHS WITH CHRONIC POOR PO INTAKE REGULAR DIET IN PLACE PT REPORTED POOR PO INTAKE ALL HER LIFE . SHE STATED SHE JUST DOESN'T HAVE AN APPETITE, KNOWS SHE CAN EAT WHATEVER SHE WANTS BUT DOESN'T HAVE A TASTE FOR IT AND OCCASIONALLY FEELS NAUSEOUS AFTER EATING PT RECEPTIVE TO DRINKING VANILLA FLAVORED ENSURE BID TO INCREASE KCALS SUPPLEMENT WILL PROVIDE 700KCALS, 40G PROTEIN MONITOR PO INTAKE AND ENCOURAGE SUPPLEMENTS SEE FULL ASSESSMENT
--- NOTE | 2025-05-16 17:46 | HO.PM.IMPN ---
Subjective Subjective Date of Service: 05/16/25 Interval History: Reports her breathing has improved from yesterday. Remains mildly tachypneic on evaluation Denies chest pain, palpitations, dizziness, diaphoresis. Review of Systems Review of Systems: Yes all other systems are reviewed and are negative Physical Exam Exam: Exam: General: A&O x3, oriented to time place person and situation, comfortable, no pain Cardiac: S1, S2 auscultated with no S3/4, no MRG. Well perfused. Respiratory: Reduced inspiratory and expiratory breath sounds bilaterally, with end expiratory wheezing auscultated on exam, generalized congestion. No tripoding or intercostal retractions, no distress, no cyanosis. On oxygen GI/ : No abdominal pain on palpation, no masses or distentions. MSK: Normal ambulation without pain at bony prominences or musculature Neurological: Normal neurological examination on overview, without obvious CN II-XII abnormalities. Vital Signs: Vital Signs: Last Vital Signs Temp 96.8 F 05/16/25 15:31 Pulse 60 05/16/25 15:31 Resp 16 05/16/25 15:31 BP 83/52 L 05/16/25 15:31 Pulse Ox 91 L 05/16/25 15:31 O2 Del Method Nasal Cannula 05/16/25 15:31 O2 Flow Rate 3 05/16/25 15:31 BMI result Body Mass Index 17.8 Objective Data Active Medications Acetaminophen (Acetaminophen 325 Mg Tablet) 650 mg PO Q6H PRN PRN Reason: Pain, Mild 1-3,fever,headache Last Admin: 05/16/25 08:43 Dose: 650 mg Documented By: BEATRIZ Albuterol/Ipratropium (Albuterol/Iprat 2.5/0.5mg 3 Ml Ampul.Neb) 3 ml INHALE RQ6H WHILE AWAKE [facility] Last Admin: 05/16/25 13:33 Dose: 3 ml Documented By: BOLIVAR Albuterol/Ipratropium (Albuterol/Iprat 2.5/0.5mg 3 Ml Ampul.Neb) 3 ml INHALE RQ4H WHILE AWAKE PRN PRN Reason: shortness of breath/wheezing Calcium Carbonate (Calcium Carbonate 750 Mg Tab.Chew) 750 mg PO Q4H PRN PRN Reason: Heartburn Heparin Sodium (Porcine) (Heparin Sodium,Porcine 5,000 Unit/Ml Vial) 5,000 unit SUBCUT Q12H [facility] Last Admin: 05/16/25 15:31 Dose: 5,000 unit Documented By: BEATRIZ Magnesium Hydroxide (Milk Of Magnesia 30 Ml Oral.Susp) 30 ml PO DAILY PRN PRN Reason: Constipation Melatonin (Melatonin 3 Mg Tablet) 6 mg PO BEDTIME PRN PRN Reason: Insomnia Methylprednisolone Sodium Succinate (Methylprednisolone Sod Succ 40 Mg/Ml Vial) 40 mg IVPUSH Q12H [facility] Last Admin: 05/16/25 10:52 Dose: 40 mg Documented By: BEATRIZ Metoprolol Succinate (Metoprolol Succinate Er 50 Mg Tab.Er.24h) 50 mg PO DAILY [facility]; Protocol Last Admin: 05/16/25 08:37 Dose: 50 mg Documented By: BEATRIZ Nicotine (Nicotine 14 Mg Patch.Td24) 14 mg TRANSDERMA DAILY [facility] Last Admin: 05/16/25 08:36 Dose: 14 mg Documented By: BEATRIZ Sodium Chloride (0.9 % Sodium Chloride Flush 3 Ml Syringe) 3 ml IVFLUSH QSHIFT [facility] Last Admin: 05/16/25 15:41 Dose: 3 ml Documented By: BEATRIZ Labs 05/15/25 11:19 05/16/25 06:21 Labs: Laboratory Results - last 24 hr 05/15/25 05/16/25 16:34 06:21 Hold Purple Top SEE NOTE Anion Gap 12 Estim Creat Clear Calc 98.3 Estimated GFR > 60 Random Glucose 149 H Calcium 8.8 Respiratory Panel Graham See Note Adenovirus (Rapid PCR) Not Detected B.pert (TEM-PCR) Not Detected B.parapertussis DNA PCR Not Detected C. pneumoniae DNA (PCR) Not Detected Coronavirus OC43 (PCR) Not Detected Coronavirus HKU1 (PCR) Not Detected Coronavirus 229E (PCR) Not Detected Coronavirus NL63 (PCR) Not Detected Human Metapneumovir PCR Not Detected Influenza A (RT-PCR) Not Detected Influenza A (H1) PCR Not Detected Influ A (H1/09) PCR Not Detected Influenza A (H3) PCR Not Detected Influenza B (RT-PCR) Not Detected M. pneumoniae (PCR) Not Detected Parainfluenza 1 (PCR) Not Detected Parainfluenza 2 (PCR) Detected A Parainfluenza 3 (PCR) Not Detected Parainfluenza 4 (PCR) Not Detected RSV (PCR) Not Detected Entero/Rhino (PCR) Not Detected SARS-CoV-2 RNA (RT-PCR) Not Detected Microbiology Microbiology Results: Microbiology 05/15/25 12:24 Blood Culture - Preliminary Blood - Venous No growth after 24 hours. 05/15/25 11:18 Blood Culture - Preliminary Blood - Venous No growth after 24 hours. Assessment and Plan (1) Sick sinus syndrome due to sinoatrial node dysfunction: Status: Acute (2) Hypokalemia: Status: Acute (3) Hypoxia: Status: Acute (4) Acute hypoxic respiratory failure: Status: Acute (5) COPD exacerbation: Status: Acute (6) COPD (chronic obstructive pulmonary disease): Status: Acute Plan 59-year-old female with history of presumed COPD, symptomatic bradycardia s/p PPM placement, takotsubo cardiomypathy with recovered EF, tobacco dependence who presents to the ED with shortness of breath found to be hypoxic Acute respiratory failure with hypoxia due to presumed exacerbation of COPD Patient denies previous diagnosis of COPD but was d/c with oxygen in november 2024 with presumed diagnosis of copd. she did not use the oxygen possible underlying viral illness precipitating acute exacerbation, will check respiratory panel continue treatment wiht IV steroids, scheduled breathing treatments continue supplemental oxygen, wean as tolerated may need home o2 eval prior to discharge depending on clinical course Acute lactic acidosis Likely type due to breathing treatments vs hypoxia not due to sepsis trend Hypokalemia Replace and follow tobacco dependence smoking cessation advised NRT h/o ventricular tachycardia/h/o cardiomyopathy Hypotension previously on carvedilol, on Monday was changed to metoprolol, but has not yet picked it up Was placed on metoprolol. Hold for now NaCl 0.9% 100 cc/hour for 1 L total thrombocytopenia trend CBC [facility] - VTE: Heparin - CODE STATUS: Full code - DIET: Regular Total time managing care of this patient today: 35 minutes. Quality Stroke Does the patient have a stroke diagnosis?: No VTE Prior VTE?: No VTE Risk Level:: Medical - moderate - high VTE Device Contraindication: N/A - Device Ordered VTE Drug Contraindication: N/A - Med Ordered
[2025-05-16] MEDS: Lactated Ringers 1,000 ML 999 ML IV (20:20)
--- NOTE | 2025-05-16 20:34 | PM.EVENT ---
Event Note Date of Service: 05/16/25 Event Note: 8:02 pm - contacted by nursing that patient's BP dropped to 83/52 at 3:31 pm and receiving NS at 100 ml/hr; and it is still quite low 80/50 at 7:41 p.m. Other VS seems stable, HR is 61 bpm. I ordered stat labs including lactic acid and stat bolus 2L LR. Time Spent With Patient Time: Total time managing care of this patient today ____ minutes.
[2025-05-16 20:48] LABS: Alanine Aminotransferase 8 U/L (0-31); Albumin Level 4.0 g/dL (3.5-5.0); Alkaline Phosphatase 44 U/L (39-117); Anion Gap 13 (12-20); Aspartate Amino Transferase 21 U/L (5-31); Blood Urea Nitrogen 17 mg/dL (9-16); Calcium 8.8 mg/dL (8.4-10.2); Carbon Dioxide 25 mmol/L (22-29); Chloride 100 mmol/L (96-108); Creatinine Clr Calc Pharmacy 92.1; Estimated Glomerular Filt Rate > 60; Potassium 4.4 mmol/L (3.3-5.1); Sodium 134 mmol/L (135-145); Total Protein 6.8 g/dL (6.5-8.0)
[2025-05-16 20:56] LABS: Imm Gran Abs Auto 0.03 X10*3/uL (0.00-0.03); Imm Gran Pct Auto 0.5 % (0.0-0.4); MANUAL DIFF FLAG SCAN; NRBC Abs Auto 0.000 X10*3/uL (0.0-0.012); NRBC Pct Auto 0.0 /100WBC (0.0-0.2); PLT CLUMP 1; Red Blood Count 4.46 X10*6/uL (4.20-5.50); SCAN SMEAR FLAG 1
[2025-05-16 20:58] LABS: Hematocrit 37.7 % (37.0-47.0); Hemoglobin 13.1 g/dl (12.0-16.0); Lymphocytes Absolute Auto 1.1 X10*3/uL (1.2-4.9); Mean Corpuscular HGB Conc 34.7 g/dl (31.0-35.0); Mean Corpuscular Hemoglobin 29.4 pg (27.0-33.0); Mean Corpuscular Volume 84.5 fL (80.0-98.0)
[2025-05-16 21:23] LABS: Platelet Count 106 X10*3/uL (160-400); White Blood Count 5.8 X10*3/uL (4.8-10.8)
[2025-05-17] VITALS (9 sets, daily range): BP systolic 104–133; BP diastolic 59–86; PULSE 50–79; RESP 15–19; TEMP 32.9–36.7; O2SAT 91–96
--- NOTE | 2025-05-17 04:28 | PC.NURSE ---
Assumed care of pt 19:25, found to be hypotensive with BP 80/50 at 1941 during routine vitals check; asymptomatic. Previous BP noted at 1531 83/52 during day shift with NS infusing at 100ml/hr started at 19:19. Night hospitalist notified; 1000ml bolus LR given with good effect, BP 102/63 after infusion. Labs ordered. Continuos monitoring ongoing per plan of care.
[2025-05-17] MEDS: Albuterol/Iprat 2.5/0.5MG 3 ML AMPUL.NEB INHALE ×3 (08:05→20:04)
[2025-05-17] MEDS: Nicotine 14 MG PATCH.TD24 TRANSDERMA (08:37)
[2025-05-17] MEDS: 0.9 % Sodium Chloride Flush 3 ML SYRINGE IVFLUSH ×3 (08:40→20:01)
--- NOTE | 2025-05-17 15:45 | P.PNIM_ITS ---
Subjective Subjective Date of Service: 05/17/25 Interval History: Feels well today. Standing and mobilizing in the room. Denies dyspnea, however tachypneic on evaluation. Improving cough Review of Systems Review of Systems: Yes all other systems are reviewed and are negative Physical Exam 2 Exam: Exam: General: A&O x3, oriented to time place person and situation, comfortable, no pain Cardiac: S1, S2 auscultated with no S3/4, no MRG. Well perfused. Respiratory: Reduced inspiratory and expiratory breath sounds bilaterally, with end expiratory wheezing auscultated on exam, generalized congestion. No tripoding or intercostal retractions, no distress, no cyanosis. On oxygen GI/ : No abdominal pain on palpation, no masses or distentions. MSK: Normal ambulation without pain at bony prominences or musculature Neurological: Normal neurological examination on overview, without obvious CN II-XII abnormalities. Vital Signs: Vital Signs: Last Vital Signs Temp 97.3 F 05/17/25 12:00 Pulse 61 05/17/25 14:45 Resp 16 05/17/25 14:45 BP 123/74 05/17/25 12:00 Pulse Ox 96 05/17/25 12:00 O2 Del Method Nasal Cannula 05/17/25 12:00 O2 Flow Rate 3 05/17/25 12:00 BMI result Body Mass Index 17.8 Objective Data Active Medications Acetaminophen (Acetaminophen 325 Mg Tablet) 650 mg PO Q6H PRN PRN Reason: Pain, Mild 1-3,fever,headache Last Admin: 05/16/25 20:31 Dose: 650 mg Documented By: WILL Albuterol/Ipratropium (Albuterol/Iprat 2.5/0.5mg 3 Ml Ampul.Neb) 3 ml INHALE RQ6H WHILE AWAKE [facility] Last Admin: 05/17/25 14:45 Dose: 3 ml Documented By: JOSIAH Albuterol/Ipratropium (Albuterol/Iprat 2.5/0.5mg 3 Ml Ampul.Neb) 3 ml INHALE RQ4H WHILE AWAKE PRN PRN Reason: shortness of breath/wheezing Calcium Carbonate (Calcium Carbonate 750 Mg Tab.Chew) 750 mg PO Q4H PRN PRN Reason: Heartburn Last Admin: 05/17/25 08:37 Dose: 750 mg Documented By: BEATRIZ Heparin Sodium (Porcine) (Heparin Sodium,Porcine 5,000 Unit/Ml Vial) 5,000 unit SUBCUT Q12H [facility] Last Admin: 05/17/25 14:21 Dose: 5,000 unit Documented By: BEATRIZ Magnesium Hydroxide (Milk Of Magnesia 30 Ml Oral.Susp) 30 ml PO DAILY PRN PRN Reason: Constipation Melatonin (Melatonin 3 Mg Tablet) 6 mg PO BEDTIME PRN PRN Reason: Insomnia Methylprednisolone Sodium Succinate (Methylprednisolone Sod Succ 40 Mg/Ml Vial) 40 mg IVPUSH Q12H [facility] Last Admin: 05/17/25 14:22 Dose: 40 mg Documented By: BEATRIZ Metoprolol Succinate (Metoprolol Succinate Er 50 Mg Tab.Er.24h) 50 mg PO DAILY [facility]; Protocol On Hold: 05/16/25 23:22 Last Admin: 05/16/25 08:37 Dose: 50 mg Documented By: BEATRIZ Nicotine (Nicotine 14 Mg Patch.Td24) 14 mg TRANSDERMA DAILY [facility] Last Admin: 05/17/25 08:37 Dose: 14 mg Documented By: BEATRIZ Sodium Chloride (0.9 % Sodium Chloride Flush 3 Ml Syringe) 3 ml IVFLUSH QSHIFT [facility] Last Admin: 05/17/25 14:25 Dose: 3 ml Documented By: BEATRIZ Labs 05/16/25 20:28 05/16/25 20:28 Labs: Laboratory Results - last 24 hr 05/16/25 20:28 MCV 84.5 MCH 29.4 MCHC 34.7 RDW 12.9 Plt Count 106 L MPV 10.8 Immature Gran % (Auto) 0.5 H Neut % (Auto) 77.1 H Lymph % (Auto) 19.0 L [place] % (Auto) 3.4 Eos % (Auto) 0.0 Baso % (Auto) 0.0 Lymph # (Auto) 1.1 L [place] # (Auto) 0.2 Eos # (Auto) 0.0 Baso # (Auto) 0.0 Abs Immat Gran (auto) 0.03 Absolute Neuts (auto) 4.5 Absolute Nucleated RBC 0.000 Nucleated RBC % (auto) 0.0 Smear Tech's Comments VERIFIED Anion Gap 13 Estim Creat Clear Calc 92.1 Estimated GFR > 60 Random Glucose 218 H Lactic Acid 2.0 Calcium 8.8 Total Bilirubin 0.2 AST 21 ALT 8 Alkaline Phosphatase 44 Total Protein 6.8 Albumin 4.0 Microbiology Microbiology Results: Microbiology 05/15/25 12:24 Blood Culture - Preliminary Blood - Venous No growth after 48 hours. 05/15/25 11:18 Blood Culture - Preliminary Blood - Venous No growth after 48 hours. Assessment and Plan (1) Sick sinus syndrome due to sinoatrial node dysfunction: Status: Acute (2) Hypokalemia: Status: Acute (3) Closed fracture of neck of right femur: Status: Acute (4) Hypoxia: Status: Acute (5) Acute hypoxic respiratory failure: Status: Acute (6) COPD (chronic obstructive pulmonary disease): Status: Acute Plan 59-year-old female with history of presumed COPD, symptomatic bradycardia s/p PPM placement, takotsubo cardiomypathy with recovered EF, tobacco dependence who presents to the ED with shortness of breath found to be hypoxic, admitted with acute hypoxic respiratory failure 2/2 acute infective exacerbation of COPD/viral pneumonia (parainfluenza) Acute respiratory failure with hypoxia Infective exacerbation COPD Viral pneumonia (parainfluenza) Patient denies previous diagnosis of COPD but was d/c with oxygen in november 2024 with presumed diagnosis of copd. she did not use the oxygen possible underlying viral illness precipitating acute exacerbation. Respiratory panel positive for parainfluenza continue treatment wiht IV steroids, scheduled breathing treatments continue supplemental oxygen, wean as tolerated may need home o2 eval prior to discharge depending on clinical course Acute lactic acidosis Likely type due to breathing treatments vs hypoxia not due to sepsis trend Hypokalemia Replete and follow tobacco dependence smoking cessation advised NRT h/o ventricular tachycardia/h/o cardiomyopathy Hypotension previously on carvedilol, on Monday was changed to metoprolol, but has not yet picked it up Was placed on metoprolol. Hold for now due to hypotensive episode NaCl 0.9% 100 cc/hour for 1 L total Repeating echocardiogram thrombocytopenia trend CBC [facility] - VTE: Heparin - CODE STATUS: Full code - DIET: Regular Total time managing care of this patient today: 35 minutes. Quality Stroke Does the patient have a stroke diagnosis?: No VTE Prior VTE?: No VTE Risk Level:: Medical - moderate - high VTE Device Contraindication: N/A - Device Ordered VTE Drug Contraindication: N/A - Med Ordered
[2025-05-18] VITALS (11 sets, daily range): BP systolic 110–158; BP diastolic 63–83; PULSE 61–82; RESP 15–18; TEMP 36.3–36.9; O2SAT 90–96
--- NOTE | 2025-05-18 | ECG_ITS ---
Test Reason : V-tach runs Blood Pressure : */* mmHG Vent. Rate : 60 BPM Atrial Rate : 60 BPM P-R Int : 178 ms QRS Dur : 86 ms QT Int : 460 ms P-R-T Axes : 67 68 52 degrees QTcB Int : 460 ms Atrial-paced rhythm Abnormal ECG When compared with ECG of 15-May-2025 10:25, Electronic atrial pacemaker has replaced Sinus rhythm Referred By: Lance Wang Electronically Signed By: SHAJI PEREZ
--- NOTE | 2025-05-18 00:43 | PC.NURSE ---
Addendum entered by La Nena Kee RN 05/18/25 01:53: EKG performed: A PACED Mag 2gm IV administered Labs drawn; critical lactic 2.4 Original Note: Delayed Entry: At approximately 23:44, patient noted to have one minute 30 second long episode of vtach. Patient asymptomatic throughout. Provider balloon design printer notified. Awaiting orders.
[2025-05-18] MEDS: Magnesium Sulfate/H2O 2 GM/50 ML PIGGYBACK IV (01:02)
[2025-05-18 01:28] LABS: Hematocrit 35.9 % (37.0-47.0); Hemoglobin 12.4 g/dl (12.0-16.0); Imm Gran Abs Auto 0.06 X10*3/uL (0.00-0.03); Imm Gran Pct Auto 0.8 % (0.0-0.4); Lymphocytes Absolute Auto 1.2 X10*3/uL (1.2-4.9); MANUAL DIFF FLAG SCAN; Mean Corpuscular HGB Conc 34.5 g/dl (31.0-35.0); Mean Corpuscular Hemoglobin 29.5 pg (27.0-33.0); Mean Corpuscular Volume 85.5 fL (80.0-98.0); NRBC Abs Auto 0.000 X10*3/uL (0.0-0.012); NRBC Pct Auto 0.0 /100WBC (0.0-0.2); Platelet Count 166 X10*3/uL (160-400); Red Blood Count 4.20 X10*6/uL (4.20-5.50); SCAN SMEAR FLAG 1; White Blood Count 7.8 X10*3/uL (4.8-10.8)
[2025-05-18 01:40] LABS: Alanine Aminotransferase 9 U/L (0-31); Albumin Level 3.9 g/dL (3.5-5.0); Alkaline Phosphatase 49 U/L (39-117); Anion Gap 12 (12-20); Aspartate Amino Transferase 19 U/L (5-31); Blood Urea Nitrogen 20 mg/dL (9-16); Calcium 8.9 mg/dL (8.4-10.2); Carbon Dioxide 27 mmol/L (22-29); Chloride 102 mmol/L (96-108); Creatinine Clr Calc Pharmacy 82.7; Estimated Glomerular Filt Rate > 60; Magnesium 1.9 mg/dL (1.6-2.6); Potassium 4.1 mmol/L (3.3-5.1); Sodium 137 mmol/L (135-145); Total Protein 6.4 g/dL (6.5-8.0)
[2025-05-18 01:48] LABS: Troponin-I High Sensitivity 5.7 ng/L (<3.5-17.0)
[2025-05-18 03:17] LABS: Reflex Lactate? Lactic Acid Added
[2025-05-18 03:53] LABS: ~Lactic Acid-LAB USE ONLY 2.3 mmol/L (0.5-2.0)
[2025-05-18 05:17] LABS: Cancel Lactic Acid Canceled
--- NOTE | 2025-05-18 05:34 | PM.EVENT ---
Event Note Date of Service: 05/18/25 Event Note: 11:58 p.m. - Patient had a run of V-tach that lasted 1 minute and 30 seconds. Patient asymptomatic. Blood workup stat just remarkable for mild lactic acidosis; likely secondary to hypoxia secondary to viral influenza infection in the setting of COPD. No sepsis. There is no leukocytosis, hemoglobin is at baseline. Electrolytes (including magnesium), renal function LFTs are normal. Troponin is 5.7. Likely lung events of V-tach secondary to underlying HFrEF = 30-35%. Patient has a permanent pacemaker due to sick sinus syndrome; I do not think is an automatic defibrillator. Magnesium sulfate 2 mg IV given prophylactically. ECG stat done and showed atrial-paced rhythm. We will request evaluation by motor brakeman. Please see cardiac strip below. It only Lázaro beginning and end; started at 23:44 and ended at 23:45. Time Spent With Patient Time: Total time managing care of this patient today ____ minutes.
[2025-05-18] MEDS: Albuterol/Iprat 2.5/0.5MG 3 ML AMPUL.NEB INHALE ×3 (08:26→19:25)
[2025-05-18] MEDS: Nicotine 14 MG PATCH.TD24 TRANSDERMA (09:03)
[2025-05-18] MEDS: 0.9 % Sodium Chloride Flush 3 ML SYRINGE IVFLUSH ×2 (09:06→22:54)
--- NOTE | 2025-05-18 11:23 | P.PNIM_ITS ---
Subjective Subjective Date of Service: 05/18/25 Interval History: Overnight events reviewed. The patient had a run of ventricular tachycardia. Paced beats were observed during episode. Patient is asymptomatic otherwise. Reports that her breathing has improved, however remains on 2 L O2. We will attempt to wean Review of Systems Review of Systems: Yes all other systems are reviewed and are negative Physical Exam 2 Exam: Exam: General: A&O x3, oriented to time place person and situation, comfortable, no pain Cardiac: S1, S2 auscultated with no S3/4, no MRG. Well perfused. Respiratory: Reduced inspiratory and expiratory breath sounds bilaterally, with end expiratory wheezing auscultated on exam, generalized congestion. No tripoding or intercostal retractions, no distress, no cyanosis. On oxygen GI/ : No abdominal pain on palpation, no masses or distentions. MSK: Normal ambulation without pain at bony prominences or musculature Neurological: Normal neurological examination on overview, without obvious CN II-XII abnormalities. Vital Signs: Vital Signs: Last Vital Signs Temp 97.5 F 05/18/25 07:45 Pulse 61 05/18/25 08:27 Resp 18 05/18/25 08:27 BP 154/79 H 05/18/25 07:45 Pulse Ox 91 L 05/18/25 07:45 O2 Del Method Nasal Cannula 05/18/25 07:45 O2 Flow Rate 3 05/18/25 07:45 BMI result Body Mass Index 17.8 Objective Data Active Medications Acetaminophen (Acetaminophen 325 Mg Tablet) 650 mg PO Q6H PRN PRN Reason: Pain, Mild 1-3,fever,headache Last Admin: 05/16/25 20:31 Dose: 650 mg Documented By: WILL Albuterol/Ipratropium (Albuterol/Iprat 2.5/0.5mg 3 Ml Ampul.Neb) 3 ml INHALE RQ6H WHILE AWAKE [facility] Last Admin: 05/18/25 08:26 Dose: 3 ml Documented By: JOSIAH Albuterol/Ipratropium (Albuterol/Iprat 2.5/0.5mg 3 Ml Ampul.Neb) 3 ml INHALE RQ4H WHILE AWAKE PRN PRN Reason: shortness of breath/wheezing Calcium Carbonate (Calcium Carbonate 750 Mg Tab.Chew) 750 mg PO Q4H PRN PRN Reason: Heartburn Last Admin: 05/17/25 08:37 Dose: 750 mg Documented By: BEATRIZ Heparin Sodium (Porcine) (Heparin Sodium,Porcine 5,000 Unit/Ml Vial) 5,000 unit SUBCUT Q12H [facility] Last Admin: 05/18/25 03:33 Dose: 5,000 unit Documented By: GENOSISUMMER Magnesium Hydroxide (Milk Of Magnesia 30 Ml Oral.Susp) 30 ml PO DAILY PRN PRN Reason: Constipation Melatonin (Melatonin 3 Mg Tablet) 6 mg PO BEDTIME PRN PRN Reason: Insomnia Methylprednisolone Sodium Succinate (Methylprednisolone Sod Succ 40 Mg/Ml Vial) 40 mg IVPUSH Q12H [facility] Last Admin: 05/18/25 11:21 Dose: 40 mg Documented By: BEATRIZ Metoprolol Succinate (Metoprolol Succinate Er 50 Mg Tab.Er.24h) 50 mg PO DAILY [facility]; Protocol On Hold: 05/16/25 23:22 Last Admin: 05/16/25 08:37 Dose: 50 mg Documented By: BEATRIZ Nicotine (Nicotine 14 Mg Patch.Td24) 14 mg TRANSDERMA DAILY [facility] Last Admin: 05/18/25 09:03 Dose: 14 mg Documented By: BEATRIZ Sodium Chloride (0.9 % Sodium Chloride Flush 3 Ml Syringe) 3 ml IVFLUSH QSHIFT [facility] Last Admin: 05/18/25 09:06 Dose: 3 ml Documented By: BEATRIZ Labs 05/18/25 01:04 05/18/25 01:04 Labs: Laboratory Results - last 24 hr 05/18/25 05/18/25 01:04 03:29 MCV 85.5 MCH 29.5 MCHC 34.5 RDW 13.2 Plt Count 166 D MPV 10.2 Immature Gran % (Auto) 0.8 H Neut % (Auto) 77.7 H Lymph % (Auto) 14.9 L [place] % (Auto) 6.5 Eos % (Auto) 0.0 Baso % (Auto) 0.1 Lymph # (Auto) 1.2 [place] # (Auto) 0.5 Eos # (Auto) 0.0 Baso # (Auto) 0.0 Abs Immat Gran (auto) 0.06 H Absolute Neuts (auto) 6.1 Absolute Nucleated RBC 0.000 Nucleated RBC % (auto) 0.0 Smear Tech's Comments VERIFIED Anion Gap 12 Estim Creat Clear Calc 82.7 Estimated GFR > 60 Random Glucose 154 H Lactic Acid 2.4 H* Lactic Acid F/U @ 2Hr 2.3 H* Calcium 8.9 Magnesium 1.9 Total Bilirubin 0.2 AST 19 ALT 9 Alkaline Phosphatase 49 Troponin I High Sens 5.7 D Total Protein 6.4 L Albumin 3.9 Microbiology Microbiology Results: Microbiology 05/16/25 20:28 Blood Culture - Preliminary Blood - Venous No growth after 24 hours. 05/16/25 20:29 Blood Culture - Preliminary Blood - Venous No growth after 24 hours. 05/15/25 12:24 Blood Culture - Preliminary Blood - Venous No growth after 48 hours. 05/15/25 11:18 Blood Culture - Preliminary Blood - Venous No growth after 48 hours. Assessment and Plan (1) Sick sinus syndrome due to sinoatrial node dysfunction: Status: Acute (2) Hypokalemia: Status: Acute (3) Hypoxia: Status: Acute (4) COPD (chronic obstructive pulmonary disease): Status: Acute (5) Acute hypoxic respiratory failure: Status: Acute (6) COPD exacerbation: Status: Acute (7) Parainfluenza infection: Status: Acute Plan 59-year-old female with history of presumed COPD, symptomatic bradycardia s/p PPM placement, takotsubo cardiomypathy with recovered EF, tobacco dependence who presents to the ED with shortness of breath found to be hypoxic, admitted with acute hypoxic respiratory failure 2/2 acute infective exacerbation of COPD/viral pneumonia (parainfluenza) Acute respiratory failure with hypoxia Infective exacerbation COPD Viral pneumonia (parainfluenza) Patient denies previous diagnosis of COPD but was d/c with oxygen in november 2024 with presumed diagnosis of copd. she did not use the oxygen possible underlying viral illness precipitating acute exacerbation. Respiratory panel positive for parainfluenza continue treatment wiht IV steroids, scheduled breathing treatments continue supplemental oxygen, wean as tolerated may need home o2 eval prior to discharge depending on clinical course Acute lactic acidosis Likely type due to breathing treatments vs hypoxia not due to sepsis trend Hypokalemia Replete and follow tobacco dependence smoking cessation advised NRT Cardiomyopathy with reduced EF s/p ppm Ventricular tachycardia Hypotension previously on carvedilol, on Monday was changed to metoprolol, but has not yet picked it up Was placed on metoprolol. Hold for now due to hypotensive episode Repeating echocardiogram Cardiology consulted-recommendations greatly appreciated thrombocytopenia trend CBC [facility] - VTE: Heparin - CODE STATUS: Full code - DIET: Regular Total time managing care of this patient today: 35 minutes. Quality Stroke Does the patient have a stroke diagnosis?: No VTE Prior VTE?: No VTE Risk Level:: Medical - moderate - high VTE Device Contraindication: N/A - Device Ordered VTE Drug Contraindication: N/A - Med Ordered
[2025-05-18] MEDS: Metoprolol Tartrate 12.5 MG HALFTAB PO ×2 (14:37→20:21)
[2025-05-19 03:27] VITALS: BP 117/75; PULSE 65; RESP 18; TEMP 36
--- NOTE | 2025-05-19 07:00 | CA_ITS ---
Transthoracic Echocardiogram Patient (Last, First, Middle): Ivette Mckenzie, Gender: F Date of : 1965 Age: 59 Procedure Date: 05/19/2025 Procedure Type: Transthoracic Echocardiogram [place] [facility] [place]: 180.34 cm Weight: 69.4 kg BSA: 1.88 m2 Heart Rate: 67 bpm BP: 134 / 63 mmHg Wheat Cleaner: Referring MD: Annette Samuel MD Orthotics Assistant: Pradip Alva MD Symptoms: CHF, LVEF 30% last 2020 Study Quality: Adequate w contrast ECG Rhythm: Sinus Conclusions: - 1. Normal LV ejection fraction of 65-70% 2. Normal cardiac valvular Dopplers 3. Normal RV systolic pressure 4. No pericardial effusion Findings Procedure Information Contrast agent, definity, is being given per protocol without apparent complications. Left Ventricle Normal left ventricular size, thickness, and systolic function. The visually estimated ejection fraction is between 65-70%. Spectral Doppler is indicative of a normal filling pattern. Right Ventricle Normal right ventricular cavity size and systolic function. There is a pacemaker wire seen in the right ventricle. Atria The left atrium is mildly dilated. There is no evidence of interatrial shunt. The right atrium is likely dilated. A pacemaker wire is identified in the right atrium. Aortic Valve Normal aortic valve structure and function. There is no aortic valve stenosis. There is no aortic valve regurgitation. Mitral Valve There is mild anterior and posterior mitral leaflet thickening. There is trace mitral valve regurgitation. There is no mitral valve stenosis. Pulmonic Valve The pulmonic valve was not well visualized. Tricuspid Valve Likely normal tricuspid valve structure and function. There is trace tricuspid valve regurgitation. The right ventricular systolic pressure is normal. The right ventricular systolic pressure is 13 mmHg. Normal right atrial pressure. There is no evidence of pulmonary hypertension. Great Vessels All visible segments of the aorta are normal in size. The pulmonary artery was not well visualized. Venous The inferior vena cava is normal in size and collapses greater than 50% with inspiration. Pericardium/Pleural There is no evidence of pericardial effusion. Prior Study Comparison Changes noted compared to prior study dated: 04/26/2021. LV systolic function is normalized. Measurements 2D Linear Measurements IVSd: 0.88 0.6-0.9/0.6-1.0 cm LVIDd: 4.43 3.9-5.3/4.2-5.9 cm LVIDd Index: 2.36 2.4-3.2/2.2-3.1 cm/m2 LVIDs: 2.97 2.0-3.6 cm LVPWd: 0.83 0.7-1.1 cm LA Diam: 3.80 2.7-3.8/3.0-4.0 cm LAIDs Index: 2.02 1.5-2.3 cm/m2 LV Mass: 149.97 67-162/88-224 g LV Mass Index: 79.77 43-95/49-115 g/m2 LVOT Diam: 2.20 3.0+(-)1.3 cm 2D Systolic Function EF 4C: 69.30 >55% EF 2C: 69.30 >55% EF BiP: 70.20 >55% Mitral Valve MV Pk E: 0.66 MV PK A: 0.61 MV Decel Time: 189.00 E/A: 1.10 E'Lateral: 11.40 E'Medial: 12.70 E/E' Med: 5.20 E/E' Lat: 5.80 PHT: 55.00 MVA PHT: 4.00 Decel Guadalupe: 3.49 Aortic Valve AoV Pk Garcia: 1.27 AoV Mn Garcia: 0.86 AoV VTI: 0.32 AoV Pk Grad: 6.00 Aov Mn Grad: 4.00 THAD Cont.VTI: 2.32 LVOT LVOT Pk Garcia: 0.73 LVOT Mn Garcia: 0.50 LVOT VTI: 0.20 LVOT Pk Grad: 2.00 LVOT Mn Grad: 1.00 LVOT Diam: 2.20 LVOT Area: 3.80 Diastolic Function MV Pk E: 0.66 MV Pk A: 0.61 E/A: 1.10 E'Medial: 12.70 E/E' Med: 5.20 E' Laterial: 11.40 E/E' Lat: 5.80 Right Ventricle TAPSE (mm): 36.00 Tricuspid Valve TR Pk Garcia: 1.56 TR Pk Grad: 10.00 RA Press: 3.00 RVSP: 13.00 Great Vessels Aorta Sinus of Valsalva: 3.00 2.0-3.5 cm Ao Asc: 3.00 2.1-3.4 cm Pulmonary Valve PV Pk Garcia: 0.86 Peak PV Grad: 3.00 Updated in Other Vendor System with Status of Final Pradip Alva MD electronically signed on 05/19/2025 11:57:08 AM with status of Final
[2025-05-19 07:10] VITALS: BP 121/85; PULSE 76; RESP 18; TEMP 36.7; O2SAT 94
[2025-05-19] MEDS: Albuterol/Iprat 2.5/0.5MG 3 ML AMPUL.NEB INHALE (07:47)
[2025-05-19 07:49] VITALS: PULSE 65; RESP 16; O2SAT 88
[2025-05-19] MEDS: Nicotine 14 MG PATCH.TD24 TRANSDERMA (08:55)
[2025-05-19] MEDS: Metoprolol Tartrate 12.5 MG HALFTAB PO (08:55)
[2025-05-19] MEDS: 0.9 % Sodium Chloride Flush 3 ML SYRINGE IVFLUSH ×3 (08:58→20:24)
[2025-05-19 09:37] LABS: Anion Gap 13 (12-20); Blood Urea Nitrogen 18 mg/dL (9-16); Calcium 9.8 mg/dL (8.4-10.2); Carbon Dioxide 31 mmol/L (22-29); Chloride 99 mmol/L (96-108); Creatinine Clr Calc Pharmacy 79.2; Estimated Glomerular Filt Rate > 60; Magnesium 1.9 mg/dL (1.6-2.6); Potassium 3.9 mmol/L (3.3-5.1); Sodium 139 mmol/L (135-145)
[2025-05-19 11:03] VITALS: BP 120/69; PULSE 82; RESP 18; TEMP 36.8; O2SAT 91
--- NOTE | 2025-05-19 11:36 | MHC.CLN ---
F/U PT QUALIFIES FOR NON-SEVERE MALNUTRITION IN THE CONTEXT OF ACUTE ILLNESS SEE FULL ASSESSMENT DATED 05/16/25 PO INTAKE 75-100% REGULAR DIET IN PLACE PT RECEPTIVE TO DRINKING VANILLA FLAVORED ENSURE BID TO INCREASE KCALS SUPPLEMENT PROVIDES 700KCALS, 40G PROTEIN WITH 100% ACCEPTANCE MONITOR PO INTAKE AND ENCOURAGE SUPPLEMENTS
--- NOTE | 2025-05-19 12:10 | P.PNIM_ITS ---
Subjective Subjective Date of Service: 05/19/25 Interval History: dyspnea, cough improving Review of Systems Review of Systems: Yes all other systems are reviewed and are negative Physical Exam 2 Vital Signs: Vital Signs: Last Vital Signs Temp 98.3 F 05/19/25 11:03 Pulse 82 05/19/25 11:03 Resp 18 05/19/25 11:03 BP 120/69 05/19/25 11:03 Pulse Ox 91 L 05/19/25 11:03 O2 Del Method Nasal Cannula 05/19/25 11:03 O2 Flow Rate 1 05/19/25 11:03 BMI result Body Mass Index 17.8 Gen: in no acute distress HEENT: sclera anicteric, moist mucus membranes Neck: supple Lungs: diminished Heart: regular rate and rhythm, no murmurs Abd: soft, non-tender, non-distended Ext: no edema Skin: warm/well-perfused Neuro: alert and oriented x3, no focal findings Psych: appropriate affect Objective Data Active Medications Acetaminophen (Acetaminophen 325 Mg Tablet) 650 mg PO Q6H PRN PRN Reason: Pain, Mild 1-3,fever,headache Last Admin: 05/18/25 11:55 Dose: 650 mg Documented By: BEATRIZ Albuterol/Ipratropium (Albuterol/Iprat 2.5/0.5mg 3 Ml Ampul.Neb) 3 ml INHALE RQ4H WHILE AWAKE PRN PRN Reason: shortness of breath/wheezing Calcium Carbonate (Calcium Carbonate 750 Mg Tab.Chew) 750 mg PO Q4H PRN PRN Reason: Heartburn Last Admin: 05/17/25 08:37 Dose: 750 mg Documented By: BEATRIZ Enoxaparin Sodium (Enoxaparin Sodium 40 Mg/0.4 Ml Syringe) 40 mg SUBCUT Q24H [facility] Magnesium Hydroxide (Milk Of Magnesia 30 Ml Oral.Susp) 30 ml PO DAILY PRN PRN Reason: Constipation Melatonin (Melatonin 3 Mg Tablet) 6 mg PO BEDTIME PRN PRN Reason: Insomnia Metoprolol Succinate (Metoprolol Succinate Er 50 Mg Tab.Er.24h) 50 mg PO DAILY [facility]; Protocol Last Admin: 05/16/25 08:37 Dose: 50 mg Documented By: BEATRIZ Nicotine (Nicotine 14 Mg Patch.Td24) 14 mg TRANSDERMA DAILY [facility] Last Admin: 05/19/25 08:55 Dose: 14 mg Documented By: BEATRIZ Prednisone (Prednisone 20 Mg Tablet) 40 mg PO DAILY [facility] Sodium Chloride (0.9 % Sodium Chloride Flush 3 Ml Syringe) 3 ml IVFLUSH QSHIFT [facility] Last Admin: 05/19/25 08:58 Dose: 3 ml Documented By: BEATRIZ Labs 05/18/25 01:04 05/19/25 09:14 Labs: Laboratory Results - last 24 hr 05/19/25 09:14 Anion Gap 13 Estim Creat Clear Calc 79.2 Estimated GFR > 60 Random Glucose 130 H Calcium 9.8 D Magnesium 1.9 Microbiology Microbiology Results: Microbiology 05/16/25 20:28 Blood Culture - Preliminary Blood - Venous No growth after 48 hours. 05/16/25 20:29 Blood Culture - Preliminary Blood - Venous No growth after 48 hours. Assessment and Plan (1) Sick sinus syndrome due to sinoatrial node dysfunction: Status: Acute (2) Hypokalemia: Status: Acute (3) Hypoxia: Status: Acute (4) COPD (chronic obstructive pulmonary disease): Status: Acute (5) Acute hypoxic respiratory failure: Status: Acute (6) COPD exacerbation: Status: Acute (7) Parainfluenza infection: Status: Acute Plan d5, 59yo F with tobacco abuse, symptomatic bradycardia s/p PPM, takotsubo cardiomyopathy with recovered EF presented to ED with dyspnea, found to be hypoxic with parainfluenza infection, possibly COPD acute hypoxic respiratory failure due to parainfluenza infection, possible COPD, tobacco abuse - IV->PO steroids, standing->prn nebs, discharge on prednisone + albuterol, should have outpt PFTs, droplet precautions - NRT - supplemental O2, wean as tolerated acute lactic acidosis - due to bronchodilators + hypoxia, not sepsis hypoK - repleted cardiomyopathy wide complex tachycardia - appears to be R on T phenomenon rather than VT, PPM getting interrogated per Cardiology - continue metoprolol succinate - TTE 05/19/25: 1. Normal LV ejection fraction of 65-70% 2. Normal cardiac valvular Dopplers 3. Normal RV systolic pressure 4. No pericardial effusion thrombocytopenia - resolved VTE ppx: enoxaparin dispo: eventual home In my clinical judgment, the patient requires continued inpatient hospitalization for the following reasons: hypoxia, PPM interrogation Total time managing care of this patient today: 35 minutes. Quality Stroke Does the patient have a stroke diagnosis?: No VTE Prior VTE?: No VTE Risk Level:: Medical - moderate - high VTE Device Contraindication: N/A - Device Ordered VTE Drug Contraindication: N/A - Med Ordered
--- NOTE | 2025-05-19 12:50 | HO.ANESPROP2 ---
Documented by User: Jennifer Nichols NP 05/20/25 10:19 HPI - Anesthesia Eval Consult details Narrative: 59 yr old female for left Cystoscopy, Ureteroroscopy, Retro, Laser, with possible stent No CP, no longer feeling SOB *Pt was seen at [facility] January 2025 for syncope, noted reviewed by her [facility] [place] of physical education who reviewed her device interrogation, concerned that she syncopized due to V tach, lasting up to 1 min. Was off carvedilol at the time and tapering herself off psych meds. Echo was repeated *see below Optimized by [facility]ology today 05/20/25: Per Dr. Alva - She is currently optimized from cardiac perspective with low risk for cardiac events in the perioperative period. I would be more concerned about her respiratory status . Acute hypoxic respiratory failure: sats are 91% on 1 liter L NC COPD: she reports no home inhaler use. Tobacco use: smokes 1 pk per day, none in 1 week due to illness H/O NSTEMI in 2020 attributed to Takotsubo cardiomyopathy S/P [employer] [facility] dual-chamber pacemaker: Dr. Alva saw pt 05/20/25 reporting-Wide complex tachycardia during this hospitalization in the monitor are related to pacemaker mediated tachycardia which is a benign condition in his usually associated with inappropriate pacemaker programming. The pacemaker programmed was Re adjusted yesterday with increased post ventricular refractory period which should prevent her from having any further pacemaker mediated tachycardia. s/p hip hemiarthroplasty with GA, LMA size 4 11/2024 [facility] Active Problems Active Problems: All Active Problems Parainfluenza infection (Acute) COPD exacerbation (Acute) Acute hypoxic respiratory failure (Acute) COPD (chronic obstructive pulmonary disease) (Acute) Hypoxia (Acute) S/P hip hemiarthroplasty (Acute) Closed fracture of neck of right femur (Acute) Hypokalemia (Acute) Sick sinus syndrome due to sinoatrial node dysfunction (Acute) Past Medical History Medical History Sick sinus syndrome due to sinoatrial node dysfunction Anxiety Depression Family History Family history of problems with anesthesia: No Surgical History History of Problems with Anesthesia: No Social History Social History Household Members: Significant Other, Children and Adopted Family Housing: House Are you a primary furnace caretaker to a significant other at home: No Do you presently have visiting nurse or other home services: No Alcohol intake: never Comment: medicated, pain tolerable Patient Tobacco Use Status: Current everyday Tobacco user Tobacco use type: Cigarette Cigarette Packs Per Day: 1 Cigarettes Per Day: 10 Years Smoked: 30 e-Cigarette/Vaping Use: Never Used Substance Use Type: Marijuana Advance Directives Date on File: 04/23/21 service: No Meds Allergies Allergy/AdvReac Type Severity Reaction Status Date / Time aspirin Allergy Mild Headache Verified 05/15/25 10:04 ibuprofen Allergy Mild heartburns Verified 05/15/25 10:04 Active Medications: Current Medications Acetaminophen (Acetaminophen 325 Mg Tablet) 650 mg PO Q6H PRN PRN Reason: Pain, Mild 1-3,fever,headache Last Admin: 05/18/25 11:55 Dose: 650 mg Albuterol/Ipratropium (Albuterol/Iprat 2.5/0.5mg 3 Ml Ampul.Neb) 3 ml INHALE RQ4H WHILE AWAKE PRN PRN Reason: shortness of breath/wheezing Calcium Carbonate (Calcium Carbonate 750 Mg Tab.Chew) 750 mg PO Q4H PRN PRN Reason: Heartburn Last Admin: 05/17/25 08:37 Dose: 750 mg Enoxaparin Sodium (Enoxaparin Sodium 40 Mg/0.4 Ml Syringe) 40 mg SUBCUT Q24H [facility] Magnesium Hydroxide (Milk Of Magnesia 30 Ml Oral.Susp) 30 ml PO DAILY PRN PRN Reason: Constipation Melatonin (Melatonin 3 Mg Tablet) 6 mg PO BEDTIME PRN PRN Reason: Insomnia Metoprolol Succinate (Metoprolol Succinate Er 50 Mg Tab.Er.24h) 50 mg PO DAILY [facility]; Protocol Last Admin: 05/16/25 08:37 Dose: 50 mg Nicotine (Nicotine 14 Mg Patch.Td24) 14 mg TRANSDERMA DAILY [facility] Last Admin: 05/19/25 08:55 Dose: 14 mg Prednisone (Prednisone 20 Mg Tablet) 40 mg PO DAILY [facility] Sodium Chloride (0.9 % Sodium Chloride Flush 3 Ml Syringe) 3 ml IVFLUSH QSHIFT [facility] Last Admin: 05/19/25 08:58 Dose: 3 ml Home Medications ?Medication ?Instructions ?Recorded ?Confirmed ?Last Taken ?Type metoprolol succinate 50 mg 50 mg PO DAILY 05/15/25 05/15/25 Unknown History tablet,extended release 24 hr Exam Height,Weight and Vital Signs: Height 6 ft Weight 59.7 kg Last Vital Signs Temp 98.3 F 05/19/25 11:03 Pulse 82 05/19/25 11:03 Resp 18 05/19/25 11:03 BP 120/69 05/19/25 11:03 Pulse Ox 91 L 05/19/25 11:03 O2 Del Method Nasal Cannula 05/19/25 11:03 O2 Flow Rate 1 05/19/25 11:03 Pertinent Lab Results Pertinent Lab Results: Laboratory Tests 05/15/25 05/15/25 05/15/25 11:18 11:19 11:30 WBC 10.9 H RBC 4.82 Hgb 14.3 Hct 40.0 MCV 83.0 MCH 29.7 MCHC 35.8 H RDW 12.9 Plt Count 94 L D MPV 10.7 Immature Gran % (Auto) 0.6 H Neut % (Auto) 67.2 Lymph % (Auto) 23.3 Hancock % (Auto) 8.7 Eos % (Auto) 0.0 Baso % (Auto) 0.2 Lymph # (Auto) 2.5 Hancock # (Auto) 0.9 Eos # (Auto) 0.0 Baso # (Auto) 0.0 Abs Immat Gran (auto) 0.06 H Absolute Neuts (auto) 7.3 Absolute Nucleated RBC 0.000 Nucleated RBC % (auto) 0.0 Smear Tech's Comments Hold Purple Top Hold Blue Top SEE NOTE VBG pH 7.36 VBG pCO2 53 VBG pO2 36 VBG HCO3 30 H VBG O2 Saturation 52.0 VBG Base Excess 3.6 Sodium 137 Potassium 3.1 L Chloride 96 Carbon Dioxide 30 H Anion Gap 14 BUN 15 Creatinine 0.80 Estim Creat Clear Calc -28.7 Estimated GFR > 60 Random Glucose 121 H Lactic Acid Lactic Acid F/U @ 2Hr Calcium 9.1 Magnesium 1.9 Total Bilirubin 0.4 AST 27 ALT 7 Alkaline Phosphatase 54 Troponin I High Sens 3.6 Total Protein 7.8 Albumin 4.6 Respiratory Panel Graham Adenovirus (Rapid PCR) B.pert (TEM-PCR) B.parapertussis DNA PCR C. pneumoniae DNA (PCR) Coronavirus OC43 (PCR) Coronavirus HKU1 (PCR) Coronavirus 229E (PCR) COVID-19 ([facility]) Negative COVID-19 Clin Com See Note Coronavirus NL63 (PCR) Human Metapneumovir PCR Influenza Type A (JEAN PAUL) Negative Influenza A (RT-PCR) Influenza A (H1) PCR Influ A (H1/09) PCR Influenza A (H3) PCR Influenza Type B (JEAN PAUL) Negative Influenza B (RT-PCR) Influenza A & B Note See Note M. pneumoniae (PCR) Parainfluenza 1 (PCR) Parainfluenza 2 (PCR) Parainfluenza 3 (PCR) Parainfluenza 4 (PCR) RSV (PCR) Entero/Rhino (PCR) SARS-CoV-2 RNA (RT-PCR) 05/15/25 05/15/25 05/15/25 12:24 14:49 16:34 WBC RBC Hgb Hct MCV MCH MCHC RDW Plt Count MPV Immature Gran % (Auto) Neut % (Auto) Lymph % (Auto) Hancock % (Auto) Eos % (Auto) Baso % (Auto) Lymph # (Auto) Hancock # (Auto) Eos # (Auto) Baso # (Auto) Abs Immat Gran (auto) Absolute Neuts (auto) Absolute Nucleated RBC Nucleated RBC % (auto) Smear Tech's Comments Hold Purple Top Hold Blue Top VBG pH VBG pCO2 VBG pO2 VBG HCO3 VBG O2 Saturation VBG Base Excess Sodium Potassium Chloride Carbon Dioxide Anion Gap BUN Creatinine Estim Creat Clear Calc Estimated GFR Random Glucose Lactic Acid 2.7 H* Lactic Acid F/U @ 2Hr 1.2 Calcium Magnesium Total Bilirubin AST ALT Alkaline Phosphatase Troponin I High Sens Total Protein Albumin Respiratory Panel Graham See Note Adenovirus (Rapid PCR) Not Detected B.pert (TEM-PCR) Not Detected B.parapertussis DNA PCR Not Detected C. pneumoniae DNA (PCR) Not Detected Coronavirus OC43 (PCR) Not Detected Coronavirus HKU1 (PCR) Not Detected Coronavirus 229E (PCR) Not Detected COVID-19 ([facility]) COVID-19 Clin Com Coronavirus NL63 (PCR) Not Detected Human Metapneumovir PCR Not Detected Influenza Type A (JEAN PAUL) Influenza A (RT-PCR) Not Detected Influenza A (H1) PCR Not Detected Influ A (H1/09) PCR Not Detected Influenza A (H3) PCR Not Detected Influenza Type B (JEAN PAUL) Influenza B (RT-PCR) Not Detected Influenza A & B Note M. pneumoniae (PCR) Not Detected Parainfluenza 1 (PCR) Not Detected Parainfluenza 2 (PCR) Detected A Parainfluenza 3 (PCR) Not Detected Parainfluenza 4 (PCR) Not Detected RSV (PCR) Not Detected Entero/Rhino (PCR) Not Detected SARS-CoV-2 RNA (RT-PCR) Not Detected 05/16/25 05/16/25 05/18/25 06:21 20:28 01:04 WBC 5.8 7.8 RBC 4.46 4.20 Hgb 13.1 12.4 Hct 37.7 35.9 L MCV 84.5 85.5 MCH 29.4 29.5 MCHC 34.7 34.5 RDW 12.9 13.2 Plt Count 106 L 166 D MPV 10.8 10.2 Immature Gran % (Auto) 0.5 H 0.8 H Neut % (Auto) 77.1 H 77.7 H Lymph % (Auto) 19.0 L 14.9 L Hancock % (Auto) 3.4 6.5 Eos % (Auto) 0.0 0.0 Baso % (Auto) 0.0 0.1 Lymph # (Auto) 1.1 L 1.2 Hancock # (Auto) 0.2 0.5 Eos # (Auto) 0.0 0.0 Baso # (Auto) 0.0 0.0 Abs Immat Gran (auto) 0.03 0.06 H Absolute Neuts (auto) 4.5 6.1 Absolute Nucleated RBC 0.000 0.000 Nucleated RBC % (auto) 0.0 0.0 Smear Tech's Comments VERIFIED VERIFIED Hold Purple Top SEE NOTE Hold Blue Top VBG pH VBG pCO2 VBG pO2 VBG HCO3 VBG O2 Saturation VBG Base Excess Sodium 137 134 L 137 Potassium 4.6 D 4.4 4.1 Chloride 100 100 102 Carbon Dioxide 31 H 25 27 Anion Gap 12 13 12 BUN 13 17 H 20 H Creatinine 0.58 0.62 0.69 Estim Creat Clear Calc 98.3 92.1 82.7 Estimated GFR > 60 > 60 > 60 Random Glucose 149 H 218 H 154 H Lactic Acid 2.0 2.4 H* Lactic Acid F/U @ 2Hr Calcium 8.8 8.8 8.9 Magnesium 1.9 Total Bilirubin 0.2 0.2 AST 21 19 ALT 8 9 Alkaline Phosphatase 44 49 Troponin I High Sens 5.7 D Total Protein 6.8 6.4 L Albumin 4.0 3.9 Respiratory Panel Graham Adenovirus (Rapid PCR) B.pert (TEM-PCR) B.parapertussis DNA PCR C. pneumoniae DNA (PCR) Coronavirus OC43 (PCR) Coronavirus HKU1 (PCR) Coronavirus 229E (PCR) COVID-19 ([facility]) COVID-19 Clin Com Coronavirus NL63 (PCR) Human Metapneumovir PCR Influenza Type A (JEAN PAUL) Influenza A (RT-PCR) Influenza A (H1) PCR Influ A (H1/09) PCR Influenza A (H3) PCR Influenza Type B (JEAN PAUL) Influenza B (RT-PCR) Influenza A & B Note M. pneumoniae (PCR) Parainfluenza 1 (PCR) Parainfluenza 2 (PCR) Parainfluenza 3 (PCR) Parainfluenza 4 (PCR) RSV (PCR) Entero/Rhino (PCR) SARS-CoV-2 RNA (RT-PCR) 05/18/25 05/19/25 03:29 09:14 WBC RBC Hgb Hct MCV MCH MCHC RDW Plt Count MPV Immature Gran % (Auto) Neut % (Auto) Lymph % (Auto) Hancock % (Auto) Eos % (Auto) Baso % (Auto) Lymph # (Auto) Hancock # (Auto) Eos # (Auto) Baso # (Auto) Abs Immat Gran (auto) Absolute Neuts (auto) Absolute Nucleated RBC Nucleated RBC % (auto) Smear Tech's Comments Hold Purple Top Hold Blue Top VBG pH VBG pCO2 VBG pO2 VBG HCO3 VBG O2 Saturation VBG Base Excess Sodium 139 Potassium 3.9 Chloride 99 Carbon Dioxide 31 H Anion Gap 13 BUN 18 H Creatinine 0.72 Estim Creat Clear Calc 79.2 Estimated GFR > 60 Random Glucose 130 H Lactic Acid Lactic Acid F/U @ 2Hr 2.3 H* Calcium 9.8 D Magnesium 1.9 Total Bilirubin AST ALT Alkaline Phosphatase Troponin I High Sens Total Protein Albumin Respiratory Panel Graham Adenovirus (Rapid PCR) B.pert (TEM-PCR) B.parapertussis DNA PCR C. pneumoniae DNA (PCR) Coronavirus OC43 (PCR) Coronavirus HKU1 (PCR) Coronavirus 229E (PCR) COVID-19 ([facility]) COVID-19 Clin [facility] Coronavirus NL63 (PCR) Human Metapneumovir PCR Influenza Type A (JEAN PAUL) Influenza A (RT-PCR) Influenza A (H1) PCR Influ A (H1/) PCR Influenza A (H3) PCR Influenza Type B (JEAN PAUL) Influenza B (RT-PCR) Influenza A & B Note M. pneumoniae (PCR) Parainfluenza 1 (PCR) Parainfluenza 2 (PCR) Parainfluenza 3 (PCR) Parainfluenza 4 (PCR) RSV (PCR) Entero/Rhino (PCR) SARS-CoV-2 RNA (RT-PCR) Assessment and Plan Final Anesthetic Review Family History of Problems with Anesthesia: No History of Problems with Anesthesia: No Documented by User: Jessica Beauchamp CRNA 05/20/25 12:41 [facility] Past Medical History Medical History Sick sinus syndrome due to sinoatrial node dysfunction Anxiety Depression Cognitive capacity: normal Functional capacity: independent ambulation Social History Social History Household Members: Significant Other, Children and Adopted Family Housing: House Are you a primary furnace caretaker to a significant other at home: No Do you presently have visiting nurse or other home services: No Alcohol intake: never Comment: medicated, pain tolerable Patient Tobacco Use Status: Current everyday Tobacco user Tobacco use type: Cigarette Cigarette Packs Per Day: 1 Cigarettes Per Day: 10 Years Smoked: 30 e-Cigarette/Vaping Use: Never Used Substance Use Type: Marijuana Advance Directives Date on File: 04/23/21 service: No Meds Allergies Allergy/AdvReac Type Severity Reaction Status Date / Time aspirin Allergy Mild Headache Verified 05/15/25 10:04 ibuprofen Allergy Mild heartburns Verified 05/15/25 10:04 Home Medications ?Medication ?Instructions ?Recorded ?Confirmed ?Last Taken ?Type metoprolol succinate 50 mg 50 mg PO DAILY 05/15/25 05/15/25 Unknown History tablet,extended release 24 hr Documented by User: Ezequiel Arshad MD 05/20/25 12:48 [facility] Past Medical History Medical History Sick sinus syndrome due to sinoatrial node dysfunction Anxiety Depression Cognitive capacity: pacemaker Social History Social History Household Members: Significant Other, Children and Adopted Family Housing: House Are you a primary furnace caretaker to a significant other at home: No Do you presently have visiting nurse or other home services: No Alcohol intake: never Comment: medicated, pain tolerable Patient Tobacco Use Status: Current everyday Tobacco user Tobacco use type: Cigarette Cigarette Packs Per Day: 1 Cigarettes Per Day: 10 Years Smoked: 30 e-Cigarette/Vaping Use: Never Used Substance Use Type: Marijuana Advance Directives Date on File: 04/23/21 service: No Meds Allergies Allergy/AdvReac Type Severity Reaction Status Date / Time aspirin Allergy Mild Headache Verified 05/15/25 10:04 ibuprofen Allergy Mild heartburns Verified 05/15/25 10:04 Home Medications ?Medication ?Instructions ?Recorded ?Confirmed ?Last Taken ?Type metoprolol succinate 50 mg 50 mg PO DAILY 05/15/25 05/15/25 Unknown History tablet,extended release 24 hr Exam Exam Date and Time: 05/20/2025 Airway Mallampati Class: II TM Dist: >3cm Denture: Upper Partial: Lower Loose/Missing/Broken Teeth: Yes (edentulous) Heart: normal Lungs: normal Other: normal with a pacemaker Assessment and Plan Assessment Anesthesia Assessment: Anesthesia Plan Discussed and Smoking Cess. Discussed Final Anesthetic Review NPO: Yes ASA Class: III Final Preanesthetic Review: No Changes in Pt Med Stat, Meds/Allgs Chart Reviewed, Consent Obtained/Reviewed and Anes Risks/Benef Reviewed Patient Risk: Intermediate Procedure Risk: Intermediate Anesthetic Plan Anesthetic Plan: GA Disposition: Standard PACU Documented by User: Rachel Sheldon MD 05/21/25 17:20 [facility] Past Medical History Medical History Sick sinus syndrome due to sinoatrial node dysfunction Anxiety Depression Social History Social History Household Members: Significant Other, Children and Adopted Family Housing: House Are you a primary furnace caretaker to a significant other at home: No Do you presently have visiting nurse or other home services: No Alcohol intake: never Comment: medicated, pain tolerable Patient Tobacco Use Status: Current everyday Tobacco user Tobacco use type: Cigarette Cigarette Packs Per Day: 1 Cigarettes Per Day: 10 Years Smoked: 30 e-Cigarette/Vaping Use: Never Used Substance Use Type: Marijuana Advance Directives Date on File: 04/23/21 service: No Meds Allergies Allergy/AdvReac Type Severity Reaction Status Date / Time aspirin Allergy Mild Headache Verified 05/15/25 10:04 ibuprofen Allergy Mild heartburns Verified 05/15/25 10:04 Home Medications ?Medication ?Instructions ?Recorded ?Confirmed ?Last Taken ?Type metoprolol succinate 50 mg 50 mg PO DAILY 05/15/25 05/15/25 Unknown History tablet,extended release 24 hr Exam Airway Mallampati Class: II (edentulous) Documented by User: Ike Martino MD 05/21/25 17:52 [facility] Past Medical History Medical History Sick sinus syndrome due to sinoatrial node dysfunction Anxiety Depression Narrative: current acute influenza. SpO2 90% on ra. Social History Social History Household Members: Significant Other, Children and Adopted Family Housing: House Are you a primary furnace caretaker to a significant other at home: No Do you presently have visiting nurse or other home services: No Alcohol intake: never Comment: medicated, pain tolerable Patient Tobacco Use Status: Current everyday Tobacco user Tobacco use type: Cigarette Cigarette Packs Per Day: 1 Cigarettes Per Day: 10 Years Smoked: 30 e-Cigarette/Vaping Use: Never Used Substance Use Type: Marijuana Advance Directives Date on File: 04/23/21 service: No Meds Allergies Allergy/AdvReac Type Severity Reaction Status Date / Time aspirin Allergy Mild Headache Verified 05/15/25 10:04 ibuprofen Allergy Mild heartburns Verified 05/15/25 10:04 Home Medications ?Medication ?Instructions ?Recorded ?Confirmed ?Last Taken ?Type metoprolol succinate 50 mg 50 mg PO DAILY 05/15/25 05/15/25 Unknown History tablet,extended release 24 hr Assessment and Plan Assessment Anesthesia Assessment: Chart Reviewed Anesthetic Plan Anesthetic Plan: Agree w/ Assess. and Plan
[2025-05-19 15:11] VITALS: BP 126/79; PULSE 67; RESP 18; TEMP 36.3; O2SAT 92
--- NOTE | 2025-05-19 15:59 | MHC.CM.PN ---
EMR REVIEWED AND PER MD ROUNDS, PT IS NOT MEDICALLY CLEARED FOR DISCHARGE DUE TO MANAGEMENT OF SICK SINUS SYNDROME/COPD, PACEMAKER INTERROGATION AND PT EVAL PENDING.
[2025-05-19] MEDS: Lidocaine 4 % Patch ADH..PATCH 1 PATCH TRANSDERMA (16:04)
[2025-05-19] MEDS: oxyCODONE HCl Immed Release 5 MG TABLET PO ×2 (16:35→20:19)
--- NOTE | 2025-05-19 18:45 | PM.UROCN ---
History of Present Illness Consult details Consult date: 05/19/25 Narrative: CC: Left-sided hydro uretero nephrosis 59-year-old female Presentation 4 days ago through the emergency department Upper respiratory symptoms with saturations proximally 90% Normal chest x-ray Thrombocytopenia with platelets 94, lactate 2.7 Admitted for empiric antibiotics and breathing treatments from which she has done well CT scan included following incidental finding - There is moderate left-sided hydronephrosis. The left ureter is distended to the level of the upper pelvis where there appears to be a transition point. At the level of transition, there is a question of soft tissue thickening of the left ureter - personal review of the films suggest dilated ureter to pelvic brim Upon discussion with patient has had left-sided flank discomfort for a number of weeks Recommend cystoscopy with left retrograde and possible diagnostic ureteroscopy Review of Systems Constitutional: Constitutional: Reports as per HPI and Reports no additional constitutional complaints Cardiovascular: Cardiovascular: Reports as per HPI and Reports no additional cardiovascular complaints Respiratory: Respiratory: Reports as per HPI and Reports no additional respiratory complaints Gastrointestinal: Gastrointestinal: Reports as per HPI and Reports no additional gastrointestinal complaints Genitourinary: Genitourinary: Reports as per HPI Musculoskeletal: Musculoskeletal: Reports no additional musculoskeletal complaints and Reports as per HPI Neurologic: Reports system reviewed and no additional complaints, except as documented and Reports as per HPI [facility] Past Medical History Medical History Sick sinus syndrome due to sinoatrial node dysfunction Anxiety Depression Social History Social History Household Members: Significant Other, Children and Adopted Family Housing: House Do you presently have visiting nurse or other home services: No Alcohol intake: never Comment: medicated, pain tolerable Patient Tobacco Use Status: Current everyday Tobacco user Tobacco use type: Cigarette Cigarette Packs Per Day: 1 Cigarettes Per Day: 20.0 Years Smoked: 30 e-Cigarette/Vaping Use: Never Used Substance Use Type: Marijuana Advance Directives Date on File: 04/23/21 service: No Meds Allergies Allergy/AdvReac Type Severity Reaction Status Date / Time aspirin Allergy Mild Headache Verified 05/15/25 10:04 ibuprofen Allergy Mild heartburns Verified 05/15/25 10:04 Active Medications: Current Medications Acetaminophen (Acetaminophen 325 Mg Tablet) 650 mg PO Q6H PRN PRN Reason: Pain, Mild 1-3,fever,headache Last Admin: 05/19/25 16:07 Dose: 650 mg Albuterol/Ipratropium (Albuterol/Iprat 2.5/0.5mg 3 Ml Ampul.Neb) 3 ml INHALE RQ4H WHILE AWAKE PRN PRN Reason: shortness of breath/wheezing Calcium Carbonate (Calcium Carbonate 750 Mg Tab.Chew) 750 mg PO Q4H PRN PRN Reason: Heartburn Last Admin: 05/19/25 16:06 Dose: 750 mg Enoxaparin Sodium (Enoxaparin Sodium 40 Mg/0.4 Ml Syringe) 40 mg SUBCUT Q24H [facility] Last Admin: 05/19/25 12:51 Dose: 40 mg Lidocaine (Lidocaine 4 % Patch Adh..Patch) 2 patch TRANSDERMA DAILY [facility]; Protocol Magnesium Hydroxide (Milk Of Magnesia 30 Ml Oral.Susp) 30 ml PO DAILY PRN PRN Reason: Constipation Melatonin (Melatonin 3 Mg Tablet) 6 mg PO BEDTIME PRN PRN Reason: Insomnia Metoprolol Succinate (Metoprolol Succinate Er 50 Mg Tab.Er.24h) 50 mg PO DAILY [facility]; Protocol Last Admin: 05/16/25 08:37 Dose: 50 mg Nicotine (Nicotine 14 Mg Patch.Td24) 14 mg TRANSDERMA DAILY [facility] Last Admin: 05/19/25 08:55 Dose: 14 mg Oxycodone HCl (Oxycodone Hcl Immed Release 5 Mg Tablet) 5 mg PO Q4H PRN PRN Reason: pain, moderate-sev Last Admin: 05/19/25 16:35 Dose: 5 mg Prednisone (Prednisone 20 Mg Tablet) 40 mg PO DAILY [facility] Sodium Chloride (0.9 % Sodium Chloride Flush 3 Ml Syringe) 3 ml IVFLUSH QSHIFT [facility] Last Admin: 05/19/25 16:07 Dose: 3 ml Home Medications ?Medication ?Instructions ?Recorded ?Confirmed ?Last Taken ?Type metoprolol succinate 50 mg 50 mg PO DAILY 05/15/25 05/15/25 Unknown History tablet,extended release 24 hr Physical Exam Vital Signs: Vital Signs: Last Vital Signs Temp 97.4 F 05/19/25 15:11 Pulse 67 05/19/25 15:11 Resp 18 05/19/25 15:11 BP 126/79 05/19/25 15:11 Pulse Ox 92 05/19/25 15:11 O2 Del Method Room Air 05/19/25 15:11 O2 Flow Rate 1 05/19/25 11:03 BMI result Body Mass Index 17.8 Const: General: cooperative, healthy appearing, comfortable and no acute distress Orientation/consciousness: patient oriented x3 HEENT: Face and sinus: Yes normal facial exam Mouth: moist mucous membranes Neck: Neck: Yes normal visual inspection, Yes full ROM and Yes trachea midline Chest: Chest palpation & inspection: normal inspection of the chest Resp: Effort & Inspection: normal respiratory effort, able to speak in complete sentences and no respiratory distress GI: Inspection: Yes normal to inspection Back/Spine/Pelvis: Cervical Spine: normal cervical lordosis Thoracic/Lumbar Spine: thoracic and lumbar spine normal to inspection Skin: General skin exam: no rashes or lesions noted Neuro: General: patient oriented x3, tone normal and moves all extremities Extrem: General: Yes normal to inspection and Yes capillary refill normal Results Labs 05/18/25 01:04 05/19/25 09:14 Labs: Abnormal lab results 05/19/25 Range/Units 09:14 Carbon Dioxide 31 H (22-29) mmol/L BUN 18 H (9-16) mg/dL Random Glucose 130 H (60-115) mg/dL BMP 05/19/25 09:14 Sodium 139 Potassium 3.9 Chloride 99 Carbon Dioxide 31 H BUN 18 H Creatinine 0.72 Calcium 9.8 D All other labs normal. Assessment and Plan (1) Hydronephrosis: Status: Acute Plan Risks, benefits and alternatives to therapy were discussed. These include but are not limited to infection, bleeding, damage to local organs and tissues, need for further interventions. Anesthetic risks regarding cardiac arrhythmia, blood clots, and potential mortality were discussed. The patient understands the typical recovery time and the outpatient nature of the procedure. After consideration of these risks the patient gives full informed consent and they wish to move ahead with the procedure. Cystoscopy, left retrograde, possible left ureteroscopy and stent placement Procedures Date of Service Date of Service: 05/19/25
[2025-05-19 19:38] VITALS: BP 119/74; PULSE 68; RESP 18; TEMP 36.6; O2SAT 92
[2025-05-20] VITALS (8 sets, daily range): BP systolic 99–158; BP diastolic 57–94; PULSE 60–70; RESP 18–20; TEMP 36.2–37.1; O2SAT 92–95
[2025-05-20 07:18] LABS: Anion Gap 10 (12-20); Blood Urea Nitrogen 22 mg/dL (9-16); Calcium 10.1 mg/dL (8.4-10.2); Carbon Dioxide 35 mmol/L (22-29); Chloride 100 mmol/L (96-108); Creatinine Clr Calc Pharmacy 69.6; Estimated Glomerular Filt Rate > 60; Magnesium 2.1 mg/dL (1.6-2.6); Potassium 4.6 mmol/L (3.3-5.1); Sodium 140 mmol/L (135-145)
[2025-05-20] MEDS: Metoprolol Succinate ER 50 MG TAB.ER.24H PO (09:13)
--- NOTE | 2025-05-20 09:35 | PM.CNCAR ---
History of Present Illness History of Present Illness Date of Service: 05/20/25 Consult reason: pre-op evaluation and other (Wide complex tachycardia) Chief complaint: respiratory failure w/ hypoxia Narrative: I was consulted to see Agustina in cardiology consultation today is she is planned to undergo urologic procedure under anesthesia for obstructive uropathy with left-sided hydronephrosis. Patient came to the hospital with worsening shortness of breath and chest heaviness and not able to breathe. Patient since then has done a lot better. She was diagnose with COPD exacerbation with a acute hypoxemic respiratory failure secondary to the same. Patient while being monitored on tele was noted to have wide complex tachycardia. Cardiology was curbside consulted over the weekend and seems like this tachycardia is were pacemaker mediated tachycardia. Yesterday he had pacemaker evaluation and this confirmed pacemaker mediated tachycardia due to short post ventricular refractory period programmed on the pacemaker. This was reprogrammed yesterday and since then she has not had any wide complex tachycardia. She has prior history of pacemaker placement in 2020 for symptomatic bradycardia suggestive of sick sinus syndrome at that time she also had some polymorphic ventricular tachycardia. Subsequent to the pacemaker 2 days later she developed chest pain and came to the hospital and was diagnose with NSTEMI and subsequently sent for cardiac catheterization at which time she was diagnose with takotsubo cardiomyopathy with normal coronary arteries. Following that she had a follow-up echocardiogram at [facility] where she has her chronic follow-up for cardiology and they echocardiogram with normalized LV ejection fraction but was started on carvedilol therapy for management of takotsubo cardiomyopathy. Since then she had has as per the notes she has had sketchy follow-up with intermittent not compliance with follow-up including remote monitoring. 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 I do not unfortunately have the rhythm strips and question that this could has been pacemaker mediated tachycardia versus real ventricular tachycardia. She has upcoming electrophysiology appointment in July. She had an echocardiogram done in February post loss of consciousness event which shows overall normal structure of the heart. She has no prior myocardial infarction. She has history of chronic pain syndrome, chronic smoking, anxiety. In January after the evaluation with the Cardiology office her carvedilol was increased to 6.25 mg b.i.d.. Not sure if she is taking that. Since coming to the hospital her respiratory status has improved, hypoxemia has improved as in his chest tightness pressure has improved. Has no clear evidence of acute myocardial injury. Cardiology consult sort because of her wide complex tachycardia during this hospitalization as well as need for undergoing urologic procedure. Review of Systems Constitutional: Constitutional: Reports no additional constitutional complaints Eyes: Eyes: Reports no additional eye complaints Cardiovascular: Cardiovascular: Denies Loss of Consciousness, Denies palpitations, Reports dyspnea and Reports dyspnea on exertion Respiratory: Respiratory: Reports pain on inspiration, Reports pain with cough, Reports dyspnea, Reports dyspnea on exertion and Reports wheezing Gastrointestinal: Gastrointestinal: Reports no additional gastrointestinal complaints Genitourinary: Genitourinary: Reports no additional female genitourinary complaints Musculoskeletal: Musculoskeletal: Reports no additional musculoskeletal complaints Integumentary/Breasts: Skin/Breast: Reports system reviewed and no additional complaints, except as docu Neurologic: Reports system reviewed and no additional complaints, except as documented Psychiatric: Psychiatric: Reports anxiety Endocrine: Endocrine: Denies palpitations Allergic/Immunologic: Allergic/Immunologic: Reports wheezing [facility] Past Medical History Medical History Sick sinus syndrome due to sinoatrial node dysfunction Anxiety Depression Social History Social History Household Members: Significant Other, Children and Adopted Family Housing: House Do you presently have visiting nurse or other home services: No Alcohol intake: never Comment: medicated, pain tolerable Patient Tobacco Use Status: Current everyday Tobacco user Tobacco use type: Cigarette Cigarette Packs Per Day: 1 Cigarettes Per Day: 20.0 Years Smoked: 30 e-Cigarette/Vaping Use: Never Used Substance Use Type: Marijuana Advance Directives Date on File: 04/23/21 service: No Meds Allergies Allergy/AdvReac Type Severity Reaction Status Date / Time aspirin Allergy Mild Headache Verified 05/15/25 10:04 ibuprofen Allergy Mild heartburns Verified 05/15/25 10:04 Active Medications: Current Medications Acetaminophen (Acetaminophen 325 Mg Tablet) 650 mg PO Q6H PRN PRN Reason: Pain, Mild 1-3,fever,headache Last Admin: 05/19/25 16:07 Dose: 650 mg Albuterol/Ipratropium (Albuterol/Iprat 2.5/0.5mg 3 Ml Ampul.Neb) 3 ml INHALE RQ4H WHILE AWAKE PRN PRN Reason: shortness of breath/wheezing Calcium Carbonate (Calcium Carbonate 750 Mg Tab.Chew) 750 mg PO Q4H PRN PRN Reason: Heartburn Last Admin: 05/20/25 06:38 Dose: 750 mg Enoxaparin Sodium (Enoxaparin Sodium 40 Mg/0.4 Ml Syringe) 40 mg SUBCUT Q24H [facility] Last Admin: 05/19/25 12:51 Dose: 40 mg Lidocaine (Lidocaine 4 % Patch Adh..Patch) 2 patch TRANSDERMA DAILY [facility]; Protocol Last Admin: 05/20/25 09:14 Dose: Not Given Magnesium Hydroxide (Milk Of Magnesia 30 Ml Oral.Susp) 30 ml PO DAILY PRN PRN Reason: Constipation Melatonin (Melatonin 3 Mg Tablet) 6 mg PO BEDTIME PRN PRN Reason: Insomnia Metoprolol Succinate (Metoprolol Succinate Er 50 Mg Tab.Er.24h) 50 mg PO DAILY [facility]; Protocol Last Admin: 05/20/25 09:13 Dose: 50 mg Nicotine (Nicotine 14 Mg Patch.Td24) 14 mg TRANSDERMA DAILY [facility] Last Admin: 05/20/25 09:14 Dose: Not Given Oxycodone HCl (Oxycodone Hcl Immed Release 5 Mg Tablet) 5 mg PO Q4H PRN PRN Reason: pain, moderate-sev Last Admin: 05/19/25 20:19 Dose: 5 mg Prednisone (Prednisone 20 Mg Tablet) 40 mg PO DAILY [facility] Last Admin: 05/20/25 09:13 Dose: 40 mg Sodium Chloride (0.9 % Sodium Chloride Flush 3 Ml Syringe) 3 ml IVFLUSH QSHIFT [facility] Last Admin: 05/19/25 20:24 Dose: 3 ml Home Medications ?Medication ?Instructions ?Recorded ?Confirmed ?Last Taken ?Type metoprolol succinate 50 mg 50 mg PO DAILY 05/15/25 05/15/25 Unknown History tablet,extended release 24 hr Physical Exam Vital Signs: Vital Signs: Last Vital Signs Temp 97.6 F 05/20/25 07:34 Pulse 60 05/20/25 07:34 Resp 18 05/20/25 07:34 BP 158/94 H 05/20/25 03:22 Pulse Ox 93 05/20/25 07:34 O2 Del Method Nasal Cannula 05/20/25 07:34 O2 Flow Rate 1 05/20/25 07:34 BMI result Body Mass Index 17.8 Const: General: cooperative, alert, awake, in distress mild and respiratory and anxious Nutritional Appearance: thin Orientation/consciousness: patient oriented x3 Limitations: no limitations HEENT: Head: Yes normocephalic and Yes atraumatic Neck: Neck: Yes trachea midline, Yes supple and Yes no JVD Resp: Auscultation: wheezes and diminished lung sounds Cardio: Jugular venous distension: no JVD Rate: regular rate Rhythm: regular rhythm Heart sounds: S1 normal heart sound present, S2 normal heart sound present, no click, no gallops, no murmurs and no rubs GI: Auscultation: normal bowel sounds Skin: General skin exam: no rashes or lesions noted Neuro: General: patient oriented x3 and no focal motor deficits Extrem: General: Yes no clubbing, cyanosis or edema Objective Labs and Meds 05/18/25 01:04 05/20/25 06:27 Lab results: Laboratory Results - last 24 hr 05/19/25 05/20/25 09:14 06:27 Hold Purple Top SEE NOTE Sodium 139 140 Potassium 3.9 4.6 Chloride 99 100 Carbon Dioxide 31 H 35 H Anion Gap 13 10 L BUN 18 H 22 H Creatinine 0.72 0.82 Estim Creat Clear Calc 79.2 69.6 Estimated GFR > 60 > 60 Random Glucose 130 H 98 Calcium 9.8 D 10.1 Magnesium 1.9 2.1 Assessment and Plan (1) Wide-complex tachycardia: Status: Acute Wide complex tachycardia during this hospitalization in the monitor are related to pacemaker mediated tachycardia which is a benign condition in his usually associated with inappropriate pacemaker programming. The pacemaker programmed was Re adjusted yesterday with increased post ventricular refractory period which should prevent her from having any further pacemaker mediated tachycardia. Unfortunately I do not have any strips from the January office visit, where she was told that she might have ventricular tachycardia. This is unclear at this point in time. She has an upcoming EP visit in July. Meanwhile she had workup for structural heart disease with echocardiogram which was within normal limits. She has normal coronary artery by cardiac catheterization in 2020. I would continue with carvedilol therapy at this point in time (2) Preoperative cardiovascular examination: Status: Acute Preoperative cardiovascular risk stratification for urologic procedure under anesthesia. She is currently optimized from cardiac perspective with low risk for cardiac events in the perioperative period. I would be more concerned about her respiratory status. Continue carvedilol in the perioperative. (3) Sick sinus syndrome due to sinoatrial node dysfunction: Status: Acute Patient has a pacemaker placement 2020 for bradycardia and suspected sick sinus syndrome. Pacemaker is working well by evaluation yesterday at bedside. No other interventions needed. Will sign of the case. Thank you for allowing me to partake in her care Procedures Date of Service Date of Service: 05/20/25
--- NOTE | 2025-05-20 13:06 | PC.NURSE ---
Surgery cx per anesthesia. Due to resp status. MD review at bedside with pt. Pt agreed w/plan.
[2025-05-20] MEDS: Lidocaine 4 % Patch ADH..PATCH 2 PATCH TRANSDERMA (14:43)
--- NOTE | 2025-05-20 14:53 | HO.PM.IMPN ---
Subjective Subjective Date of Service: 05/20/25 Interval History: urologic procedure canceled due to respiratory issues though she is in absolutely no distress on 1L O2 no dyspnea ongoing flank pain PPM reprogrammed due to pacemaker-mediated tachycardia Review of Systems Review of Systems: Yes all other systems are reviewed and are negative Physical Exam Vital Signs: Vital Signs: Last Vital Signs Temp 98.0 F 05/20/25 11:47 Pulse 62 05/20/25 11:47 Resp 18 05/20/25 11:47 BP 124/76 05/20/25 11:47 Pulse Ox 94 05/20/25 11:47 O2 Del Method Nasal Cannula 05/20/25 11:47 O2 Flow Rate 3 05/20/25 11:47 BMI result Body Mass Index 17.8 Gen: in no acute distress HEENT: sclera anicteric, moist mucus membranes Neck: supple Lungs: diminished Heart: regular rate and rhythm, no murmurs Abd: soft, non-tender, non-distended : L flank tenderness Ext: no edema Skin: warm/well-perfused Neuro: alert and oriented x3, no focal findings Psych: appropriate affect Objective Data Active Medications Acetaminophen (Acetaminophen 325 Mg Tablet) 650 mg PO Q6H PRN PRN Reason: Pain, Mild 1-3,fever,headache Last Admin: 05/19/25 16:07 Dose: 650 mg Documented By: BEATRIZ Albuterol/Ipratropium (Albuterol/Iprat 2.5/0.5mg 3 Ml Ampul.Neb) 3 ml INHALE RQ4H WHILE AWAKE PRN PRN Reason: shortness of breath/wheezing Calcium Carbonate (Calcium Carbonate 750 Mg Tab.Chew) 750 mg PO Q4H PRN PRN Reason: Heartburn Last Admin: 05/20/25 06:38 Dose: 750 mg Documented By: CAMILLE Enoxaparin Sodium (Enoxaparin Sodium 40 Mg/0.4 Ml Syringe) 40 mg SUBCUT Q24H [facility] Last Admin: 05/20/25 14:43 Dose: 40 mg Documented By: BEATRIZ Fentanyl (Fentanyl Citrate/Pf 100 Mcg/2 Ml Vial) 50 mcg IVPUSH Q5M PRN PRN Reason: Pain, Moderate to Severe (Pain Scale 4-10) Stop: 05/20/25 18:49 Hydromorphone HCl (Hydromorphone Hcl 0.5 Mg/0.5 Ml Syringe) 0.5 mg IVPUSH Q5M PRN PRN Reason: Pain, Moderate to Severe (Pain Scale 4-10) Stop: 05/20/25 18:49 Lactated Ringer's (Lr) 500 mls @ 20 mls/hr IVCONT .Q24H [facility] Last Admin: 05/20/25 14:42 Dose: Not Given Documented By: BEATRIZ Non-Admin Reason: PACU order Lidocaine (Lidocaine 4 % Patch Adh..Patch) 2 patch TRANSDERMA DAILY [facility]; Protocol Last Admin: 05/20/25 14:43 Dose: 2 patch Documented By: BEATRIZ Magnesium Hydroxide (Milk Of Magnesia 30 Ml Oral.Susp) 30 ml PO DAILY PRN PRN Reason: Constipation Melatonin (Melatonin 3 Mg Tablet) 6 mg PO BEDTIME PRN PRN Reason: Insomnia Metoprolol Succinate (Metoprolol Succinate Er 50 Mg Tab.Er.24h) 50 mg PO DAILY [facility]; Protocol Last Admin: 05/20/25 09:13 Dose: 50 mg Documented By: BEATRIZ Naloxone HCl (Naloxone Hcl 0.4 Mg/Ml Vial) 0.04 mg IVPUSH Q5M PRN PRN Reason: Excessive sedation or RR < 8 Nicotine (Nicotine 14 Mg Patch.Td24) 14 mg TRANSDERMA DAILY [facility] Last Admin: 05/20/25 09:14 Dose: Not Given Documented By: BEATRIZ Non-Admin Reason: Patient Refused Ondansetron HCl (Ondansetron Hcl 4 Mg/2 Ml Vial) 4 mg IVPUSH ONCE PRN PRN Reason: Nausea and Vomiting Stop: 05/20/25 18:49 Oxycodone HCl (Oxycodone Hcl Immed Release 5 Mg Tablet) 5 mg PO Q4H PRN PRN Reason: pain, moderate-sev Last Admin: 05/19/25 20:19 Dose: 5 mg Documented By: CAMILLE Prednisone (Prednisone 20 Mg Tablet) 40 mg PO DAILY [facility] Last Admin: 05/20/25 09:13 Dose: 40 mg Documented By: BEATRIZ Sodium Chloride (0.9 % Sodium Chloride Flush 3 Ml Syringe) 3 ml IVFLUSH QSHIFT [facility] Last Admin: 10/07/25 10:12 Dose: Not Given Documented By: BEATRIZ Non-Admin Reason: Med already given Labs 05/18/25 01:04 05/20/25 06:27 Labs: Laboratory Results - last 24 hr 05/20/25 06:27 Hold Purple Top SEE NOTE Anion Gap 10 L Estim Creat Clear Calc 69.6 Estimated GFR > 60 Random Glucose 98 Calcium 10.1 Magnesium 2.1 Microbiology Microbiology Results: Microbiology 05/15/25 12:24 Blood Culture - Final Blood - Venous No growth after 5 days. 05/15/25 11:18 Blood Culture - Final Blood - Venous No growth after 5 days. Assessment and Plan (1) Sick sinus syndrome due to sinoatrial node dysfunction: Status: Acute (2) Hypokalemia: Status: Acute (3) Hypoxia: Status: Acute (4) COPD (chronic obstructive pulmonary disease): Status: Acute (5) Acute hypoxic respiratory failure: Status: Acute (6) COPD exacerbation: Status: Acute (7) Parainfluenza infection: Status: Acute Plan d6, 59yo F with tobacco abuse, symptomatic bradycardia s/p PPM, takotsubo cardiomyopathy with recovered EF presented to ED with dyspnea, found to be hypoxic with parainfluenza infection, possibly COPD developed flank pain, found to have L hydronephrosis/hydroureter acute hypoxic respiratory failure due to parainfluenza infection, possible COPD, tobacco abuse - IV->PO steroids, standing->prn nebs, discharge on prednisone + albuterol, should have outpt PFTs, droplet precautions - NRT - supplemental O2, wean as tolerated, VBG in AM acute lactic acidosis - due to bronchodilators + hypoxia, not sepsis moderate hydronephrosis of the left kidney and mild left-sided hydroureter with possible soft tissue thickening at the level of the transition point within the pelvis. Neoplasm needs exclusion - Urology consulted, plan cystoscopy with left retrograde and possible diagnostic ureteroscopy cardiomyopathy wide complex tachycardia - Cardiology consulted: Wide complex tachycardia during this hospitalization in the monitor are related to pacemaker mediated tachycardia which is a benign condition in his usually associated with inappropriate pacemaker programming. The pacemaker programmed was Re adjusted yesterday with increased post ventricular refractory period which should prevent her from having any further pacemaker mediated tachycardia. Unfortunately I do not have any strips from the January office visit, where she was told that she might have ventricular tachycardia. This is unclear at this point in time. She has an upcoming EP visit in July. Meanwhile she had workup for structural heart disease with echocardiogram which was within normal limits. She has normal coronary artery by cardiac catheterization in 2020 - continue metoprolol succinate hypoK - repleted thrombocytopenia - resolved VTE ppx: enoxaparin dispo: eventual home In my clinical judgment, the patient requires continued inpatient hospitalization for the following reasons: hypoxia, operative intervention Total time managing care of this patient today: 35 minutes. Quality Stroke Does the patient have a stroke diagnosis?: No VTE Prior VTE?: No VTE Risk Level:: Medical - moderate - high VTE Device Contraindication: N/A - Device Ordered VTE Drug Contraindication: N/A - Med Ordered
[2025-05-20] MEDS: 0.9 % Sodium Chloride Flush 3 ML SYRINGE IVFLUSH (22:39)
[2025-05-20] MEDS: oxyCODONE HCl Immed Release 5 MG TABLET PO (22:39)
[2025-05-21] VITALS (13 sets, daily range): BP systolic 85–130; BP diastolic 51–83; PULSE 60–70; RESP 16–20; TEMP 36.4–37.2; O2SAT 90–93
[2025-05-21] MEDS: Albuterol/Iprat 2.5/0.5MG 3 ML AMPUL.NEB INHALE (04:31)
[2025-05-21 07:04] LABS: VBG HCO3 36 mmol/L (22-26); VBG O2 % Saturation < 30.0 %
[2025-05-21 07:08] LABS: Venous Blood Gas Refer to POC result
[2025-05-21 07:15] LABS: Anion Gap 15 (12-20); Blood Urea Nitrogen 26 mg/dL (9-16); Calcium 10.1 mg/dL (8.4-10.2); Carbon Dioxide 33 mmol/L (22-29); Chloride 99 mmol/L (96-108); Creatinine Clr Calc Pharmacy 60.7; Estimated Glomerular Filt Rate > 60; Potassium 4.5 mmol/L (3.3-5.1); Sodium 142 mmol/L (135-145)
[2025-05-21] MEDS: 0.9 % Sodium Chloride Flush 3 ML SYRINGE IVFLUSH ×3 (08:56→19:58)
[2025-05-21] MEDS: Metoprolol Succinate ER 50 MG TAB.ER.24H PO (09:00)
--- NOTE | 2025-05-21 11:25 | HO.PM.IMPN ---
Subjective Subjective Date of Service: 05/21/25 Interval History: flank pain under control, no dyspnea, minimal cough Review of Systems Review of Systems: Yes all other systems are reviewed and are negative Physical Exam Vital Signs: Vital Signs: Last Vital Signs Temp 98.9 F 05/21/25 10:58 Pulse 70 05/21/25 10:58 Resp 20 05/21/25 10:58 BP 129/83 05/21/25 10:58 Pulse Ox 90 L 05/21/25 10:58 O2 Del Method Nasal Cannula 05/21/25 10:58 O2 Flow Rate 2 05/21/25 10:58 BMI result Body Mass Index 17.8 Gen: in no acute distress HEENT: sclera anicteric, moist mucus membranes Neck: supple Lungs: diminished Heart: regular rate and rhythm, no murmurs Abd: soft, non-tender, non-distended : L flank tenderness Ext: no edema Skin: warm/well-perfused Neuro: alert and oriented x3, no focal findings Psych: appropriate affect Objective Data Active Medications Acetaminophen (Acetaminophen 325 Mg Tablet) 650 mg PO Q6H PRN PRN Reason: Pain, Mild 1-3,fever,headache Last Admin: 05/19/25 16:07 Dose: 650 mg Documented By: BEATRIZ Albuterol/Ipratropium (Albuterol/Iprat 2.5/0.5mg 3 Ml Ampul.Neb) 3 ml INHALE RQ4H WHILE AWAKE PRN PRN Reason: shortness of breath/wheezing Last Admin: 05/21/25 04:31 Dose: 3 ml Documented By: ALECIA Calcium Carbonate (Calcium Carbonate 750 Mg Tab.Chew) 750 mg PO Q4H PRN PRN Reason: Heartburn Last Admin: 05/20/25 06:38 Dose: 750 mg Documented By: CAMILLE Enoxaparin Sodium (Enoxaparin Sodium 40 Mg/0.4 Ml Syringe) 40 mg SUBCUT Q24H [facility] Last Admin: 05/20/25 14:43 Dose: 40 mg Documented By: BEATRIZ Lactated Ringer's (Lr) 500 mls @ 20 mls/hr IVCONT .Q24H [facility] Last Admin: 05/20/25 14:42 Dose: Not Given Documented By: BEATRIZ Non-Admin Reason: PACU order Lidocaine (Lidocaine 4 % Patch Adh..Patch) 2 patch TRANSDERMA DAILY [facility]; Protocol Last Admin: 05/21/25 08:56 Dose: Not Given Documented By: HARMONY Non-Admin Reason: Patient Refused Magnesium Hydroxide (Milk Of Magnesia 30 Ml Oral.Susp) 30 ml PO DAILY PRN PRN Reason: Constipation Melatonin (Melatonin 3 Mg Tablet) 6 mg PO BEDTIME PRN PRN Reason: Insomnia Metoprolol Succinate (Metoprolol Succinate Er 50 Mg Tab.Er.24h) 50 mg PO DAILY [facility]; Protocol Last Admin: 05/21/25 09:00 Dose: 50 mg Documented By: HARMONY Naloxone HCl (Naloxone Hcl 0.4 Mg/Ml Vial) 0.04 mg IVPUSH Q5M PRN PRN Reason: Excessive sedation or RR < 8 Nicotine (Nicotine 14 Mg Patch.Td24) 14 mg TRANSDERMA DAILY [facility] Last Admin: 05/21/25 08:57 Dose: Not Given Documented By: HARMONY Non-Admin Reason: Patient Refused Oxycodone HCl (Oxycodone Hcl Immed Release 5 Mg Tablet) 5 mg PO Q4H PRN PRN Reason: pain, moderate-sev Last Admin: 05/20/25 22:39 Dose: 5 mg Documented By: EZEKIEL Prednisone (Prednisone 20 Mg Tablet) 40 mg PO DAILY [facility] Last Admin: 05/21/25 08:57 Dose: 40 mg Documented By: HARMONY Sodium Chloride (0.9 % Sodium Chloride Flush 3 Ml Syringe) 3 ml IVFLUSH QSHIFT [facility] Last Admin: 05/21/25 08:56 Dose: 3 ml Documented By: HARMONY Labs 05/18/25 01:04 05/21/25 06:46 Labs: Laboratory Results - last 24 hr 05/21/25 05/21/25 06:46 06:58 Hold Purple Top SEE NOTE VBG pH 7.40 VBG pCO2 58 VBG pO2 23 VBG HCO3 36 H VBG O2 Saturation < 30.0 VBG Base Excess 9.2 Anion Gap 15 Estim Creat Clear Calc 60.7 Estimated GFR > 60 Random Glucose 99 Calcium 10.1 Microbiology Microbiology Results: Microbiology 05/15/25 12:24 Blood Culture - Final Blood - Venous No growth after 5 days. 05/15/25 11:18 Blood Culture - Final Blood - Venous No growth after 5 days. Assessment and Plan (1) Sick sinus syndrome due to sinoatrial node dysfunction: Status: Acute (2) Hypokalemia: Status: Acute (3) Hypoxia: Status: Acute (4) COPD (chronic obstructive pulmonary disease): Status: Acute (5) Acute hypoxic respiratory failure: Status: Acute (6) COPD exacerbation: Status: Acute (7) Parainfluenza infection: Status: Acute Plan d7, 59yo F with tobacco abuse, symptomatic bradycardia s/p PPM, takotsubo cardiomyopathy with recovered EF presented to ED with dyspnea, found to be hypoxic with parainfluenza infection, possibly COPD developed flank pain, found to have L hydronephrosis/hydroureter acute hypoxic respiratory failure due to parainfluenza infection, possible COPD, tobacco abuse - IV->PO steroids, standing->prn nebs, discharge on prednisone + albuterol, should have outpt PFTs, droplet precautions - NRT - supplemental O2, wean as tolerated, VBG shows compensated CO2 retention; will need home O2 eval prior to d/c; goal SaO2 88-92 and no greater acute lactic acidosis - due to bronchodilators + hypoxia, not sepsis moderate hydronephrosis of the left kidney and mild left-sided hydroureter with possible soft tissue thickening at the level of the transition point within the pelvis. Neoplasm needs exclusion - Urology consulted, plan cystoscopy with left retrograde and possible diagnostic ureteroscopy hopefully today cardiomyopathy wide complex tachycardia - Cardiology consulted: Wide complex tachycardia during this hospitalization in the monitor are related to pacemaker mediated tachycardia which is a benign condition in his usually associated with inappropriate pacemaker programming. The pacemaker programmed was Re adjusted yesterday with increased post ventricular refractory period which should prevent her from having any further pacemaker mediated tachycardia. Unfortunately I do not have any strips from the January office visit, where she was told that she might have ventricular tachycardia. This is unclear at this point in time. She has an upcoming EP visit in July. Meanwhile she had workup for structural heart disease with echocardiogram which was within normal limits. She has normal coronary artery by cardiac catheterization in 2020 - continue metoprolol succinate hypoK - repleted thrombocytopenia - resolved VTE ppx: enoxaparin dispo: eventual home In my clinical judgment, the patient requires continued inpatient hospitalization for the following reasons: hypoxia, operative intervention Total time managing care of this patient today: 35 minutes. Quality Stroke Does the patient have a stroke diagnosis?: No VTE Prior VTE?: No VTE Risk Level:: Medical - moderate - high VTE Device Contraindication: N/A - Device Ordered VTE Drug Contraindication: N/A - Med Ordered
--- NOTE | 2025-05-21 12:10 | MHC.CM.PN ---
PER PHYSICIAN ROUNDS, PLAN IS FOR OPERATIVE INTERVENTION TODAY. SHE WILL REQUIRE A HOME O2 EVALUATION PRIOR TO RETURN HOME. CASE MANAGEMENT FOLLOWING FOR DC NEEDS.
[2025-05-21] MEDS: Milk of Magnesia 30 ML ORAL.SUSP PO (13:41)
[2025-05-21] MEDS: oxyCODONE HCl Immed Release 5 MG TABLET PO ×3 (13:42→23:43)
--- NOTE | 2025-05-21 13:58 | MHC.CLN ---
F/U PT IS CURRENTLY NPO FOR PLANNED PROCEDURE PREVIOUS PO INTAKE 75-100% WHEN DIET ADVANCES; RECOMMEND RESUMING ENSURE BID SUPPLEMENT TO PROVIDE 700KCALS, 40G PROTEIN WITH 100% ACCEPTANCE FOLLOWING FOR DIET ADVANCEMENT
--- NOTE | 2025-05-21 17:26 | MHC.SHP ---
Pre-Procedural Eval Section A - 24 Hr Update-Section A only Date of Service: 05/21/25 The patient is an INPATIENT: Yes Changes since office visit: No Cold of Flu in the past 2 weeks, No New Medical Problems, No Changes in Medication and No Patient answered all questions The patient has been examined within 24 hours of the surgical procedure. The History & Physical has been completed within 30 days and I have reviewed it.: Yes Section B - Complete if H&P > 30 days Chief Complaint: respiratory failure w/ hypoxia Details of Present Illness: left hydronephrosis - here for retrograde, ureteroscopy, stent Allergies: Allergies Allergy/AdvReac Type Severity Reaction Status Date / Time aspirin Allergy Mild Headache Verified 05/15/25 10:04 ibuprofen Allergy Mild heartburns Verified 05/15/25 10:04 Plan I have reviewed the history and physical and performed a pertinent physical examination on my patient. No changes have occurred unless specified. Time Spent With Patient Time: Total time managing care of this patient today ____ minutes.
--- NOTE | 2025-05-21 18:30 | P.OP_ITS ---
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 Anesthesia was administered per protocol. The patient was placed in a modified dorsal lithotomy position and prepped and draped in a sterile fashion. Safety pause time-out and side of surgery were confirmed. Images were available for review. Antibiotic administration confirmed. A 22 [place] cystoscope was inserted per urethra. The urethra was without abnormality. The bladder was normal in its entirety. Both ureteric orifices were seen in normal position. The left ureteric orifice was cannulated and a retrograde examination was performed. Filling defects seen junction between mid and distal ureter. A Sensor guidewire was placed up to the level of the renal pelvis under fluoroscopy. The rigid cystoscope was removed. A [place] dilator was placed over the Sensor guidewire and used to dilate the ureteric orifice under fluoroscopy. The dilator was removed. The semi rigid ureteral scope was placed alongside the Sensor guidewire. At the area of filling defect there appeared to be low-grade superficial ureteric cancer. Moderate pedunculated lesion. Initial decision made to place ureteric stent. Based on the height of the patient a 6 Fr x 30 cm stent was used. The string was removed from the stent prior to placement. A 6 [place] by 30 cm double-J stent was placed into the renal pelvis and bladder under a combination of fluoroscopy and direct visualization. The symphisis pubis was used as a radiographic marker to release the stent and good coil was seen within the bladder confirming position Proximal positioning of the stent was confirmed using fluoroscopy. The bladder was emptied. The patient tolerated the procedure well and was extubated in the operating room. They were transferred in stable condition to the recovery area. Pathology: Drains: [Double J stent as described above]
[2025-05-22] VITALS: BP 102/64; PULSE 60; RESP 16; TEMP 36.6; O2SAT 94
[2025-05-22] MEDS: oxyCODONE HCl Immed Release 5 MG TABLET PO ×2 (03:47→08:40)
[2025-05-22 04:00] VITALS: BP 106/62; PULSE 65; RESP 18; TEMP 36.1; O2SAT 94
[2025-05-22 07:39] VITALS: BP 110/62; PULSE 79; RESP 20; TEMP 36.8; O2SAT 95
[2025-05-22 08:38] VITALS: O2SAT 95
[2025-05-22] MEDS: Metoprolol Succinate ER 50 MG TAB.ER.24H PO (08:39)
[2025-05-22] MEDS: 0.9 % Sodium Chloride Flush 3 ML SYRINGE IVFLUSH (08:41)
--- NOTE | 2025-05-22 10:55 | HO.POSTANES ---
Post Anesthesia Evaluation Post Anesthesia Evaluation Date of Service: 05/22/25 Vital Signs: Vital Signs Temp Pulse Resp BP Pulse Ox O2 Del Method O2 Flow Rate 05/22/25 07:39 98.3 F 79 20 110/62 95 Nasal Cannula 2 05/22/25 04:00 97 F 65 18 106/62 94 Nasal Cannula 2 05/22/25 00:00 97.8 F 60 16 102/64 94 Nasal Cannula 2 Anesthesia: General Mental Status: Awake Pain Control: Satisfactory Nausea/Vomiting: None Hydration: Adequate Anesthesia-Related Issues: No Anes. Related Issues
--- NOTE | 2025-05-22 11:14 | P.DS_ITS ---
DS: Providers Provider Date of Service: 05/22/25 Date of admission: 05/15/25 12:46 Date of discharge: 05/22/25 Primary care physician: [facility] Consults: 05/18/25 05:47 Consult to Cardiology Routine Consulting Provider[place] [facility] [place] Reason for consultation: long run of V-tach Has provider been notified: No 05/18/25 17:15 Consult to Urology Routine Consulting Provider: [facility] [place] [place] [facility] Reason for consultation: left hydroureteronnephrosis, new, flank pain DS: Diagnosis Discharge Diagnosis (1) Sick sinus syndrome due to sinoatrial node dysfunction: Status: Acute (2) Acute hypoxic respiratory failure: Status: Acute (3) COPD exacerbation: Status: Acute (4) Parainfluenza infection: Status: Acute (5) Pacemaker-mediated tachycardia: Status: Acute (6) Hydronephrosis: Status: Acute (7) Ureteral cancer: Status: Acute (8) Thrombocytopenia: Status: Acute DS: Summary Hospital Course Hospital Course: From the history and physical by the admitting hospitalist, CHRISTIANO Triplett, 05/15/25: This is a 59-year-old female who presents to the emergency department with shortness of breath. Patient reports for the past 1 week she is having dyspnea on exertion. She also reports dry cough and generally feeling unwell. Her son was also recently sick with upper respiratory symptoms. In the emergency department she was noted to be hypoxic with an initial saturation of 88% on room air, follow-up oxygen saturation of 86% on room air. Due to persistent hypoxia she was placed on 2 L nasal cannula with improvement of her oxygen saturation of 93%. Chest x-ray showed no evidence for acute disease. Lab work significant for leukocytosis of 10.9, thrombocytopenia with platelets of 94, potassium 3.1, lactic acid 2.7. She received empiric antibiotics, a breathing treatment, IV Solu-Medrol and potassium replacement. For this reason she will be admitted to the hospital for further management 59yo F with tobacco abuse, symptomatic bradycardia/SSS s/p PPM, takotsubo cardiomyopathy with recovered EF; presented to ED with dyspnea; found to be hypoxic with parainfluenza infection, possibly COPD though not previously diagnosed. Also developed flank pain, found to have L hydronephrosis/hydroureter and ultimately ureteral cancer. Hospital course by problem: acute hypoxic respiratory failure due to parainfluenza infection, possible COPD, tobacco abuse - Treated with IV->PO steroids, standing->prn nebs, discharged on prednisone taper + albuterol inhaler + Breo inhaler; should have outpt PFTs, encouraged smoking cessation - Hypoxia resolved. VBG shows compensated CO2 retention; goal SaO2 88-92 and no greater. acute lactic acidosis - Due to bronchodilators + hypoxia, not sepsis ureteral cancer with hydronephrosis - CT abdomen/pelvis showed moderate hydronephrosis of the left kidney and mild left-sided hydroureter with possible soft tissue thickening at the level of the transition point within the pelvis. Neoplasm needed exclusion. - Urology consulted. She went to the OR 05/21 and underwent cystoscopy with left retrograde/dilation of ureteric orifice/ureteroscopy/stent placement. She was found to have a pedunculated lesion that likely represented a low-grade superficial ureteric cancer. She will follow up with Dr Ronald Connelly in 1-2 weeks for further workup and management. cardiomyopathy wide complex tachycardia due to pacemaker-mediated tachycardia - Cardiology consulted: Wide complex tachycardia during this hospitalization in the monitor are related to pacemaker mediated tachycardia which is a benign condition in his usually associated with inappropriate pacemaker programming. The pacemaker programmed was Re adjusted yesterday with increased post ventricular refractory period which should prevent her from having any further pacemaker mediated tachycardia. Unfortunately I do not have any strips from the January office visit, where she was told that she might have ventricular tachycardia. This is unclear at this point in time. She has an upcoming EP visit in July. Meanwhile she had workup for structural heart disease with echocardiogram which was within normal limits. She has normal coronary artery by cardiac catheterization in 2020 - TTE 05/19/25: 1. Normal LV ejection fraction of 65-70% 2. Normal cardiac valvular Dopplers 3. Normal RV systolic pressure 4. No pericardial effusion - continued metoprolol succinate - to follow up with [facility] in 2 weeks hypoK - repleted thrombocytopenia - resolved Time Attestation Discharge Coordination Time (in mins): 45 Quality: Safe Use of Opioids Does Pt have an Active Cancer Diagnosis on the Problem List?: No Quality: Stroke Does the patient have a stroke diagnosis?: No Physical Exam Vital Signs: Vital Signs: Last Vital Signs Temp 98.3 F 05/22/25 07:39 Pulse 79 05/22/25 07:39 Resp 20 05/22/25 07:39 BP 110/62 05/22/25 07:39 Pulse Ox 95 05/22/25 07:39 O2 Del Method Nasal Cannula 05/22/25 07:39 O2 Flow Rate 2 05/22/25 07:39 BMI result Body Mass Index 17.8 Gen: in no acute distress HEENT: sclera anicteric, moist mucus membranes Neck: supple Lungs: clear bilaterally Heart: regular rate and rhythm, no murmurs Abd: soft, non-tender, non-distended : L flank tenderness Ext: no edema Skin: warm/well-perfused Neuro: alert and oriented x3, no focal findings Psych: appropriate affect DS: Data Data Completed and Pending Completed studies during hospitalization [Text1]: Laboratory Results WBC 7.8 X10*3/uL (4.8-10.8) 05/18/25 01:04 RBC 4.20 X10*6/uL (4.20-5.50) 05/18/25 01:04 Hgb 12.4 g/dl (12.0-16.0) 05/18/25 01:04 Hct 35.9 % (37.0-47.0) L 05/18/25 01:04 MCV 85.5 fL (80.0-98.0) 05/18/25 01:04 MCH 29.5 pg (27.0-33.0) 05/18/25 01:04 MCHC 34.5 g/dl (31.0-35.0) 05/18/25 01:04 RDW 13.2 % (11.0-16.0) 05/18/25 01:04 Plt Count 166 X10*3/uL (160-400) D 05/18/25 01:04 MPV 10.2 fL (9.4-12.3) 05/18/25 01:04 Immature Gran % (Auto) 0.8 % (0.0-0.4) H 05/18/25 01:04 Neut % (Auto) 77.7 % (45-73) H 05/18/25 01:04 Lymph % (Auto) 14.9 % (20-40) L 05/18/25 01:04 [place] % (Auto) 6.5 % (2-11) 05/18/25 01:04 Eos % (Auto) 0.0 % (0-4) 05/18/25 01:04 Baso % (Auto) 0.1 % (0-2) 05/18/25 01:04 Lymph # (Auto) 1.2 X10*3/uL (1.2-4.9) 05/18/25 01:04 [place] # (Auto) 0.5 X10*3/uL (0.1-1.2) 05/18/25 01:04 Eos # (Auto) 0.0 X10*3/uL (0.0-0.4) 05/18/25 01:04 Baso # (Auto) 0.0 X10*3/uL (0.0-0.2) 05/18/25 01:04 Abs Immat Gran (auto) 0.06 X10*3/uL (0.00-0.03) H 05/18/25 01:04 Absolute Neuts (auto) 6.1 x10*3/uL (2.0-8.3) 05/18/25 01:04 Absolute Nucleated RBC 0.000 X10*3/uL (0.0-0.012) 05/18/25 01:04 Nucleated RBC % (auto) 0.0 /100WBC (0.0-0.2) 05/18/25 01:04 Smear Tech's Comments VERIFIED 05/18/25 01:04 Hold Purple Top SEE NOTE 05/21/25 06:46 Hold Blue Top SEE NOTE 05/15/25 11:18 VBG pH 7.40 (7.32-7.43) 05/21/25 06:58 VBG pCO2 58 mmHg 05/21/25 06:58 VBG pO2 23 mmHg 05/21/25 06:58 VBG HCO3 36 mmol/L (22-26) H 05/21/25 06:58 VBG O2 Saturation < 30.0 % 05/21/25 06:58 VBG Base Excess 9.2 mmol/L 05/21/25 06:58 Sodium 142 mmol/L (135-145) 05/21/25 06:46 Potassium 4.5 mmol/L (3.3-5.1) 05/21/25 06:46 Chloride 99 mmol/L (96-108) 05/21/25 06:46 Carbon Dioxide 33 mmol/L (22-29) H 05/21/25 06:46 Anion Gap 15 (12-20) 05/21/25 06:46 BUN 26 mg/dL (9-16) H 05/21/25 06:46 Creatinine 0.94 mg/dL (0.5-1.4) 05/21/25 06:46 Estim Creat Clear Calc 60.7 05/21/25 06:46 Estimated GFR > 60 05/21/25 06:46 Random Glucose 99 mg/dL (60-115) 05/21/25 06:46 Lactic Acid 2.4 mmol/L (0.5-2.0) H* 05/18/25 01:04 Lactic Acid F/U @ 2Hr 2.3 mmol/L (0.5-2.0) H* 05/18/25 03:29 Calcium 10.1 mg/dL (8.4-10.2) 05/21/25 06:46 Magnesium 2.1 mg/dL (1.6-2.6) 05/20/25 06:27 Total Bilirubin 0.2 mg/dL (0.0-1.0) 05/18/25 01:04 AST 19 U/L (5-31) 05/18/25 01:04 ALT 9 U/L (0-31) 05/18/25 01:04 Alkaline Phosphatase 49 U/L (39-117) 05/18/25 01:04 Troponin I High Sens 5.7 ng/L (<3.5-17.0) D 05/18/25 01:04 Total Protein 6.4 g/dL (6.5-8.0) L 05/18/25 01:04 Albumin 3.9 g/dL (3.5-5.0) 05/18/25 01:04 Respiratory Panel Graham See Note 05/15/25 16:34 Adenovirus (Rapid PCR) Not Detected (Not Detect.) 05/15/25 16:34 B.pert (TEM-PCR) Not Detected (Not Detect.) 05/15/25 16:34 B.parapertussis DNA PCR Not Detected (Not Detect.) 05/15/25 16:34 C. pneumoniae DNA (PCR) Not Detected (Not Detect.) 05/15/25 16:34 Coronavirus OC43 (PCR) Not Detected (Not Detect.) 05/15/25 16:34 Coronavirus HKU1 (PCR) Not Detected (Not Detect.) 05/15/25 16:34 Coronavirus 229E (PCR) Not Detected (Not Detect.) 05/15/25 16:34 COVID-19 (MEIR) Negative (Negative) 05/15/25 11:18 COVID-19 Clin Com See Note 05/15/25 11:18 Coronavirus NL63 (PCR) Not Detected (Not Detect.) 05/15/25 16:34 Human Metapneumovir PCR Not Detected (Not Detect.) 05/15/25 16:34 Influenza Type A (JEAN PAUL) Negative (Negative) 05/15/25 11:18 Influenza A (RT-PCR) Not Detected (Not Detect.) 05/15/25 16:34 Influenza A (H1) PCR Not Detected (Not Detect.) 05/15/25 16:34 Influ A (H1/09) PCR Not Detected (Not Detect.) 05/15/25 16:34 Influenza A (H3) PCR Not Detected (Not Detect.) 05/15/25 16:34 Influenza Type B (JEAN PAUL) Negative (Negative) 05/15/25 11:18 Influenza B (RT-PCR) Not Detected (Not Detect.) 05/15/25 16:34 Influenza A & B Note See Note 05/15/25 11:18 M. pneumoniae (PCR) Not Detected (Not Detect.) 05/15/25 16:34 Parainfluenza 1 (PCR) Not Detected (Not Detect.) 05/15/25 16:34 Parainfluenza 2 (PCR) Detected (Not Detect.) A 05/15/25 16:34 Parainfluenza 3 (PCR) Not Detected (Not Detect.) 05/15/25 16:34 Parainfluenza 4 (PCR) Not Detected (Not Detect.) 05/15/25 16:34 RSV (PCR) Not Detected (Not Detect.) 05/15/25 16:34 Entero/Rhino (PCR) Not Detected (Not Detect.) 05/15/25 16:34 SARS-CoV-2 RNA (RT-PCR) Not Detected (Not Detect.) 05/15/25 16:34 Impressions Chest X-Ray 05/15/25 11:00 IMPRESSION: No evidence for acute disease in the chest. Electronically signed by: Jennifer Morgan MD 05/15/2025 11:13 AM EDT RP Guidance Fluoroscopy 05/21/25 18:08 IMPRESSION: Fluoroscopy during procedure. Please see procedure report for additional information. Electronically signed by: Francis Bowman MD 05/22/2025 07:05 AM EDT RP Discharge Plan Discharge Anticipated Discharge Date/Time: 05/22/25 11:04 Patient Disposition: Home, Self-Care Discharge Diagnosis: hypoxia due to parainfluenza infection, likely COPD pacemaker-mediated tachycardia ureteral cancer Referrals: [facility] [Provider Group, Cardiology] - 2 Weeks [facility] [place] [facility] [Provider Group, Internal Medicine] - 1 Week Ronald Connelly MD [Physician, Urology] - 1 Week [facility] [Primary Care Provider, Primary Care] - 1 Week Discharge Medications: New nicotine 14 mg/24 hr Patch 24 Hour 14 mg transdermal DAILY Qty: 30 0RF albuterol sulfate [Ventolin HFA] 90 mcg/actuation HFA aerosol inhaler 2 puff inhalation Q4-6H PRN (Reason: shortness of breath or wheezing) Qty: 8.5 0RF fluticasone furoate-vilanterol [Breo Ellipta] 100-25 mcg/dose blister with device 1 inh inhalation DAILY Qty: 60 0RF prednisone 10 mg tablet See Rx Instructions .ROUTE .COMPLEX Qty: 12 0RF Rx Instructions: 30 mg daily x 2 days, then 20 mg daily x 2 days, then 10 mg daily x 2 days, then stop Continued metoprolol succinate 50 mg Tablet Extended Release 24 Hr 50 mg PO DAILY Discharge Orders: Discharge Order (Routine); Ordered 05/22/25 Ordered By: Andi Estrada Diet: Advance to usual diet Activity on Discharge: As tolerated Stand Alone Forms: Patient Portal Discharge page Print Language: Uzbek Care Plan Goals: respiratory health diagnosis and treatment of ureteral cancer Health Concerns: hypoxia due to parainfluenza infection, likely COPD pacemaker-mediated tachycardia ureteral cancer Plan of Treatment: rescue inhaler = albuterol inhaler: 2 puffs every 4-6 hours as needed for shortness of breath or wheezing preventive inhaler = Breo: 1 inhalation daily prednisone: 30 mg daily x 2 days, then 20 mg daily x 2 days, then 10 mg daily x 2 days, then stop outpatient pulmonary function testing- ask primary care to order and follow up results stop smoking; use nicotine patch to help you quit follow up with [facility] [place] [facility] in 2-4 weeks follow up [place] [facility] [place] [facility] [place]2 [place] regarding ureteral cancer workup and treatment Please follow up with your primary care doctor within 1 week. Return to the hospital if you experience recurrent or worsening symptoms. Assessment: See Discharge Summary.
--- NOTE | 2025-05-22 11:28 | MHC.CM.PN ---
Pt has been medically cleared to [place], she will go home via private transport, plan is self care.
[2025-05-22 11:52] VITALS: BP 108/60; PULSE 80; RESP 20; TEMP 36.4; O2SAT 94
--- NOTE | 2025-05-23 20:31 | PHA.MEDREC ---
Pharmacy Consult ? Medication Reconciliation/ Pharmacy has completed the medication reconciliation. Utilized discharge packet from 05/22/25
== END 2025-05-22 12:31 | disposition home or self-care (01) | DRG 461 ==
LOC: HO.ED 10:48 → HO.EDOVER 12:47 → HO.IMC 19:38
PROVIDERS: Internal Medicine; Physician Assistant Medical; Urology; Admitting Provider Physician Assistant Medical; Emergency Provider Emergency Medicine; PCP Dentist General Practice; Visit Provider Family Medicine
PROC: 0T778DZ Dilation of Left Ureter with Intraluminal Device, Via Natural or Artificial Opening Endoscopic (ICD-10-PCS; principal; 2025-05-21 17:40)
DX: C66.2 Malignant neoplasm of left ureter (principal); J96.01 Acute respiratory failure with hypoxia; J12.2 Parainfluenza virus pneumonia; D69.6 Thrombocytopenia, unspecified; E87.21 Acute metabolic acidosis; I47.20 Ventricular tachycardia, unspecified; I42.9 Cardiomyopathy, unspecified; I49.5 Sick sinus syndrome; J44.0 Chronic obstructive pulmonary disease with (acute) lower respiratory infection; J44.1 Chronic obstructive pulmonary disease with (acute) exacerbation; E87.6 Hypokalemia; N13.30 Unspecified hydronephrosis; F17.210 Nicotine dependence, cigarettes, uncomplicated; Z91.199 Patient's noncompliance with other medical treatment and regimen due to unspecified reason; Z45.018 Encounter for adjustment and management of other part of cardiac pacemaker; Z71.6 Tobacco abuse counseling; Z79.51 Long term (current) use of inhaled steroids; Z79.899 Other long term (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
CPT/HCPCS: 36415; 71046; 74176; 76775; 80048; 80053; 82803; 83605; 83735; 84484; 85025; 87040; 87502; 87633; 87635; 93005; 93306; 94640; 99285; C1758; C1769; C2617; J0696; J1100; J1171; J1644; J1650; J1956; J2003; J2250; J2405; J2704; J2919; J3010; J3475; J3480; J7120; Q9957; Q9967

== ENCOUNTER → 2025-05-15 10:25 | Outpatient (BNV) | payer MEDICAID, SELFPAY | PROVIDERS: Admitting Provider Physician Assistant Medical; Emergency Provider Emergency Medicine; PCP Dentist General Practice; Visit Provider Internal Medicine | DX: R06.02 Shortness of breath (principal) | CPT/HCPCS: 93010 ==

== ENCOUNTER → 2025-05-15 11:00 | Outpatient (BNV) | payer MEDICAID, SELFPAY | PROVIDERS: Emergency Provider Emergency Medicine; PCP Dentist General Practice; Visit Provider Radiology Diagnostic Radiology | DX: R06.00 Dyspnea, unspecified (principal) | CPT/HCPCS: 71046 ==

== ENCOUNTER 2025-05-15 12:46 | Outpatient (BNV) | payer MEDICAID, SELFPAY | END 2025-05-18 14:04 | PROVIDERS: Admitting Provider Physician Assistant Medical; Emergency Provider Emergency Medicine; PCP Dentist General Practice; Visit Provider Radiology Diagnostic Radiology | DX: N13.2 Hydronephrosis with renal and ureteral calculous obstruction (principal); N13.4 Hydroureter | CPT/HCPCS: 74176; 76775 ==

== ENCOUNTER 2025-05-15 12:46 | Outpatient (BNV) | payer MEDICAID, SELFPAY | END 2025-05-19 07:00 | PROVIDERS: Admitting Provider Physician Assistant Medical; Emergency Provider Emergency Medicine; PCP Dentist General Practice; Visit Provider Internal Medicine Cardiovascular Disease | DX: I50.9 Heart failure, unspecified (principal); I51.7 Cardiomegaly | CPT/HCPCS: 93306 ==

== ENCOUNTER 2025-05-15 12:46 | Outpatient (BNV) | payer MEDICAID, SELFPAY | END 2025-05-18 00:51 | PROVIDERS: Admitting Provider Physician Assistant Medical; Emergency Provider Emergency Medicine; PCP Dentist General Practice; Visit Provider Internal Medicine | DX: R94.31 Abnormal electrocardiogram [ECG] [EKG] (principal); Z95.0 Presence of cardiac pacemaker | CPT/HCPCS: 93010 ==

== ENCOUNTER → 2025-05-15 12:46 | Outpatient (BNV) | payer MEDICAID, SELFPAY | PROVIDERS: Admitting Provider Physician Assistant Medical; Emergency Provider Emergency Medicine; PCP Dentist General Practice; Visit Provider Urology | DX: N13.30 Unspecified hydronephrosis (principal) | CPT/HCPCS: 99223 ==

== ENCOUNTER → 2025-05-15 12:46 | Outpatient (BNV) | payer MEDICAID, SELFPAY | PROVIDERS: Admitting Provider Physician Assistant Medical; Emergency Provider Emergency Medicine; PCP Dentist General Practice; Visit Provider Internal Medicine Cardiovascular Disease | DX: R00.0 Tachycardia, unspecified (principal); Z01.810 Encounter for preprocedural cardiovascular examination; I49.5 Sick sinus syndrome | CPT/HCPCS: 99222 ==

== ENCOUNTER → 2025-05-15 12:46 | Outpatient (BNV) | payer MEDICAID, SELFPAY | PROVIDERS: Admitting Provider Physician Assistant Medical; Emergency Provider Emergency Medicine; PCP Dentist General Practice; Visit Provider Physician Assistant Medical | DX: I49.5 Sick sinus syndrome (principal); E87.6 Hypokalemia; R09.02 Hypoxemia; J44.9 Chronic obstructive pulmonary disease, unspecified; J96.01 Acute respiratory failure with hypoxia; J44.1 Chronic obstructive pulmonary disease with (acute) exacerbation; B34.8 Other viral infections of unspecified site | CPT/HCPCS: 99223; 99232; 99239 ==

== ENCOUNTER 2025-05-16 08:30 | Outpatient (REF) | payer MEDICAID, SELFPAY ==
--- OUTSIDE RECORDS SUMMARY | 2025-05-19 09:01 | XMS_ITS | Clinical Summary ---
Author Organization [employer] [facility] Address [address] [place] [address] Care Team Providers Care Supervisor Print Line Name Role Phone Unavailable Primary Care Provider Unavailabl e Encounters Date Type Department Care Team Description 03/04/2025 Population Health Risk Score [facility] (C3) Department [address] [facility] [address] [place] [id number] Provider, Population Health Generic from Last 3 [...]
--- OUTSIDE RECORDS SUMMARY | 2025-05-19 09:01 | XMS_ITS | Clinical Summary ---
Author Organization [facility] Address [address] [place] [address] Care Team Providers Care Brim Buster Name Role Phone Jeremías Jones MD Primary Care Provider [phone] Source Comments PLEASE NOTE, if this patient [...] nasal sprayIndications:D egenerative lumbar disc Place 1 Brun[place] into the nostril(s) as needed for opioid [...] 05/04/2021 Overview (11/27/2023): Followed by Cardiology in [facility] Reports normal PCI Pacemaker 04/28/2021 Overview (11/27/2023): Placed while in [facility] Apr 24, 2021 Diagnosed with broken heart syndrome Followed by Cardiology in [facility] Tobacco dependence due to cigarettes 11/12/2018 Anxiety and depression 11/06/2018 Overview (11/27/2023): Following department Fibromyalgia 11/06/2018 Primary osteoarthritis involving multiple joints 11/06/2018 Encounters Date Type Department Care Team Description 05/14/2025 / TELEPHONE [id number] [place] [address] Jody Reynolds LMHC from Last [...] (#1) 11/26/2024 024 Hypertension Screening (#1) 02/12/2025 [id number] ( season) 2025 05/15/2023, 07/14/2021, 12/09/2020, Additional [...] EDT) CHOLESTEROL 205(H) 0 - 200 mg/dL [facility] TRIGLYCERIDES 106 0 - 150 mg/dL [facility] HDL CHOLESTEROL 48 >40 mg/dL [facility] LDL CALCULATED 136(H) 0 - 100 mg/dL [facility] TC-HDLC RATIO 4.3 0 - 4.4 mg/dL [facility] Blood specimen (specimen) Blood / Unknown 11/06/2018 2:01 PM EDT 11/06/2018 4:30 PM EDT Narrative [facility] - 11/06/2018 7:21 PM EDT [facility], [place] [address] Metal Trimmer - Dionna Evans MD PT ID [id number] ORD# [id number] us Nevaeh Espino PA-C LAB - BLOOD DRAW Edited [place] [address], * (ABNORMAL) COMPRE METAB PANEL (CMP) (11/06/2018 2:01 PM EDT) GLUCOSE 103(H) 70 - 100 mg/dL [facility] Comment:Reference range appl icable to fasting specimens only BUN 9 5 - 25 mg/dL [facility] CREAT 0.82 0.5 - 1.1 mg/dL [facility] GLOMERULAR FILTRATION RATE > 60 [facility] Comment: If patient is -[place] Citizen, multiply result by 1.21 Chronic Kidney Disease: < 60 ml/min/1.73 square meters Kidney Failure: < 15 ml/min/1.73 square meters SODIUM 137 133 - 145 mmol/L [facility] POTASSIUM 4.5 3.5 - 5.5 mmol/L [facility] CHLORIDE 100 96 - 110 mmol/L [facility] CO2 30 21 - 32 mmol/L [facility] ANION GAP 7 3 - 11 [facility] CALCIUM 9.5 8.5 - 10.5 mg/dL [facility] TOTAL PROTEIN 8.0 6.0 - 8.0 G/dL [facility] ALBUMIN 4.6 3.2 - 5.0 G/dL [facility] BILI, TOTAL 0.4 0.0 - 1.4 mg/dL [facility] SGOT 17 10 - 42 U/L [facility] SGPT 22 10 - 60 U/L [facility] ALK PHOS 55 42 - 121 U/L [facility] Blood specimen (specimen) Blood / Unknown 11/06/2018 2:01 PM EDT 11/06/2018 4:30 PM EDT Narrative [facility] - 11/06/2018 7:21 PM EDT [facility] [employer], [place] [address] [employer] Tr[employer] - Dionna Evans MD PT ID [id number] ORD# [id number] Nevaeh Espino PA-C LAB - BLOOD DRAW Edited Result - Final [address] [address], from Last 3 Months or Most Recently Relevant to Health Maintenance Insurance [place] [facility] [employer] [address] [employer] Care Teams Brim Buster Relationship Specialty Start Date End Date Jeremías Jones MD [facility] [place] [address] PCP - General Family Medicine, Physician 08/15/23
--- OUTSIDE RECORDS SUMMARY | 2025-05-19 09:01 | XMS_ITS | Encounter Summary ---
Author Organization [facility] Address [address] [place] [address] Care Team Providers Care Stamp Pad Finisher Name Role Phone Jeremías Jones MD Primary Care Provider [phone] Encounter Details Date Type Department Care Team (Late st Contact Info) Description 05/14/2025 / TELEPHONE [facility] [address] [place] [id number] [facility] [address] [place] [address] Social History Tobacco Use Types Packs/Day Years [...] documented as of this encounter Care Teams Stamp Pad Finisher Relationship Specialty Start Date End Date Jeremías Jones MD [address] [place] [address] PCP - General Family Medicine, Physician 08/15/23 documented as of this encounter
--- OUTSIDE RECORDS SUMMARY | 2025-05-19 09:01 | XMS_ITS | Clinical Summary ---
Author Organization [facility] it Address [address] [place] [address] Care Team Providers Care Bibliographic Services Specialist Name Role Phone Hector Ricketts MD Primary Care Provider Surgical History Surgery Date Site/Laterality Comments OTHER [...] and feet Rheumatoid arthritis (CMS/ C V24, CMS/[facility] V28) DX:Rheumatoid arthritis (HCC ) Wears glasses DX:Wears glasses Nasal congestion DX:Nasal conges tion Abdominal pain DX:Abdominal linnea n Change in bowel habits DX:Change in bowel habits Autoimmune disease ([facility] V24) DX:Autoimmune disease (HCC); COMMENT: fibromyalgia Social [...] age to complete this topic Care Teams Bibliographic Services Specialist Relationship Specialty Start Date End Date Hector Ricketts MD [address] [place] [address] PCP - General 06/14/18
== END 2025-05-16 08:31 | disposition home or self-care (01) ==
LOC: HO.HOSX 08:30
PROVIDERS: Visit Provider Physician Assistant
DX: Z13.89 Encounter for screening for other disorder (principal)

== ENCOUNTER 2025-05-23 11:53 | Inpatient (IN) | payer MEDICAID, SELFPAY ==
[2025-05-23] VITALS (14 sets, daily range): BP systolic 139–161; BP diastolic 80–96; PULSE 74–100; RESP 12–26; TEMP 36.6–38; O2SAT 84–97; BMI 19.9
--- NOTE | ~2025-05-23 | CT_ITS ---
CLINICAL HISTORY: abd pain, nausea, L side pain. ureteral CA CT abdomen and pelvis with contrast Comparison: CT/SR - ABDOMEN ABD_PEL_WITHOUT (ADULT) - 05/18/25 19:05 EDT Findings: Bilateral mild tree in bud opacities. No pleural effusion. The gallbladder appears somewhat distended. No definite gallstones. Mild intrahepatic biliary ductal dilatation especially in the left hepatic lobe. Common bile duct measures 7 mm, mildly dilated. No definite choledocholithiasis. Pancreatic duct is mildly dilated. No focal hepatic lesion. The spleen is unremarkable. No peripancreatic inflammatory stranding. Adrenal glands are normal. Interval placement of left ureteral stent extending from left renal pelvis into the urinary bladder. Interval resolution of left hydronephrosis. Grossly normal enhancement of bilateral kidneys. No perinephric stranding. No bowel obstruction, pneumoperitoneum, or pneumatosis. Very small hiatal hernia. No free fluid or loculated fluid collection in the abdomen. Limited evaluation of the pelvis due to artifact from right hip prosthesis. Appendix not identified. Uterus questionably present. Minimal air in urinary bladder anteriorly likely due to recent stent placement. Atherosclerotic vascular disease with no aneurysm of the abdominal aorta. No acute fracture. Levoscoliosis and multilevel degenerative changes in the lumbar spine. Right hip prosthesis. IMPRESSION: 1. Interval placement of ureteral stent with resolution of hydronephrosis. Mild air in the urinary bladder likely related to recent stent placement. 2. Distended gallbladder with no definite stones with mild intrahepatic biliary ductal dilatation especially in left hepatic lobe and mildly dilated common bile duct and pancreatic duct. Correlate with LFTs and follow-up MRCP or ERCP as clinically indicated. 3. Additional nonacute findings as described. This document has been electronically signed by: Jennifer Garg MD on 05/23/2025 18:36:51
--- NOTE | ~2025-05-23 | XR_ITS ---
EXAMINATION: XR CHEST CLINICAL INFORMATION: SOB COMPARISON: X-ray 05/15/2025 TECHNIQUE: Frontal view of the chest was obtained. FINDINGS: Left sided pacemaker with stable positioning of the leads. Lungs are well-expanded. Cardiomediastinal silhouette is within normal limits. There is bilateral lower lung bronchial wall thickening. No focal consolidation. No effusion, edema or pneumothorax. XR/XR chest 1V IMPRESSION: Bronchial wall thickening can be seen with small airway disease. Electronically signed by: Dhiraj Ponce MD 05/23/2025 01:26 PM EDT
--- NOTE | ~2025-05-23 | CT_ITS ---
CLINICAL HISTORY: hypoxia, cough, CA hx CT angiography chest with contrast. 3D Postprocessing. Comparison: CT/SR - CT ANGIO CHEST PE PROTOCOL - 11/13/24 18:06 EDT Findings: The heart is normal size. RV/LV ratio is normal. No pericardial effusion. Left-sided ICD. Thoracic aorta is normal in size with no aneurysm. No acute pulmonary embolus. Bilaterally stable compared with previous study. Right middle lobe opacity suspicious for pneumonia. Right lower lobe and left basilar tree in bud opacities may represent atypical pneumonia. Several very small pulmonary nodules measuring up to 3 mm No pleural effusion or pneumothorax. No adenopathy. Thyroid and thoracic esophagus within normal limits. Images of upper abdomen demonstrate no acute process. No acute fracture. Demineralization. Degenerative changes of the thoracic spine. IMPRESSION: 1. No pulmonary embolus. 2. Right middle lobe opacity suspicious for pneumonia. Correlate clinically. 3. Right lower lobe and left basilar mild tree in bud opacities may represent atypical pneumonia. 4. Additional nonacute findings as described. This document has been electronically signed by: Jennifer Garg MD on 05/23/2025 18:20:22
--- NOTE | 2025-05-23 11:58 | ED.GENADULT ---
HPI - General Adult General Chief complaint: General Medical Stated complaint: vomiting, not feeling well Time Seen by Provider: 05/23/25 12:19 Source: patient, RN notes reviewed and old records reviewed Mode of arrival: ambulatory History of Present Illness ED Provider: Jennifer Mayberry PA-C HPI narrative: 59-year-old female with a past medical history tobacco abuse, symptomatic bradycardia/SSS s/p PPM, Tokotubo cardiomyopathy with recovered EF, recently diagnosed ureteral cancer with hydronephrosis, discharged from our facility yesterday for acute hypoxic respiratory failure/COPD exacerbation with parainfluenza infection and new diagnosis of ureteral cancer presenting to the ED complaining of headache, nausea, SOB, coughing up phlegm/vomiting, abdominal pain and increased anxiety x this morning. Patient found to be hypoxic at 84% in triage. Headache not maximal at onset. Denies vision change or loss, chest pain, dysuria/hematuria. Patient is poor historian Related Data Home Medications ?Medication ?Instructions ?Recorded ?Confirmed metoprolol succinate 50 mg 50 mg PO DAILY 05/15/25 05/23/25 tablet,extended release 24 hr Previous Rx's ?Medication ?Instructions ?Recorded albuterol sulfate 90 mcg/actuation 2 puff inhalation Q4-6H PRN 05/22/25 aerosol inhaler (Ventolin HFA) shortness of breath or wheezing #8.5 grams fluticasone furoate 100 1 inh inhalation DAILY #60 ea 05/22/25 mcg-vilanterol 25 mcg/dose inhalation powder (Breo Ellipta) nicotine 14 mg/24 hr daily 14 mg transdermal DAILY #30 ea 05/22/25 transdermal patch oxycodone 5 mg tablet 5 mg PO Q8H PRN pain, severe #10 05/22/25 tabs amoxicillin 875 mg-potassium 1 tab PO Q12H #9 tabs 05/25/25 clavulanate 125 mg tablet azithromycin 500 mg tablet See Rx Instructions PO .COMPLEX #3 05/25/25 (Zithromax) tabs benzonatate 100 mg capsule 100 mg PO TID PRN Cough 10 days 05/25/25 #30 caps prednisone 20 mg tablet 40 mg (2 x 20 mg) PO DAILY 5 days 05/25/25 #10 tabs Allergies Allergy/AdvReac Type Severity Reaction Status Date / Time aspirin Allergy Mild Headache Verified 05/23/25 11:57 ibuprofen Allergy Mild heartburns Verified 05/23/25 11:57 acetaminophen (From Tylenol) Allergy Heartburn Verified 05/24/25 01:49 Review of Systems Review of Systems: Yes all other systems are reviewed and are negative Constitutional: Constitutional: Reports as per HPI Neurologic: Denies Abnormal speech present [facility] Past Medical History Attestation statement: The following information was validated with the patient. Source: old records reviewed Medical History COPD (chronic obstructive pulmonary disease) Ureteral cancer Pacemaker-mediated tachycardia Thrombocytopenia Sick sinus syndrome due to sinoatrial node dysfunction Anxiety Depression Social History Social History Household Members: Children and Friend(s) Housing: House Are you a primary rn palliative care to a significant other at home: No Do you presently have visiting nurse or other home services: No Alcohol intake: never Comment: medicated, pain tolerable Patient Tobacco Use Status: Current everyday Tobacco user Tobacco use type: Cigarette Cigarette Packs Per Day: 1 Cigarettes Per Day: 20.0 Years Smoked: 30 Smoked in Last 30 Days: Yes e-Cigarette/Vaping Use: Never Used Use of substances other than those prescribed or required for medical reasons: Yes Substance Use Type: Marijuana Currently Displaying Signs/Symptoms of Drug Intoxication Withdrawal: No Have you been hit, kicked, punched, or otherwise hurt by someone within the past year? If so, by whom?: No Do you feel safe in your current relationship?: Yes Is there a partner from a previous relationship who is making you feel unsafe now?: No Are you made to feel afraid or neglected: No Advance Directives: Yes Advance Directives Information Provided: Yes Advance Directives on File: No Advance Directives Date on File: 04/23/21 Do you have a plan to hurt others: No Plan Recently lost weight without trying: No Eating poorly because of decreased appetite: No Patient : No service: No Physical Exam ED Vital Signs: Vital Signs - 24 hr 05/23/25 11:54 05/23/25 12:04 05/23/25 13:08 Temperature 98.6 F Pulse Rate 84 75 Respiratory Rate 22 H 23 H Blood Pressure 151/94 H Pulse Oximetry 84 L 89 L Oxygen Delivery Method Room Air Nasal Cannula Oxygen Flow Rate 2 05/23/25 13:30 05/23/25 13:55 05/23/25 14:41 Temperature 98.4 F 98.3 F 98.3 F Pulse Rate 88 92 98 Respiratory Rate 26 H 22 H 20 Blood Pressure 155/81 H 152/83 H 147/84 H Pulse Oximetry 92 94 90 L Oxygen Delivery Method Nasal Cannula Nasal Cannula Nasal Cannula Oxygen Flow Rate 3 3 3 05/23/25 15:17 05/23/25 16:04 05/23/25 16:40 Temperature 98.4 F 98.2 F Pulse Rate 85 74 80 Respiratory Rate 18 20 20 Blood Pressure 139/87 153/80 H 161/89 H Pulse Oximetry 94 95 94 Oxygen Delivery Method Nasal Cannula Nasal Cannula Nasal Cannula Oxygen Flow Rate 3 3.5 3.5 05/23/25 16:54 05/23/25 17:16 05/23/25 18:39 Temperature 98.5 F 98 F 100.4 F Pulse Rate 80 100 79 Respiratory Rate 18 20 13 Blood Pressure 151/91 H 153/83 H 159/96 H Pulse Oximetry 96 94 96 Oxygen Delivery Method Nasal Cannula Nasal Cannula Nasal Cannula Oxygen Flow Rate 2 2 2 BMI result Body Mass Index 19.9 Const Other: Anxious, pressured speech General: no acute distress Orientation/consciousness: patient oriented x3 Limitations: no limitations HENMT Head: Yes normal to inspection and Yes atraumatic Ears: hearing grossly normal bilaterally General nose exam: Normal external nose present Face and sinus: Yes normal facial exam Eyes General: appearance normal, both eyes and all related structures EOM: EOMs intact bilaterally Neck Neck: Yes normal visual inspection and Yes no meningeal signs Resp Effort & Inspection: no respiratory distress Auscultation: wheezes throughout and diminished lung sounds bilateral in the lower lung young Cardio Rate: regular rate Heart sounds: S1 normal heart sound present and S2 normal heart sound present GI Inspection: Yes normal to inspection Palpation (GI): Soft to palpation, Tenderness to palpation present (GI) (Diffusely) with no rebound tenderness, no guarding and not rigid General: Yes no CVA tenderness Back/Spine/Pelvis Back: no CVA tenderness Skin Rashes: no rashes Wounds: no wounds Neuro General: patient oriented x3, tone normal, moves all extremities, no meningeal signs, no focal motor deficits and CN's II-XI intact bilaterally Cranial nerves: Yes CN's II-XII intact bilaterally Cognition (Neuro): normal cognition Speech: No Abnormal speech present Motor exam (neuro): 5/5 motor strength present throughout Extrem General: Yes normal to inspection and Yes no calf tenderness Course Course Course Narrative: This is an RME: Additional HPI, ROS, PE not included below will be deferred to primary provider. RME assessment and note performed by: Mariajose Servin PA-C This is a 20-kht[age]-yxu-female, with a hx of tobacco abuse, symptomatic bradycardia/SSS s/p PPM, takotsubo cardiomyopathy with recovered EF; presented to ED with dyspnea; who presents to the ER with complaints of headache, nausea, and vomiting. Patient was just admitted to the hospital for acute respiratory failure, sick sinus syndrome COPD, parainfluenza, pacemaker mediated tachycardia, hydronephrosis, ureteral cancer and thrombocytopenia. Patient reporting that she is having a headache and vomiting. Patient very anxious, speaking in pressured speech, unable to fully do on neurologic exam due to her excessive speaking. She was found to be hypoxic at 84%, patient placed on 3 L nasal cannula. Immediately brought back to the main emergency department. Plan: Further ER evaluation needed. -leukocytosis of 30.3. Potassium low at 3.1 > p.o. repletion ordered. -BUN acute on chronically elevated. Lactic acid 2.4 > we will give IVF and repeat -BNP 2164 > concerning for CHF, clinically not in fluid overload -viral testing negative XR chest 1V IMPRESSION: Bronchial wall thickening can be seen with small airway disease. >1748- ED care transferred to [facility] pending CT chest & CT AP. Anticipated admission Reevaluation(s) Reevaluation #1: patient received in sign-out at change of shift pending CT scans of the chest and abdomen. The CT scan of the chest shows likely atypical pneumonia. I added azithromycin for atypical coverage as the patient now with a temperature of a 100.4? [place] [address]. I also ordered a dose of vancomycin as the patient was recently hospitalized with a viral infection and she is at a higher risk for MRSA pneumonia. I ordered a urinalysis as the patient does have ureteral stents to evaluate for urosepsis. Time: 18:53 Reevaluation #2: We will send and admission request to the hospitalist Time: 19:25 Medications Administered Generic Name Dose Route Start Last Admin Trade Name Tylerq PRN Reason Stop Dose Admin Albuterol/Ipratropium 3 ml 05/23/25 19:34 05/24/25 07:59 Albuterol/Iprat 2.5/0.5mg 3 Ml Ampul.Neb INHALE 3 ml Q4H PRN Administration Shortness of Breath/Wheezing Amoxicillin/Clavulanate Potassium 875 mg 05/25/25 11:00 05/25/25 10:59 Amoxicillin/Potassium Clav 875 Mg Tablet PO 05/30/25 10:59 875 mg Q12H HORACE Administration Azithromycin 500 mg 05/25/25 11:00 05/25/25 11:00 Azithromycin 500 Mg Tablet PO 05/30/25 10:59 500 mg Q24H HORACE Administration Enoxaparin Sodium 40 mg 05/23/25 20:00 05/24/25 21:07 Enoxaparin Sodium 40 Mg/0.4 Ml Syringe SUBCUT 40 mg Q24H HORACE Administration Fluticasone/Vilanterol 1 puff 05/24/25 09:00 05/25/25 07:34 Fluticasone/Vilanterol 100/25 Blst.W.Dev INHALE 1 puff DAILY HORACE Administration Metoprolol Succinate 50 mg 05/24/25 09:00 05/25/25 08:00 Metoprolol Succinate Er 50 Mg Tab.Er.24h PO 50 mg DAILY HORACE Administration Protocol Nicotine 14 mg 05/24/25 01:05 05/25/25 08:02 Nicotine 14 Mg Patch.Td24 TRANSDERMA 14 mg DAILY HORACE Administration Oxycodone HCl 5 mg 05/23/25 23:19 05/25/25 11:13 Oxycodone Hcl Immed Release 5 Mg Tablet PO 5 mg Q8H PRN Administration Pain, Severe (Pain Scale 7-10) Prednisone 40 mg 05/24/25 09:00 05/25/25 08:00 Prednisone 20 Mg Tablet PO 05/29/25 08:59 40 mg DAILY HORACE Administration Sodium Chloride 3 ml 05/24/25 00:00 05/25/25 08:02 0.9 % Sodium Chloride Flush 3 Ml Syringe IVFLUSH 3 ml QSHIFT HORACE Administration Discontinued Medications Generic Name Dose Route Start Last Admin Trade Name Fabiola PRN Reason Stop Dose Admin Levalbuterol HCl 3.75 mg/ 0 mg 10/10/25 13:02 05/23/25 13:08 Ipratropium Yeaddiss 0.5 mg INHALE 05/23/25 13:03 7.5 dose ONCE ONE Administration Cefepime HCl 2 gm in 50 mls @ 100 mls/hr 05/23/25 12:39 05/23/25 14:17 Maxipime IV 05/23/25 13:08 Infused ONCE ONE Infusion Sodium Chloride 1,000 mls @ 999 mls/hr 05/23/25 14:30 05/23/25 16:52 Ns IV 05/23/25 15:30 Infused .Q1H1M HORACE Infusion Potassium Chloride 10 meq in 100 mls @ 100 mls/hr 05/23/25 17:30 05/23/25 21:23 Potassium Chloride/H20 IV 05/23/25 19:29 Infused Q1H HORACE Infusion Azithromycin 500 mg/ Sodium 250 mls @ 125 mls/hr 05/23/25 18:51 05/23/25 23:28 Chloride IV 05/23/25 20:50 Infused ONCE ONE Infusion Cefepime HCl 2 gm in 50 mls @ 100 mls/hr 05/23/25 21:00 05/25/25 06:06 Maxipime IV Infused Q8H HORACE Infusion Vancomycin HCl 1,500 mg/ 500 mls @ 333.333 mls/hr 05/23/25 21:45 05/23/25 23:28 Sodium Chloride IV 05/23/25 23:14 Not Given ONCE ONE Vancomycin HCl 1,500 mg/ 500 mls @ 333.333 mls/hr 05/23/25 23:00 05/24/25 01:18 Sodium Chloride IV 05/24/25 00:29 Infused ONCE ONE Infusion Vancomycin HCl 1,000 mg/ 270 mls @ 270 mls/hr 05/24/25 10:00 05/24/25 23:41 Sodium Chloride IV Infused Q12H HORACE Infusion Vancomycin HCl 750 mg/ Sodium 265 mls @ 265 mls/hr 05/25/25 10:00 05/25/25 10:58 Chloride IV Infused Q12H HORACE Infusion Iohexol 100 ml 05/23/25 17:22 05/23/25 17:22 Iohexol 350 Mg/Ml 100 Ml Infus..Btl IV 05/23/25 17:23 85 ml ONCE ONE Administration Lorazepam 0.5 mg 05/23/25 21:05 05/23/25 21:27 Lorazepam 0.5 Mg Tablet PO 05/23/25 21:06 0.5 mg ONCE ONE Administration Lorazepam 0.5 mg 05/25/25 03:18 05/25/25 03:33 Lorazepam 0.5 Mg Tablet PO 05/25/25 03:19 0.5 mg ONCE ONE Administration Methylprednisolone Sodium Succinate 60 mg 05/23/25 16:08 05/23/25 16:22 Methylprednisolone Sod Succ 125 Mg/2 Ml Vial IVPUSH 05/23/25 16:09 60 mg ONCE ONE Administration Ondansetron HCl 4 mg 05/23/25 17:27 05/23/25 17:50 Ondansetron Hcl 4 Mg/2 Ml Vial IVPUSH 05/23/25 17:28 4 mg ONCE ONE Administration Oxycodone HCl 5 mg 05/23/25 15:06 05/23/25 15:27 Oxycodone Hcl Immed Release 5 Mg Tablet PO 05/23/25 15:07 5 mg ONCE ONE Administration Pantoprazole Sodium 40 mg 05/24/25 06:30 05/25/25 05:25 Pantoprazole Sodium 40 Mg/10 Ml Vial IVPUSH 40 mg DAILY@0630 HORACE Administration Potassium Chloride 60 meq 05/23/25 12:55 05/23/25 13:27 Potassium Chloride Packet 20 Meq Packet PO 05/23/25 12:56 60 meq ONCE ONE Administration Medical Decision Making Medical Decision Making MDM Narrative: 59-year-old female with a past medical history tobacco abuse, symptomatic bradycardia/SSS s/p PPM, Tokotubo cardiomyopathy with recovered EF, recently diagnosed ureteral cancer with hydronephrosis, discharged from our facility yesterday for acute hypoxic respiratory failure/COPD exacerbation with parainfluenza infection and new diagnosis of ureteral cancer presenting to the ED complaining of headache, nausea, SOB, coughing up phlegm/vomiting, abdominal pain and increased anxiety x this morning. On exam initially tachypneic, hypoxic 84% on room air > increased to 95% on 3.5 L NC, diffuse expiratory wheeze/diminished lung sounds bibasilarly, abdomen is soft diffusely tender, no rebound. No focal neuro deficits. Concern for viral illness vs pneumonia vs pulmonary embolism vs COPD vs intra-abdominal pathology. Concern for increased anxiety. Low suspicion for SAH - upon further history patient without vomiting, more so spitting up phlegm. Plan: EKG, labs, UA, CXR, CT chest, CT AP, empiric IV antibiotics, anticipated admission Please refer to course for remaining clinical decision making, interpretation of labs/imaging results, and discussions with consultants and/or family members. Differential Diagnosis Differential Diagnoses: The differential diagnosis associated with the presentation includes As above Admission/Observation Consideration of admission/observation: Escalation of care including admission/observation considered Consult Healthcare Provider Management of the patient was discussed with: Hospitalist Lab Data MDM Lab Attestation statement: I reviewed the patient's lab results. 05/25/25 06:03 05/25/25 06:03 Labs: Lab Results 05/23/25 05/23/25 05/23/25 Range/Units 12:14 12:23 12:29 WBC 30.3 H* (4.8-10.8) X10*3/uL RBC 4.81 (4.20-5.50) X10*6/uL Hgb 14.0 (12.0-16.0) g/dl Hct 40.9 (37.0-47.0) % MCV 85.0 (80.0-98.0) fL MCH 29.1 (27.0-33.0) pg MCHC 34.2 (31.0-35.0) g/dl RDW 13.2 (11.0-16.0) % Plt Count 380 D (160-400) X10*3/uL MPV 9.1 L (9.4-12.3) fL Immature Gran % (Auto) 0.7 H (0.0-0.4) % Neut % (Auto) 78.0 H (45-73) % Lymph % (Auto) 12.6 L (20-40) % [place] % (Auto) 8.4 (2-11) % Eos % (Auto) 0.1 (0-4) % Baso % (Auto) 0.2 (0-2) % Lymph # (Auto) 3.8 (1.2-4.9) X10*3/uL [place] # (Auto) 2.5 H (0.1-1.2) X10*3/uL Eos # (Auto) 0.0 (0.0-0.4) X10*3/uL Baso # (Auto) 0.1 (0.0-0.2) X10*3/uL Abs Immat Gran (auto) 0.22 H (0.00-0.03) X10*3/uL Absolute Neuts (auto) 23.6 H (2.0-8.3) x10*3/uL Absolute Nucleated RBC 0.000 (0.0-0.012) X10*3/uL Nucleated RBC % (auto) 0.0 (0.0-0.2) /100WBC Smear Tech's Comments VERIFIED VBG pH 7.48 H (7.32-7.43) VBG pCO2 43 mmHg VBG pO2 30 mmHg VBG HCO3 32 H (22-26) mmol/L VBG O2 Saturation 37.0 % VBG Base Excess 8.4 mmol/L Sodium 142 (135-145) mmol/L Potassium 3.1 L D (3.3-5.1) mmol/L Chloride 102 (96-108) mmol/L Carbon Dioxide 31 H (22-29) mmol/L Anion Gap 12 (12-20) BUN 27 H (9-16) mg/dL Creatinine 0.87 (0.5-1.4) mg/dL Estim Creat Clear Calc 67.2 Estimated GFR > 60 Random Glucose 116 H (60-115) mg/dL Lactic Acid (0.5-2.0) mmol/L Lactic Acid F/U @ 2Hr (0.5-2.0) mmol/L Lactic Acid F/U @ 4Hr (0.5-2.0) mmol/L Calcium 9.8 (8.4-10.2) mg/dL Magnesium 2.0 (1.6-2.6) mg/dL Total Bilirubin 0.5 (0.0-1.0) mg/dL Direct Bilirubin 0.2 (0.0-0.5) mg/dL AST 21 (5-31) U/L ALT 32 H (0-31) U/L Alkaline Phosphatase 50 (39-117) U/L Troponin I High Sens 9.8 D (<3.5-17.0) ng/L NT-Pro-B Natriuret Pep 2164.3 H (<300) pg/mL Total Protein 7.6 (6.5-8.0) g/dL Albumin 4.7 (3.5-5.0) g/dL COVID-19 ([facility]) Negative (Negative) COVID-19 Clin Com See Note Influenza Type A (JEAN [facility]UL) Negative (Negative) Influenza Type B (JEAN PAUL) Negative (Negative) Influenza A & B Note See Note 05/23/25 05/23/25 05/23/25 Range/Units 13:11 15:31 18:04 WBC (4.8-10.8) X10*3/uL RBC (4.20-5.50) X10*6/uL Hgb (12.0-16.0) g/dl Hct (37.0-47.0) % MCV (80.0-98.0) fL MCH (27.0-33.0) pg MCHC (31.0-35.0) g/dl RDW (11.0-16.0) % Plt Count (160-400) X10*3/uL MPV (9.4-12.3) fL Immature Gran % (Auto) (0.0-0.4) % Neut % (Auto) (45-73) % Lymph % (Auto) (20-40) % [place] % (Auto) (2-11) % Eos % (Auto) (0-4) % Baso % (Auto) (0-2) % Lymph # (Auto) (1.2-4.9) X10*3/uL [place] # (Auto) (0.1-1.2) X10*3/uL Eos # (Auto) (0.0-0.4) X10*3/uL Baso # (Auto) (0.0-0.2) X10*3/uL Abs Immat Gran (auto) (0.00-0.03) X10*3/uL Absolute Neuts (auto) (2.0-8.3) x10*3/uL Absolute Nucleated RBC (0.0-0.012) X10*3/uL Nucleated RBC % (auto) (0.0-0.2) /100WBC Smear Tech's Comments VBG pH (7.32-7.43) VBG pCO2 mmHg VBG pO2 mmHg VBG HCO3 (22-26) mmol/L VBG O2 Saturation % VBG Base Excess mmol/L Sodium (135-145) mmol/L Potassium (3.3-5.1) mmol/L Chloride (96-108) mmol/L Carbon Dioxide (22-29) mmol/L Anion Gap (12-20) BUN (9-16) mg/dL Creatinine (0.5-1.4) mg/dL Estim Creat Clear Calc Estimated GFR Random Glucose (60-115) mg/dL Lactic Acid 2.4 H* (0.5-2.0) mmol/L Lactic Acid F/U @ 2Hr 2.4 H* (0.5-2.0) mmol/L Lactic Acid F/U @ 4Hr 1.3 (0.5-2.0) mmol/L Calcium (8.4-10.2) mg/dL Magnesium (1.6-2.6) mg/dL Total Bilirubin (0.0-1.0) mg/dL Direct Bilirubin (0.0-0.5) mg/dL AST (5-31) U/L ALT (0-31) U/L Alkaline Phosphatase (39-117) U/L Troponin I High Sens (<3.5-17.0) ng/L NT-Pro-B Natriuret Pep (<300) pg/mL Total Protein (6.5-8.0) g/dL Albumin (3.5-5.0) g/dL COVID-19 ([facility]) (Negative) COVID-19 Clin Com Influenza Type A ([facility]UL) (Negative) Influenza Type B ([facility]UL) (Negative) Influenza A & B Note Independent Interpretation I performed an independent interpretation of an: EKG, Plain X-Ray and CT Scan Radiology Impression Discussion of test interpretation with radiology: I have reviewed the radiologist's reading. Independent Historian Clinical information obtained from an independent historian. History obtained from or confirmed by: Friend External Record Review External record reviewed: Inpatient record, Office record, Outpatient record, Prior outpatient labs, Prior outpatient radiology, Primary care record and Outside ED record Tests considered The following testing was considered but not selected: As above Prescription Management I considered prescription management with: Pain Medication and Antibiotic Chronic Conditions Patient?s care impacted by: Cancer Social Determinants Patient?s care significantly limited by Social Determinants of Health including: Alcoholism and drug addiction in family, Problems related to primary support group and Other Social Determinant of Health Critical Care Time Critical Care Time Critical Care Time: Yes Total Critical Care Time: 45 Attestation: I have personally provided critical care time exclusive of time spent on separately billable procedures. Time includes review of lab data, radiology results, discussion with consultants, and monitoring for potential decompensation. Intervention performed as documented. Discharge Plan Discharge Clinical Impression: Hypoxia, Abdominal pain, Anxiety, Pneumonia Patient Disposition: Admitted As Inpatient Interventions: Admission Worksheet (ED) Last Done: 05/23/25 23:42 Discharge Date/Time: 05/24/25 01:25
[2025-05-23 12:33] LABS: Hematocrit 40.9 % (37.0-47.0); Hemoglobin 14.0 g/dl (12.0-16.0); Imm Gran Abs Auto 0.22 X10*3/uL (0.00-0.03); Imm Gran Pct Auto 0.7 % (0.0-0.4); Lymphocytes Absolute Auto 3.8 X10*3/uL (1.2-4.9); MANUAL DIFF FLAG SCAN; Mean Corpuscular HGB Conc 34.2 g/dl (31.0-35.0); Mean Corpuscular Hemoglobin 29.1 pg (27.0-33.0); Mean Corpuscular Volume 85.0 fL (80.0-98.0); NRBC Abs Auto 0.000 X10*3/uL (0.0-0.012); NRBC Pct Auto 0.0 /100WBC (0.0-0.2); Platelet Count 380 X10*3/uL (160-400); Red Blood Count 4.81 X10*6/uL (4.20-5.50); SCAN SMEAR FLAG 1
[2025-05-23 12:37] LABS: White Blood Count 30.3 X10*3/uL (4.8-10.8)
[2025-05-23 12:40] LABS: COVID-19 Test Negative (Negative); IDNOW Serial# 55D5AD1C; IDNOW Serial# 58CA691E; Influenza B2 Negative (Negative)
[2025-05-23 12:44] LABS: VBG HCO3 32 mmol/L (22-26); VBG O2 % Saturation 37.0 %
--- NOTE | 2025-05-23 12:47 | PC.NURSE ---
Pt reports that she feels like she's having a panic attack. She has a headache, back pain, nausea. She was diagnosed with cancer yesterday, and does not wish her children to know. She reports tjhat she takes whatever she needs to take to get out of pain. She should be using O2 at home, but she has not been using O2. She repeats herself a lot. Pt says she has a lot of secrets and forgets she has cancer. Took nothing today for pain. Labs sent. 20G IV right AC
[2025-05-23 12:49] LABS: Alanine Aminotransferase 32 U/L (0-31); Albumin Level 4.7 g/dL (3.5-5.0); Alkaline Phosphatase 50 U/L (39-117); Anion Gap 12 (12-20); Aspartate Amino Transferase 21 U/L (5-31); Blood Urea Nitrogen 27 mg/dL (9-16); Calcium 9.8 mg/dL (8.4-10.2); Carbon Dioxide 31 mmol/L (22-29); Chloride 102 mmol/L (96-108); Creatinine Clr Calc Pharmacy 67.2; Estimated Glomerular Filt Rate > 60; Magnesium 2.0 mg/dL (1.6-2.6); Potassium 3.1 mmol/L (3.3-5.1); Sodium 142 mmol/L (135-145); Total Protein 7.6 g/dL (6.5-8.0)
--- NOTE | 2025-05-23 12:53 | ED.GENADULT ---
HPI - General Adult General Chief complaint: General Medical Stated complaint: vomiting, not feeling well Time Seen by Provider: 05/23/25 12:19 Source: RN notes reviewed and old records reviewed History of Present Illness ED Provider: Jennifer Mayberry PA-C HPI narrative: 59-year-old female with a past medical history tobacco abuse, symptomatic bradycardia/SSS s/p PPM, [place] cardiomyopathy with recovered EF, recently diagnosed ureteral cancer with hydronephrosis, discharged from our facility yesterday for acute hypoxic respiratory failure/COPD exacerbation with parainfluenza infection and new diagnosis of ureteral cancer presenting to the ED via EMS Related Data Home Medications ?Medication ?Instructions ?Recorded ?Confirmed metoprolol succinate 50 mg 50 mg PO DAILY 05/15/25 05/15/25 tablet,extended release 24 hr Previous Rx's ?Medication ?Instructions ?Recorded albuterol sulfate 90 mcg/actuation 2 puff inhalation Q4-6H PRN 05/22/25 aerosol inhaler (Ventolin HFA) shortness of breath or wheezing #8.5 grams fluticasone furoate 100 1 inh inhalation DAILY #60 ea 05/22/25 mcg-vilanterol 25 mcg/dose inhalation powder (Breo Ellipta) nicotine 14 mg/24 hr daily 14 mg transdermal DAILY #30 ea 05/22/25 transdermal patch oxycodone 5 mg tablet 5 mg PO Q8H PRN pain, severe #10 05/22/25 tabs prednisone 10 mg tablet See Rx Instructions .Route 05/22/25 .COMPLEX #12 tabs Allergies Allergy/AdvReac Type Severity Reaction Status Date / Time aspirin Allergy Mild Headache Verified 05/23/25 11:57 ibuprofen Allergy Mild heartburns Verified 05/23/25 11:57 Review of Systems Review of Systems: Yes all other systems are reviewed and are negative Constitutional: Constitutional: Reports as per HPI [facility] Past Medical History Attestation statement: The following information was validated with the patient. Source: old records reviewed Medical History Sick sinus syndrome due to sinoatrial node dysfunction Anxiety Depression Social History Social History Household Members: Significant Other, Children and Adopted Family Housing: House Are you a primary resident care assistant to a significant other at home: No Do you presently have visiting nurse or other home services: No Alcohol intake: never Comment: medicated, pain tolerable Patient Tobacco Use Status: Current everyday Tobacco user Tobacco use type: Cigarette Cigarette Packs Per Day: 1 Cigarettes Per Day: 10 Years Smoked: 30 e-Cigarette/Vaping Use: Never Used Substance Use Type: Marijuana Advance Directives: Yes Advance Directives Information Provided: Yes Advance Directives on File: No Advance Directives Date on File: 04/23/21 service: No Physical Exam ED Vital Signs: Vital Signs - 24 hr 05/23/25 11:54 05/23/25 12:04 Temperature 98.6 F Pulse Rate 84 Respiratory Rate 22 H Blood Pressure 151/94 H Pulse Oximetry 84 L 89 L Oxygen Delivery Method Room Air Nasal Cannula Oxygen Flow Rate 2 BMI result Body Mass Index 19.9 Const General: cooperative, healthy appearing and no acute distress Orientation/consciousness: patient oriented x3 Limitations: no limitations HENMT Head: Yes normal to inspection and Yes atraumatic Ears: hearing grossly normal bilaterally General nose exam: Normal external nose present Face and sinus: Yes normal facial exam Eyes General: appearance normal, both eyes and all related structures EOM: EOMs intact bilaterally Neck Neck: Yes normal visual inspection and Yes no meningeal signs Resp Effort & Inspection: normal respiratory effort and no respiratory distress Auscultation: clear to auscultation bilaterally Cardio Rate: regular rate Heart sounds: S1 normal heart sound present and S2 normal heart sound present GI Inspection: Yes normal to inspection Palpation (GI): Soft to palpation, nontender, no guarding and not rigid General: Yes no CVA tenderness Back/Spine/Pelvis Back: no CVA tenderness Skin Rashes: no rashes Wounds: no wounds Neuro General: patient oriented x3, tone normal and no meningeal signs Cranial nerves: Yes CN's II-XII intact bilaterally Gait exam (Neuro): Normal gait present Extrem General: Yes normal to inspection Medical Decision Making Medical Decision Making MDM Narrative: Please refer to course for remaining clinical decision making, interpretation of labs/imaging results, and discussions with consultants and/or family members. Differential Diagnosis Differential Diagnoses: The differential diagnosis associated with the presentation includes As above Admission/Observation Consideration of admission/observation: Escalation of care including admission/observation considered Lab Data MDM Lab Attestation statement: I reviewed the patient's lab results. 05/23/25 12:23 05/23/25 12:23 Labs: Lab Results 05/23/25 05/23/25 05/23/25 Range/Units 12:14 12:23 12:29 WBC 30.3 H* (4.8-10.8) X10*3/uL RBC 4.81 (4.20-5.50) X10*6/uL Hgb 14.0 (12.0-16.0) g/dl Hct 40.9 (37.0-47.0) % MCV 85.0 (80.0-98.0) fL MCH 29.1 (27.0-33.0) pg MCHC 34.2 (31.0-35.0) g/dl RDW 13.2 (11.0-16.0) % Plt Count 380 D (160-400) X10*3/uL MPV 9.1 L (9.4-12.3) fL VBG pH 7.48 H (7.32-7.43) VBG pCO2 43 mmHg VBG pO2 30 mmHg VBG HCO3 32 H (22-26) mmol/L VBG O2 Saturation 37.0 % VBG Base Excess 8.4 mmol/L Sodium 142 (135-145) mmol/L Potassium 3.1 L D (3.3-5.1) mmol/L Chloride 102 (96-108) mmol/L Carbon Dioxide 31 H (22-29) mmol/L Anion Gap 12 (12-20) BUN 27 H (9-16) mg/dL Creatinine 0.87 (0.5-1.4) mg/dL Estim Creat Clear Calc 67.2 Estimated GFR > 60 Random Glucose 116 H (60-115) mg/dL Calcium 9.8 (8.4-10.2) mg/dL Magnesium 2.0 (1.6-2.6) mg/dL Total Bilirubin 0.5 (0.0-1.0) mg/dL Direct Bilirubin 0.2 (0.0-0.5) mg/dL AST 21 (5-31) U/L ALT 32 H (0-31) U/L Alkaline Phosphatase 50 (39-117) U/L Total Protein 7.6 (6.5-8.0) g/dL Albumin 4.7 (3.5-5.0) g/dL COVID-19 ([facility]) Negative (Negative) COVID-19 Clin Com See Note Influenza Type A (JEAN PAUL) Negative (Negative) Influenza Type B (JEAN PAUL) Negative (Negative) Influenza A & B Note See Note Radiology Impression Discussion of test interpretation with radiology: I have reviewed the radiologist's reading. External Record Review External record reviewed: Inpatient record, Office record, Outpatient record, Prior outpatient labs, Prior outpatient radiology, Primary care record and Outside ED record Tests considered The following testing was considered but not selected: As above Discharge Plan Discharge Prescriptions: No Action metoprolol succinate 50 mg Tablet Extended Release 24 Hr 50 mg PO DAILY nicotine 14 mg/24 hr Patch 24 Hour 14 mg transdermal DAILY Qty: 30 0RF albuterol sulfate [Ventolin HFA] 90 mcg/actuation HFA aerosol inhaler 2 puff inhalation Q4-6H PRN (Reason: shortness of breath or wheezing) Qty: 8.5 0RF fluticasone furoate-vilanterol [Breo Ellipta] 100-25 mcg/dose blister with device 1 inh inhalation DAILY Qty: 60 0RF prednisone 10 mg tablet See Rx Instructions .ROUTE .COMPLEX Qty: 12 0RF Rx Instructions: 30 mg daily x 2 days, then 20 mg daily x 2 days, then 10 mg daily x 2 days, then stop oxycodone 5 mg tablet 5 mg PO Q8H PRN (Reason: pain, severe) Qty: 10 0RF Rx Instructions: Partial Fill upon patient request. Print Language: Canadian
[2025-05-23 12:56] LABS: NT Pro B Type Natriuretic Pept 2164.3 pg/mL (<300); Troponin-I High Sensitivity 9.8 ng/L (<3.5-17.0)
[2025-05-23] MEDS: levalbuterol HCL 3.75 MG, Ipratropium Bromide 0.5 MG INHALE (13:08)
[2025-05-23 13:09] LABS: Venous Blood Gas Refer to POC result
--- NOTE | 2025-05-23 13:09 | PC.RT ---
pt sats were mid 80's upon arrival. pt contunes to declie wearing home oxyeg. this is the 2nd time she has refused oxygen as pt wants to keep smoking.
[2025-05-23] MEDS: cefEPime HCl/D5W 2 GM/50 ML PIGGYBACK IV ×2 (13:22→22:18)
[2025-05-23] MEDS: Potassium Chloride Packet 20 MEQ PACKET 60 MEQ PO (13:27)
--- NOTE | 2025-05-23 13:29 | PC.NURSE ---
Pt taking PO potassium very slowly. She has been having dry heaves.
--- NOTE | 2025-05-23 14:49 | PC.NURSE ---
02 turned up to 4L for sats of 88% at rest. She is satting low 90's.
--- NOTE | 2025-05-23 14:52 | PC.NURSE ---
reports 10/10 head and back pain. Requests 10mg oxycodone because she takes it at home.
--- NOTE | 2025-05-23 14:56 | PC.NURSE ---
SO reports that he thinks pt may be using a substance again. Has been in contact with a former dealer. He wonders if she might be withdrawing. He does not know what she might be using, if she is. Pt keeps repeating, I'm not an addict.
[2025-05-23 15:15] LABS: Reflex Lactate? Lactic Acid Added
[2025-05-23] MEDS: oxyCODONE HCl Immed Release 5 MG TABLET PO (15:27)
[2025-05-23 15:55] LABS: ~Lactic Acid-LAB USE ONLY 2.4 mmol/L (0.5-2.0)
--- NOTE | 2025-05-23 16:31 | ECG_ITS ---
Test Reason : sob Blood Pressure : */* mmHG Vent. Rate : 73 BPM Atrial Rate : 73 BPM P-R Int : 166 ms QRS Dur : 82 ms QT Int : 414 ms P-R-T Axes : 61 68 24 degrees QTcB Int : 456 ms Sinus rhythm with sinus arrhythmia with occasional Premature ventricular complexes Nonspecific ST abnormality Abnormal ECG When compared with ECG of 18-May-2025 00:51, Sinus rhythm has replaced Electronic atrial pacemaker ST now depressed in Lateral leads Nonspecific T wave abnormality now evident in Inferior leads T wave amplitude has decreased in Lateral leads Referred By: Jennifer Mayberry Electronically Signed By: ROCIO CONTRERAS MD
--- NOTE | 2025-05-23 16:53 | PC.NURSE ---
Pt admits to buying 30mg percocet from someone yesterday.
[2025-05-23] MEDS: iohexoL 350 MG/ML 100 ML INFUS..BTL IV (17:22)
[2025-05-23 17:33] LABS: Reflex Lactate? 2 Y
[2025-05-23] MEDS: Potassium Chloride/H20 10 MEQ/100 ML PIGGYBACK 100 MEQ IV ×2 (17:50→20:09)
[2025-05-23 18:23] LABS: ~Lactic Acid-LAB USE ONLY 1.3 mmol/L (0.5-2.0)
--- NOTE | 2025-05-23 18:40 | MHC.EDTECH ---
pt was found incontinent of urine, felisa care done. pt placed on purewick. redness on sacrum noted, allevyn patch place, RN made aware
--- NOTE | 2025-05-23 20:41 | PM.IMHP ---
History of Present Illness Date of Service: 05/23/25 Attending physician on admission: Bk Nguyen Chief Complaint: ROSEN, vomiting Patient is a 59-year-old female with a past medical history significant for sick sinus syndrome s/p pacemaker, anxiety, depression, recent history of thrombocytopenia, new diagnosis of ureteral cancer, moderate COPD, current smoker, who presented to the ED after being discharged yesterday with a headache and sputum production. The patient reported this is vomiting initially however after examination urge determined to be sputum. She was recently admitted from 05/15-05/22 for acute hypoxic respiratory failure secondary to parainfluenza and COPD exacerbation, discharged home with prednisone. The patient is a very poor historian, she is very anxious and unable to provide much information at this tme. She reports that she keeps forgetting about her new diagnosis of ureteral cancer in his having left flank pain intermittently mostly with movement, requesting to have her stent removed. Review of Systems Constitutional: Constitutional: Denies chills, Denies fatigue, Denies fever(s) and Reports headache(s) Eyes: Eyes: Denies change in vision ENT: Reports headache(s), Denies nasal discharge and Denies sore throat Cardiovascular: Cardiovascular: Denies chest pain, Denies rapid heart rate, Denies leg edema, Denies lightheadedness and Denies dyspnea Respiratory: Respiratory: Denies chest congestion, Denies cough, Denies dyspnea and Denies wheezing Gastrointestinal: Gastrointestinal: Denies abdominal pain, Denies nausea and Denies vomiting Genitourinary: Genitourinary: Denies dysuria and Denies urinary urgency Musculoskeletal: Musculoskeletal: Reports back pain Integumentary/Breasts: Skin/Breast: Denies rash Neurologic: Denies confusion and Reports headache(s) Psychiatric: Psychiatric: Denies confusion Endocrine: Endocrine: Denies fatigue Hematologic/Lymphatic: Hematologic/Lymphatic: Denies easy bleeding and Denies easy bruising Allergic/Immunologic: Allergic/Immunologic: Denies wheezing PMFSH Medical History COPD (chronic obstructive pulmonary disease) Ureteral cancer Pacemaker-mediated tachycardia Thrombocytopenia Sick sinus syndrome due to sinoatrial node dysfunction Anxiety Depression Social History Household Members: Significant Other, Children and Adopted Family Housing: House Are you a primary technical healthcare consultant to a significant other at home: No Do you presently have visiting nurse or other home services: No Alcohol intake: never Comment: medicated, pain tolerable Patient Tobacco Use Status: Current everyday Tobacco user Tobacco use type: Cigarette Cigarette Packs Per Day: 1 Cigarettes Per Day: 10 Years Smoked: 30 Smoked in Last 30 Days: Yes e-Cigarette/Vaping Use: Never Used Use of substances other than those prescribed or required for medical reasons: Yes Substance Use Type: Marijuana Advance Directives: Yes Advance Directives Information Provided: Yes Advance Directives on File: No Advance Directives Date on File: 04/23/21 Patient : No service: No Meds Allergies Allergy/AdvReac Type Severity Reaction Status Date / Time aspirin Allergy Mild Headache Verified 05/23/25 11:57 ibuprofen Allergy Mild heartburns Verified 05/23/25 11:57 Active Medications: Current Medications Acetaminophen (Acetaminophen 325 Mg Tablet) 650 mg PO Q6H PRN PRN Reason: Pain, Mild 1-3,fever,headache Albuterol/Ipratropium (Albuterol/Iprat 2.5/0.5mg 3 Ml Ampul.Neb) 3 ml INHALE Q4H PRN PRN Reason: Shortness of Breath/Wheezing Benzonatate (Benzonatate 100 Mg Capsule) 100 mg PO TID PRN PRN Reason: Cough Calcium Carbonate (Calcium Carbonate 750 Mg Tab.Chew) 750 mg PO Q4H PRN PRN Reason: Heartburn Enoxaparin Sodium (Enoxaparin Sodium 40 Mg/0.4 Ml Syringe) 40 mg SUBCUT Q24H [facility] Last Admin: 05/23/25 19:59 Dose: 40 mg Azithromycin 500 mg/ Sodium (Chloride) 250 mls @ 125 mls/hr IV ONCE ONE Stop: 05/23/25 20:50 Cefepime HCl (Maxipime) 2 gm in 50 mls @ 100 mls/hr IV Q8H [facility] Vancomycin HCl 1,500 mg/ (Sodium Chloride) 500 mls @ 333.333 mls/hr IV ONCE ONE Stop: 05/23/25 21:29 Magnesium Hydroxide (Milk Of Magnesia 30 Ml Oral.Susp) 30 ml PO DAILY PRN PRN Reason: Constipation Melatonin (Melatonin 3 Mg Tablet) 6 mg PO BEDTIME PRN PRN Reason: Insomnia Pantoprazole Sodium (Pantoprazole Sodium 40 Mg/10 Ml Vial) 40 mg IVPUSH DAILY@0630 [facility] Pharmacy Consult (Consult Rx Vancomycin Dosing) 1 each MISCELLANE DAILY PRN PRN Reason: Consult order Prednisone (Prednisone 20 Mg Tablet) 40 mg PO DAILY [facility] Sodium Chloride (0.9 % Sodium Chloride Flush 3 Ml Syringe) 3 ml IVFLUSH QSHIFT [facility] Home Medications ?Medication ?Instructions ?Recorded ?Confirmed ?Last Taken ?Type metoprolol succinate 50 mg 50 mg PO DAILY 05/15/25 05/23/25 Unknown History tablet,extended release 24 hr prednisone 10 mg tablet See Taper PO DAILY 05/23/25 05/23/25 Unknown History Physical Exam Vital Signs and Narrative: Vital Signs: Last Vital Signs Temp 98.4 F 05/23/25 20:06 Pulse 78 05/23/25 20:06 Resp 15 05/23/25 20:06 BP 151/85 H 05/23/25 20:06 Pulse Ox 95 05/23/25 20:06 O2 Del Method Nasal Cannula 05/23/25 20:06 O2 Flow Rate 2 05/23/25 20:06 BMI result Body Mass Index 19.9 General: AOx3, anxious, sitting upright, repeating conversation Resp: Diminished lower lung young, mild expiratory wheezing CVS: Tachycardic, regular rhythm GI: +BS, NT, no distention Skin: Warm, dry Neuro: Cranial nerves II-XII grossly intact bilaterally. Motor grossly intact bilaterally Extremities: No pitting edema Psych: Anxious Const: General: No confusion Orientation/consciousness: No confusion Neuro: General: No confusion Results Labs 05/23/25 12:23 05/23/25 21:34 Labs: Laboratory Results - last 24 hr 05/23/25 05/23/25 05/23/25 12:14 12:23 12:29 MCV 85.0 MCH 29.1 MCHC 34.2 RDW 13.2 Plt Count 380 D MPV 9.1 L Immature Gran % (Auto) 0.7 H Neut % (Auto) 78.0 H Lymph % (Auto) 12.6 L [place] % (Auto) 8.4 Eos % (Auto) 0.1 Baso % (Auto) 0.2 Lymph # (Auto) 3.8 [place] # (Auto) 2.5 H Eos # (Auto) 0.0 Baso # (Auto) 0.1 Abs Immat Gran (auto) 0.22 H Absolute Neuts (auto) 23.6 H Absolute Nucleated RBC 0.000 Nucleated RBC % (auto) 0.0 Smear Tech's Comments VERIFIED VBG pH 7.48 H VBG pCO2 43 VBG pO2 30 VBG HCO3 32 H VBG O2 Saturation 37.0 VBG Base Excess 8.4 Anion Gap 12 Estim Creat Clear Calc 67.2 Estimated GFR > 60 Random Glucose 116 H Lactic Acid Lactic Acid F/U @ 2Hr Lactic Acid F/U @ 4Hr Calcium 9.8 Magnesium 2.0 Total Bilirubin 0.5 Direct Bilirubin 0.2 AST 21 ALT 32 H Alkaline Phosphatase 50 Troponin I High Sens 9.8 D NT-Pro-B Natriuret Pep 2164.3 H Total Protein 7.6 Albumin 4.7 COVID-19 ([facility]) Negative COVID-19 Clin Com See Note Influenza Type A (JEAN PAUL) Negative Influenza Type B (JEAN PAUL) Negative Influenza A & B Note See Note 05/23/25 05/23/25 05/23/25 13:11 15:31 18:04 MCV MCH MCHC RDW Plt Count MPV Immature Gran % (Auto) Neut % (Auto) Lymph % (Auto) [place] % (Auto) Eos % (Auto) Baso % (Auto) Lymph # (Auto) [place] # (Auto) Eos # (Auto) Baso # (Auto) Abs Immat Gran (auto) Absolute Neuts (auto) Absolute Nucleated RBC Nucleated RBC % (auto) Smear Tech's Comments VBG pH VBG pCO2 VBG pO2 VBG HCO3 VBG O2 Saturation VBG Base Excess Anion Gap Estim Creat Clear Calc Estimated GFR Random Glucose Lactic Acid 2.4 H* Lactic Acid F/U @ 2Hr 2.4 H* Lactic Acid F/U @ 4Hr 1.3 Calcium Magnesium Total Bilirubin Direct Bilirubin AST ALT Alkaline Phosphatase Troponin I High Sens NT-Pro-B Natriuret Pep Total Protein Albumin COVID-19 ([facility]) COVID-19 Clin Com Influenza Type A (JEAN PAUL) Influenza Type B (JEAN PAUL) Influenza A & B Note Imaging Radiologist's Impressions: Impressions Chest X-Ray 05/23/25 13:11 IMPRESSION: Bronchial wall thickening can be seen with small airway disease. Electronically signed by: Dhiraj Ponce MD 05/23/2025 01:26 PM EDT Assessment and Plan (1) Acute hypoxic respiratory failure: Status: Acute (2) Severe sepsis: Status: Acute (3) Pneumonia: Status: Acute (4) COPD exacerbation: Status: Acute (5) Hypokalemia: Status: Acute Plan Patient is a 59-year-old female with a past medical history significant for sick sinus syndrome s/p pacemaker, anxiety, depression, recent history of thrombocytopenia, new diagnosis of ureteral cancer, moderate COPD, current smoker, who presented to the ED after being discharged yesterday with a headache and sputum production. admitted for severe sepsis and acute hypoxic respiratory failure in the setting of pneumonia and acute COPD exacerbation Acute hypoxic respiratory failure with chronic hypercapnia, severe sepsis secondary to pneumonia and acute COPD exacerbation - vancomycin and cefepime due to recent hospitalization - continue prednisone - duo nebs - titrate oxygen as needed, goal 88-92% Acute lactic acidosis secondary to severe sepsis, resolved Hypokalemia, repleted - monitor BMP Ureteral cancer, hydronephrosis improved on CT - continue outpatient management Cardiomyopathy - metoprolol Tobacco use disorder - nicotine replacement Full code VTE prophylaxis: Lovenox Patient with acute hypoxic respiratory failure with severe sepsis secondary to pneumonia and acute COPD exacerbation, requiring admission for at least 2 midnights stay for IV antibiotics, breathing treatments and monitoring. Quality Stroke Does the patient have a stroke diagnosis?: No VTE Prior VTE?: No VTE Risk Level:: Medical - moderate - high VTE Device Contraindication: Treatment Not Indicated VTE Drug Contraindication: N/A - Med Ordered
--- NOTE | 2025-05-23 21:14 | PHA.MEDREC ---
Addendum entered by Zack Gonzalez RPh 05/23/25 21:59: MED REC REVIEWED BY [facility] Original Note: Pharmacy Consult ? Medication Reconciliation Pharmacy has completed the medication reconciliation. Utilized discharge packet from 05/22/25 to confirm med list.
[2025-05-23 21:58] LABS: Alanine Aminotransferase 24 U/L (0-31); Albumin Level 4.2 g/dL (3.5-5.0); Alkaline Phosphatase 45 U/L (39-117); Anion Gap 14 (12-20); Aspartate Amino Transferase 17 U/L (5-31); Blood Urea Nitrogen 20 mg/dL (9-16); Calcium 9.2 mg/dL (8.4-10.2); Carbon Dioxide 27 mmol/L (22-29); Chloride 107 mmol/L (96-108); Creatinine Clr Calc Pharmacy 71.4; Estimated Glomerular Filt Rate > 60; Potassium 5.3 mmol/L (3.3-5.1); Sodium 143 mmol/L (135-145); Total Protein 6.7 g/dL (6.5-8.0)
[2025-05-24] VITALS (8 sets, daily range): BP systolic 93–146; BP diastolic 56–84; PULSE 16–91; RESP 13–18; TEMP 36.2–37.1; O2SAT 94–99
[2025-05-24] MEDS: Nicotine 14 MG PATCH.TD24 TRANSDERMA ×2 (01:16→08:08)
[2025-05-24] MEDS: oxyCODONE HCl Immed Release 5 MG TABLET PO (05:28)
[2025-05-24] MEDS: cefEPime HCl/D5W 2 GM/50 ML PIGGYBACK IV ×3 (05:29→21:07)
[2025-05-24 05:58] LABS: MANUAL DIFF FLAG NO
[2025-05-24 06:14] LABS: Hematocrit 35.5 % (37.0-47.0); Hemoglobin 11.9 g/dl (12.0-16.0); Imm Gran Abs Auto 0.13 X10*3/uL (0.00-0.03); Imm Gran Pct Auto 0.9 % (0.0-0.4); Lymphocytes Absolute Auto 1.7 X10*3/uL (1.2-4.9); Mean Corpuscular HGB Conc 33.5 g/dl (31.0-35.0); Mean Corpuscular Hemoglobin 28.7 pg (27.0-33.0); Mean Corpuscular Volume 85.5 fL (80.0-98.0); NRBC Abs Auto 0.000 X10*3/uL (0.0-0.012); NRBC Pct Auto 0.0 /100WBC (0.0-0.2); Platelet Count 265 X10*3/uL (160-400); Red Blood Count 4.15 X10*6/uL (4.20-5.50); White Blood Count 15.3 X10*3/uL (4.8-10.8)
[2025-05-24 06:20] LABS: Anion Gap 12 (12-20); Blood Urea Nitrogen 21 mg/dL (9-16); Calcium 8.6 mg/dL (8.4-10.2); Carbon Dioxide 27 mmol/L (22-29); Chloride 107 mmol/L (96-108); Creatinine Clr Calc Pharmacy 84.8; Estimated Glomerular Filt Rate > 60; Potassium 3.6 mmol/L (3.3-5.1); Sodium 142 mmol/L (135-145)
[2025-05-24 06:47] LABS: Appearance Urine Cloudy; Glucose Urine UA Negative (Negative); PH 6.5 (5.0-9.0); Specific Gravity - Urine 1.025 (1.005-1.025); UMIC TRIGGER UACC YES
[2025-05-24 06:51] LABS: UACC Culture Trigger YES
[2025-05-24 07:48] LABS: Alanine Aminotransferase 21 U/L (0-31); Albumin Level 3.8 g/dL (3.5-5.0); Alkaline Phosphatase 40 U/L (39-117); Aspartate Amino Transferase 18 U/L (5-31); Total Protein 6.0 g/dL (6.5-8.0)
[2025-05-24 07:59] LABS: Procalcitonin 0.05 ng/mL
[2025-05-24] MEDS: Albuterol/Iprat 2.5/0.5MG 3 ML AMPUL.NEB INHALE (07:59)
--- NOTE | 2025-05-24 08:03 | PHA.PROG ---
Admission Date/Time: May 23, 2025 19:34 Indication: RESPIRATORY INFECTION Weight in k.235 kg Adjusted body weight in Kg: [place] body weight in Kg: Obesity Dosing Indication % IBW: Serum Creatinine - Last 168 Hours 05/23/25 05/23/25 05/24/25 12:23 21:34 05:19 Creatinine 0.87 0.82 0.69 Estimated CrCl and GFR - Last 168 Hours 05/23/25 05/23/25 05/24/25 12:23 21:34 05:19 Estim Creat Clear Calc 67.2 71.4 84.8 Estimated GFR > 60 > 60 > 60 Vancomycin Loading Dose: 1500 MG Current Vancomycin Dosing Regimen: 1000 MG Q 12 HOURS Vancomycin Monitoring using AUC goal of 400 - 600 range with trough as surrogate marker: Date and Time for next Vancomycin Level to be drawn: 05/25/25 0800 Pharmacist Comments on Vancomycin Plan: WILL CHECK TROUGH AFTER 3 DOSES Vancomycin dosing will take advantage of [employer] as a clinical decision support tool that uses Bayesian modeling to calculate individual patient's pharmacokinetic parameters and forecast the patient's drug concentration time course with the target goal AUC 24 range of 400 - 600 mg/L/hr.
[2025-05-24] MEDS: Metoprolol Succinate ER 50 MG TAB.ER.24H PO (08:08)
[2025-05-24] MEDS: 0.9 % Sodium Chloride Flush 3 ML SYRINGE IVFLUSH ×3 (08:12→21:09)
--- NOTE | 2025-05-24 11:57 | P.PNIM_ITS ---
Subjective Subjective Date of Service: 05/24/25 Interval History: coughing with sputum, a little short of breath Review of Systems Review of Systems: Yes all other systems are reviewed and are negative Physical Exam 2 Vital Signs: Vital Signs: Last Vital Signs Temp 97.2 F 05/24/25 11:30 Pulse 67 05/24/25 11:30 Resp 18 05/24/25 11:30 BP 93/56 L 05/24/25 11:30 Pulse Ox 94 05/24/25 11:30 O2 Del Method Nasal Cannula 05/24/25 11:30 O2 Flow Rate 2 05/24/25 11:30 BMI result Body Mass Index 19.9 Gen: in no acute distress HEENT: sclera anicteric, moist mucus membranes Neck: supple Lungs: Crackles R side Heart: regular rate and rhythm, no murmurs Abd: soft, non-tender, non-distended Ext: no edema Skin: warm/well-perfused Neuro: alert and oriented x3, no focal findings Psych: appropriate affect Objective Data Active Medications Acetaminophen (Acetaminophen 325 Mg Tablet) 650 mg PO Q6H PRN PRN Reason: Pain, Mild 1-3,fever,headache Albuterol/Ipratropium (Albuterol/Iprat 2.5/0.5mg 3 Ml Ampul.Neb) 3 ml INHALE Q4H PRN PRN Reason: Shortness of Breath/Wheezing Last Admin: 05/24/25 07:59 Dose: 3 ml Documented By: BRESNE Benzonatate (Benzonatate 100 Mg Capsule) 100 mg PO TID PRN PRN Reason: Cough Calcium Carbonate (Calcium Carbonate 750 Mg Tab.Chew) 750 mg PO Q4H PRN PRN Reason: Heartburn Enoxaparin Sodium (Enoxaparin Sodium 40 Mg/0.4 Ml Syringe) 40 mg SUBCUT Q24H [facility] Last Admin: 05/23/25 19:59 Dose: 40 mg Documented By: KRISTINA-JIMBO Fluticasone/Vilanterol (Fluticasone/Vilanterol 100/25 Blst.W.Dev) 1 puff INHALE DAILY [facility] Last Admin: 05/24/25 10:58 Dose: Not Given Documented By: CORY Non-Admin Reason: administered by respiratory Cefepime HCl (Maxipime) 2 gm in 50 mls @ 100 mls/hr IV Q8H [facility] Last Infusion: 05/24/25 06:09 Dose: Infused Documented By: ROSITA Vancomycin HCl 1,000 mg/ (Sodium Chloride) 270 mls @ 270 mls/hr IV Q12H [facility] Last Infusion: 05/24/25 10:58 Dose: Infused Documented By: CORY Magnesium Hydroxide (Milk Of Magnesia 30 Ml Oral.Susp) 30 ml PO DAILY PRN PRN Reason: Constipation Melatonin (Melatonin 3 Mg Tablet) 6 mg PO BEDTIME PRN PRN Reason: Insomnia Metoprolol Succinate (Metoprolol Succinate Er 50 Mg Tab.Er.24h) 50 mg PO DAILY [facility]; Protocol Last Admin: 05/24/25 08:08 Dose: 50 mg Documented By: CORY Nicotine (Nicotine 14 Mg Patch.Td24) 14 mg TRANSDERMA DAILY [facility] Last Admin: 05/24/25 08:08 Dose: 14 mg Documented By: CORY Oxycodone HCl (Oxycodone Hcl Immed Release 5 Mg Tablet) 5 mg PO Q8H PRN PRN Reason: Pain, Severe (Pain Scale 7-10) Last Admin: 05/24/25 05:28 Dose: 5 mg Documented By: CADY Pantoprazole Sodium (Pantoprazole Sodium 40 Mg/10 Ml Vial) 40 mg IVPUSH DAILY@0630 [facility] Last Admin: 05/24/25 05:28 Dose: 40 mg Documented By: CADY Pharmacy Consult (Consult Rx Vancomycin Dosing) 1 each MISCELLANE DAILY PRN PRN Reason: Consult order Prednisone (Prednisone 20 Mg Tablet) 40 mg PO DAILY [facility] Last Admin: 05/24/25 08:07 Dose: 40 mg Documented By: CORY Sodium Chloride (0.9 % Sodium Chloride Flush 3 Ml Syringe) 3 ml IVFLUSH QSHIFT [facility] Last Admin: 05/24/25 08:12 Dose: 3 ml Documented By: CORY Labs 05/24/25 05:19 05/24/25 05:19 Labs: Laboratory Results - last 24 hr 05/23/25 05/23/25 05/23/25 12:14 12:23 12:29 MCV 85.0 MCH 29.1 MCHC 34.2 RDW 13.2 Plt Count 380 D MPV 9.1 L Immature Gran % (Auto) 0.7 H Neut % (Auto) 78.0 H Lymph % (Auto) 12.6 L Trigg % (Auto) 8.4 Eos % (Auto) 0.1 Baso % (Auto) 0.2 Lymph # (Auto) 3.8 Trigg # (Auto) 2.5 H Eos # (Auto) 0.0 Baso # (Auto) 0.1 Abs Immat Gran (auto) 0.22 H Absolute Neuts (auto) 23.6 H Absolute Nucleated RBC 0.000 Nucleated RBC % (auto) 0.0 Smear Tech's Comments VERIFIED VBG pH 7.48 H VBG pCO2 43 VBG pO2 30 VBG HCO3 32 H VBG O2 Saturation 37.0 VBG Base Excess 8.4 Anion Gap 12 Estim Creat Clear Calc 67.2 Estimated GFR > 60 Random Glucose 116 H Lactic Acid Lactic Acid F/U @ 2Hr Lactic Acid F/U @ 4Hr Calcium 9.8 Magnesium 2.0 Total Bilirubin 0.5 Direct Bilirubin 0.2 AST 21 ALT 32 H Alkaline Phosphatase 50 Troponin I High Sens 9.8 D NT-Pro-B Natriuret Pep 2164.3 H Total Protein 7.6 Albumin 4.7 Procalcitonin Urine Color Urine Appearance Urine pH Ur Specific [place] Urine Protein Urine Glucose (UA) Urine Ketones Urine Blood Urine Nitrite Ur Leukocyte Esterase Urine RBC Urine WBC Ur Squamous Epith Cells Urine Bacteria Hyaline Casts COVID-19 ([facility]) Negative COVID-19 Clin Com See Note Influenza Type A ([facility]) Negative Influenza Type B ([facility]) Negative Influenza A & B Note See Note 05/23/25 05/23/25 05/23/25 13:11 15:31 18:04 MCV MCH MCHC RDW Plt Count MPV Immature Gran % (Auto) Neut % (Auto) Lymph % (Auto) Trigg % (Auto) Eos % (Auto) Baso % (Auto) Lymph # (Auto) Trigg # (Auto) Eos # (Auto) Baso # (Auto) Abs Immat Gran (auto) Absolute Neuts (auto) Absolute Nucleated RBC Nucleated RBC % (auto) Smear Tech's Comments VBG pH VBG pCO2 VBG pO2 VBG HCO3 VBG O2 Saturation VBG Base Excess Anion Gap Estim Creat Clear Calc Estimated GFR Random Glucose Lactic Acid 2.4 H* Lactic Acid F/U @ 2Hr 2.4 H* Lactic Acid F/U @ 4Hr 1.3 Calcium Magnesium Total Bilirubin Direct Bilirubin AST ALT Alkaline Phosphatase Troponin I High Sens NT-Pro-B Natriuret Pep Total Protein Albumin Procalcitonin Urine Color Urine Appearance Urine pH Ur Specific [place] Urine Protein Urine Glucose (UA) Urine Ketones Urine Blood Urine Nitrite Ur Leukocyte Esterase Urine RBC Urine WBC Ur Squamous Epith Cells Urine Bacteria Hyaline Casts COVID-19 ([facility]) COVID-19 Clin Com Influenza Type A ([facility]) Influenza Type B ([facility]) Influenza A & B Note 05/23/25 05/24/25 05/24/25 21:34 05:19 06:34 MCV 85.5 MCH 28.7 MCHC 33.5 RDW 13.7 Plt Count 265 D MPV 9.1 L Immature Gran % (Auto) 0.9 H Neut % (Auto) 80.2 H Lymph % (Auto) 11.1 L Trigg % (Auto) 7.7 Eos % (Auto) 0.0 Baso % (Auto) 0.1 Lymph # (Auto) 1.7 Trigg # (Auto) 1.2 Eos # (Auto) 0.0 Baso # (Auto) 0.0 Abs Immat Gran (auto) 0.13 H Absolute Neuts (auto) 12.3 H Absolute Nucleated RBC 0.000 Nucleated RBC % (auto) 0.0 Smear Tech's Comments VBG pH VBG pCO2 VBG pO2 VBG HCO3 VBG O2 Saturation VBG Base Excess Anion Gap 14 12 Estim Creat Clear Calc 71.4 84.8 Estimated GFR > 60 > 60 Random Glucose 148 H 108 Lactic Acid Lactic Acid F/U @ 2Hr Lactic Acid F/U @ 4Hr Calcium 9.2 D 8.6 D Magnesium Total Bilirubin 0.8 0.7 Direct Bilirubin 0.3 AST 17 18 ALT 24 21 Alkaline Phosphatase 45 40 Troponin I High Sens NT-Pro-B Natriuret Pep Total Protein 6.7 6.0 L Albumin 4.2 3.8 Procalcitonin 0.05 Urine Color Yellow Urine Appearance Cloudy Urine pH 6.5 Ur Specific [place] 1.025 Urine Protein 100 (2+) H Urine Glucose (UA) Negative Urine Ketones Trace Urine Blood Large (3+) H Urine Nitrite Negative Ur Leukocyte Esterase Small (1+) H Urine RBC >20 H Urine WBC 11-20 H Ur Squamous Epith Cells 3-5 Urine Bacteria None Seen Hyaline Casts 0-2 COVID-19 ([facility]) COVID-19 Clin Com Influenza Type A ([facility]) Influenza Type B ([facility]) Influenza A & B Note Assessment and Plan (1) Hypoxia: Status: Inactive (2) COPD (chronic obstructive pulmonary disease): Status: Inactive (3) Acute hypoxic respiratory failure: Status: Inactive Plan 59yo F with tobacco abuse, symptomatic bradycardia s/p PPM, takotsubo cardiomyopathy with recovered EF, recent admission 05/15-05/22/25 with hypoxia due to parainfluenza infection and presumed new diagnosis of COPD, hospitalization complicated by obstruction of L ureter due to new diagnosis of ureteral cancer, pacemaker-mediated tachycardia presented this time with cough and dyspnea, found to be hypoxic and septic with PNA severe sepsis and acute hypoxic respiratory failure due to PNA, recent COPD exacerbation - 05/23- cefepime + vancomycin, follow BCx, trend PCT, check urinary antigens for Legionella and pneumococcus and MRSA swab - continue prednisone, nebs - still needs outpt PFTs - lactate normalized - NRT - wean O2 as tolerated hypoK: repleted ureteral cancer: needs to follow up with Urology cardiomyopathy: continue metoprolol succinate pacemaker-mediated tachycardia: pacemaker reprogrammed last admission VTE ppx: enoxaparin dispo: TBD In my clinical judgment, the patient requires continued inpatient hospitalization for the following reasons: hypoxia Total time managing care of this patient today: 35 minutes. Quality Stroke Does the patient have a stroke diagnosis?: No VTE Prior VTE?: No VTE Risk Level:: Medical - moderate - high VTE Device Contraindication: Treatment Not Indicated VTE Drug Contraindication: N/A - Med Ordered
--- NOTE | 2025-05-24 12:42 | MHC.CM.PN ---
Patient lives in a home w/ S.O. and 2 children ages 22 and 15. Ambulates w/ cane. Independent w care most times, but recently family has been assisting PRN. No PCP. Last seen at [facility] 3 years ago. Reports she has requested medical records be transferred to [address] [place] [address] and will be scheduling a new patient appt soon. Reports she has an HCP listing her daughter, Gely, as HCA. Copy requested. DP: Home w/ family support via private transport. CM will continue to follow.
[2025-05-24 15:26] LABS: MRSA Nasal PCR NEGATIVE (Negative); SA Nasal PCR NEGATIVE (Negative)
[2025-05-25] MEDS: oxyCODONE HCl Immed Release 5 MG TABLET PO ×2 (03:13→11:13)
--- NOTE | 2025-05-25 03:35 | PC.NURSE ---
This RN went to answer patients call sanchez and found pt on the toilet and she said she was feeling very anxious and feels like shes having a panic attack. Patient became tachycardic with HR up into the 140s but after talking with patient it came down. Eventually patient was able to come outside the bathroom and sit in the recliner. She requested ativan and this RN messaged Dr. Vega who ordered 1x dose of PO ativan. Patient remains in the recliner and says she feels she is going to be okay.
[2025-05-25 03:42] VITALS: BP 130/76; PULSE 66; RESP 17; TEMP 36; O2SAT 94
--- NOTE | 2025-05-25 04:44 | PM.EVENT ---
Event Note Date of Service: 05/25/25 Event Note: pt had an 18 beat run of VT vs wide complex tachycardia. when nurse checked on pt she stated she was fine and comfortable just was repositioning, HR returned to the 60s directly after. pt had similar presentation during recent hospitalization and it was diagnosed as pacemaker mediated tachycardia. pacemaker was reprogrammed. will place a cardiology consult again due to recurence. Time Spent With Patient Time: Total time managing care of this patient today ____ minutes.
[2025-05-25] MEDS: cefEPime HCl/D5W 2 GM/50 ML PIGGYBACK IV (05:31)
[2025-05-25 06:35] LABS: Hematocrit 34.8 % (37.0-47.0); Hemoglobin 11.3 g/dl (12.0-16.0); Mean Corpuscular HGB Conc 32.5 g/dl (31.0-35.0); Mean Corpuscular Hemoglobin 28.7 pg (27.0-33.0); Mean Corpuscular Volume 88.3 fL (80.0-98.0); NRBC Abs Auto 0.000 X10*3/uL (0.0-0.012); NRBC Pct Auto 0.0 /100WBC (0.0-0.2); Platelet Count 224 X10*3/uL (160-400); Red Blood Count 3.94 X10*6/uL (4.20-5.50); White Blood Count 16.0 X10*3/uL (4.8-10.8)
[2025-05-25 06:49] LABS: Alanine Aminotransferase 20 U/L (0-31); Albumin Level 3.9 g/dL (3.5-5.0); Alkaline Phosphatase 35 U/L (39-117); Anion Gap 10 (12-20); Aspartate Amino Transferase 16 U/L (5-31); Blood Urea Nitrogen 19 mg/dL (9-16); Calcium 8.8 mg/dL (8.4-10.2); Carbon Dioxide 29 mmol/L (22-29); Chloride 104 mmol/L (96-108); Creatinine Clr Calc Pharmacy 78.0; Estimated Glomerular Filt Rate > 60; Potassium 3.8 mmol/L (3.3-5.1); Sodium 139 mmol/L (135-145); Total Protein 6.3 g/dL (6.5-8.0)
--- NOTE | 2025-05-25 07:17 | HO.PM.IMPN ---
Subjective Subjective Date of Service: 05/25/25 Interval History: It is my 1st day taking care of the patient Patient highly anxious Patient difficult to redirect, goes on to mention past, , she was ambulating without any O2, however she insisted on having O2 at the time the encounter saying ?I need his oxygen to feel better while I am talking?, patient was recently evaluated for home O2 services in prior admission and was noted to have low oxygen requirements, again her leukocytosis is likely from steroids, less likely pneumonia not be completely ruled out Hence transitioned her antibiotics to p.o. Augmentin Apparently the patient had a run of SVT yesterday and Cardiology was consulted by nocturnal [employer] Patient is in sinus rhythm, no tachycardia noted at the time of this interaction Patient reports the heart rate medication is appearing to works Patient deferring antianxiety medications Patient reports she likely has undiagnosed ADHD, and goes on tensioned Requesting teaching about nebulizers or inhalers Not hypoxic on room air and was able to ambulate from the bed to the bathroom and back, without any need for oxygen Review of Systems Review of Systems: Yes all other systems are reviewed and are negative Physical Exam Exam: Exam: General: AOx3, visibly anxious Resp: CTA bilaterally CVS: S1, S2, RRR, no wheezing noted, not hypoxic on room air-insists on having 2 L O2 for comfort GI: +BS, NT, no distention Skin: Warm, dry Neuro: Motor grossly intact bilaterally Extremities: No edema Psych: Anxious, tangential talk Vital Signs: Vital Signs: Last Vital Signs Temp 96.8 F 05/25/25 03:42 Pulse 66 05/25/25 03:42 Resp 17 05/25/25 03:42 BP 130/76 05/25/25 03:42 Pulse Ox 94 05/25/25 03:42 O2 Del Method Room Air 05/25/25 03:42 O2 Flow Rate 2.0 05/24/25 15:34 BMI result Body Mass Index 19.9 Objective Data Active Medications Acetaminophen (Acetaminophen 325 Mg Tablet) 650 mg PO Q6H PRN PRN Reason: Pain, Mild 1-3,fever,headache Albuterol/Ipratropium (Albuterol/Iprat 2.5/0.5mg 3 Ml Ampul.Neb) 3 ml INHALE Q4H PRN PRN Reason: Shortness of Breath/Wheezing Last Admin: 05/24/25 07:59 Dose: 3 ml Documented By: BOLIVAR Benzonatate (Benzonatate 100 Mg Capsule) 100 mg PO TID PRN PRN Reason: Cough Calcium Carbonate (Calcium Carbonate 750 Mg Tab.Chew) 750 mg PO Q4H PRN PRN Reason: Heartburn Enoxaparin Sodium (Enoxaparin Sodium 40 Mg/0.4 Ml Syringe) 40 mg SUBCUT Q24H [facility] Last Admin: 05/24/25 21:07 Dose: 40 mg Documented By: ROSITA Fluticasone/Vilanterol (Fluticasone/Vilanterol 100/25 Blst.W.Dev) 1 puff INHALE DAILY [facility] Last Admin: 05/24/25 10:58 Dose: Not Given Documented By: CORY Non-Admin Reason: administered by respiratory Cefepime HCl (Maxipime) 2 gm in 50 mls @ 100 mls/hr IV Q8H [facility] Last Infusion: 05/25/25 06:06 Dose: Infused Documented By: ROSITA Vancomycin HCl 1,000 mg/ (Sodium Chloride) 270 mls @ 270 mls/hr IV Q12H [facility] Last Infusion: 05/24/25 23:41 Dose: Infused Documented By: ROSITA Magnesium Hydroxide (Milk Of Magnesia 30 Ml Oral.Susp) 30 ml PO DAILY PRN PRN Reason: Constipation Melatonin (Melatonin 3 Mg Tablet) 6 mg PO BEDTIME PRN PRN Reason: Insomnia Metoprolol Succinate (Metoprolol Succinate Er 50 Mg Tab.Er.24h) 50 mg PO DAILY [facility]; Protocol Last Admin: 05/24/25 08:08 Dose: 50 mg Documented By: CORY Nicotine (Nicotine 14 Mg Patch.Td24) 14 mg TRANSDERMA DAILY [facility] Last Admin: 05/24/25 08:08 Dose: 14 mg Documented By: CORY Oxycodone HCl (Oxycodone Hcl Immed Release 5 Mg Tablet) 5 mg PO Q8H PRN PRN Reason: Pain, Severe (Pain Scale 7-10) Last Admin: 05/25/25 03:13 Dose: 5 mg Documented By: ROSITA Pantoprazole Sodium (Pantoprazole Sodium 40 Mg/10 Ml Vial) 40 mg IVPUSH DAILY@0630 [facility] Last Admin: 05/25/25 05:25 Dose: 40 mg Documented By: ROSITA Pharmacy Consult (Consult Rx Vancomycin Dosing) 1 each MISCELLANE DAILY PRN PRN Reason: Consult order Prednisone (Prednisone 20 Mg Tablet) 40 mg PO DAILY [facility] Last Admin: 05/24/25 08:07 Dose: 40 mg Documented By: CORY Sodium Chloride (0.9 % Sodium Chloride Flush 3 Ml Syringe) 3 ml IVFLUSH QSHIFT [facility] Last Admin: 05/24/25 21:09 Dose: 3 ml Documented By: ROSITA Labs 05/25/25 06:03 05/25/25 06:03 Labs: Laboratory Results - last 24 hr 05/24/25 05/24/25 05/25/25 05:19 13:43 06:03 MCV 88.3 MCH 28.7 MCHC 32.5 RDW 13.3 Plt Count 224 MPV 9.4 Absolute Nucleated RBC 0.000 Nucleated RBC % (auto) 0.0 Anion Gap 10 L Estim Creat Clear Calc 78.0 Estimated GFR > 60 Random Glucose 110 Calcium 8.8 Total Bilirubin 0.7 0.7 Direct Bilirubin 0.3 AST 18 16 ALT 21 20 Alkaline Phosphatase 40 35 L Total Protein 6.0 L 6.3 L Albumin 3.8 3.9 Procalcitonin 0.05 Nasal Screen MRSA (PCR) NEGATIVE Nasal S. aureus Screen NEGATIVE Nasal MRSA/S.aureus Interp SEE NOTE Microbiology Microbiology Results: Microbiology 05/23/25 13:11 Blood Culture - Preliminary Blood - Venous No growth after 24 hours. 05/23/25 13:11 Blood Culture - Preliminary Blood - Venous No growth after 24 hours. Assessment and Plan (1) Hypoxia: Status: Inactive (2) COPD (chronic obstructive pulmonary disease): Status: Inactive (3) Acute hypoxic respiratory failure: Status: Inactive Plan 59yo F with tobacco abuse, symptomatic bradycardia s/p PPM, takotsubo cardiomyopathy with recovered EF, recent admission 05/15-05/22/25 with hypoxia due to parainfluenza infection and presumed new diagnosis of COPD, hospitalization complicated by obstruction of L ureter due to new diagnosis of ureteral cancer, pacemaker-mediated tachycardia, presented this time with cough and dyspnea, found to be hypoxic and septic with PNA which is agustina (severe anxiety, ongoing smoking and her not using tools - nebulizers), telemetry similar to prior and PPM adjusted to prior settings. severe sepsis and acute hypoxic respiratory failure due to PNA, recent COPD exacerbation - 05/23- cefepime + vancomycin, follow BCx, trend PCT, check urinary antigens for Legionella and pneumococcus and MRSA swab - continue prednisone, nebs - still needs outpt PFTs - lactate normalized - NRT - wean O2 as tolerated hypoK: repleted ureteral cancer: needs to follow up with Urology cardiomyopathy: continue metoprolol succinate pacemaker-mediated tachycardia: pacemaker reprogrammed last admission VTE ppx: enoxaparin dispo: TBD In my clinical judgment, the patient requires continued inpatient hospitalization for the following reasons: hypoxia Total time managing care of this patient today: 35 minutes. Quality Stroke Does the patient have a stroke diagnosis?: No VTE Prior VTE?: No VTE Risk Level:: Medical - moderate - high VTE Device Contraindication: Treatment Not Indicated VTE Drug Contraindication: N/A - Med Ordered
[2025-05-25] MEDS: Fluticasone/Vilanterol 100/25 BLST.W.DEV 1 PUFF INHALE (07:34)
[2025-05-25 07:40] VITALS: PULSE 68; RESP 16
[2025-05-25 08:00] VITALS: BP 123/73; PULSE 63; RESP 18; TEMP 36.1; O2SAT 91
[2025-05-25] MEDS: Metoprolol Succinate ER 50 MG TAB.ER.24H PO (08:00)
[2025-05-25] MEDS: Nicotine 14 MG PATCH.TD24 TRANSDERMA (08:02)
[2025-05-25] MEDS: 0.9 % Sodium Chloride Flush 3 ML SYRINGE IVFLUSH (08:02)
--- NOTE | 2025-05-25 09:19 | HE.PHANOTE ---
Vancomycin addendum: Level came back at 17.8 after 3 doses. decreased dose to 750 mg q 12 hours and will recheck level
--- NOTE | 2025-05-25 10:55 | PC.RT ---
Respiratory, patient Jonah has refused having home oxygen. Dr. Hussein and I had a verbal conversation with the safety issues of not having oxygen at home but the patient continues to refuse services. 05/22/2025
[2025-05-25 11:21] VITALS: BP 110/62; PULSE 66; RESP 18; TEMP 36.3; O2SAT 92
--- NOTE | 2025-05-25 11:21 | PM.DS ---
DS: Providers Provider Date of Service: 05/25/25 Date of admission: 05/23/25 19:34 Date of discharge: 05/25/25 Primary care physician: [facility] DS: Diagnosis Discharge Diagnosis (1) Hypoxia: Status: Inactive DS: Summary Hospital Course Hospital Course: 59yo F with tobacco abuse, symptomatic bradycardia s/p PPM, takotsubo cardiomyopathy with recovered EF, recent admission 05/15-05/22/25 with hypoxia due to parainfluenza infection and presumed new diagnosis of COPD, hospitalization complicated by obstruction of L ureter due to new diagnosis of ureteral cancer, pacemaker-mediated tachycardia, presented this time with cough and dyspnea, found to be hypoxic, which is likley MF (severe anxiety, ongoing smoking and her not using tools - nebulizers), less likely sepsis (pneumonia), telemetry similar to prior and PPM adjusted to prior settings. Acute hypoxic respiratory distress likely in the setting of severe anxiety, ongoing nicotine use, ?not using her tools - extensive education by respiratory about using inhalers, less likely from septic shock. Current nicotine smoker Possible COPD not on home O2 in her current nicotine user with our official diagnosis Patient was recently admitted for dyspnea and was found to have pacemaker induced tachycardia, and workup revealed obstructive uropathy and was discharged with hemodynamic stability as of 05/22/2025. Again on 05/23/2025, she presented with similar concerns hypoxia. Initially was deemed severe sepsis, was treated with IV fluids and IV broad-spectrum antibiotics. Workup revealed resolving parainfluenza pneumonia, was not hypoxic on room air, and persistent lactic acid is from her bronchodilators and hypoxia as similar to prior admission and presentation, less likely from sepsis. Her profile was negative, leukocytosis from steroid use, persistent lactic acidemia from her bronchodilators. Given that she did have parainfluenza recently in the setting of undiagnosed COPD (did not have formal PFTs), and her ongoing nicotine use, we will likely believe that she will take time to have evidence of resolved pneumonia. Given her brisk improvement, and self reflection of severe anxiety, I have offered the patient she education about how to use her tools , she deferred anxiety meds, deferred home O2 eval (has been ambulating independently from the bed to the bathroom multiple times). Patient did not need oxygen in prior recent discharge 3 days ago, patient did not need any services similar to prior discharge. Patient advised to use inhalers. Bedside RN Stevenson was my witness during this entire conversation. For antibiotic coverage he is being discharged on Augmentin 5 days and azithromycin 5 days for possible superimposed bacterial pneumonia as it can not completely be ruled out in a patient with the above-mentioned since. Patient has been not hypoxic on room air, lungs are bilaterally clear, and she is able to ambulate without any concerns or hypoxia and a self reflective of the fact that she has severe anxiety and would not want any medications at this time. She also said I do not need oxygen , hence deferred home O2 eval and stated even if she were to be discharged on oxygen she would not need it. Notes from Urology from prior hospitalization 3 days ago for continuity of care: ureteral cancer with hydronephrosis - CT abdomen/pelvis showed moderate hydronephrosis of the left kidney and mild left-sided hydroureter with possible soft tissue thickening at the level of the transition point within the pelvis. Neoplasm needed exclusion. - Urology consulted. She went to the OR 05/21 and underwent cystoscopy with left retrograde/dilation of ureteric orifice/ureteroscopy/stent placement. She was found to have a pedunculated lesion that likely represented a low-grade superficial ureteric cancer. She will follow up with Dr Ronald Connelly in 1-2 weeks for further workup and management. Notes from emergency room clerk from recent prior hospitalization just 3 days ago: Wide-complex tachycardia Wide complex tachycardia during this hospitalization in the monitor are related to pacemaker mediated tachycardia which is a benign condition in his usually associated with inappropriate pacemaker programming. The pacemaker programmed was Re adjusted yesterday with increased post ventricular refractory period which should prevent her from having any further pacemaker mediated tachycardia. Unfortunately I do not have any strips from the January office visit, where she was told that she might have ventricular tachycardia. This is unclear at this point in time. She has an upcoming EP visit in July. Meanwhile she had workup for structural heart disease with echocardiogram which was within normal limits. She has normal coronary artery by cardiac catheterization in 2020. I would continue with carvedilol therapy at this point in time Sick sinus syndrome due to sinoatrial node dysfunction, reprogrammed prior admission -stable, rate control Patient has a pacemaker placement 2020 for bradycardia and suspected sick sinus syndrome. Pacemaker is working well by evaluation yesterday at bedside. No other interventions needed. Severe anxiety, deferred meds Patient tends to go on a tangent, difficult to redirect to her present problems. She has acceptable that she does have anxiety and that is likely the cause of her recurrent admission along with poor medication compliance and ongoing cigarette smoking. Patient deferred initiating any anxiety medication. Patient said she will follow up with PCP regarding this Given resolution of hypoxia and hemodynamic status back to her baseline, not hypoxic on room air with adequate ambulation and recent presentation, I believe based on my clinical judgment that she is safe to go home. I wanted to recheck her home O2 requirements, patient deferred that, patient also defer initiating any anxiety medications. Her pacemaker and tele this admission have been deemed as similar to prior and no concerns and/or acute management or interventions needed during this admission. Patient needs to follow up with PCP Patient is to we will have consulted pulmonology to have official PFT and smoking cessation advised extensively Patient needs to follow up with Cardiology-has EP visit in July . Time spent discussing smoking cessation with patient: more than 10 minutes Status at Discharge Cognitive/behavioral status at discharge: very very anxious and tangential talk Functional status at discharge: independent ambulation Overall status at discharge: patient is back to baseline Time Attestation Total time managing care of this patient today: 55 mintues. Discharge Coordination Time (in mins): I spent >40 mins in the room in the am and another 15-20 mins again after cardiology input regarding her rhythm and that its not Vtach Quality: Safe Use of Opioids Does Pt have an Active Cancer Diagnosis on the Problem List?: Yes Opioid Measure Date for [facility] Report: 04/25/25 Opioid Measure Time for [facility] Report: 11:35 Quality: Stroke Does the patient have a stroke diagnosis?: No Physical Exam Exam: Exam: General: AOx3, no acute distress Resp: CTA bilaterally, non hypoxic on RA, uses oxygen at the time of talking quoting I need this when I am talking , however deferring home O2 eval or taking home oxygen if she needed it stating ?I do not need oxygen? CVS: S1, S2, RRR GI: +BS, NT, no distention Skin: Warm, dry Neuro: Cranial nerves II-XII grossly intact bilaterally. Motor grossly intact bilaterally Extremities: No edema Psych: Severe anxiety, tangential talk, deferring medication Vital Signs: Vital Signs: Last Vital Signs Temp 96.9 F 05/25/25 08:00 Pulse 63 05/25/25 08:00 Resp 18 05/25/25 08:00 BP 123/73 05/25/25 08:00 Pulse Ox 91 L 05/25/25 08:00 O2 Del Method Room Air 05/25/25 08:00 O2 Flow Rate 2.0 05/24/25 15:34 BMI result Body Mass Index 19.9 DS: Data Data Completed and Pending Completed studies during hospitalization [Text1]: Procedures Insertion of Pacemaker Lead into Right Atrium, Percutaneous Approach (04/23/21) Insertion of Pacemaker Lead into Right Ventricle, Percutaneous Approach (04/23/21) Insertion of Pacemaker, Dual Chamber into Chest Subcutaneous Tissue and Fascia, Open Approach (04/23/21) Replacement of Right Hip Joint, Femoral Surface with Synthetic Substitute, Uncemented, Open Approach (11/12/24) Labs on day of discharge: Laboratory Results - last 24 hr 05/24/25 05/25/25 05/25/25 13:43 06:03 08:10 WBC 16.0 H RBC 3.94 L Hgb 11.3 L Hct 34.8 L MCV 88.3 MCH 28.7 MCHC 32.5 RDW 13.3 Plt Count 224 MPV 9.4 Absolute Nucleated RBC 0.000 Nucleated RBC % (auto) 0.0 Sodium 139 Potassium 3.8 Chloride 104 Carbon Dioxide 29 Anion Gap 10 L BUN 19 H Creatinine 0.75 Estim Creat Clear Calc 78.0 Estimated GFR > 60 Random Glucose 110 Calcium 8.8 Total Bilirubin 0.7 AST 16 ALT 20 Alkaline Phosphatase 35 L Total Protein 6.3 L Albumin 3.9 Nasal Screen MRSA (PCR) NEGATIVE Nasal S. aureus Screen NEGATIVE Nasal MRSA/S.aureus Interp SEE NOTE Vancomycin Trough 17.8 Preliminary micro results at discharge 05/23/25 13:11 Blood Culture - Preliminary Blood - Venous No growth after 24 hours. 05/23/25 13:11 Blood Culture - Preliminary Blood - Venous No growth after 24 hours. Discharge Plan Discharge Anticipated Discharge Date/Time: 05/25/25 11:49 Patient Disposition: Home, Self-Care Discharge Diagnosis: Hypoxia multifactorial likely secondary to anxiety, current smoking, noncompliance with inhalers and medication Referrals: [facility] [Provider Group, Pulmonology] - 1 Week Pradip Alva MD [Physician, Cardiology] - 1 Week [facility] [Primary Care Provider, Primary Care] - 1 Week Discharge Medications: New prednisone 20 mg Tablet 40 mg PO DAILY 5 Days Qty: 10 0RF benzonatate 100 mg Capsule 100 mg PO TID PRN (Reason: Cough) 10 Days Qty: 30 0RF amoxicillin-pot clavulanate 875-125 mg Tablet 1 tab PO Q12H 5 Days Qty: 0 0RF azithromycin 500 mg Tablet 500 mg PO Q24H 5 Days Qty: 0 0RF Continued metoprolol succinate 50 mg Tablet Extended Release 24 Hr 50 mg PO DAILY nicotine 14 mg/24 hr Patch 24 Hour 14 mg transdermal DAILY Qty: 30 0RF albuterol sulfate [Ventolin HFA] 90 mcg/actuation HFA aerosol inhaler 2 puff inhalation Q4-6H PRN (Reason: shortness of breath or wheezing) Qty: 8.5 0RF fluticasone furoate-vilanterol [Breo Ellipta] 100-25 mcg/dose blister with device 1 inh inhalation DAILY Qty: 60 0RF oxycodone 5 mg tablet 5 mg PO Q8H PRN (Reason: pain, severe) Qty: 10 0RF Rx Instructions: Partial Fill upon patient request. Discontinued prednisone 10 mg Tablet See Taper PO DAILY Taper: Prednisone 30 mg daily for 2 Days and 0 Hour 20 mg daily for 2 Days and 0 Hour 10 mg daily for 2 Days and 0 Hour Discharge Orders: Discharge Order (Routine); Ordered 05/25/25 Ordered By: Alisha Izaguirre Diet: Low salt diet Activity on Discharge: As tolerated Stand Alone Forms: Patient Portal Discharge page Print Language: Paragu[place] Care Plan Goals: Smoking Cessation Pulm consult PCP follow-up Cardiology outpatient follow-up Follow up with the EP appointment in July Follow-up with cardiology outpatient Patient said she would see her psychiatrist for her severe anxiety, deferred, meds and home O2 eval Health Concerns: See above Plan of Treatment: See above Assessment: See above Patient Instructions: Pneumonia (DC)
--- NOTE | 2025-05-25 11:52 | MHC.CM.PN ---
Patient medically cleared for dc home self care via private transport
[2025-05-28 05:04] LABS: Strep Pneumo Ag urine Not Detected (Not Detected)
== END 2025-05-25 14:34 | disposition home or self-care (01) | DRG 139 ==
LOC: HO.ED 16:34 → HO.EDOVER 19:56 → HO.S3 23:12
PROVIDERS: Family Medicine; Physician Assistant; Physician Assistant Medical; Admitting Provider Hospitalist; Emergency Provider Emergency Medicine; PCP Dentist General Practice; Visit Provider Student in an Organized Health Care Education/Training Program
DX: J15.9 Unspecified bacterial pneumonia (principal); J96.21 Acute and chronic respiratory failure with hypoxia; I42.9 Cardiomyopathy, unspecified; I47.20 Ventricular tachycardia, unspecified; I49.5 Sick sinus syndrome; J44.0 Chronic obstructive pulmonary disease with (acute) lower respiratory infection; T82.897A Other specified complication of cardiac prosthetic devices, implants and grafts, initial encounter; Y71.1 Therapeutic (nonsurgical) and rehabilitative cardiovascular devices associated with adverse incidents; J44.1 Chronic obstructive pulmonary disease with (acute) exacerbation; E87.6 Hypokalemia; C66.2 Malignant neoplasm of left ureter; N13.30 Unspecified hydronephrosis; Z91.148 Patient's other noncompliance with medication regimen for other reason; F41.9 Anxiety disorder, unspecified; F17.210 Nicotine dependence, cigarettes, uncomplicated; J96.22 Acute and chronic respiratory failure with hypercapnia; Z20.822 Contact with and (suspected) exposure to COVID-19; Z71.6 Tobacco abuse counseling; Z79.51 Long term (current) use of inhaled steroids; Z79.899 Other long term (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
CPT/HCPCS: 36415; 71045; 71275; 74177; 80048; 80053; 80076; 80202; 81001; 82803; 83605; 83735; 83880; 84145; 84484; 85025; 85027; 87040; 87086; 87449; 87502; 87635; 87640; 87641; 87899; 93005; 94640; 99285; J0456; J0692; J1650; J2405; J2470; J2919; J3374; J3480; Q9967

== ENCOUNTER → 2025-05-23 12:09 | Outpatient (BNV) | payer MEDICAID, SELFPAY | PROVIDERS: PCP Dentist General Practice; Visit Provider Radiology Diagnostic Ultrasound | DX: N13.30 Unspecified hydronephrosis (principal); R91.8 Other nonspecific abnormal finding of lung field; J98.11 Atelectasis; R06.02 Shortness of breath | CPT/HCPCS: 71045; 71275; 74177 ==

== ENCOUNTER → 2025-05-23 16:31 | Outpatient (BNV) | payer MEDICAID, SELFPAY | PROVIDERS: Admitting Provider Hospitalist; Emergency Provider Emergency Medicine; PCP Dentist General Practice; Visit Provider Internal Medicine Cardiovascular Disease | DX: I49.9 Cardiac arrhythmia, unspecified (principal); I49.3 Ventricular premature depolarization | CPT/HCPCS: 93010 ==

== ENCOUNTER → 2025-05-23 19:34 | Outpatient (BNV) | payer MEDICAID, SELFPAY | PROVIDERS: Admitting Provider Hospitalist; Emergency Provider Emergency Medicine; PCP Dentist General Practice; Visit Provider Family Medicine | DX: J96.01 Acute respiratory failure with hypoxia (principal); A41.9 Sepsis, unspecified organism; R65.20 Severe sepsis without septic shock; J18.9 Pneumonia, unspecified organism; J44.1 Chronic obstructive pulmonary disease with (acute) exacerbation; E87.6 Hypokalemia | CPT/HCPCS: 99223; 99232; 99239; 99499 ==

== ENCOUNTER 2025-06-05 22:59 | Emergency (ER) | payer MEDICAID, SELFPAY ==
[2025-06-05 23:14] VITALS: BP 120/80; BP 122/77; PULSE 87; PULSE 88; RESP 16; TEMP 36.2; O2SAT 95; BMI 16.9
[2025-06-05 23:27] VITALS: BP 121/77; PULSE 84; RESP 18; TEMP 36.5; O2SAT 95
--- OUTSIDE RECORDS SUMMARY | 2025-06-06 00:15 | XMS_ITS | Clinical Summary ---
Author Organization [facility] Address [address] [place] [address] Care Team Providers Care Prosthetic Dentist Name Role Phone Unknown, Doctor Primary Care Provider Unavailabl e Allergies No known active allergies Medications * This document contains information received from the source organization and may not represent a complete record from that organization. No known medications Active Problems Problem Noted Date Diagnosed Date Major Depression, Recurrent 11/29/2012 Adjustment Disorder With Anxiety 11/29/2012 Tobacco Use 08/28/2012 Depression 08/28/2012 Esophageal Reflux 08/28/2012 Myalgia And Myositis 08/28/2012 Chronic Pain Syndrome 08/28/2012 Encounters * This document contains information received from the source organization and may not represent a complete record from that organization. Date Type Department Care Team Description 05/28/2025 6:58 PM EDT - 05/29/2025 2:29 AM EDT Emergency [facility] Emergency Department [address] [place] [id number] Discharge Disposition: Left Without Being Seen () 05/28/2025 3:42 AM EDT - 05/28/2025 10:15 AM EDT Emergency [facility] Emergency Department [address] [place] [id number] Sean Vasquez MD Lightheadedness (Primary Dx) Discharge Disposition: Home or Self Care () 05/28/2025 Results Follow-Up [facility] Emergency Department [address] [place] [id number] Kamari Ramires NP from Last 3 Months Social History Tobacco Use Types Packs/Day Years Used Date Smoking Tobacco: Every Day Cigarettes Tobacco Cessation:Ready to Q uit: Not Asked; Counseling Given: Not Answered Alcohol Use Standard Drinks/Week Comments Not Currently 0 (1 standard drink = 0.6 oz pur e alcohol) Comments Unknown Sex and Gender Information Value Date Recorded Sex Assigned at Female 05/28/2025 3:59 AM EDT Legal Sex Female 1:11 AM EDT Gender Identity Not on file Sexual Orientation Not on file Last Filed Vital Signs Vital Sign Reading Time Taken Comments Blood Pressure 162/113 05/29/2025 10:10 PM EDT Pulse 77 05/29/2025 10:10 PM EDT Temperature 36.7 C (98 F) 05/29/2025 1:05 PM EDT Respiratory Rate 16 05/29/2025 10:10 PM EDT Oxygen Saturation 96% 05/29/2025 10:10 PM EDT Inhaled Oxygen Concentration - - Weight 59 kg (130 lb) 05/28/2025 7:16 PM EDT Height 185.4 cm (6' 1 ) 05/28/2025 7:16 PM EDT Body Mass Index 17.15 05/28/2025 7:16 PM EDT Plan of Treatment Health Maintenance Due Date Last Done Comments Cervical Cancer Screening 1965 Cologuard 1965 Colon Cancer Screening 1965 Colonoscopy 1965 FOBT / Fit Test 1965 HIV Screening 1965 HPV and Pap Smear 1965 Hepatitis C Screening 1965 Pap Smear 1965 Sigmoidoscopy 1965 Hepatitis B Vaccines (1 of 3 - 19+ 3-dose series) 1984 Pneumococcal Vaccine: 50+ Ye ars (1 of 2 - PCV) [address] Lung Cancer Screening (Baseline) 2015 Zoster Vaccines (1 of 2) 2015 Alcohol/Substance Use Screening 08/14/2024 Depression Screening and Follow-Up 08/14/2024 Social Drivers of Health Annual Screening 08/14/2024 COVID-19 Vaccine (3 - 2024- season) 2025, 11/18/2020 Influenza Vaccine (#1) 2025 DTaP,Tdap,and Td Vaccines (2 - Td or Tdap) 06/04/2030 06/04/2020 RSV Vaccine (60+ years old a nd patients) (1 - 1-dose 75+ series) 2040 Procedures * Due to [place] [employer] law, this organization might not be sharing negative HIV tests. Procedure Name Priority Date/Time Associated Diagnosis Comments CBC AUTO DIFFERENTIAL STAT 05/29/2025 2:20 PM EDT MAGNESIUM STAT 05/29/2025 2:19 PM EDT BASIC METABOLIC PANEL STAT 05/29/2025 2:19 PM EDT XR CHEST 2 VW STAT 05/28/2025 8:31 AM EDT MAGNESIUM STAT 05/28/2025 5:05 AM EDT BASIC METABOLIC PANEL STAT 05/28/2025 5:05 AM EDT CBC AUTO DIFFERENTIAL STAT 05/28/2025 5:05 AM EDT ECG 12-LEAD STAT 05/28/2025 4:54 AM EDT HEART & VASCULAR - SCANNED 05/28/2025 HEART & VASCULAR - SCANNED 05/28/2025 from Last 3 Months Results * Due to [place] law, this organization might not be sharing negative HIV tests. * (ABNORMAL) CBC Auto Differential (05/29/2025 2:20 PM EDT) Only the most recent of2 resultswithin the time period is included. WBC 11.7(H) 3.8 - 10.8 10*3/uL 05/29/2025 2:38 PM EDT [facility] RBC 4.45 3.80 - 5.10 10*6/uL 05/29/2025 2:38 PM EDT [facility] Hemoglobin 13.0 11.7 - 15.5 g/dL 05/29/2025 2:38 PM EDT [facility] Hematocrit 37.9 35.0 - 45.0 % 05/29/2025 2:38 PM EDT [facility] MCV 85.2 80.0 - 100.0 fL 05/29/2025 2:38 PM EDT [email or web address] MCH 29.2 27.0 - 33.0 pg 05/29/2025 2:38 PM EDT [facility] MCHC 34.3 32.0 - 36.0 g/dL 05/29/2025 2:38 PM EDT [facility] RDW 13.5 11.0 - 15.0 % 05/29/2025 2:38 PM EDT [facility] Platelets 332 140 - 400 10*3/uL 05/29/2025 2:38 PM EDT [facility] MPV 9.4 7.5 - 12.5 fL 05/29/2025 2:38 PM EDT [facility] Neutrophil % 81.9 % 05/29/2025 2:38 PM EDT [facility] Immature Grans % 0.4 0.0 - 0.9 % 05/29/2025 2:38 PM EDT [facility] Lymphocyte % 12.7 % 05/29/2025 2:38 PM EDT [facility] Monocyte % 4.9 % 05/29/2025 2:38 PM EDT [email or web address] Eosinophil % 0.0 % 05/29/2025 2:38 PM EDT [email or web address] Basophil % 0.1 % 05/29/2025 2:38 PM EDT [email or web address] Neutrophil # 9.59(H) 1.50 - 7.80 10*3/uL 05/29/2025 2:38 PM EDT [email or web address] Immature Grans # 0.05(H) <=0.03 10*3/uL 05/29/2025 2:38 PM EDT [facility] [employer] [facility] Lymphocyte # 1.50 0.85 - 3.90 10*3/uL 05/29/2025 2:38 PM EDT [facility] [employer] [facility] Monocyte # 0.60 0.20 - 0.95 10*3/uL 05/29/2025 2:38 PM EDT [facility] [employer] [facility] Eosinophil # <0.03 0.02 - 0.50 10*3/uL 05/29/2025 2:38 PM EDT [facility] [employer] [facility] Basophil # <0.03 0.00 - 0.20 10*3/uL 05/29/2025 2:38 PM EDT [facility] [employer] [facility] nRBC % 0.0 /100 WBCs 05/29/2025 2:38 PM EDT [facility] [employer] [facility] nRBC # <0.01 <0.01 10*3/uL 05/29/2025 2:38 PM EDT [facility] [employer] [facility] Blood Structure of peripheral vein / Unknown Venipuncture / Unknown 05/29/2025 2:20 PM EDT 05/29/2025 2:28 PM EDT us Iris Stock MD LAB BLOOD ORDERABLES Final Result [facility] [employer] [facility] [address] [place] [address], [place] * Magnesium (05/29/2025 2:19 PM EDT) Only the most recent of2 resultswithin the time period is included. MG 2.0 1.6 - 2.4 mg/dL 05/29/2025 3:35 PM EDT [email or web address] [employer] [facility] Blood Structure of peripheral vein / Unknown Venipuncture / Unknown 05/29/2025 2:19 PM EDT 05/29/2025 2:28 PM EDT us Iris Stock MD LAB BLOOD ORDERABLES Final Result [facility] [facility] [address] [place] [address], * (ABNORMAL) BMP - Basic Metabolic Panel (05/29/2025 2:19 PM EDT) Only the most recent of2 resultswithin the time period is included. NA 143 135 - 145 mmol/L 05/29/2025 3:37 PM EDT [facility] K 2.8(LL) 3.5 - 5.3 mmol/L 05/29/2025 3:37 PM EDT [facility] Cl 103 97 - 110 mmol/L 05/29/2025 3:37 PM EDT [facility] CO2 25 22 - 32 mmol/L 05/29/2025 3:37 PM EDT [facility] BUN 19 7 - 23 mg/dL 05/29/2025 3:37 PM EDT [facility] Creatinine 0.64 0.50 - 1.20 mg/dL 05/29/2025 3:37 PM EDT [facility] Glucose 127(H) 65 - 99 mg/dL 05/29/2025 3:37 PM EDT [facility] Calcium 9.3 8.6 - 10.5 mg/dL 05/29/2025 3:37 PM EDT [facility] Anion Gap 15 5 - 15 05/29/2025 3:37 PM EDT [facility] eGFR >90 >=60 mL/min/1 .73m2 05/29/2025 3:37 PM EDT [facility] Comment:The estimated glomer ular filtration rate (eGFR) is calculated using a new formula developed by the NKF-ASN task force to eliminate race-based correction factors. The new formula uses serum/plasma creatinine, age, and gender to determine eGFR. A value below 60mls/min might indicate kidney disease and will be flagged. For additional information, see Clary et al, Am J Kidney Dis. 2021;79(2):268- 288, A Unifying Approach for GFR estimation: Recommendations of the NKF-ASN Task Force on Reassessing the Inclusion of Race in Diagnosing Kidney Disease . Blood Structure of peripheral vein / Unknown Venipuncture / Unknown 05/29/2025 2:19 PM EDT 05/29/2025 2:28 PM EDT us Iris Stock MD LAB BLOOD ORDERABLES Final Result [facility] [address] [place] [address], [place] * XR Chest 2 vw. Standard (05/28/2025 8:31 AM EDT) Anatomical Region Laterality Modality Body Computed Radiogr aphy 05/28/2025 8:35 AM EDT Impressions 05/28/2025 10:55 AM EDT Right middle lobe pneumonia.. I, Britney Brooks, have reviewed the examination and concur with the findings as reported or so edited. Trainee: Dov Romero If this radiology report contains a blank impression section, it is an incomplete radiology report. Please contact the interpreting radiologist or applicable radiology division as soon as possible to obtain the completed interpretation. Workstation ID: [id number] Narrative 05/28/2025 10:55 AM EDT XR CHEST 2 VW INDICATION: Sepsis. COMPARISON: None available. FINDINGS : Overlying pacemaker with lead tips projecting over the right atrium and right ventricle. Hyperinflated lung volumes. Opacity in the right middle lobe partially screws the right heart border. Mild bibasilar pulmonary vascular congestion. No pneumothorax. No pleural effusion. Cardiomediastinal silhouette is unremarkable. Degenerative changes of the spine. Resulting Agency Comment [id number] Procedure Note Britney Brooks MD - 05/28/2025 XR CHEST 2 VW INDICATION: Sepsis. COMPARISON: None available. FINDINGS : Overlying pacemaker with lead tips projecting over the rightatrium and right ventricle. Hyperinflated lung volumes. Opacity in the right middle lobe partiallyscrews the right heart border. Mild bibasilar pulmonary vascularcongestion. No pneumothorax. No pleural effusion. Cardiomediastinalsilhouette is unremarkable. Degenerative changes of the spine. IMPRESSION: Right middle lobe pneumonia.. I, Britney Brooks, have reviewed the examination and concur with thefindings as reported or so edited. Trainee: Dov Romero If this radiology report contains a blank impression section, it is anincomplete radiology report. Please contact the interpreting radiologistor applicable radiology division as soon as possible to obtain thecompleted interpretation. Workstation ID: [id number] Sean Vasquez MD IMG XR PROCEDURES Final Result * ECG 12 lead (05/28/2025 4:54 AM EDT) Ventricular Rate EKG 93 BPM MUSE EKG Atrial Rate 93 BPM MUSE EKG DC Interval 144 ms MUSE EKG QRS Interval 90 ms MUSE EKG QT Interval 372 ms MUSE EKG QTC Interval 462 ms MUSE EKG P Chambers 72 degrees MUSE EKG R Chambers 72 degrees MUSE EKG T Wave Chambers -35 degrees MUSE EKG 05/28/2025 4:54 AM EDT 05/29/2025 8:13 AM EDT Impressions MUSE EKG - 05/29/2025 8:13 AM EDT NORMAL SINUS RHYTHM WITH SINUS ARRHYTHMIA POSSIBLE LEFT ATRIAL ENLARGEMENT MINIMAL VOLTAGE CRITERIA FOR LVH, MAY BE NORMAL VARIANT ( Ant product ) T WAVE ABNORMALITY, CONSIDER INFERIOR ISCHEMIA ABNORMAL ECG NO PREVIOUS ECGS AVAILABLE Confirmed by Mayur Looney ([id number]) on 05/29/2025 8:13:54 AM Narrative Procedure Note Mayur Looney MD - 05/29/2025 IMPRESSION: NORMAL SINUS RHYTHM WITH SINUS ARRHYTHMIA POSSIBLE LEFT ATRIAL ENLARGEMENT MINIMAL VOLTAGE CRITERIA FOR LVH, MAY BE NORMAL VARIANT ( [place] product) T WAVE ABNORMALITY, CONSIDER INFERIOR ISCHEMIA ABNORMAL ECG NO PREVIOUS ECGS AVAILABLE Confirmed by Mayur Looney ([id number]) on 05/29/2025 8:13:54 AM us Natalio Grove MD ECG ORDERABLES Final Resul t MUSE EKG * HEART & VASCULAR - SCANNED (05/28/2025) Only the most recent of2 resultswithin the time period is included. Anatomical Region Laterality Modality Other us Onbase Scan Gricelda SCANNED PROCEDURES Final Resu lt from Last 3 Months [facility] Care Teams Prosthetic Dentist Relationship Specialty Start Date End Date Unknown, Doctor Unknown Unknown, LOVE PCP - General 05/29/25
--- OUTSIDE RECORDS SUMMARY | 2025-06-06 00:15 | XMS_ITS | Clinical Summary ---
Author Organization [employer] [employer] Address [address] [place] [address] Care Team Providers Care Drug Abuse Counselor Name Role Phone Unavailable Primary Care Provider Unavailabl e Social History Tobacco Use Types Packs/Day Years [...] FIT 1965 FOBT 1965 HIV Screening 1965 Lipid Panel 1965 SDOH Screening 1965 Sigmoidoscopy 1965 Disability Screening 1965 Alcohol/Substance Use Screening 1977 Tobacco Screening 1977 Hepatitis C Screening 1983 Hepatitis B Vaccines (1 of 3 - 19+ 3-dose series) 1984 Pneumococcal Vaccine: 50+ Years (1 of 2 - PCV) 1984 Pap Smear 1986 Cervical Cancer Screening 1995 HPV/Cotest 1995 Mammogram 2005 Zoster Vaccines (1 of 2) 2015 COVID-19 Vaccine (2024-2 6 season) 2025 12/09/2020, 11/18/2020 Influenza Vaccine [...]
--- NOTE | 2025-06-06 00:19 | PC.NURSE ---
pt medicated per oct. pt resting quietly in bed.
--- NOTE | 2025-06-06 00:37 | ED.GENADULT ---
HPI - General Adult General Chief complaint: Fall Stated complaint: Mechanical fall L side pain, +HS, - thinners -LOC Time Seen by Provider: 06/05/25 23:40 Source: patient Limitations: no limitations History of Present Illness ED Provider: Lyudmila Cowan PA-C HPI narrative: 59-year-old female with a history of anxiety, depression, COPD who presents from [facility] after a fall. Patient states she slipped in the hallway, falling onto her left side. She complains of knee and left hip pain. She states she did not ?really hit her head?. Denies headache, dizziness, nausea vomiting, loss of consciousness, neck pain Related Data Home Medications ?Medication ?Instructions ?Recorded ?Confirmed metoprolol succinate 50 mg 50 mg PO DAILY 05/15/25 05/23/25 tablet,extended release 24 hr Previous Rx's ?Medication ?Instructions ?Recorded albuterol sulfate 90 mcg/actuation 2 puff inhalation Q4-6H PRN 05/22/25 aerosol inhaler (Ventolin HFA) shortness of breath or wheezing #8.5 grams fluticasone furoate 100 1 inh inhalation DAILY #60 ea 05/22/25 mcg-vilanterol 25 mcg/dose inhalation powder (Breo Ellipta) nicotine 14 mg/24 hr daily 14 mg transdermal DAILY #30 ea 05/22/25 transdermal patch oxycodone 5 mg tablet 5 mg PO Q8H PRN pain, severe #10 05/22/25 tabs amoxicillin 875 mg-potassium 1 tab PO Q12H #9 tabs 05/25/25 clavulanate 125 mg tablet azithromycin 500 mg tablet See Rx Instructions PO .COMPLEX #3 05/25/25 (Zithromax) tabs benzonatate 100 mg capsule 100 mg PO TID PRN Cough 10 days 05/25/25 #30 caps prednisone 20 mg tablet 40 mg (2 x 20 mg) PO DAILY 5 days 05/25/25 #10 tabs Allergies Allergy/AdvReac Type Severity Reaction Status Date / Time aspirin Allergy Mild Headache Verified 06/05/25 23:17 ibuprofen Allergy Mild heartburns Verified 06/05/25 23:17 acetaminophen (From Tylenol) Allergy Heartburn Verified 06/05/25 23:17 Review of Systems Review of Systems: Yes all other systems are reviewed and are negative Constitutional: Constitutional: Denies fatigue, Denies fever(s) and Denies headache(s) ENT: Denies dizziness and Denies headache(s) Cardiovascular: Cardiovascular: Denies chest pain and Denies dyspnea on exertion Respiratory: Respiratory: Denies dyspnea on exertion Gastrointestinal: Gastrointestinal: Denies nausea and Denies vomiting Musculoskeletal: Musculoskeletal: Reports arthralgias and Denies joint swelling Neurologic: Denies dizziness and Denies headache(s) Endocrine: Endocrine: Denies fatigue PMF Past Medical History Attestation statement: The following information was validated with the patient. Medical History COPD (chronic obstructive pulmonary disease) Ureteral cancer Pacemaker-mediated tachycardia Thrombocytopenia Sick sinus syndrome due to sinoatrial node dysfunction Anxiety Depression Social History Social History Household Members: Children and Friend(s) Housing: House Are you a primary complex care nurse practitioner to a significant other at home: No Do you presently have visiting nurse or other home services: No Alcohol intake: never Comment: medicated, pain tolerable Patient Tobacco Use Status: Current everyday Tobacco user Tobacco use type: Cigarette Cigarette Packs Per Day: 1 Cigarettes Per Day: 20.0 Years Smoked: 30 e-Cigarette/Vaping Use: Never Used Substance Use Type: Marijuana Advance Directives: Yes Advance Directives on File: Yes Advance Directives Date on File: 04/23/21 service: No Physical Exam ED Vital Signs: Vital Signs - 24 hr 06/05/25 23:14 06/05/25 23:27 Temperature 97.2 F 97.7 F Pulse Rate 88 84 Respiratory Rate 16 18 Blood Pressure 122/77 121/77 Pulse Oximetry 95 95 Oxygen Delivery Method Room Air Room Air BMI result Body Mass Index 16.9 Const Other: Alert well-appearing no sign of head trauma on exam Orientation/consciousness: patient oriented x3 Resp Effort & Inspection: normal respiratory effort Cardio Other: Normal peripheral perfusion Skin Other: Warm dry no rash Neuro Other: Normal steady gait General: patient oriented x3, gait normal, no focal motor deficits and CN's II-XI intact bilaterally Extrem Other: No swelling or deformity of left knee or hip, full range of motion Psych Other: Cooperative Medications Administered Discontinued Medications Generic Name Dose Route Start Last Admin Trade Name Freq PRN Reason Stop Dose Admin Acetaminophen 975 mg 06/05/25 23:46 06/06/25 00:17 Acetaminophen 325 Mg Tablet PO 06/05/25 23:47 975 mg ONCE ONE Administration Medical Decision Making Medical Decision Making MDM Narrative: 59-year-old female with a history of anxiety, depression, COPD who presents from [facility] after a fall. Patient states she slipped in the hallway, falling onto her left side. She complains of knee and left hip pain. She states she did not ?really hit her head?. Denies headache, dizziness, nausea vomiting, loss of consciousness, neck pain. Problem: Anxiety depression History: Per patient I have considered the following differential diagnoses: Fracture, dislocation, sprain, contusion Plan: Patient sustained contusions, I do not even feel she has a sprain, she is ambulating with a normal gait. Imaging not required. She is asking for Tylenol. Differential Diagnosis Differential Diagnoses: The differential diagnosis associated with the presentation includes See medical decision-making Admission/Observation Consideration of admission/observation: Escalation of care including admission/observation considered Not applicable Discharge Plan Discharge Clinical Impression: Contusion Patient Disposition: Home, Self-Care Instructions: Bone Bruise (ED) Additional Instructions: You sustained contusions after the fall. See home care instructions. You can continue to use [id number] Tylenol 1000 mg taken every 8 hours for pain. Follow up with your primary care as needed. Prescriptions: No Action prednisone 20 mg Tablet 40 mg PO DAILY 5 Days Qty: 10 0RF benzonatate 100 mg Capsule 100 mg PO TID PRN (Reason: Cough) 10 Days Qty: 30 0RF amoxicillin-pot clavulanate 875-125 mg tablet 1 tab PO Q12H Qty: 9 0RF azithromycin [Zithromax] 500 mg tablet See Rx Instructions .ROUTE .COMPLEX Qty: 3 0RF Rx Instructions: For 500 mg dose pack: take 500 mg once daily for 3 days metoprolol succinate 50 mg Tablet Extended Release 24 Hr 50 mg PO DAILY nicotine 14 mg/24 hr Patch 24 Hour 14 mg transdermal DAILY Qty: 30 0RF albuterol sulfate [Ventolin HFA] 90 mcg/actuation HFA aerosol inhaler 2 puff inhalation Q4-6H PRN (Reason: shortness of breath or wheezing) Qty: 8.5 0RF fluticasone furoate-vilanterol [Breo Ellipta] 100-25 mcg/dose blister with device 1 inh inhalation DAILY Qty: 60 0RF oxycodone 5 mg tablet 5 mg PO Q8H PRN (Reason: pain, severe) Qty: 10 0RF Rx Instructions: Partial Fill upon patient request. Print Language: Nauruan
[2025-06-06 01:08] VITALS: BP 129/81; PULSE 90; RESP 18; O2SAT 96
--- NOTE | 2025-06-06 01:41 | PC.NURSE ---
reviewed discharge instructions with pt. pt verbalized understanding, no sign of distress.
[2025-06-06 01:42] VITALS: BP 129/81; PULSE 90; RESP 18; TEMP 36.5; O2SAT 96
== END 2025-06-06 01:43 | disposition home or self-care (01) ==
PROVIDERS: Emergency Provider Emergency Medicine
DX: S80.02XA Contusion of left knee, initial encounter (principal); M25.552 Pain in left hip; R51.9 Headache, unspecified; M54.2 Cervicalgia; F17.210 Nicotine dependence, cigarettes, uncomplicated; X58.XXXA Exposure to other specified factors, initial encounter; W01.0XXA Fall on same level from slipping, tripping and stumbling without subsequent striking against object, initial encounter; Z91.81 History of falling; Y93.01 Activity, walking, marching and hiking; Y92.89 Other specified places as the place of occurrence of the external cause; Y99.8 Other external cause status
CPT/HCPCS: 99283; 99284

== ENCOUNTER 2025-06-12 07:34 | Emergency (ER) | payer MEDICAID, SELFPAY ==
--- NOTE | ~2025-06-12 | CT_ITS ---
EXAMINATION: CT ABDOMEN PELVIS WITHOUT IV CONTRAST HISTORY: abdominal pain bloating COMPARISON: Comparison is made with the prior examination dated 05/23/2025. TECHNIQUE: CT scan of the abdomen and pelvis was performed without contrast using standard departmental protocol. Coronal and sagittal reformatted images were generated and reviewed. Oral contrast material was not administered at the request of the referring physician. This CT exam was performed with one or more of the following dose reduction techniques: automated exposure control, adjustment of the mA and/or kV according to patient size, use of iterative reconstruction technique. DLP: 109 mGy-cm FINDINGS: LOWER CHEST: The visualized lung bases are clear. There is no pleural effusion. CARDIOVASCULATURE: The heart is normal in size. There is no pericardial effusion. LIVER: The liver is normal in size and contour. The liver has an unremarkable unenhanced appearance. GALLBLADDER / BILE DUCTS: The gallbladder is contracted, without evidence of calcified stones. There is no intra or extrahepatic biliary ductal dilatation. SPLEEN: The spleen is normal in size and has an unremarkable unenhanced appearance. PANCREAS: The pancreas has an unremarkable unenhanced appearance. ADRENAL GLANDS: Unremarkable. KIDNEYS/RETROPERITONEUM: No renal calculi are identified. A left ureteral stent is again noted. There is mild dilatation of the left renal collecting system. LYMPH NODES: No retroperitoneal lymphadenopathy is identified in the abdomen or pelvis. VASCULATURE: The abdominal aorta demonstrates atherosclerotic calcification, but is normal in caliber. MESENTERY/PERITONEUM: No free fluid. No masses. There is no free intraperitoneal gas. STOMACH: There is a moderate amount of debris in the stomach. SMALL BOWEL: The small bowel is normal in caliber. Evaluation is limited by lack of intravenous and oral contrast material. COLON: There is a moderate amount of stool in the ascending and sigmoid colon. APPENDIX: The appendix is not seen, however no inflammatory changes are seen adjacent to the cecum. URINARY BLADDER/PELVIC ORGANS: The urinary bladder is partially obscured by streak artifact from a right total hip arthroplasty. The prostate is mildly enlarged. BONES / SOFT TISSUES: There is levoscoliosis and degenerative disc disease of the spine. CT/CT abdomen pelvis wo IV con IMPRESSION: 1. Limited examination due to lack of intravenous and oral contrast material. Moderate amount of debris in the stomach. Moderate amount of stool in the ascending and sigmoid colon. 2. Left ureteral stent in place. Electronically signed by: Francis Bowman MD 06/12/2025 09:32 AM EDT RP
[2025-06-12 07:38] VITALS: BP 135/80; PULSE 89; RESP 18; TEMP 36.9; O2SAT 98; BMI 18.1
[2025-06-12 08:25] LABS: MANUAL DIFF FLAG NO
[2025-06-12 08:28] LABS: Hematocrit 40.4 % (37.0-47.0); Hemoglobin 13.0 g/dl (12.0-16.0); Imm Gran Abs Auto 0.11 X10*3/uL (0.00-0.03); Imm Gran Pct Auto 0.9 % (0.0-0.4); Lymphocytes Absolute Auto 3.5 X10*3/uL (1.2-4.9); Mean Corpuscular HGB Conc 32.2 g/dl (31.0-35.0); Mean Corpuscular Hemoglobin 29.3 pg (27.0-33.0); Mean Corpuscular Volume 91.2 fL (80.0-98.0); NRBC Abs Auto 0.000 X10*3/uL (0.0-0.012); NRBC Pct Auto 0.0 /100WBC (0.0-0.2); Platelet Count 333 X10*3/uL (160-400); Red Blood Count 4.43 X10*6/uL (4.20-5.50); White Blood Count 12.3 X10*3/uL (4.8-10.8)
--- NOTE | 2025-06-12 08:46 | ED_ITS ---
HPI - General Adult General Chief complaint: General Medical Stated complaint: bloting abd stint in abd Time Seen by Provider: 06/12/25 08:20 Source: patient Mode of arrival: ambulatory Limitations: no limitations History of Present Illness HPI narrative: This is 59 years old the patient with a history of anxiety, mood disorder substance abuse who was admitted on May 30 a [facility] [place] and discharged yesterday presented to the emergency room stating that she feels weak she thinks the potassium is low. Denies any fever chills vomiting and diarrhea, she has a urinary Damaris stent she has consented the stent may now be in the right position Onset (ago): day(s) (1) Radiation: non-radiation Severity: mild Pain Consistency: constant Relieving factors: none Exacerbating factors: none Associated symptoms: denies other symptoms Related Data Home Medications ?Medication ?Instructions ?Recorded ?Confirmed metoprolol succinate 50 mg 50 mg PO DAILY 05/15/2506/07 tablet,extended release 24 hr Previous Rx's ?Medication ?Instructions ?Recorded albuterol sulfate 90 mcg/actuation 2 puff inhalation Q 4-6H PRN 05/22/25 aerosol inhaler (Ventolin HFA) shortness of breath or wheezing #8.5 grams fluticasone furoate 100 1 inh inhalation DAILY #60 e a 05/22/25 mcg-vilanterol 25 mcg/dose inhalation powder (Breo Ellipta) nicotine 14 mg/24 hr daily 14 mg transdermal DAILY #30 ea 05/22/25 transdermal patch oxycodone 5 mg tablet 5 mg PO Q8H PRN pain, severe #10 05/22/25 tabs amoxicillin 875 mg-potassium 1 tab PO Q12H #9 tabs 08/07 clavulanate 125 mg tablet azithromycin 500 mg tablet See Rx Instructions PO .COM PLEX #3 05/25/25 (Zithromax) tabs benzonatate 100 mg capsule 100 mg PO TID PRN Cough 10 days 05/25/25 #30 caps prednisone 20 mg tablet 40 mg (2 x 20 mg) PO DAILY 5 days 05/25/25 #10 tabs Allergies Allergy/AdvReac Type Severity Reaction Status Date / Time aspirin Allergy Mild Headache Verified 06/12/25 07:42 ibuprofen Allergy Mild heartburns Verified 06/12/25 07:42 acetaminophen (From Tylenol) Allergy Heartburn Verified 06/12/25 07:42 Review of Systems 2 Constitutional: Constitutional: Reports no additional constitutional complaints Cardiovascular: Cardiovascular: Reports no additional cardiovascular complaints [facility] Past Medical History Medical History Preoperative cardiovascular examination Wide-complex tachycardia Hydronephrosis Parainfluenza infection COPD exacerbation Acute hypoxic respiratory failure Hypoxia Closed fracture of neck of right femur Hypokalemia COPD (chronic obstructive pulmonary disease) Ureteral cancer Pacemaker-mediated tachycardia Thrombocytopenia Sick sinus syndrome due to sinoatrial node dysfunction Anxiety Depression Social History Social History Household Members: Children and Friend(s) Housing: House Are you a primary home child care provider to a significant other at home: No Do you presently have visiting nurse or other home services: No Alcohol intake: never Comment: medicated, pain tolerable Patient Tobacco Use Status: Current everyday Tobacco user Tobacco use type: Cigarette Cigarette Packs Per Day: 1 Cigarettes Per Day: 20.0 Years Smoked: 30 e-Cigarette/Vaping Use: Never Used Substance Use Type: Marijuana Advance Directives Date on File: 04/23/21 service: No Physical Exam ED Exam Exam: On examination she looks well she is not toxic, vital signs are stable Vital Signs: Vital Signs - 24 hr 06/12/25 07:38 06/12/25 10:15 Temperature 98.5 F 98.3 F Pulse Rate 89 90 Respiratory Rate 18 16 Blood Pressure 135/80 136/81 Pulse Oximetry 98 97 Oxygen Delivery Method Room Air Room Air BMI result Body Mass Index 18.1 Const General: cooperative Nutritional Appearance: average body habitus Orientation/consciousness: patient oriented x3 HENMT Head: Yes normal to inspection General nose exam: Normal external nose present Face and sinus: Yes normal facial exam Mouth: Normal oral and palatal mucosa present Throat: Yes posterior oropharynx normal Neck Neck: Yes normal visual inspection Chest Chest palpation & inspection: normal inspection of the chest Resp Effort & Inspection: normal respiratory effort Auscultation: clear to auscultation bilaterally Cardio Rate: regular rate Rhythm: regular rhythm GI Inspection: Yes normal to inspection Palpation (GI): Soft to palpation, not firm and nontender Percussion: Yes normal to percussion Auscultation: normal bowel sounds Skin General skin exam: no rashes or lesions noted and elasticity normal Neuro General: patient oriented x3 Medical Decision Making Medical Decision Making [facility] Narrative: Patient is here with a chief complaint of weakness possible electrolytes abnormality we will check labs Differential Diagnosis Differential Diagnoses: The differential diagnosis associated with the presentation includes Hypokalemia/dehydration/urinary tract infection Admission/Observation Consideration of admission/observation: Escalation of care including admission/observation considered Lab Data 06/12/25 08:09 06/12/25 08:09 Labs: Lab Results 06/12/25 06/12/25 Range/Units 08:09 08:53 WBC 12.3 H (4.8-10.8) X10*3/uL RBC 4.43 (4.20-5.50) X10*6/uL Hgb 13.0 (12.0-16.0) g/dl Hct 40.4 (37.0-47.0) % MCV 91.2 (80.0-98.0) fL MCH 29.3 (27.0-33.0) pg MCHC 32.2 (31.0-35.0) g/dl RDW 14.1 (11.0-16.0) % Plt Count 333 D (160-400) X10*3/uL MPV 8.8 L (9.4-12.3) fL Immature Gran % (Auto) 0.9 H (0.0-0.4) % Neut % (Auto) 59.0 (45-73) % Lymph % (Auto) 28.5 (20-40) % [place] % (Auto) 8.8 (2-11) % Eos % (Auto) 2.2 (0-4) % Baso % (Auto) 0.6 (0-2) % Lymph # (Auto) 3.5 (1.2-4.9) X10*3/uL [place] # (Auto) 1.1 (0.1-1.2) X10*3/uL Eos # (Auto) 0.3 (0.0-0.4) X10*3/uL Baso # (Auto) 0.1 (0.0-0.2) X10*3/uL Abs Immat Gran (auto) 0.11 H (0.00-0.03) X10*3/uL Absolute Neuts (auto) 7.2 (2.0-8.3) x10*3/uL Absolute Nucleated RBC 0.000 (0.0-0.012) X10*3/uL Nucleated RBC % (auto) 0.0 (0.0-0.2) /100WBC Sodium 142 (135-145) mmol/L Potassium 4.1 (3.3-5.1) mmol/L Chloride 108 (96-108) mmol/L Carbon Dioxide 28 (22-29) mmol/L Anion Gap 10 L (12-20) BUN 21 H (9-16) mg/dL Creatinine 0.65 (0.5-1.4) mg/dL Estim Creat Clear Calc 91.4 Estimated GFR > 60 Random Glucose 108 (60-115) mg/dL Calcium 9.2 (8.4-10.2) mg/dL Total Bilirubin 0.2 (0.0-1.0) mg/dL AST 24 (5-31) U/L ALT 22 (0-31) U/L Alkaline Phosphatase 45 (39-117) U/L Total Protein 6.9 (6.5-8.0) g/dL Albumin 4.4 (3.5-5.0) g/dL TSH 0.85 (0.32-4.0) uIU/mL Urine Color Yellow Urine Appearance Clear Urine pH 5.5 (5.0-9.0) Ur Specific [place] <= 1.005 (1.005-1.025) Urine Protein Negative (Neg-Trace) mg/dL Urine Glucose (UA) Negative (Negative) mg/dL Urine Ketones Negative (Negative) mg/dL Urine Blood Small (1+) H (Negative) Urine Nitrite Negative (Negative) Ur Leukocyte Esterase Trace H (Negative) Urine RBC 0-2 (0-2) /HPF Urine WBC 0-5 (0-5) /HPF Ur Squamous Epith Cells 0-2 (0-2) /HPF Urine Bacteria None Seen (None Seen) Hyaline Casts 0-2 (0-2) /LPF Discharge Plan Discharge Clinical Impression: Weakness, Anxiety Patient Disposition: Home, Self-Care Instructions: Weakness (ED) Additional Instructions: Follow-up with your primary care physician and your oncologist return to emergency room if worse Prescriptions: No Action prednisone 20 mg Tablet 40 mg PO DAILY 5 Days Qty: 10 0RF benzonatate 100 mg Capsule 100 mg PO TID PRN (Reason: Cough) 10 Days Qty: 30 0RF amoxicillin-pot clavulanate 875-125 mg tablet 1 tab PO Q12H Qty: 9 0RF azithromycin [Zithromax] 500 mg tablet See Rx Instructions .ROUTE .COMPLEX Qty: 3 0RF Rx Instructions: For 500 mg dose pack: take 500 mg once daily for 3 days metoprolol succinate 50 mg Tablet Extended Release 24 Hr 50 mg PO DAILY nicotine 14 mg/24 hr Patch 24 Hour 14 mg transdermal DAILY Qty: 30 0RF albuterol sulfate [Ventolin HFA] 90 mcg/actuation HFA aerosol inhaler 2 puff inhalation Q4-6H PRN (Reason: shortness of breath or wheezing) Qty: 8.5 0RF fluticasone furoate-vilanterol [Breo Ellipta] 100-25 mcg/dose blister with device 1 inh inhalation DAILY Qty: 60 0RF oxycodone 5 mg tablet 5 mg PO Q8H PRN (Reason: pain, severe) Qty: 10 0RF Rx Instructions: Partial Fill upon patient request. Referrals: [facility] [Primary Care Provider, Primary Care] Interventions: ED Discharge Assessment Last Done: 06/12/25 10:15 Discharge Date/Time: 06/12/25 10:16 Print Language: Micronesian
[2025-06-12 08:48] LABS: Alanine Aminotransferase 22 U/L (0-31); Albumin Level 4.4 g/dL (3.5-5.0); Alkaline Phosphatase 45 U/L (39-117); Anion Gap 10 (12-20); Aspartate Amino Transferase 24 U/L (5-31); Blood Urea Nitrogen 21 mg/dL (9-16); Calcium 9.2 mg/dL (8.4-10.2); Carbon Dioxide 28 mmol/L (22-29); Chloride 108 mmol/L (96-108); Creatinine Clr Calc Pharmacy 91.4; Estimated Glomerular Filt Rate > 60; Potassium 4.1 mmol/L (3.3-5.1); Sodium 142 mmol/L (135-145); Total Protein 6.9 g/dL (6.5-8.0)
[2025-06-12 09:01] LABS: Appearance Urine Clear; Glucose Urine UA Negative (Negative); PH 5.5 (5.0-9.0); Specific Gravity - Urine <= 1.005 (1.005-1.025); UMIC TRIGGER UACC YES
[2025-06-12 10:15] VITALS: BP 136/81; PULSE 90; RESP 16; TEMP 36.8; O2SAT 97
== END 2025-06-12 10:16 | disposition home or self-care (01) ==
PROVIDERS: Physician Assistant Medical; Emergency Provider Emergency Medicine; PCP Dentist General Practice
DX: R53.1 Weakness (principal); F41.9 Anxiety disorder, unspecified; Z72.0 Tobacco use; Z87.09 Personal history of other diseases of the respiratory system; Z79.899 Other long term (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
CPT/HCPCS: 36415; 74176; 80053; 81001; 84443; 85025; 99282; 99284

== ENCOUNTER → 2025-06-12 08:44 | Outpatient (BNV) | payer MEDICAID, SELFPAY | PROVIDERS: Emergency Provider Emergency Medicine; PCP Dentist General Practice; Visit Provider Radiology Diagnostic Radiology | DX: R10.9 Unspecified abdominal pain (principal); R14.0 Abdominal distension (gaseous); Z96.0 Presence of urogenital implants | CPT/HCPCS: 74176 ==

== ENCOUNTER 2025-06-16 05:06 | Emergency (ER) | payer MEDICAID, SELFPAY ==
[2025-06-16 05:18] VITALS: BP 125/86; PULSE 116; RESP 18; TEMP 36.9; O2SAT 97; BMI 19.0
--- OUTSIDE RECORDS SUMMARY | 2025-06-16 05:37 | XMS_ITS | Encounter Summary ---
Author Organization [employer] Address [address] [facility] [address] [place] [address] Care Team Providers Care Automobile Body Customizer Name Role Phone Anni Núñez Unavailable [phone] Yuliana Wang Unavailable Encounter Details Date Type Department Care Team (Late st Contact Info) Description 06/12/2025 Patient Outreach [facility] (C3) Department [address] [facility] [address] [place] [id number] Anni Núñez LMHC Social History Tobacco Use Types Packs/Day Years Used Date Smoking Tobacco: Never Assessed Comments Unknown Sex and Gender Information Value Date Recorded Sex Assigned at Not on file Legal Sex Female 9:18 PM EDT Gender Identity Not on file Sexual Orientation Not on file documented as of this encounter Progress Notes * SPIKE Carr - 06/12/2025 11:17 AM EDT First Outreach Post dc Unsuccessful. documented in this encounter Plan of Treatment Not on file documented as of this encounter Visit Diagnoses Not on filedocumented in this encounter Care Teams Automobile Body Customizer Relationship Specialty Start Date End Date Anni Núñez LMHC [facility] 06/06/25 Yuliana Wang [facility] 06/06/25 documented as of this encounter
--- OUTSIDE RECORDS SUMMARY | 2025-06-16 05:37 | XMS_ITS | Clinical Summary ---
Author Organization [employer] Address [address] [facility] [address] [place] [address] Care Team Providers Care Spring Crater Name Role Phone Anni Núñez [facility] Unavailable Wang, Yuliana Unavailable Encounters Date Type Department Care Team Description 06/12/2025 [facility] ([facility] Department [address] [place] [phone] Núñez, Anni, LMHC 06/12/2025 Patient Outreach [facility] (C3) Department [address] [place] [id number] Núñez, Anni, LMHC 06/10/2025 Patient Outreach [facility] ([facility] Department [address] [place] [id number] Núñez, Anni, LMHC 06/09/2025 Patient Outreach [facility] () Department [address] [place] [phone] Núñez, Anni, LMHC from Last 3 Months Social History Tobacco [...] Vaccines (1 of 2) 2015 COVID-19 Vaccine (3 - 2024-2 6 season) 2025 12/09/2020, 11/18/2020 Influenza Vaccine (#1) 2025 DTaP/Tdap/Td Vaccines (2 - T d or Tdap) 06/04/2030 06/04/2020, 07/29/2010 RSV Patients and Patients Aged 60 years [...] age to complete this topic Care Teams Spring Crater Relationship Specialty Start Date End Date Anni Núñez, [facility] 06/06/25 Yuliana Wang [facility] 06/06/25
--- OUTSIDE RECORDS SUMMARY | 2025-06-16 05:37 | XMS_ITS | Encounter Summary ---
Author Organization [employer] Address [address] [facility] [address] [place] [address] Care Team Providers Care Ticket Manager Name Role Phone Anni Núñez Unavailable [phone] Yuliana Wang Unavailable Encounter Details Date Type Department Care Team (Late st Contact Info) Description 06/12/2025 Patient Outreach [facility] (C3) Department [address] [facility] [address] [place] [phone] Anni Núñez LMHC Social History Tobacco Use Types Packs/Day Years Used Date Smoking Tobacco: Never Assessed Comments Unknown Sex and Gender Information Value Date Recorded Sex Assigned at Not on file Legal Sex Female 9:18 PM EDT Gender Identity Not on file Sexual Orientation Not on file documented as of this encounter Progress Notes * SPIKE Carr - 06/12/2025 8:19 AM EDT Sent email Cele, asked if Member was able to dc yesterday to the [facility] and requested dc paperwork documented in this encounter Plan of Treatment Not on file documented as of this encounter Visit Diagnoses Not on filedocumented in this encounter Care Teams Ticket Manager Relationship Specialty Start Date End Date Anni Núñez LMHC [facility] 06/06/25 Yuliana Wang Director [facility] 06/06/25 documented as of this encounter
--- OUTSIDE RECORDS SUMMARY | 2025-06-16 05:37 | XMS_ITS | Clinical Summary ---
Author Organization [facility] Address [address] [place] [address] Care Team Providers Care Surgical Scheduler Name Role Phone Unknown, Doctor Primary Care [...] EDT - 05/29/2025 2:29 AM EDT Emergency [facility] Emergency Department [address] [place] [id number] Discharge Disposition: Left Without Being Seen () 05/28/2025 3:42 AM EDT - 05/28/2025 10:15 AM EDT Emergency [facility] Emergency Department [address] [place] [id number] Sean Vasquez MD Lightheadedness (Primary Dx) Discharge Disposition: Home or Self Care () 05/28/2025 Results Follow-Up [facility] Emergency Department [address] [place] [phone] Kamari Ramires NP from Last 3 Months [...] 75+ series) 2040 Procedures * Due to [place] [employer] law, this organization might not be sharing [...] Last 3 Months Results * Due to [place] [employer] law, this organization might not be sharing negative HIV tests. * (ABNORMAL) CBC Auto Differential (05/29/2025 2:20 PM EDT) Only the most recent of2 resultswithin the time period is included. WBC 11.7(H) 3.8 - 10.8 10*3/uL 05/29/2025 2:38 PM EDT [facility] RBC 4.45 3.80 - 5.10 10*6/uL 05/29/2025 2:38 PM EDT [facility] Hemoglobin 13.0 11.7 - 15.5 g/dL 05/29/2025 2:38 PM EDT [facility] Hematocrit 37.9 35.0 - 45.0 % 05/29/2025 2:38 PM EDT [facility] MCV 85.2 80.0 - 100.0 fL 05/29/2025 2:38 PM EDT [facility] MCH 29.2 27.0 - 33.0 pg 05/29/2025 2:38 PM EDT [facility] MCHC 34.3 32.0 - 36.0 g/dL 05/29/2025 2:38 PM EDT [facility] RDW 13.5 11.0 - 15.0 % 05/29/2025 2:38 PM EDT [facility] Platelets 332 140 - 400 10*3/uL 05/29/2025 2:38 PM EDT [facility] MPV 9.4 7.5 - 12.5 fL 05/29/2025 2:38 PM EDT [facility] Neutrophil % 81.9 % 05/29/2025 2:38 PM EDT [facility] Immature Grans % 0.4 0.0 - 0.9 % 05/29/2025 2:38 PM EDT [facility] Lymphocyte % 12.7 % 05/29/2025 2:38 PM EDT [facility] Monocyte % 4.9 % 05/29/2025 2:38 PM EDT [facility] Eosinophil % 0.0 % 05/29/2025 2:38 PM EDT [facility] Basophil % 0.1 % 05/29/2025 2:38 PM EDT [facility] Neutrophil # 9.59(H) 1.50 - 7.80 10*3/uL 05/29/2025 2:38 PM EDT [facility] Immature Grans # 0.05(H) <=0.03 10*3/uL 05/29/2025 2:38 PM EDT [facility] Lymphocyte # 1.50 0.85 - 3.90 10*3/uL 05/29/2025 2:38 PM EDT [facility] Monocyte # 0.60 0.20 - 0.95 10*3/uL 05/29/2025 2:38 PM EDT [facility] Eosinophil # <0.03 0.02 - 0.50 10*3/uL 05/29/2025 2:38 PM EDT [facility] Basophil # <0.03 0.00 - 0.20 10*3/uL 05/29/2025 2:38 PM EDT [facility] nRBC % 0.0 /100 WBCs 05/29/2025 2:38 PM EDT [facility] nRBC # <0.01 <0.01 10*3/uL 05/29/2025 2:38 PM EDT [facility] Blood Structure of peripheral vein / Unknown Venipuncture / Unknown 05/29/2025 2:20 PM EDT 05/29/2025 2:28 PM EDT us Iris Stock MD LAB BLOOD ORDERABLES Final Result [facility] [address] [place] [address], [place] * Magnesium (05/29/2025 2:19 PM EDT) Only the most recent of2 resultswithin the time period is included. MG 2.0 1.6 - 2.4 mg/dL 05/29/2025 3:35 PM EDT [facility] Blood Structure of peripheral vein / Unknown Venipuncture / Unknown 05/29/2025 2:19 PM EDT 05/29/2025 2:28 PM EDT us Iris Stock MD LAB BLOOD ORDERABLES Final Result [facility] [address] [place] [address], * (ABNORMAL) BMP - Basic Metabolic Panel (05/29/2025 2:19 PM EDT) Only the most recent of2 resultswithin the time period is included. NA 143 135 - 145 mmol/L 05/29/2025 3:37 PM EDT [facility] K 2.8(LL) 3.5 - 5.3 mmol/L 05/29/2025 3:37 PM EDT [facility] Cl 103 97 - 110 mmol/L 05/29/2025 3:37 PM EDT [facility] CO2 25 22 - 32 mmol/L 05/29/2025 3:37 PM EDT [facility] BUN 19 7 - 23 mg/dL 05/29/2025 3:37 PM EDT [facility] Creatinine 0.64 0.50 - 1.20 mg/dL 05/29/2025 3:37 PM EDT [facility] Glucose 127(H) 65 - 99 mg/dL 05/29/2025 3:37 PM EDT [facility] Calcium 9.3 8.6 - 10.5 mg/dL 05/29/2025 3:37 PM EDT [facility] Anion Gap 15 5 - 15 05/29/2025 3:37 PM EDT [facility] eGFR >90 >=60 mL/min/1 .73m2 05/29/2025 3:37 PM EDT [facility] Comment:The estimated glomer ular [...] Stock MD LAB BLOOD ORDERABLES Final Result [facility] [address] [place] [address], [place] * XR Chest 2 vw. Standard [...] to obtain the completed interpretation. Workstation ID: [id number] Narrative 05/28/2025 10:55 AM EDT XR CHEST [...] changes of the spine. Resulting Agency Comment [id number] Procedure Note Britney Brooks MD - 05/28/2025 [...] possible to obtain thecompleted interpretation. Workstation ID: [id number] Sean Vasquez MD IMG XR PROCEDURES Final Result * ECG 12 lead (05/28/2025 4:54 AM EDT) Ventricular Rate EKG 93 BPM MUSE EKG Atrial Rate 93 BPM MUSE EKG HI Interval 144 ms MUSE EKG QRS Interval 90 ms MUSE EKG QT Interval 372 ms MUSE EKG QTC Interval 462 ms MUSE EKG P [place] 72 degrees MUSE EKG R [place] 72 degrees MUSE EKG T Wave [place] -35 degrees MUSE EKG 05/28/2025 4:54 AM EDT 05/29/2025 8:13 AM EDT Impressions MUSE EKG - 05/29/2025 8:13 AM EDT NORMAL SINUS RHYTHM WITH SINUS ARRHYTHMIA POSSIBLE LEFT ATRIAL ENLARGEMENT MINIMAL VOLTAGE CRITERIA FOR LVH, MAY BE NORMAL VARIANT ( Ant product ) T WAVE ABNORMALITY, CONSIDER INFERIOR ISCHEMIA ABNORMAL ECG NO PREVIOUS ECGS AVAILABLE Confirmed by Mayur Looney ([id number]) on 05/29/2025 8:13:54 AM Narrative Procedure Note Mayur Looney MD - 05/29/2025 IMPRESSION: NORMAL SINUS RHYTHM WITH SINUS ARRHYTHMIA POSSIBLE LEFT ATRIAL ENLARGEMENT MINIMAL VOLTAGE CRITERIA FOR LVH, MAY BE NORMAL VARIANT ( [place] product) T WAVE ABNORMALITY, CONSIDER INFERIOR ISCHEMIA ABNORMAL ECG NO PREVIOUS ECGS AVAILABLE Confirmed by Mayur Looney ([id number]) on 05/29/2025 8:13:54 AM us Natalio Grove MD ECG ORDERABLES Final Resul t MUSE EKG * HEART & VASCULAR - SCANNED (05/28/2025) Only the most recent of2 resultswithin the time period is included. Anatomical Region Laterality Modality Other us Onbase Scan Gricelda SCANNED PROCEDURES Final Resu lt from Last 3 Months [facility] Surgical Scheduler Relationship Specialty Start Date End Date Unknown, Doctor Unknown Unknown, LOVE PCP - General 05/29/25
--- OUTSIDE RECORDS SUMMARY | 2025-06-16 05:37 | XMS_ITS | Clinical Summary ---
Author Organization [address] Address [address] [place] [address] Phone Care Team Providers Care High School Academic Coach Name Role Phone Hector Ricketts MD Primary Care Provider [phone] Encounters Date Type Department Care Team Description 06/01/[address] 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 (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 05/31/2025 Lab Requisition [facility] Lab [address] [place] [address] Rigoberto Martinez NP 05/31/2025 Lab Requisition [facility] Lab [address] [place] [address] Rigoberto Martinez NP Other alf (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 from Last 3 Months Surgical History Surgery Date Site/Laterality Comments OTHER [...] swelling in hands and feet Rheumatoid arthritis ([facility]/ C V24, [facility] V28) DX:Rheumatoid arthritis (HCC ) Wears glasses DX:Wears glasses Nasal congestion DX:Nasal conges tion Abdominal pain DX:Abdominal linnea n Change in bowel habits DX:Change in bowel habits Autoimmune disease ([facility] V24) DX:Autoimmune disease ([facility]); COMMENT: fibromyalgia Social History Tobacco Use Types [...] Screening 03/15/2024 Depression Screening 08/14/2024 COVID-19 Vaccine (2024-2 6 season) 2025 07/14/2021, 12/09/2020, 11/18/2020 Influenza Vaccine (#1) 2025 Cholesterol Screening (Lipid Panel) 05/31/2030 05/31/2025 DTaP,Tdap,and Td Vaccines (3 - Td or Tdap) 06/04/2030 06/04/2020, 07/29/2010 [...] on patient's age to complete this topic Procedures Procedure Name Priority Date/Time Associated Diagnosis Comments FREE THYROXINE WITH REFLEX TO FREE TRIIODOTHYRONINE Routine 06/01/2025 7:00 AM EDT Other alf (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 AMMONIA Routine 06/01/2025 7:00 AM EDT Other alf (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 THYROID STIMULATING HORMONE WITH REFLEX TO FREE T4 AND FREE T3 Routine 06/01/2025 7:00 AM EDT Other long 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 machine 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 (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 COMPREHENSIVE METABOLIC PANEL Routine 06/01/2025 7:00 AM EDT Other long wall mining machine tender (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 LIPID PANEL WITH REFLEX TO DIRECT LDL Routine 05/31/2025 7:00 AM EDT Other long wall mining machine 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 (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 HEMOGLOBIN A1C Routine 05/31/2025 7:00 AM EDT Other long wall mining machine tender (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 GLUCOSE, RANDOM Routine 05/31/2025 7:00 AM EDT Other long wall mining machine tender (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 from Last 3 Months Results * (ABNORMAL) Thyroid stimulating hormone with reflex to free t4 and free t3 (06/01/2025 7:00 AM EDT) TSH 0.30(L) 0.40 - 4.00 mcIU/mL LAB CHEMISTRY METHOD 06/02/2025 9:44 PM EDT [facility] Blood Venous blood specimen / Unknown Venipuncture / Unknown 06/01/2025 7:00 AM EDT 06/01/2025 7:43 AM EDT Arash Gruber LAB BLOOD ORDERABLES Final Resu lt Performing Organization Address [facility]/ZIP Co de Phone Number [facility] [address] [place] [address], [place] [phone] * (ABNORMAL) Free thyroxine with reflex to free triiodothyronine (06/01/2025 7:00 AM EDT) Free T4 1.97(H) 0.70 - 1.80 ng/dL LAB CHEMISTRY METHOD 06/02/2025 10:39 PM EDT [facility] Blood Venous blood specimen / Unknown Venipuncture / Unknown 06/01/2025 7:00 AM EDT 06/01/2025 7:43 AM EDT Arash Gruber LAB BLOOD ORDERABLES Final Resu lt Performing Organization Address [facility]/ZIP Co de Phone Number [facility] [address] [place] [address], [place] [phone] * Ammonia (06/01/2025 7:00 AM EDT) Ammonia 24 11 - 35 mcmol/L LAB CHEMISTRY METHOD 06/01/2025 8:13 AM EDT [facility] Blood Venous blood specimen / Unknown Venipuncture / Unknown 06/01/2025 7:00 AM EDT 06/01/2025 7:43 AM EDT us Arash Gruber LAB BLOOD ORDERABLES Final Resu lt [facility] [address] [place] [address], * (ABNORMAL) Comprehensive metabolic panel (06/01/2025 7:00 AM EDT) Sodium 143 133 - 145 mmol/L LAB CHEMISTRY METHOD 06/01/2025 8:15 AM [facility] Potassium 3.4(L) 3.5 - 5.5 mmol/L LAB CHEMISTRY METHOD 06/01/2025 8:15 AM [facility] Chloride 111(H) 96 - 110 mmol/L LAB CHEMISTRY METHOD 06/01/2025 8:15 AM [facility] CO2 27 21 - 32 mmol/L LAB CHEMISTRY METHOD 06/01/2025 8:15 AM [facility] Anion Gap 5 3 - 11 LAB CHEMISTRY METHOD 06/01/2025 8:15 AM [facility] Glucose 104(H) 70 - 100 mg/dL LAB CHEMISTRY METHOD 06/01/2025 8:15 AM [facility] BUN 14 5 - 25 mg/dL LAB CHEMISTRY METHOD 06/01/2025 8:15 AM [facility] Creatinine 0.63 0.50 - 1.10 mg/dL LAB CHEMISTRY METHOD 06/01/2025 8:15 AM [facility] eGFR 102 >=60 mL/min/1. 73m2 LAB CHEMISTRY METHOD 06/01/2025 8:15 AM [facility] Comment:Calculation based on the Chronic Kidney Disease Epidemiology Collaboration (CKD-EPI) equation refit without adjustment for race. BUN/Creatinine Ratio 22.2 LAB CHEMISTRY METHOD 06/01/2025 8:15 AM [facility] Calcium 9.1 8.5 - 10.5 mg/dL LAB CHEMISTRY METHOD 06/01/2025 8:15 AM [facility] AST (SGOT) 12 10 - 42 unit/L LAB CHEMISTRY METHOD 06/01/2025 8:15 AM [facility] ALT (SGPT) 22 10 - 60 unit/L LAB CHEMISTRY METHOD 06/01/2025 8:15 AM [facility] Alkaline Phosphatase 39(L) 42 - 121 unit/L LAB CHEMISTRY METHOD 06/01/2025 8:15 AM [facility] Total Protein 6.2 6.0 - 8.0 g/dL LAB CHEMISTRY METHOD 06/01/2025 8:15 AM [facility] Albumin 3.4 3.2 - 5.0 g/dL LAB CHEMISTRY METHOD 06/01/2025 8:15 AM [facility] Total Bilirubin 0.7 0.0 - 1.4 mg/dL LAB CHEMISTRY METHOD 06/01/2025 8:15 AM [facility] Blood Venous blood specimen / Unknown Venipuncture / Unknown 06/01/2025 7:00 AM EDT 06/01/2025 7:43 AM EDT us Arash Gruber LAB BLOOD ORDERABLES Final Resu lt [facility] [address] [place] [address], * Lipid panel with reflex to direct LDL (05/31/2025 7:00 AM EDT) Cholesterol 153 0 - 200 mg/dL LAB CHEMISTRY METHOD 05/31/2025 12:50 PM EDT [facility] Triglycerides 106 0 - 150 mg/dL LAB CHEMISTRY METHOD 05/31/2025 12:50 PM EDT [facility] HDL 57 >=40 mg/dL LAB CHEMISTRY METHOD 05/31/2025 12:50 PM EDT [facility] LDL Calculated 75 0 - 100 mg/dL LAB CHEMISTRY METHOD 05/31/2025 12:50 PM EDT [facility] Comment:Estimated LDL Calcul ated using equation: Total cholesterol - HDL cholesterol - (Triglycerides/5) VLDL Cholesterol Lb 21.2 mg/dL LAB CHEMISTRY METHOD 05/31/2025 12:50 PM EDT [facility] Non HDL Chol. (LDL+VLDL) 96 <145 mg/dL LAB CHEMISTRY METHOD 05/31/2025 12:50 PM EDT [facility] Chol/HDL Ratio 2.7 0.0 - 4.4 LAB CHEMISTRY METHOD 05/31/2025 12:50 PM EDT [facility] Blood Venous blood specimen / Unknown Venipuncture / Unknown 05/31/2025 7:00 AM EDT 05/31/2025 12:31 PM EDT us Rigoberto Martinez NP LAB BLOOD ORDERABLES Final Resul t [facility] [address] [place] [address], * Hemoglobin A1c (05/31/2025 7:00 AM EDT) Hemoglobin A1C 6.2 <6.5 % LAB CHEMISTRY METHOD 06/01/2025 1:03 PM EDT [facility] Mean Bld Glu Estim. 131 mg/dL LAB CHEMISTRY METHOD 06/01/2025 1:03 PM EDT [facility] Blood Venous blood specimen / Unknown Venipuncture / Unknown 05/31/2025 7:00 AM EDT 05/31/2025 9:26 AM EDT Rigoberto Martinez MANDOLIN REPAIR PERSON LAB BLOOD ORDERABLES Final Resul t Performing Organization Address City/[facility]/ZIP Co de Phone Number [facility] [address] [place] [address], [place] [phone] * Glucose, random (05/31/2025 7:00 AM EDT) Glucose 98 70 - 100 mg/dL LAB CHEMISTRY METHOD 05/31/2025 11:18 AM EDT [facility] Blood Venous blood specimen / Unknown Venipuncture / Unknown 05/31/2025 7:00 AM EDT 05/31/2025 9:26 AM EDT Rigoberto Martinez MANDOLIN REPAIR PERSON LAB BLOOD ORDERABLES Final Resul t Performing Organization Address [facility]/ZIP Co de Phone Number [facility] [address] [place] [address], [place] [phone] from Last 3 Months Care Teams High School Academic Coach Relationship Specialty Start Date End Date Hector Ricketts MD [address] [address] PCP - General 06/14/18
--- OUTSIDE RECORDS SUMMARY | 2025-06-16 05:38 | XMS_ITS | Encounter Summary ---
Author Organization [facility] Address [address] [place] [address] Care Team Providers Care Housesmith Name Role Phone Hector Ricketts MD Primary Care Provider [phone] Encounter Details Date Type Department Care Team (Late st Contact Info) Description 05/31/2025 Lab Requisition [facility] - Main Lab [address] [facility] [employer] [place] [address] Rigoberto Martinez NP [address] [place], [place] [id number] Other intermediate designer (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 Social History Tobacco Use Types Packs/Day Years Used Date Smoking Tobacco: Every Day Smokeless Tobacco: Never Comments Unknown Sex and Gender Information Value Date Recorded Sex Assigned at Not on file Legal Sex Female 1:37 AM EST Gender Identity Not on file Sexual Orientation Not on file documented as of this encounter Plan of Treatment Not on file documented as of this encounter Procedures Procedure Name Priority Date/Time Associated Diagnosis Comments HEMOGLOBIN A1C Routine 05/31/2025 7:00 AM EDT Other assisted (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 GLUCOSE, RANDOM Routine 05/31/2025 7:00 AM EDT Other assisted (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 documented in this encounter Results * Hemoglobin A1c (05/31/2025 7:00 AM EDT) Hemoglobin A1C 6.2 <6.5 % LAB CHEMISTRY METHOD 06/01/2025 1:03 PM EDT [facility] Mean Bld Glu Estim. 131 mg/dL LAB CHEMISTRY METHOD 06/01/2025 1:[address] [facility] Blood Venous blood specimen / Unknown Venipuncture / Unknown 05/31/2025 7:00 AM EDT 05/31/2025 9:26 AM EDT Rigoberto Martinez NP LAB BLOOD ORDERABLES Final Resul t Performing Organization Address City/[facility]/ZIP Co de Phone Number [facility] [address] [place] [address], [place] [phone] * Glucose, random (05/31/2025 7:00 AM EDT) Glucose 98 70 - 100 mg/dL LAB CHEMISTRY METHOD 05/31/2025 11:[address] [facility] Blood Venous blood specimen / Unknown Venipuncture / Unknown 05/31/2025 7:00 AM EDT 05/31/2025 9:26 AM EDT Rigoberto Martinez NP LAB BLOOD ORDERABLES Final Resul t Performing Organization Address [facility] de Phone Number [facility] [address] [place] [address], [place] [phone] documented in this encounter Visit Diagnoses Diagnosis Other intermediate designer (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 documented in this encounter Care Teams Housesmith Relationship Specialty Start Date End Date Hector Ricketts MD [address] [address] PCP - General 06/14/18 documented as of this encounter
--- OUTSIDE RECORDS SUMMARY | 2025-06-16 05:38 | XMS_ITS ---
Author Organization [facility] Address [address] [facility] 7 [place] [address] Care Team Providers Care Restuarant Crew Worker Name Role Phone Anni Núñez Unavailable [phone] Yuliana Wang Unavailable C3 CM TO Status:Enrolled (Active) Start date:06/06/2025 Enrollment date:06/10/2025 Enrollment reason:ADT Feed Case Team Name Relationship Phone Anni Núñez [facility](Responsible Staff) Social Worktequila carrillo [phone] Continued Care and Services Coordination
--- OUTSIDE RECORDS SUMMARY | 2025-06-16 05:38 | XMS_ITS | Encounter Summary ---
Author Organization [facility] Address [address] [place] [address] Care Team Providers Care Slurry Worker Name Role Phone Hector Ricketts MD Primary Care Provider [phone] Encounter Details Date Type Department Care Team (Late st Contact Info) Description 06/01/2025 Lab Requisition [facility] - Main Lab [address] [facility] [place] [phone] Eva [place] [phone] Other group home (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 Social History Tobacco Use [...] Procedure Name Priority Date/Time Associated Diagnosis Comments THYROID STIMULATING HORMONE WITH REFLEX TO FREE T4 AND FREE T3 Routine 06/01/2025 7:00 AM EDT Other group home (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 FREE THYROXINE WITH REFLEX TO FREE TRIIODOTHYRONINE Routine 06/01/2025 7:00 AM EDT Other group home (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 AMMONIA Routine 06/01/2025 7:00 AM EDT Other group home (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 COMPREHENSIVE METABOLIC PANEL Routine 06/01/2025 7:00 AM EDT 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 (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 documented in this encounter Results * (ABNORMAL) Free thyroxine with reflex to free triiodothyronine (06/01/2025 7:00 AM EDT) Free T4 1.97(H) 0.70 - 1.80 ng/dL LAB CHEMISTRY METHOD 06/02/2025 10:39 PM EDT [facility] Blood Venous blood specimen / Unknown Venipuncture / Unknown 06/01/2025 7:00 AM EDT 06/01/2025 7:43 AM EDT Arash Gruber LAB BLOOD ORDERABLES Final Resu lt Performing Organization Address City/[facility]/ZIP Co de Phone Number [facility] [address] [place] [address], [place] [phone] * Ammonia (06/01/2025 7:00 AM EDT) Pathologist [facility] Ammonia 24 11 - 35 mcmol/L LAB CHEMISTRY METHOD 06/01/2025 8:13 AM EDT [facility] Blood Venous blood specimen / Unknown Venipuncture / Unknown 06/01/2025 7:00 AM EDT 06/01/2025 7:43 AM EDT Arash Gruber LAB BLOOD ORDERABLES Final Resu lt Performing Organization Address City/[facility]/ZIP Co de Phone Number [facility] [address] [place] [address], [place] [phone] * (ABNORMAL) Thyroid stimulating hormone with reflex to free t4 and free t3 (06/01/2025 7:00 AM EDT) Pathologist [facility] TSH 0.30(L) 0.40 - 4.00 mcIU/mL LAB CHEMISTRY METHOD 06/02/2025 9:44 PM EDT [facility] Blood Venous blood specimen / Unknown Venipuncture / Unknown 06/01/2025 7:00 AM EDT 06/01/2025 7:43 AM EDT us Arash Gruber LAB BLOOD ORDERABLES Final Resu lt [facility] [address] [place] [address], [place] [phone] * (ABNORMAL) Comprehensive metabolic panel (06/01/2025 7:00 AM EDT) Pathologist [facility] Sodium 143 133 - 145 mmol/L LAB CHEMISTRY METHOD 06/01/2025 8:15 AM [facility] Potassium 3.4(L) 3.5 - 5.5 mmol/L LAB CHEMISTRY METHOD 06/01/2025 8:15 AM [facility] Chloride 111(H) 96 - 110 mmol/L LAB CHEMISTRY METHOD 06/01/2025 8:15 AM [facility] CO2 27 21 - 32 mmol/L LAB CHEMISTRY METHOD 06/01/2025 8:15 AM [facility] Anion Gap 5 3 - 11 LAB CHEMISTRY METHOD 06/01/2025 8:15 AM [facility] Glucose 104(H) 70 - 100 mg/dL LAB CHEMISTRY METHOD 06/01/2025 8:15 AM [facility] BUN 14 5 - 25 mg/dL LAB CHEMISTRY METHOD 06/01/2025 8:15 AM [facility] Creatinine 0.63 0.50 - 1.10 mg/dL LAB CHEMISTRY METHOD 06/01/2025 8:15 AM [facility] eGFR 102 >=60 mL/min/1. 73m2 LAB CHEMISTRY METHOD 06/01/2025 8:15 AM [facility] Comment:Calculation based on the Chronic Kidney Disease Epidemiology Collaboration (CKD-EPI) equation refit without adjustment for race. BUN/Creatinine Ratio 22.2 LAB CHEMISTRY METHOD 06/01/2025 8:15 AM T [facility] Calcium 9.1 8.5 - 10.5 mg/dL LAB CHEMISTRY METHOD 06/01/2025 8:15 AM [facility] AST (SGOT) 12 10 - 42 unit/L LAB CHEMISTRY METHOD 06/01/2025 8:15 AM [facility] ALT (SGPT) 22 10 - 60 unit/L LAB CHEMISTRY METHOD 06/01/2025 8:15 AM [facility] Alkaline Phosphatase 39(L) 42 - 121 unit/L LAB CHEMISTRY METHOD 06/01/2025 8:15 AM [facility] Total Protein 6.2 6.0 - 8.0 g/dL LAB CHEMISTRY METHOD 06/01/2025 8:15 AM [facility] Albumin 3.4 3.2 - 5.0 g/dL LAB CHEMISTRY METHOD 06/01/2025 8:15 AM [facility] Total Bilirubin 0.7 0.0 - 1.4 mg/dL LAB CHEMISTRY METHOD 06/01/2025 8:15 AM [facility] Blood Venous blood specimen / Unknown Venipuncture / Unknown 06/01/2025 7:00 AM EDT 06/01/2025 7:43 AM EDT us Arash Gruber LAB BLOOD ORDERABLES Final Resu lt [facility] [address] [place] [address], [place] [phone] documented in this encounter Visit Diagnoses Diagnosis 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 (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 documented in this encounter Care Teams Slurry Worker Relationship Specialty Start Date End Date Hector Ricketts MD [address] [address] PCP - General 06/14/18 documented as of this encounter
--- OUTSIDE RECORDS SUMMARY | 2025-06-16 05:38 | XMS_ITS | Clinical Summary ---
Author Organization [facility] Address [address] [place] [address] Care Team Providers Care Claims Customer Service Representative Name Role Phone Jeremías Jones MD Primary Care Provider Source Comments PLEASE NOTE, if this patient [...] nasal sprayIndications:D egenerative lumbar disc Place 1 [place] into the nostril(s) as needed for opioid [...] Active Problems Problem Noted Date Diagnosed Date COPD (chronic obstructive pulmonary disease) Overview (05/28/2025): Admitted to [facility] for COPD exacerbation 05/15/25 Bipolar II disorder 08/15/2023 Generalized anxiety disorder 04/05/2023 Moderate episode of recurrent major depressive d isorder 04/05/2023 Non-ST elevated myocardial infarction 05/04/2021 Overview (11/27/2023): Followed by Cardiology in [facility] Reports normal PCI Pacemaker 04/28/2021 Overview (11/27/2023): Placed while in [facility] Apr 24, 2021 Diagnosed with broken heart syndrome Followed by Cardiology in [facility] Tobacco dependence due to cigarettes 11/12/2018 Anxiety and depression 11/06/2018 Overview (11/27/2023): Following department Fibromyalgia 11/06/2018 Primary osteoarthritis involving multiple joints 11/06/2018 Encounters Date Type Department Care Team Description 05/29/2025 Interim Notes [address] [address] Tremayne Caballero 05/14/2025 / TELEPHONE [place] [address] [place] [address] Jody Reynolds LMHC from Last [...] Due Date Last Done Comments HPV Screening (self-collect) 1965 HPV Screening 1965 Hepatitis C Screening 1965 Pap + HPV 1965 HIV Screening 1980 Imm-Hepatitis B (1 of 3 - 19 + 3-dose series) 1984 Imm-Pneumococcal 50+ (1 of 2 - PCV) 1984 Cervical Cancer Screening 1986 Pap Smear 1986 Breast Cancer Screening (Mammogram) 2005 CT Colonography 2010 Colonoscopy 2010 Colorectal Cancer Screening 2010 FIT/gFOBT 2010 Fecal DNA 2010 Flexible Sigmoidoscopy 2010 Imm-RSV (adult) (1 - Risk 50 -74 years 1-dose series) 2015 Imm-Zoster, Recombinant (1 of 2) 2015 Diabetes Screening 11/06/2021 11/06/2018, 11/06/2018 Anxiety Screening 06/02/2023 06/02/2022 Lipid Screening 11/07/2023 11/06/2018 Dental Examination 06/30/2024 06/28/2023 Alcohol and Drug Screen 08/14/2024 11/27/19 24, 08/02/2021, 04/30/2021, Additional history exists Tobacco Screening 11/10/2024 11/11/2023 Tobacco Cessation Counseling (#1) 11/26/2024 024 Hypertension Screening (#1) 02/12/2025 [id number] ( season) 2025 05/15/2023, 07/14/2021, 12/09/2020, Additional history exists Imm-Influenza (#1) 2025 Depression Monitoring 08/14/2025 05/14/2025 , 11/27/2023, 06/02/2022, Additional history exists Dental FMX/Pano 08/11/2028 08/09/2023 Imm-DTaP/Tdap/Td (2 - Td or Tdap) 06/04/2030 020, 07/29/2010 Cervical Ablation/Cold-Knife Conization Discontinued Cervical Cryotherapy Discontinued Colposcopy Discontinued Excision/Leep Discontinued HPV Genotyping Discontinued Vaginal Pap Discontinued Vulvoscopy Discontinued Procedures Procedure Name Priority Date/Time Associated Diagnosis Comments IMAGING SCANNED DOCUMENT 06/12/2025 3:00 AM EDT IMAGING SCANNED DOCUMENT 05/23/2025 3:00 AM EDT IMAGING SCANNED DOCUMENT 05/23/2025 3:00 AM EDT IMAGING SCANNED DOCUMENT 05/23/2025 3:00 AM EDT IMAGING SCANNED DOCUMENT 05/23/2025 3:00 AM EDT IMAGING SCANNED DOCUMENT 05/18/2025 3:00 AM EDT IMAGING SCANNED DOCUMENT 05/18/2025 3:00 AM EDT IMAGING SCANNED DOCUMENT 05/18/2025 3:00 AM EDT IMAGING SCANNED DOCUMENT 05/18/2025 3:00 AM EDT IMAGING SCANNED DOCUMENT 05/15/2025 3:00 AM EDT IMAGING SCANNED DOCUMENT 05/15/2025 3:00 AM EDT IMAGING SCANNED DOCUMENT 05/15/2025 3:00 AM EDT IMAGING SCANNED DOCUMENT 05/15/2025 3:00 AM EDT PANORAMIC RADIOGRAPHIC IMAGE Routine [...] Recently Relevant to Health Maintenance Results * IMAGING SCANNED DOCUMENT (06/12/2025 3:00 AM EDT) Only the most recent of13 resultswithin the time period is included. 06/12/2025 3:00 AM EDT Jeremías Jones MD SCAN IMAGING Final Result * (ABNORMAL) LIPID PANEL (11/06/2018 2:01 PM EDT) CHOLESTEROL 205(H) 0 - 200 mg/dL [facility] TRIGLYCERIDES 106 0 - 150 mg/dL [facility] HDL CHOLESTEROL 48 >40 mg/dL [facility] LDL CALCULATED 136(H) 0 - 100 mg/dL [facility] TC-HDLC RATIO 4.3 0 - 4.4 mg/dL [facility] Blood specimen (specimen) Blood / Unknown 11/06/2018 2:01 PM EDT 11/06/2018 4:30 PM EDT Narrative [facility] - 11/06/2018 7:[address] [facility] [employer], [place] [address] Blanker Operator - Dionna Evans MD PT ID [id number] ORD# [id number] Nevaeh Espino PA-C LAB - BLOOD DRAW [place] [address], * (ABNORMAL) COMPRE METAB PANEL (CMP) (11/06/2018 2:01 PM EDT) GLUCOSE 103(H) 70 - 100 mg/dL [facility] Comment:Reference range appl icable to fasting specimens only BUN 9 5 - 25 mg/dL [facility] CREAT 0.82 0.5 - 1.1 mg/dL [facility] GLOMERULAR FILTRATION RATE > 60 [facility] Comment: If patient is -Guinean, multiply result by 1.21 Chronic Kidney Disease: < 60 ml/min/1.73 square meters Kidney Failure: < 15 ml/min/1.73 square meters SODIUM 137 133 - 145 mmol/L [facility] POTASSIUM 4.5 3.5 - 5.5 mmol/L [facility] CHLORIDE 100 96 - 110 mmol/L [facility] CO2 30 21 - 32 mmol/L [facility] ANION GAP 7 3 - 11 [facility] CALCIUM 9.5 8.5 - 10.5 mg/dL [facility] TOTAL PROTEIN 8.0 6.0 - 8.0 G/dL [facility] ALBUMIN 4.6 3.2 - 5.0 G/dL [facility] BILI, TOTAL 0.4 0.0 - 1.4 mg/dL [facility] SGOT 17 10 - 42 U/L [facility] SGPT 22 10 - 60 U/L [facility] ALK PHOS 55 42 - 121 U/L [facility] Blood specimen (specimen) Blood / Unknown 11/06/2018 2:01 PM EDT 11/06/2018 4:30 PM EDT Narrative [facility] - 11/06/2018 7:21 PM EDT [facility], [place] [address] Blanker Operator - Dionna Evans MD PT ID [id number] ORD# [id number] Nevaeh Espino PA-C LAB - BLOOD DRAW Edited Result - Final [facility] [address] [place] [address], from Last 3 Months or Most Recently Relevant to Health Maintenance [place] [employer] [facility] [employer] [address] [employer] Care Teams Claims Customer Service Representative Relationship Specialty Start Date End Date Jeremías Jones MD [address] [place] [address] PCP - General Family Medicine, Physician 08/15/23
--- OUTSIDE RECORDS SUMMARY | 2025-06-16 05:38 | XMS_ITS | Encounter Summary ---
Author Organization [facility] Address [address] [place] [address] Care Team Providers Care Attorney Law Clerk Name Role Phone Hector Ricketts MD Primary Care Provider [phone] Encounter Details Date Type Department Care Team ([facility] st Contact Info) Description 05/31/2025 Lab Requisition [facility] - Main Lab [address] [facility] [place] [address] Rigoberto Martinez NP [address] [place] [address] Social History Tobacco Use Types Packs/Day Years [...] on filedocumented in this encounter Care Teams Attorney Law Clerk Relationship Specialty Start Date End Date Hector Ricektts MD [address] [facility] [address] [place] [address] PCP - General 06/14/18 documented as of this encounter
--- OUTSIDE RECORDS SUMMARY | 2025-06-16 05:38 | XMS_ITS ---
Author Organization [employer] Address [address] [facility] 7 [place] [address] Care Team Providers Care Installation Service Representative Name Role Phone Anni Núñez [facility] Unavailable [phone] Yuliana Wang Unavailable [address] [facility] Status:Outreach In Progress (Enrolling) Start date:06/06/2025 Enrollment reason:ADT Feed Overview Eran Case Team Name Relationship Phone Yuliana Wang(Responsible Staff) Cinder Man [phone] Continued Care and Services Coordination
--- OUTSIDE RECORDS SUMMARY | 2025-06-16 05:38 | XMS_ITS | Encounter Summary ---
Author Organization 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 Social History Tobacco Use [...] Procedure Name Priority Date/Time Associated Diagnosis Comments LIPID PANEL WITH REFLEX TO DIRECT LDL Routine 05/31/2025 7:00 AM EDT 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 documented in this encounter Results * Lipid panel with reflex to direct LDL (05/31/2025 7:00 AM EDT) Cholesterol 153 0 - 200 mg/dL LAB CHEMISTRY METHOD 05/31/2025 12:50 PM EDT [facility] Triglycerides 106 0 - 150 mg/dL LAB CHEMISTRY METHOD 05/31/2025 12:50 PM EDT [facility] HDL 57 >=40 mg/dL LAB CHEMISTRY METHOD 05/31/2025 12:50 PM EDT [facility] LDL Calculated 75 0 - 100 mg/dL LAB CHEMISTRY METHOD 05/31/2025 12:50 PM EDT [facility] Comment:Estimated LDL Calcul ated using equation: Total cholesterol - HDL cholesterol - (Triglycerides/5) VLDL Cholesterol Lb 21.2 mg/dL LAB CHEMISTRY METHOD 05/31/2025 12:50 PM EDT [facility] Non HDL Chol. 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
--- NOTE | 2025-06-16 06:10 | ED.GENADULT ---
HPI - General Adult General Chief complaint: General Medical Stated complaint: full body pain Time Seen by Provider: 06/16/25 05:48 Source: patient and old records reviewed Mode of arrival: ambulatory Limitations: no limitations History of Present Illness ED Provider: DANIELLA DYER narrative: 59 yo female with PMH of arthritis, COPD, PPM, SSS, anxiety and depression, ureteral cancer here with 5 weeks of chronic body pain. No n/v/d, no fevers, no URI, no other issues. She notes she is here for pain control. She has not filled an oxycodone Rx since December. She notes she has to see her PCP for pain control. She states she takes tylenol/ibuprofen without relief. She tries to stretch her oxycodone Rx out. 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 complaint: pain Onset (ago): week(s) (5) Location: upper extremity and lower extremity Radiation: non-radiation Severity: moderate Quality: aching Pain Consistency: intermittent Relieving factors: none Exacerbating factors: movement Associated symptoms: denies other symptoms Treatments prior to arrival: none Related Data Home Medications ?Medication ?Instructions ?Recorded ?Confirmed metoprolol succinate 50 mg 50 mg PO DAILY 05/15/25 05/23/25 tablet,extended release 24 hr Previous Rx's ?Medication ?Instructions ?Recorded albuterol sulfate 90 mcg/actuation 2 puff inhalation Q4-6H PRN 05/22/25 aerosol inhaler (Ventolin HFA) shortness of breath or wheezing #8.5 grams fluticasone furoate 100 1 inh inhalation DAILY #60 ea 05/22/25 mcg-vilanterol 25 mcg/dose inhalation powder (Breo Ellipta) nicotine 14 mg/24 hr daily 14 mg transdermal DAILY #30 ea 05/22/25 transdermal patch oxycodone 5 mg tablet 5 mg PO Q8H PRN pain, severe #10 05/22/25 tabs amoxicillin 875 mg-potassium 1 tab PO Q12H #9 tabs 05/25/25 clavulanate 125 mg tablet azithromycin 500 mg tablet See Rx Instructions PO .COMPLEX #3 05/25/25 (Zithromax) tabs benzonatate 100 mg capsule 100 mg PO TID PRN Cough 10 days 05/25/25 #30 caps prednisone 20 mg tablet 40 mg (2 x 20 mg) PO DAILY 5 days 10/12/25 #10 tabs oxycodone 5 mg tablet 5 mg PO TID PRN pain #14 tabs 06/16/25 Allergies Allergy/AdvReac Type Severity Reaction Status Date / Time aspirin Allergy Mild Headache Verified 06/16/25 05:22 ibuprofen Allergy Mild heartburns Verified 06/16/25 05:22 acetaminophen (From Tylenol) Allergy Heartburn Verified 06/16/25 05:22 Review of Systems Review of Systems: Constitutional : No Fever, No Chills, No Fatigue ENT/Mouth : No sore throat, No Rhinorrhea Eyes: No Eye Pain, No Swelling, No Redness Cardiovascular : No Chest Pain, No SOB, No Dyspnea on Exertion Respiratory : No Cough, No Sputum Gastrointestinal : No Nausea, No Vomiting, No Diarrhea, No abdominal Pain Genitourinary : No Dysuria, No Urinary Frequency, No Hematuria, Musculoskeletal : pos joint pain, pos Myalgias, No Joint Swelling Skin : No Skin Lesions, No rash All other systems reviewed and are negative Yes all other systems are reviewed and are negative [facility] Past Medical History Attestation statement: The following information was validated with the patient. Source: old records reviewed Medical History Preoperative cardiovascular examination Wide-complex tachycardia Hydronephrosis Parainfluenza infection COPD exacerbation Acute hypoxic respiratory failure Hypoxia Closed fracture of neck of right femur Hypokalemia COPD (chronic obstructive pulmonary disease) Ureteral cancer Pacemaker-mediated tachycardia Thrombocytopenia Sick sinus syndrome due to sinoatrial node dysfunction Anxiety Depression Social History Social History Household Members: Children and Friend(s) Housing: House Are you a primary pharmacy care coordinator to a significant other at home: No Do you presently have visiting nurse or other home services: No Alcohol intake: never Comment: medicated, pain tolerable Patient Tobacco Use Status: Current everyday Tobacco user Tobacco use type: Cigarette Cigarette Packs Per Day: 1 Cigarettes Per Day: 20.0 Years Smoked: 30 Smoked in Last 30 Days: Yes e-Cigarette/Vaping Use: Never Used Use of substances other than those prescribed or required for medical reasons: Yes Substance Use Type: Marijuana Advance Directives: Yes Advance Directives Information Provided: No Advance Directives on File: No Advance Directives Date on File: 04/23/21 Patient : No service: No Physical Exam ED Vital Signs: Vital Signs - 24 hr 06/16/25 05:18 Temperature 98.4 F Pulse Rate 116 H Respiratory Rate 18 Blood Pressure 125/86 Pulse Oximetry 97 Oxygen Delivery Method Room Air BMI result Body Mass Index 19.0 Appearance: Alert. Oriented X3. No acute distress. Eyes: Pupils equal, round and reactive to light. ENT: Pharynx normal. Neck: Normal inspection. Neck supple. CVS: Normal heart rate and rhythm. Pulses normal. Respiratory: No respiratory distress. Breath sounds normal. Abdomen: Soft and nontender. Skin: Skin warm and dry. Normal skin color. Extremities: No lower extremity edema. Neuro: Oriented X 3. No motor deficit. No sensory deficit. Medical Decision Making Medical Decision Making [facility] Narrative: 59 yo female with PMH of arthritis, COPD, PPM, SSS, anxiety and depression, ureteral cancer here with c/o joint pain but no rash, no fevers, no swelling no other systemic illness. We had a long conversation about MAT and other options for pain control. 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 She will get one time Rx and DC home with expectation to follow up and no further narcotics from the ED for chronic pain. She agrees. Differential Diagnosis Differential Diagnoses: The differential diagnosis associated with the presentation includes lyte abnormality, chronic pain Admission/Observation Consideration of admission/observation: Escalation of care including admission/observation considered stable for outpatient care Lab Data [facility] Lab Attestation statement: I reviewed the patient's lab results. 06/16/25 06:07 06/16/25 06:07 Labs: Lab Results 06/16/25 Range/Units 06:07 WBC 9.4 (4.8-10.8) X10*3/uL RBC 4.07 L (4.20-5.50) X10*6/uL Hgb 12.1 (12.0-16.0) g/dl Hct 37.4 (37.0-47.0) % MCV 91.9 (80.0-98.0) fL MCH 29.7 (27.0-33.0) pg MCHC 32.4 (31.0-35.0) g/dl RDW 14.6 (11.0-16.0) % Plt Count 290 (160-400) X10*3/uL MPV 8.5 L (9.4-12.3) fL Immature Gran % (Auto) 0.6 H (0.0-0.4) % Neut % (Auto) 61.0 (45-73) % Lymph % (Auto) 27.8 (20-40) % [place] % (Auto) 7.7 (2-11) % Eos % (Auto) 2.4 (0-4) % Baso % (Auto) 0.5 (0-2) % Lymph # (Auto) 2.6 (1.2-4.9) X10*3/uL [place] # (Auto) 0.7 (0.1-1.2) X10*3/uL Eos # (Auto) 0.2 (0.0-0.4) X10*3/uL Baso # (Auto) 0.1 (0.0-0.2) X10*3/uL Abs Immat Gran (auto) 0.06 H (0.00-0.03) X10*3/uL Absolute Neuts (auto) 5.7 (2.0-8.3) x10*3/uL Absolute Nucleated RBC 0.000 (0.0-0.012) X10*3/uL Nucleated RBC % (auto) 0.0 (0.0-0.2) /100WBC Sodium 140 (135-145) mmol/L Potassium 4.8 (3.3-5.1) mmol/L Chloride 106 (96-108) mmol/L Carbon Dioxide 28 (22-29) mmol/L Anion Gap 11 L (12-20) BUN 24 H (9-16) mg/dL Creatinine 0.66 (0.5-1.4) mg/dL Estim Creat Clear Calc 92.0 Estimated GFR > 60 Random Glucose 103 (60-115) mg/dL Calcium 9.6 (8.4-10.2) mg/dL Total Creatine Kinase 28 (26-140) U/L External Record Review External record reviewed: Outpatient record Prescription Management I considered prescription management with: Pain Medication Discharge Plan Discharge Clinical Impression: Musculoskeletal pain Patient Disposition: Home, Self-Care Instructions: Chronic Pain (ED), Musculoskeletal Pain (ED) Additional Instructions: labs are reassuring. Please follow up with your primary care doctor for further prescriptions for pain control return for any worsening symptoms or concerns Prescriptions: New oxycodone 5 mg tablet 5 mg PO TID PRN (Reason: pain) Qty: 14 0RF Rx Instructions: Partial Fill upon patient request. No Action prednisone 20 mg Tablet 40 mg PO DAILY 5 Days Qty: 10 0RF benzonatate 100 mg Capsule 100 mg PO TID PRN (Reason: Cough) 10 Days Qty: 30 0RF amoxicillin-pot clavulanate 875-125 mg tablet 1 tab PO Q12H Qty: 9 0RF azithromycin [Zithromax] 500 mg tablet See Rx Instructions .ROUTE .COMPLEX Qty: 3 0RF Rx Instructions: For 500 mg dose pack: take 500 mg once daily for 3 days metoprolol succinate 50 mg Tablet Extended Release 24 Hr 50 mg PO DAILY nicotine 14 mg/24 hr Patch 24 Hour 14 mg transdermal DAILY Qty: 30 0RF albuterol sulfate [Ventolin HFA] 90 mcg/actuation HFA aerosol inhaler 2 puff inhalation Q4-6H PRN (Reason: shortness of breath or wheezing) Qty: 8.5 0RF fluticasone furoate-vilanterol [Breo Ellipta] 100-25 mcg/dose blister with device 1 inh inhalation DAILY Qty: 60 0RF oxycodone 5 mg tablet 5 mg PO Q8H PRN (Reason: pain, severe) Qty: 10 0RF Rx Instructions: Partial Fill upon patient request. Print Language: Uzbek
[2025-06-16 06:13] LABS: MANUAL DIFF FLAG NO
[2025-06-16 06:22] LABS: Hematocrit 37.4 % (37.0-47.0); Hemoglobin 12.1 g/dl (12.0-16.0); Imm Gran Abs Auto 0.06 X10*3/uL (0.00-0.03); Imm Gran Pct Auto 0.6 % (0.0-0.4); Lymphocytes Absolute Auto 2.6 X10*3/uL (1.2-4.9); Mean Corpuscular HGB Conc 32.4 g/dl (31.0-35.0); Mean Corpuscular Hemoglobin 29.7 pg (27.0-33.0); Mean Corpuscular Volume 91.9 fL (80.0-98.0); NRBC Abs Auto 0.000 X10*3/uL (0.0-0.012); NRBC Pct Auto 0.0 /100WBC (0.0-0.2); Platelet Count 290 X10*3/uL (160-400); Red Blood Count 4.07 X10*6/uL (4.20-5.50); White Blood Count 9.4 X10*3/uL (4.8-10.8)
[2025-06-16 06:29] LABS: Anion Gap 11 (12-20); Blood Urea Nitrogen 24 mg/dL (9-16); Calcium 9.6 mg/dL (8.4-10.2); Carbon Dioxide 28 mmol/L (22-29); Chloride 106 mmol/L (96-108); Creatinine Clr Calc Pharmacy 92.0; Estimated Glomerular Filt Rate > 60; Potassium 4.8 mmol/L (3.3-5.1); Sodium 140 mmol/L (135-145)
[2025-06-16 06:48] VITALS: BP 128/86; PULSE 76; RESP 18; TEMP 36.7; O2SAT 97
== END 2025-06-16 06:49 | disposition home or self-care (01) ==
PROVIDERS: Emergency Provider Emergency Medicine; PCP Dentist General Practice
DX: M79.18 Myalgia, other site (principal); F41.9 Anxiety disorder, unspecified; J44.9 Chronic obstructive pulmonary disease, unspecified; I49.5 Sick sinus syndrome; F17.200 Nicotine dependence, unspecified, uncomplicated; Z71.6 Tobacco abuse counseling
CPT/HCPCS: 36415; 80048; 82550; 85025; 99283; 99284

== ENCOUNTER 2025-06-30 05:55 | Day surgery (SDC) | payer MEDICAID, SELFPAY ==
--- OUTSIDE RECORDS SUMMARY | 2025-06-16 16:26 | XMS_ITS | Clinical Summary ---
Author Organization [facility] Address [address] [place] [address] Care Team Providers Care A Operator Name Role Phone Unknown, Doctor Primary Care [...] EDT - 05/29/2025 2:29 AM EDT Emergency [facility] Emergency Department [address] [place] [id number] Discharge Disposition: Left Without Being Seen () 05/28/2025 3:42 AM EDT - 05/28/2025 10:15 AM EDT Emergency [facility] Emergency Department [address] [place] [id number] Sean Vasquez MD Lightheadedness (Primary Dx) Discharge Disposition: Home or Self Care () 05/28/2025 Results Follow-Up [facility] Emergency Department [address] [place] [id number] Kamari Ramires NP from Last 3 Months [...] 75+ series) 2040 Procedures * Due to [place] [employer]akes[employer] law, this organization might not be sharing [...] Last 3 Months Results * Due to [place] [employer]akes[employer] law, this organization might not be sharing negative HIV tests. * (ABNORMAL) CBC Auto Differential (05/29/2025 2:20 PM EDT) Only the most recent of2 resultswithin the time period is included. WBC 11.7(H) 3.8 - 10.8 10*3/uL 05/29/2025 2:38 PM EDT [facility] RBC 4.45 3.80 - 5.10 10*6/uL 05/29/2025 2:38 PM EDT [facility] Hemoglobin 13.0 11.7 - 15.5 g/dL 05/29/2025 2:38 PM EDT [facility] Hematocrit 37.9 35.0 - 45.0 % 05/29/2025 2:38 PM EDT [email or web address] MCV 85.2 80.0 - 100.0 fL 05/29/2025 2:38 PM EDT [facility] MCH 29.2 27.0 - 33.0 pg 05/29/2025 2:38 PM EDT [email or web address] MCHC 34.3 32.0 - 36.0 g/dL 05/29/2025 2:38 PM EDT [facility] RDW 13.5 11.0 - 15.0 % 05/29/2025 2:38 PM EDT [facility] Platelets 332 140 - 400 10*3/uL 05/29/2025 2:38 PM EDT [facility] MPV 9.4 7.5 - 12.5 fL 05/29/2025 2:38 PM EDT [facility] Neutrophil % 81.9 % 05/29/2025 2:38 PM EDT [facility] Immature Grans % 0.4 0.0 - 0.9 % 05/29/2025 2:38 PM EDT [facility] Lymphocyte % 12.7 % 05/29/2025 2:38 PM EDT [facility] Monocyte % 4.9 % 05/29/2025 2:38 PM EDT [facility] Eosinophil % 0.0 % 05/29/2025 2:38 PM EDT [facility] Basophil % 0.1 % 05/29/2025 2:38 PM EDT [facility] Neutrophil # 9.59(H) 1.50 - 7.80 10*3/uL 05/29/2025 2:38 PM EDT [facility] Immature Grans # 0.05(H) <=0.03 10*3/uL 05/29/2025 2:38 PM EDT [facility] Lymphocyte # 1.50 0.85 - 3.90 10*3/uL 05/29/2025 2:38 PM EDT [facility] [employer] [facility] Monocyte # 0.60 0.20 - 0.95 10*3/uL 05/29/2025 2:38 PM EDT [facility] [employer] [facility] Eosinophil # <0.03 0.02 - 0.50 10*3/uL 05/29/2025 2:38 PM EDT [facility] [employer] [facility] Basophil # <0.03 0.00 - 0.20 10*3/uL 05/29/2025 2:38 PM EDT [facility] [employer] [facility] nRBC % 0.0 /100 WBCs 05/29/2025 2:38 PM EDT [facility] [employer] [facility] nRBC # <0.01 <0.01 10*3/uL 05/29/2025 2:38 PM EDT [facility] Blood Structure of peripheral vein / Unknown Venipuncture / Unknown 05/29/2025 2:20 PM EDT 05/29/2025 2:28 PM EDT us Iris Stock MD LAB BLOOD ORDERABLES Final Result [facility] [employer] [facility] [address] [place] [address], [place] * Magnesium (05/29/2025 2:19 PM EDT) Only the most recent of2 resultswithin the time period is included. MG 2.0 1.6 - 2.4 mg/dL 05/29/2025 3:35 PM EDT [facility] Blood Structure of peripheral vein / Unknown Venipuncture / Unknown 05/29/2025 2:19 PM EDT 05/29/2025 2:28 PM EDT us Iris Stock MD LAB BLOOD ORDERABLES Final Result [facility] [address] [place] [address], * (ABNORMAL) BMP - Basic Metabolic Panel (05/29/2025 2:19 PM EDT) Only the most recent of2 resultswithin the time period is included. NA 143 135 - 145 mmol/L 05/29/2025 3:37 PM EDT [facility] K 2.8(LL) 3.5 - 5.3 mmol/L 05/29/2025 3:37 PM EDT [facility] Cl 103 97 - 110 mmol/L 05/29/2025 3:37 PM EDT [facility] CO2 25 22 - 32 mmol/L 05/29/2025 3:37 PM EDT [facility] BUN 19 7 - 23 mg/dL 05/29/2025 3:37 PM EDT [facility] Creatinine 0.64 0.50 - 1.20 mg/dL 05/29/2025 3:37 PM EDT [facility] Glucose 127(H) 65 - 99 mg/dL 05/29/2025 3:37 PM EDT [facility] Calcium 9.3 8.6 - 10.5 mg/dL 05/29/2025 3:37 PM EDT [facility] Anion Gap 15 5 - 15 05/29/2025 3:37 PM EDT [facility] eGFR >90 >=60 mL/min/1 .73m2 05/29/2025 3:37 PM EDT [facility] Comment:The estimated glomer ular [...] Stock MD LAB BLOOD ORDERABLES Final Result [facility] [address] [place] [address], [place] * XR Chest 2 vw. Standard [...] to obtain the completed interpretation. Workstation ID: [id number] Narrative 05/28/2025 10:55 AM EDT XR CHEST [...] changes of the spine. Resulting Agency Comment [id number] Procedure Note Britney Brooks MD - 05/28/2025 [...] possible to obtain thecompleted interpretation. Workstation ID: [id number] Sean Vasquez MD IMG XR PROCEDURES Final Result * ECG 12 lead (05/28/2025 4:54 AM EDT) Ventricular Rate EKG 93 BPM MUSE EKG Atrial Rate 93 BPM MUSE EKG IL Interval 144 ms MUSE EKG QRS Interval 90 ms MUSE EKG QT Interval 372 ms MUSE EKG QTC Interval 462 ms MUSE EKG P [place] 72 degrees MUSE EKG R [place] 72 degrees MUSE EKG T Wave [place] -35 degrees MUSE EKG 05/28/2025 4:54 AM EDT 05/29/2025 8:13 AM EDT Impressions MUSE EKG - 05/29/2025 8:13 AM EDT NORMAL SINUS RHYTHM WITH SINUS ARRHYTHMIA POSSIBLE LEFT ATRIAL ENLARGEMENT MINIMAL VOLTAGE CRITERIA FOR LVH, MAY BE NORMAL VARIANT ( Ant product ) T WAVE ABNORMALITY, CONSIDER INFERIOR ISCHEMIA ABNORMAL ECG NO PREVIOUS ECGS AVAILABLE Confirmed by Mayur Looney ([id number]) on 05/29/2025 8:13:54 AM Narrative Procedure Note Mayur Looney MD - 05/29/2025 IMPRESSION: NORMAL SINUS RHYTHM WITH SINUS ARRHYTHMIA POSSIBLE LEFT ATRIAL ENLARGEMENT MINIMAL VOLTAGE CRITERIA FOR LVH, MAY BE NORMAL VARIANT ( [place] product) T WAVE ABNORMALITY, CONSIDER INFERIOR ISCHEMIA ABNORMAL ECG NO PREVIOUS ECGS AVAILABLE Confirmed by Mayur Looney ([id number]) on 05/29/2025 8:13:54 AM us Natalio Grove MD ECG ORDERABLES Final Resul t MUSE EKG * HEART & VASCULAR - SCANNED (05/28/2025) Only the most recent of2 resultswithin the time period is included. Anatomical Region Laterality Modality Other us Onbase Scan Gricelda SCANNED PROCEDURES Final Resu lt from Last 3 Months [facility] Care Teams A Operator Relationship Specialty Start Date End Date Unknown, Doctor Unknown Unknown, LOVE PCP - General 05/29/25
--- OUTSIDE RECORDS SUMMARY | 2025-06-16 16:26 | XMS_ITS | Clinical Summary ---
Author Organization [facility] Address [address] [place] [address] [place] [address] Care Team Providers Care Customer Retention Specialist Name Role Phone Anni Núñez LMHC Unavailable [phone] Yuliana Wang Unavailable VincentLeandra Unavailable Encounters Date Type Department Care Team Description 06/16/2025 Patient Outreach [facility] ([facility] Department [address] [place] [phone] Núñez, Anni, LMHC 06/12/2025 Patient Outreach [facility] ([facility] Department [address] [place] [address] Núñez, Anni, LMHC 06/12/2025 Patient Outreach [facility] ([facility] Department [address] [place] [phone] Núñez, Anni, LMHC 06/10/2025 Patient Outreach [facility] ([facility] Department [address] [place] [phone] Núñez, Anni, LMHC 06/09/2025 Patient Outreach [facility] ([facility] Department [address] [place] [phone] Núñez, Anni, LMHC from Last 3 Months [...] age to complete this topic Care Teams Customer Retention Specialist Relationship Specialty Start Date End Date Anni Núñez [facility] 06/06/25 Yuliana Wang [facility] 06/06/25 06/16/25 Leandra Kaur Director Of Speech Pathology 06/16/25
--- OUTSIDE RECORDS SUMMARY | 2025-06-16 16:26 | XMS_ITS | Encounter Summary ---
Author Organization [employer] Address [address] [facility] 7t [place] [address] Care Team Providers Care Director Diversity Name Role Phone Anni Núñez Unavailable [phone] Yuliana Wang Unavailable Leandra Kaur Unavailable Encounter Details Date Type Department Care Team (Late st Contact Info) Description 06/16/2025 Patient Outreach [facility] (C3) Department [address] [phone] Anni Núñez LMHC Social History Tobacco Use Types Packs/Day Years Used Date Smoking Tobacco: Never Assessed Comments Unknown Sex and Gender Information Value Date Recorded Sex Assigned at Not on file Legal Sex Female 9:18 PM EDT Gender Identity Not on file Sexual Orientation Not on file documented as of this encounter Progress Notes * SPIKE Carr - 06/16/2025 12:20 PM EST Second Outreach Post dc Unsuccessful documented in this encounter Plan of Treatment Not on file documented as of this encounter Visit Diagnoses Not on filedocumented in this encounter Care Teams Director Diversity Relationship Specialty Start Date End Date Anni Núñez LMHC [facility] 06/06/25 Yuliana Wang [facility] 06/06/25 06/16/25 Leandra Kaur Erp Specialist 06/16/25 documented as of this encounter
--- OUTSIDE RECORDS SUMMARY | 2025-06-16 16:26 | XMS_ITS | Encounter Summary ---
Author Organization [facility] Address [address] [facility] 7t [place] [address] Care Team Providers Care Pesticide Chemist Name Role Phone Anni Núñez Unavailable [phone] Yuliana Wang Unavailable Encounter Details Date Type Department Care Team (Late st Contact Info) Description 06/12/2025 Patient Outreach [facility] (C3) Department [address] [facility] [address] [place] [address] Anni Núñez LMHC Social History [...] on filedocumented in this encounter Care Teams Pesticide Chemist Relationship Specialty Start Date End Date nAni Núñez LMHC [facility] 06/06/25 Yuliana Wang [facility] 06/06/25 06/16/25 documented as of this encounter
--- OUTSIDE RECORDS SUMMARY | 2025-06-16 16:26 | XMS_ITS | Clinical Summary ---
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 05/31/2025 Lab Requisition [facility] Main Lab [address] [place] [address] Rigoberto Martinez NP 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 05/31/2025 Lab Requisition [facility] Lab [address] [place] [address] Rigoberot Martinez NP 05/31/2025 Lab Requisition [facility] Lab [address] [place] [address] Rigoberto Martinez NP Other assisted (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 from Last 3 Months [...] swelling in hands and feet Rheumatoid arthritis ([facility]/ C V24, [facility] V28) DX:Rheumatoid arthritis (HCC ) Wears glasses DX:Wears glasses Nasal congestion DX:Nasal conges tion Abdominal pain DX:Abdominal linnea n Change in bowel habits DX:Change in bowel habits Autoimmune disease ([facility] V24) DX:Autoimmune disease ([facility]); COMMENT: fibromyalgia Social History Tobacco Use Types [...] TRIIODOTHYRONINE Routine 06/01/2025 7:00 AM EDT Other assisted (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 AMMONIA Routine 06/01/2025 7:00 AM EDT Other assisted (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 THYROID STIMULATING HORMONE WITH REFLEX TO FREE T4 AND FREE T3 Routine 06/01/2025 7:00 AM EDT 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 COMPREHENSIVE METABOLIC PANEL Routine 06/01/2025 7:00 AM EDT 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 LIPID PANEL WITH REFLEX TO DIRECT LDL Routine 05/31/2025 7:00 AM EDT 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 HEMOGLOBIN A1C Routine 05/31/2025 7:00 AM EDT 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 GLUCOSE, RANDOM Routine 05/31/2025 7:00 AM EDT 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 from Last 3 Months Results * (ABNORMAL) Thyroid stimulating hormone with reflex to free t4 and free t3 (06/01/2025 7:00 AM EDT) TSH 0.30(L) 0.40 - 4.00 mcIU/mL LAB CHEMISTRY METHOD 06/02/2025 9:44 PM EDT [facility] Blood Venous blood specimen / Unknown Venipuncture / Unknown 06/01/2025 7:00 AM EDT 06/01/2025 7:43 AM EDT Arash Gruber LAB BLOOD ORDERABLES Final Resu lt Performing Organization Address [facility]/ZIP Co de Phone Number [facility] [address] [place] [address], [place] [phone] * (ABNORMAL) Free thyroxine with reflex to free triiodothyronine (06/01/2025 7:00 AM EDT) Free T4 1.97(H) 0.70 - 1.80 ng/dL LAB CHEMISTRY METHOD 06/02/2025 10:39 PM EDT [facility] Blood Venous blood specimen / Unknown Venipuncture / Unknown 06/01/2025 7:00 AM EDT 06/01/2025 7:43 AM EDT Arash Gruber LAB BLOOD ORDERABLES Final Resu lt Performing Organization Address [facility]/ZIP Co de Phone Number [facility] [address] [place] [address], [place] [phone] * Ammonia (06/01/2025 7:00 AM EDT) Ammonia 24 11 - 35 mcmol/L LAB CHEMISTRY METHOD 06/01/2025 8:13 AM EDT [facility] Blood Venous blood specimen / Unknown Venipuncture / Unknown 06/01/2025 7:00 AM EDT 06/01/2025 7:43 AM EDT us Arash Gruber LAB BLOOD ORDERABLES Final Resu lt [facility] [address] [place] [address], * (ABNORMAL) Comprehensive metabolic panel (06/01/2025 7:00 AM EDT) Sodium 143 133 - 145 mmol/L LAB CHEMISTRY METHOD 06/01/2025 8:15 AM [facility] Potassium 3.4(L) 3.5 - 5.5 mmol/L LAB CHEMISTRY METHOD 06/01/2025 8:15 AM [facility] Chloride 111(H) 96 - 110 mmol/L LAB CHEMISTRY METHOD 06/01/2025 8:15 AM [facility] CO2 27 21 - 32 mmol/L LAB CHEMISTRY METHOD 06/01/2025 8:15 AM [facility] Anion Gap 5 3 - 11 LAB CHEMISTRY METHOD 06/01/2025 8:15 AM [facility] Glucose 104(H) 70 - 100 mg/dL LAB CHEMISTRY METHOD 06/01/2025 8:15 AM [facility] BUN 14 5 - 25 mg/dL LAB CHEMISTRY METHOD 06/01/2025 8:15 AM [facility] Creatinine 0.63 0.50 - 1.10 mg/dL LAB CHEMISTRY METHOD 06/01/2025 8:15 AM [facility] eGFR 102 >=60 mL/min/1. 73m2 LAB CHEMISTRY METHOD 06/01/2025 8:15 AM [facility] Comment:Calculation based on the Chronic Kidney Disease Epidemiology Collaboration (CKD-EPI) equation refit without adjustment for race. BUN/Creatinine Ratio 22.2 LAB CHEMISTRY METHOD 06/01/2025 8:15 AM [facility] Calcium 9.1 8.5 - 10.5 mg/dL LAB CHEMISTRY METHOD 06/01/2025 8:15 AM [facility] AST (SGOT) 12 10 - 42 unit/L LAB CHEMISTRY METHOD 06/01/2025 8:15 AM [facility] ALT (SGPT) 22 10 - 60 unit/L LAB CHEMISTRY METHOD 06/01/2025 8:15 AM [facility] Alkaline Phosphatase 39(L) 42 - 121 unit/L LAB CHEMISTRY METHOD 06/01/2025 8:15 AM [facility] Total Protein 6.2 6.0 - 8.0 g/dL LAB CHEMISTRY METHOD 06/01/2025 8:15 AM [facility] Albumin 3.4 3.2 - 5.0 g/dL LAB CHEMISTRY METHOD 06/01/2025 8:15 AM [facility] Total Bilirubin 0.7 0.0 - 1.4 mg/dL LAB CHEMISTRY METHOD 06/01/2025 8:15 AM [facility] Blood Venous blood specimen / Unknown Venipuncture / Unknown 06/01/2025 7:00 AM EDT 06/01/2025 7:43 AM EDT us Arash Gruber LAB BLOOD ORDERABLES Final Resu lt [facility] [address] [place] [address], * Lipid panel with reflex to direct LDL (05/31/2025 7:00 AM EDT) Cholesterol 153 0 - 200 mg/dL LAB CHEMISTRY METHOD 05/31/2025 12:50 PM EDT [facility] Triglycerides 106 0 - 150 mg/dL LAB CHEMISTRY METHOD 05/31/2025 12:50 PM EDT [facility] HDL 57 >=40 mg/dL LAB CHEMISTRY METHOD 05/31/2025 12:50 PM EDT [facility] LDL Calculated 75 0 - 100 mg/dL LAB CHEMISTRY METHOD 05/31/2025 12:50 PM EDT [facility] Comment:Estimated LDL Calcul ated using equation: Total cholesterol - HDL cholesterol - (Triglycerides/5) VLDL Cholesterol Lb 21.2 mg/dL LAB CHEMISTRY METHOD 05/31/2025 12:50 PM EDT [facility] Non HDL Chol. (LDL+VLDL) 96 <145 mg/dL LAB CHEMISTRY METHOD 05/31/2025 12:50 PM EDT [facility] Chol/HDL Ratio 2.7 0.0 - 4.4 LAB CHEMISTRY METHOD 05/31/2025 12:50 PM EDT [facility] Blood Venous blood specimen / Unknown Venipuncture / Unknown 05/31/2025 7:00 AM EDT 05/31/2025 12:31 PM EDT us Rigoberto Martinez NP LAB BLOOD ORDERABLES Final Resul t [facility] [address] [place] [address], * Hemoglobin A1c (05/31/2025 7:00 AM EDT) Hemoglobin A1C 6.2 <6.5 % LAB CHEMISTRY METHOD 06/01/2025 1:03 PM EDT [facility] Mean Bld Glu Estim. 131 mg/dL LAB CHEMISTRY METHOD 06/01/2025 1:03 PM EDT [facility] Blood Venous blood specimen / Unknown Venipuncture / Unknown 05/31/2025 7:00 AM EDT 05/31/2025 9:26 AM EDT Rigoberto Martinez [facility] [employer] [facility] LAB BLOOD ORDERABLES Final Resul t Performing Organization Address City/[facility]/ZIP Co de Phone Number [facility] [address] [place] [address], [place] [phone] * Glucose, random (05/31/2025 7:00 AM EDT) Glucose 98 70 - 100 mg/dL LAB CHEMISTRY METHOD 05/31/2025 11:18 AM EDT [facility] Blood Venous blood specimen / Unknown Venipuncture / Unknown 05/31/2025 7:00 AM EDT 05/31/2025 9:26 AM EDT Rigoberto Martinez [facility] LAB BLOOD ORDERABLES Final Resul t Performing Organization Address [facility]/ZIP Co de Phone Number [facility] [address] [place] [address], [place] [phone] from Last 3 Months Care Teams Mushroom Press Operator Relationship Specialty Start Date End Date Hector Ricketts MD [address] [address] PCP - General 06/14/18
--- OUTSIDE RECORDS SUMMARY | 2025-06-16 16:26 | XMS_ITS | Encounter Summary ---
Author Organization [employer] Address [address] [facility] 7[address] [place] [address] Care Team Providers Care It Trainee Name Role Phone Anni Núñez Unavailable [phone] Yuliana Wang Unavailable Encounter Details Date Type Department Care Team (Late st Contact Info) Description 06/12/[address] [facility] (C3) Department [address] [facility] 7 [place] [phone] Anni Núñez LMHC Social History Tobacco Use [...] on filedocumented in this encounter Care Teams It Trainee Relationship Specialty Start Date End Date Anni Núñez LMHC [facility] 06/06/25 Yuliana Wang [facility] 06/06/25 06/16/25 documented as of this encounter
--- OUTSIDE RECORDS SUMMARY | 2025-06-16 16:27 | XMS_ITS | Encounter Summary ---
Author Organization [facility] Address [address] [place] [address] Care Team Providers Care Mohel Name Role Phone Hector Ricketts MD Primary Care Provider [phone] Encounter Details Date Type Department Care Team (Late st Contact Info) Description 05/31/2025 Lab Requisition [facility] - Main Lab [address] [facility] [place] [address] Rigoberto Martinez NP [address] [place], [place] [id number] Other roasterman (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 Social History Tobacco Use [...] LDL Routine 05/31/2025 7:00 AM EDT Other roasterman (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 documented in this encounter Results * Lipid panel with reflex to direct LDL (05/31/2025 7:00 AM EDT) Cholesterol 153 0 - 200 mg/dL LAB CHEMISTRY METHOD 05/31/2025 12:50 PM EDT [facility] Triglycerides 106 0 - 150 mg/dL LAB CHEMISTRY METHOD 05/31/2025 12:50 PM EDT [facility] HDL 57 >=40 mg/dL LAB CHEMISTRY METHOD 05/31/2025 12:50 PM EDT [facility] LDL Calculated 75 0 - 100 mg/dL LAB CHEMISTRY METHOD 05/31/2025 12:50 PM EDT [facility] Comment:Estimated LDL Calcul ated using equation: Total cholesterol - HDL cholesterol - (Triglycerides/5) VLDL Cholesterol Lb 21.2 mg/dL LAB CHEMISTRY METHOD 05/31/2025 12:50 PM EDT [facility] Non HDL Chol. (LDL+VLDL) 96 <145 mg/dL LAB CHEMISTRY METHOD 05/31/2025 12:50 PM EDT [facility] Chol/HDL Ratio 2.7 0.0 - 4.4 LAB CHEMISTRY METHOD 05/31/2025 12:50 PM EDT [facility] Blood Venous blood specimen / Unknown Venipuncture / Unknown 05/31/2025 7:00 AM EDT 05/31/2025 12:31 PM EDT us Rigoberto Martinez ANIMAL DAMAGE CONTROL AGENT LAB BLOOD ORDERABLES Final Resul t [facility] [address] [place] [address], documented in this encounter Visit Diagnoses Diagnosis Other roasterman (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 documented in this encounter Care Teams Mohel Relationship Specialty Start Date End Date Hector Ricketts MD [address] [address] PCP - General 06/14/18 documented as of this encounter
--- OUTSIDE RECORDS SUMMARY | 2025-06-16 16:27 | XMS_ITS | Encounter Summary ---
Author Organization [facility] Address [address] [place] [address] Care Team Providers Care Checkout Supervisor Name Role Phone Hector Ricketts MD Primary Care Provider [phone] Encounter Details Date Type Department Care Team (Late st Contact Info) Description 06/01/2025 Lab Requisition [facility] - Main Lab [address] [facility] [place] [phone] [place] [phone] Other alf (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 Social History Tobacco Use [...] T3 Routine 06/01/2025 7:00 AM EDT Other alf (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 FREE THYROXINE WITH REFLEX TO FREE TRIIODOTHYRONINE Routine 06/01/2025 7:00 AM EDT Other alf (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 AMMONIA Routine 06/01/2025 7:00 AM EDT Other alf (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 COMPREHENSIVE METABOLIC PANEL Routine 06/01/2025 7:00 AM EDT 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 documented in this encounter Results * (ABNORMAL) Free thyroxine with reflex to free triiodothyronine (06/01/2025 7:00 AM EDT) Free T4 1.97(H) 0.70 - 1.80 ng/dL LAB CHEMISTRY METHOD 06/02/2025 10:[address] [facility] Blood Venous blood specimen / Unknown Venipuncture / Unknown 06/01/2025 7:00 AM EDT 06/01/2025 7:43 AM EDT Arash Gruber LAB BLOOD ORDERABLES Final Resu lt Performing Organization Address City/[facility]/ZIP Co de Phone Number [facility] [address] [place] [address], [place] [phone] * Ammonia (06/01/2025 7:00 AM EDT) Pathologist [facility] Ammonia 24 11 - 35 mcmol/L LAB CHEMISTRY METHOD 06/01/2025 8:[address] [facility] Blood Venous blood specimen / Unknown Venipuncture / Unknown 06/01/2025 7:00 AM EDT 06/01/2025 7:43 AM EDT Arash Gruber LAB BLOOD ORDERABLES Final Resu lt Performing Organization Address City/[facility]/ZIP Co de Phone Number [facility] [address] [place] [address], [place] [phone] * (ABNORMAL) Thyroid stimulating hormone with reflex to free t4 and free t3 (06/01/2025 7:00 AM EDT) Pathologist [facility] TSH 0.30(L) 0.40 - 4.00 mcIU/mL LAB CHEMISTRY METHOD 06/02/2025 9:[address] [facility] Blood Venous blood specimen / Unknown Venipuncture / Unknown 06/01/2025 7:00 AM EDT 06/01/2025 7:43 AM EDT us Arash Gruber LAB BLOOD ORDERABLES Final Resu lt [facility] [address] [place] [address], [place] [phone] * (ABNORMAL) Comprehensive metabolic panel (06/01/2025 7:00 AM EDT) Pathologist [facility] Sodium 143 133 - 145 mmol/L LAB CHEMISTRY METHOD 06/01/2025 8:15 AM [facility] Potassium 3.4(L) 3.5 - 5.5 mmol/L LAB CHEMISTRY METHOD 06/01/2025 8:15 AM [facility] Chloride 111(H) 96 - 110 mmol/L LAB CHEMISTRY METHOD 06/01/2025 8:15 AM [facility] CO2 27 21 - 32 mmol/L LAB CHEMISTRY METHOD 06/01/2025 8:15 AM [facility] Anion Gap 5 3 - 11 LAB CHEMISTRY METHOD 06/01/2025 8:15 AM [facility] Glucose 104(H) 70 - 100 mg/dL LAB CHEMISTRY METHOD 06/01/2025 8:15 AM [facility] BUN 14 5 - 25 mg/dL LAB CHEMISTRY METHOD 06/01/2025 8:15 AM [facility] Creatinine 0.63 0.50 - 1.10 mg/dL LAB CHEMISTRY METHOD 06/01/2025 8:15 AM [facility] eGFR 102 >=60 mL/min/1. 73m2 LAB CHEMISTRY METHOD 06/01/2025 8:15 AM [facility] Comment:Calculation based on the Chronic Kidney Disease Epidemiology Collaboration (CKD-EPI) equation refit without adjustment for race. BUN/Creatinine Ratio 22.2 LAB CHEMISTRY METHOD 06/01/2025 8:[address] [facility] Calcium 9.1 8.5 - 10.5 mg/dL LAB CHEMISTRY METHOD 06/01/2025 8:15 AM [facility] AST (SGOT) 12 10 - 42 unit/L LAB CHEMISTRY METHOD 06/01/2025 8:15 AM [facility] ALT (SGPT) 22 10 - 60 unit/L LAB CHEMISTRY METHOD 06/01/2025 8:15 AM [facility] Alkaline Phosphatase 39(L) 42 - 121 unit/L LAB CHEMISTRY METHOD 06/01/2025 8:15 AM [facility] Total Protein 6.2 6.0 - 8.0 g/dL LAB CHEMISTRY METHOD 06/01/2025 8:15 AM [facility] Albumin 3.4 3.2 - 5.0 g/dL LAB CHEMISTRY METHOD 06/01/2025 8:15 AM [facility] Total Bilirubin 0.7 0.0 - 1.4 mg/dL LAB CHEMISTRY METHOD 06/01/2025 8:15 AM [facility] Blood Venous blood specimen / Unknown Venipuncture / Unknown 06/01/2025 7:00 AM EDT 06/01/2025 7:43 AM EDT us Arash Gruber LAB BLOOD ORDERABLES Final Resu lt [facility] [address] [place] [address], [place] [phone] documented in this encounter Visit Diagnoses Diagnosis 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
--- OUTSIDE RECORDS SUMMARY | 2025-06-16 16:27 | XMS_ITS | Encounter Summary ---
Author Organization [facility] Address [address] [place] [address] Care Team Providers Care Log Feeder Name Role Phone Hector Ricketts MD Primary Care Provider [phone] Encounter Details Date Type Department Care Team (Late st Contact Info) Description 05/31/2025 Lab Requisition [facility] - Main Lab [address] [facility] [place] [address] Rigoberto Martinez NP [address] [place], [place] [phone] Other ocean transportation intermediary (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 Social History Tobacco Use [...] A1C Routine 05/31/2025 7:00 AM EDT Other senior care (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 GLUCOSE, RANDOM Routine 05/31/2025 7:00 AM EDT Other senior care (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 documented in this encounter Results * Hemoglobin A1c (05/31/2025 7:00 AM EDT) Hemoglobin A1C 6.2 <6.5 % LAB CHEMISTRY METHOD 06/01/2025 1:[address] [facility] Mean Bld Glu Estim. 131 mg/dL LAB CHEMISTRY METHOD 06/01/2025 1:03 PM EDT [facility] Blood Venous blood specimen / Unknown Venipuncture / Unknown 05/31/2025 7:00 AM EDT 05/31/2025 9:26 AM EDT Rigoberto Martinez NP LAB BLOOD ORDERABLES Final Resul t Performing Organization Address City/[facility]/ZIP Co de Phone Number [facility] [address] [place] [address], [place] [phone] * Glucose, random (05/31/2025 7:00 AM EDT) Glucose 98 70 - 100 mg/dL LAB CHEMISTRY METHOD 05/31/2025 11:18 AM EDT [facility] Blood Venous blood specimen / Unknown Venipuncture / Unknown 05/31/2025 7:00 AM EDT 05/31/2025 9:26 AM EDT Rigoberto Martinez NP LAB BLOOD ORDERABLES Final Resul t Performing Organization Address [facility] de Phone Number [facility] [address] [place] [address], [place] [phone] documented in this encounter Visit Diagnoses Diagnosis Other ocean transportation intermediary (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 documented in this encounter Care Teams Log Feeder Relationship Specialty Start Date End Date Hector Ricketts MD [address] [address] PCP - General 06/14/18 documented as of this encounter
--- OUTSIDE RECORDS SUMMARY | 2025-06-16 16:27 | XMS_ITS | Clinical Summary ---
Author Organization [facility] Address [address] [place] [address] Care Team Providers Care Mortgage Loan Funder Name Role Phone Jeremías Jones MD Primary Care Provider [phone] Source Comments PLEASE NOTE, if this patient [...] nasal sprayIndications:D egenerative lumbar disc Place 1 Rock into the nostril(s) as needed for opioid [...] obstructive pulmonary disease) Overview (05/28/2025): Admitted to [facility] for COPD exacerbation 05/15/25 Bipolar II disorder 08/15/2023 Generalized anxiety disorder 04/05/2023 Moderate episode of recurrent major depressive d isorder 04/05/2023 Non-ST elevated myocardial infarction 05/04/2021 Overview (11/27/2023): Followed by Cardiology in [facility] Reports normal PCI Pacemaker 04/28/2021 Overview (11/27/2023): Placed while in [facility] Apr 24, 2021 Diagnosed with broken heart syndrome Followed by Cardiology in [facility] Tobacco dependence due to cigarettes 11/12/2018 Anxiety and depression 11/06/2018 Overview (11/27/2023): Following department Fibromyalgia 11/06/2018 Primary osteoarthritis involving multiple joints 11/06/2018 Encounters Date Type Department Care Team Description 05/29/2025 Interim Notes [address] [phone] Tremayne Caballero 05/14/2025 / TELEPHONE [place] [address] [place] [address] Jody Reynolds LMHC from Last [...] (#1) 11/26/2024 024 Hypertension Screening (#1) 02/12/2025 [id number] ( season) 2025 05/15/2023, 07/14/2021, 12/09/2020, Additional [...] EDT) CHOLESTEROL 205(H) 0 - 200 mg/dL [facility] TRIGLYCERIDES 106 0 - 150 mg/dL [facility] HDL CHOLESTEROL 48 >40 mg/dL [facility] LDL CALCULATED 136(H) 0 - 100 mg/dL [facility] TC-HDLC RATIO 4.3 0 - 4.4 mg/dL [facility] Blood specimen (specimen) Blood / Unknown 11/06/2018 2:01 PM EDT 11/06/2018 4:30 PM EDT Narrative [facility] - 11/06/2018 7:21 PM EDT [facility] [employer], [place] [address] Wad Impregnator - Dionna Evans MD PT ID [id number] ORD# [id number] Nevaeh Espino PA-C LAB - BLOOD DRAW [place] [address], * (ABNORMAL) COMPRE METAB PANEL (CMP) (11/06/2018 2:01 PM EDT) GLUCOSE 103(H) 70 - 100 mg/dL [facility] Comment:Reference range appl icable to fasting specimens only BUN 9 5 - 25 mg/dL [facility] CREAT 0.82 0.5 - 1.1 mg/dL [facility] GLOMERULAR FILTRATION RATE > 60 [facility] Comment: If patient is -[place], multiply result by 1.21 Chronic Kidney Disease: < 60 ml/min/1.73 square meters Kidney Failure: < 15 ml/min/1.73 square meters SODIUM 137 133 - 145 mmol/L [facility] POTASSIUM 4.5 3.5 - 5.5 mmol/L [facility] CHLORIDE 100 96 - 110 mmol/L [facility] CO2 30 21 - 32 mmol/L [facility] ANION GAP 7 3 - 11 [facility] CALCIUM 9.5 8.5 - 10.5 mg/dL [facility] TOTAL PROTEIN 8.0 6.0 - 8.0 G/dL [facility] ALBUMIN 4.6 3.2 - 5.0 G/dL [facility] BILI, TOTAL 0.4 0.0 - 1.4 mg/dL [facility] SGOT 17 10 - 42 U/L [facility] SGPT 22 10 - 60 U/L [facility] ALK PHOS 55 42 - 121 U/L [facility] Blood specimen (specimen) Blood / Unknown 11/06/2018 2:01 PM EDT 11/06/2018 4:30 PM EDT Narrative [facility] - 11/06/2018 7:21 PM EDT [facility], [place] [address] Wad Impregnator - Dionna Evans MD PT ID [id number] ORD# [id number] Nevaeh Espino PA-C LAB - BLOOD DRAW Edited Result - Final [facility] [address] [place] [address], from Last 3 Months or Most Recently Relevant to Health Maintenance [place] [facility] [address] ACO Care Teams Mortgage Loan Funder Relationship Specialty Start Date End Date Jeremías Jones MD [address] [place] [address] PCP - General Family Medicine, Physician 08/15/23
--- OUTSIDE RECORDS SUMMARY | 2025-06-16 16:27 | XMS_ITS | Encounter Summary ---
Author Organization [facility] Address [address] [place] [address] Care Team Providers Care Pipe Threading Machine Operator Name Role Phone Hector Ricketts MD Primary Care Provider [phone] Encounter Details Date Type Department Care Team ([facility] st Contact Info) Description 05/31/2025 Lab Requisition [facility] - Main Lab [address] [facility] [place] [address] Rigoberto Martinez NP [address] [place] [address] Social History Tobacco Use Types Packs/Day Years [...] on filedocumented in this encounter Care Teams Pipe Threading Machine Operator Relationship Specialty Start Date End Date Hector Ricketts MD [address] [facility] [address] [place] [address] PCP - General 06/14/18 documented as of this encounter
--- OUTSIDE RECORDS SUMMARY | 2025-06-16 16:27 | XMS_ITS ---
Author Organization [employer] [facility] Address [address] [place] [address] [address] [place] [address] Care Team Providers Care Customer Solutions Teammate Name Role Phone Anni Núñez Unavailable [phone] Yuliana Wang Unavailable Leandra Kaur Unavailable C3 CM TO Status:Enrolled (Active) Start date:06/06/2025 Enrollment date:06/10/2025 Enrollment reason:ADT Feed Case Team Name Relationship Phone Anni Núñez [facility](Responsible Staff) Social Worktequila carrillo [phone] Continued Care and Services Coordination
--- OUTSIDE RECORDS SUMMARY | 2025-06-16 16:27 | XMS_ITS ---
Author Organization [employer] Address [address] [place] [address] [address] [place] [address] Care Team Providers Care Slip Box Changer Name Role Phone Anni Núñez [facility] Unavailable [phone] Yuliana Wang Unavailable Leandra Kaur Unavailable C3 W [facility] Status:Outreach In Progress (Enrolling) Start date:06/06/2025 Enrollment reason:ADT Feed Overview Eran Case Team Name Relationship Phone Yuliana Wang Staying Machine Operator [phone] Leandra Kaur(Responsible Staff) Forest Economics Professor [phone] Continued Care and Services Coordination
--- NOTE | 2025-06-25 11:02 | HO.ANESPROP2 ---
Documented by User: Harriett Larose NP 06/25/25 11:22 HPI - Anesthesia Eval Consult details Narrative: 59yo F for Left Cystoscopy, Ureteroroscopy, Retro, Laser,with stent REMOVAL and Fulguration,Tumor Basketing Mutliple admissions to [facility] d/t parainfluenza infx c/b acute hypoxic respiratory failure and pacer mediated wide tachycardia complicated by obstruction of L ureter due to new diagnosis of ureteral cancer, s/p cysto etc with GA-LMA during [facility] inpt Prior to 05/2025 uro procedure... Optimized by [facility] cardiology today 05/20/25. S/P [facility] dual-chamber pacemaker: Dr. Alva saw pt 05/20/25 reporting-Wide complex tachycardia during this hospitalization in the monitor are related to pacemaker mediated tachycardia which is a benign condition in his usually associated with inappropriate pacemaker programming. The pacemaker programmed was Re adjusted yesterday with increased post ventricular refractory period which should prevent her from having any further pacemaker mediated tachycardia. Cardiac optimized by [facility] cardiology following [facility] admits and behavioral health admit. Hx NSTEMI (nonobstructive) r/t Takatsubo with resolved EF no anginal or heart failure symptoms, no evidence of obstructive coronary disease by catheterization?in 2020, and recovered?cardiac function on echo?in February of this year.? She also?tolerated?a similar inpatient procedure last month under general anesthesia without issue. ?As such?she should be considered at low cardiovascular risk?for the proposed procedure?and no further?cardiac testing or intervention is warranted?to allow her to proceed with the procedure. Pacer in situ (2020) for symptomatic naz, ? CHB - reprogrammed during 05/2025 admit - interrogation document unavailable [facility] Active Problems Active Problems: All Active Problems Sepsis (Acute) Anxiety (Acute) Thrombocytopenia (Acute) Ureteral cancer (Acute) Pacemaker-mediated tachycardia (Acute) S/P hip hemiarthroplasty (Acute) Past Medical History Medical History (Updated 06/26/25 @ 11:02 by Lyudmila Geiger RN) Takotsubo cardiomyopathy NSTEMI (non-ST elevated myocardial infarction) Hx of cardiac pacemaker Wide-complex tachycardia Hydronephrosis Parainfluenza infection Closed fracture of neck of right femur Hypokalemia COPD (chronic obstructive pulmonary disease) Ureteral cancer Pacemaker-mediated tachycardia Thrombocytopenia Sick sinus syndrome due to sinoatrial node dysfunction Anxiety Depression Family History Family history of problems with anesthesia: No Surgical History Surgical History (Updated 06/30/25 @ 06:19 by Ann Vázquez RN) S/P removal of right ovary Hx of tubal ligation History of carpal tunnel release Hx of appendectomy Hx of cystoscopy History of Problems with Anesthesia: No Social History Social History Household Members: Children and Friend(s) Housing: House Are you a primary insurance healthcare representative to a significant other at home: No Do you presently have visiting nurse or other home services: No Alcohol intake: never Comment: medicated, pain tolerable Patient Tobacco Use Status: Current everyday Tobacco user Tobacco use type: Cigarette Cigarette Packs Per Day: 1 Cigarettes Per Day: 20.0 Years Smoked: 30 e-Cigarette/Vaping Use: Never Used Use of substances other than those prescribed or required for medical reasons: Yes Substance Use Type: Marijuana Are you DNR?: No Advance Directives: No Advance Directives Information Provided: Yes Advance Directives Date on File: 04/23/21 Patient : No : No service: No Meds Allergies Allergy/AdvReac Type Severity Reaction Status Date / Time aspirin Allergy Mild Headache Verified 06/16/25 05:22 ibuprofen Allergy Mild heartburns Verified 06/16/25 05:22 acetaminophen (From Tylenol) Allergy Heartburn Verified 06/16/25 05:22 Home Medications ?Medication ?Instructions ?Recorded ?Confirmed ?Last Taken ?Type metoprolol succinate 50 mg 50 mg PO DAILY 05/15/25 06/26/25 06/30/25 History tablet,extended release 24 hr Dulcolax (bisacodyl) 06/30/25 06/30/25 Unknown History hydroxyzine HCl 10 mg tablet 06/30/25 06/30/25 History lamotrigine 06/30/25 Unknown History Exam Pertinent Lab Results Pertinent Lab Results: Laboratory Tests 06/16/25 06:07 WBC 9.4 Hgb 12.1 Hct 37.4 Plt Count 290 Sodium 140 Potassium 4.8 Chloride 106 Carbon Dioxide 28 BUN 24 H Creatinine 0.66 Narrative Narrative: ECHO 05/2025 Conclusions: - 1. Normal LV ejection fraction of 65-70% 2. Normal cardiac valvular Dopplers 3. Normal RV systolic pressure 4. No pericardial effusion EKG 05/2025 Vent. Rate : 73 BPM Atrial Rate : 73 BPM P-R Int : 166 ms QRS Dur : 82 ms QT Int : 414 ms P-R-T Axes : 61 68 24 degrees QTcB Int : 456 ms Sinus rhythm with sinus arrhythmia with occasional Premature ventricular complexes Nonspecific ST abnormality Abnormal ECG When compared with ECG of 18-May-2025 00:51, Sinus rhythm has replaced Electronic atrial pacemaker ST now depressed in Lateral leads Nonspecific T wave abnormality now evident in Inferior leads T wave amplitude has decreased in Lateral leads Assessment and Plan Assessment Anesthesia Assessment: Chart Reviewed Final Anesthetic Review Family History of Problems with Anesthesia: No History of Problems with Anesthesia: No Documented by User: Ike Martino MD 06/30/25 07:33 [facility] Past Medical History Medical History (Updated 06/26/25 @ 11:02 by Lyudmila Geiger RN) Takotsubo cardiomyopathy NSTEMI (non-ST elevated myocardial infarction) Hx of cardiac pacemaker Wide-complex tachycardia Hydronephrosis Parainfluenza infection Closed fracture of neck of right femur Hypokalemia COPD (chronic obstructive pulmonary disease) Ureteral cancer Pacemaker-mediated tachycardia Thrombocytopenia Sick sinus syndrome due to sinoatrial node dysfunction Anxiety Depression Surgical History Surgical History (Updated 06/30/25 @ 06:19 by Ann Vázquez RN) S/P removal of right ovary Hx of tubal ligation History of carpal tunnel release Hx of appendectomy Hx of cystoscopy Social History Social History Household Members: Children and Friend(s) Housing: House Are you a primary insurance healthcare representative to a significant other at home: No Do you presently have visiting nurse or other home services: No Alcohol intake: never Comment: medicated, pain tolerable Patient Tobacco Use Status: Current everyday Tobacco user Tobacco use type: Cigarette Cigarette Packs Per Day: 1 Cigarettes Per Day: 20.0 Years Smoked: 30 e-Cigarette/Vaping Use: Never Used Use of substances other than those prescribed or required for medical reasons: Yes Substance Use Type: Marijuana Are you DNR?: No Advance Directives: No Advance Directives Information Provided: Yes Advance Directives Date on File: 04/23/21 Patient : No : No service: No Meds Allergies Allergy/AdvReac Type Severity Reaction Status Date / Time aspirin Allergy Mild Headache Verified 06/16/25 05:22 ibuprofen Allergy Mild heartburns Verified 06/16/25 05:22 acetaminophen (From Tylenol) Allergy Heartburn Verified 06/16/25 05:22 Home Medications ?Medication ?Instructions ?Recorded ?Confirmed ?Last Taken ?Type metoprolol succinate 50 mg 50 mg PO DAILY 05/15/25 06/26/25 06/30/25 History tablet,extended release 24 hr Dulcolax (bisacodyl) 06/30/25 06/30/25 Unknown History hydroxyzine HCl 10 mg tablet 06/30/25 06/30/25 History lamotrigine 06/30/25 Unknown History Exam Airway Mallampati Class: II TM Dist: >3cm Neck ROM: Full Denture: Upper and Lower Heart: ok. see above. Lungs: ok Assessment and Plan Assessment Anesthesia Assessment: Anesthesia Plan Discussed Final Anesthetic Review NPO: Yes ASA Class: III Final Preanesthetic Review: No Changes in Pt Med Stat, Meds/Allgs Chart Reviewed, Consent Obtained/Reviewed and Anes Risks/Benef Reviewed Patient Risk: Intermediate Procedure Risk: Low Anesthetic Plan Anesthetic Plan: GA and Agree w/ Assess. and Plan Disposition: Standard PACU
[2025-06-26 11:06] VITALS: BMI 19.4
--- NOTE | ~2025-06-30 | FL_ITS ---
EXAMINATION: FLUOROSCOPY GUIDANCE FOR NEEDLE PLACEMENT CLINICAL INFORMATION: stone left COMPARISON: None available. TECHNIQUE: Fluoroscopy guidance was provided to referring physician during left retrograde pyelogram. FINDINGS: On image obtained during left pyelogram is contrast visualized in the dilated proximal ureter. Subsequent images reveal a internal ureteral stent with its distal end in the bladder. Proximal end not in the [id number]. FLUOROSCOPY TIME: 10 seconds DOSE AREA PRODUCT: 261 uGy-m2 (microgray-meter squared) FL/FL guidance in OR IMPRESSION: Fluoroscopy guidance was provided to referring physician during left retrograde pyelogram exam. Electronically signed by: Papa Handy MD 06/30/2025 03:43 PM [facility] [place]
[2025-06-30 06:20] VITALS: BMI 18.8
[2025-06-30 06:30] VITALS: BP 113/78; PULSE 61; RESP 16; TEMP 36.3; O2SAT 97
[2025-06-30] MEDS: Lactated Ringers 1,000 ML 50 ML IVCONT (06:44)
--- NOTE | 2025-06-30 07:34 | P.HPSUR_ITS ---
Pre-Procedural Eval Section A - 24 Hr Update-Section A only Date of Service: 06/30/25 The patient is an INPATIENT: No Changes since office visit: No Cold of Flu in the past 2 weeks, No New Medical Problems, No Changes in Medication and No Patient answered all questions The patient has been examined within 24 hours of the surgical procedure. The History & Physical has been completed within 30 days and I have reviewed it.: Yes Section B - Complete if H&P > 30 days Chief Complaint: Malignant neoplasm of left ureter Details of Present Illness: Neoplasm of left ureter. Localized on CT. Here for basketing, removal with laser of base Relevant Social History: Tobacco Use Present Medications: see Short Stay Collaborative assessment Medical History: No relevant PMH History of Previous Operations: No relevant previous surgery Allergies: Allergies Allergy/AdvReac Type Severity Reaction Status Date / Time aspirin Allergy Mild Headache Verified 06/16/25 05:22 ibuprofen Allergy Mild heartburns Verified 06/16/25 05:22 acetaminophen (From Tylenol) Allergy Heartburn Verified 06/16/25 05:22 Review of Systems Sugical H&P ROS: Negative: Constitution, Cardiovascular, Respiratory, Neuro logical, Psychiatric, Hem-Onc, Allergic/Immunologic, Gastrointestinal, Genitourinary, Musculoskeletal, Integumentary, Endocrine and Eyes/Ears/Nose/Throat Exam Surgical H&P Exam: Normal: HEENT, Normal: Heart, Normal: Lungs, Normal: Extremities, Normal: Abdomen, Normal: Skin and Normal: Neurological Plan Diagnosis/Plan: Unchanged I have reviewed the history and physical and performed a pertinent physical examination on my patient. No changes have occurred unless specified. Time Spent With Patient Time: Total time managing care of this patient today ____ minutes.
[2025-06-30 08:40] VITALS: BP 114/66; PULSE 60; RESP 16; TEMP 36.2; O2SAT 97
[2025-06-30 08:45] VITALS: BP 125/69; PULSE 62; RESP 16; O2SAT 97
[2025-06-30 08:50] VITALS: BP 115/73; PULSE 59; RESP 16; O2SAT 97
--- NOTE | 2025-06-30 08:51 | P.OP_ITS ---
Operative Note Operative Note Date of Service: 06/30/25 Narrative: PreOperative Diagnosis: Left ureteric mass Post Operative Diagnosis: Left ureteric transitional cell carcinoma Procedure: - cystoscopy, removal of left stent - left retrograde - left ureteroscopy, basketing of ureteric mass, laser of soft tissue - left stent placement Surgeon: Dr Ronald Connelly Anesthesia: General Indications for procedure: Had presented to hospital with left hydro nephrosis. On diagnostic ureteroscopy been found to have a mass at the junction between the mid and distal 3rd of the left ureter. Stent placed at that time. Here today for diagnostic procedure. Goal is obtaining tissue to confirm transitional cell carcinoma of the left ureter. Procedure: After informed consent was verified patient was brought to the operating placed in supine position. Anesthesia was administered per protocol. Patient was placed in modified dorsal lithotomy position and prepped and draped in a sterile fashion. Safety pause time-out and side of surgery confirmed. Antibiotics confirmed. A 22 Namibian cystoscope was inserted per urethra. The urethra and bladder were normal in their entirety. Both ureteric orifices were in normal position. There was a stent emerging from the left ureter. The stent was grasped and removed. The left ureteric orifice was cannulated and a retrograde examination was performed. Filling defects seen between junction of middle and distal thirds of ureter.. A Sensor guidewire was placed up to the level of the renal pelvis under fluoroscopy. The rigid cystoscope was removed and a semi rigid ureteral scope was placed. Pedunculated masses noted at the junction between the middle and distal thirds of the ureter. Using a sure catch basket we were able to obtain soft tissue. Multiple passes were made. Sufficient tumor sample was obtained for confirmation. There was noted to be satellite lesions on the mucosa extending proximally 1 cm proximal to the primary area. These were circumferential in nature. Using the 360 micron holmium laser fiber and soft tissue settings we were able to ablate further 1 other small pedunculated mass. We also targeted other bleeding areas and laser these as well. The sensor wire remained in place throughout the procedure. A 7 Namibian by 28 cm double-J stent was placed into the renal pelvis and bladder under a combination of fluoroscopy and direct visualization. The symphisis pubis was used as a radiographic marker to release the stent and good coil was seen within the bladder confirming position. Proximal positioning of the stent was confirmed using fluoroscopy. The bladder was emptied. The patient tolerated the procedure well and was extubated in the operating room, and transferred in stable condition to the recovery area. Pathology: Soft tissue mass from left ureter Drains: Stent as described above
[2025-06-30 08:55] VITALS: BP 102/72; PULSE 60; RESP 16; O2SAT 97
[2025-06-30] MEDS: oxyCODONE HCl Immed Release 5 MG TABLET PO (09:07)
[2025-06-30 09:10] VITALS: BP 112/74; PULSE 60; RESP 16; TEMP 36.4; O2SAT 97
== END 2025-06-30 09:53 | disposition home or self-care (01) ==
PROVIDERS: PCP Dentist General Practice; Visit Provider Urology
PROC: (CPT 52354; principal; 2025-06-30 07:30)
DX: C66.2 Malignant neoplasm of left ureter (principal); N13.30 Unspecified hydronephrosis; D69.6 Thrombocytopenia, unspecified; I49.5 Sick sinus syndrome; R00.0 Tachycardia, unspecified; F32.A Depression, unspecified; F41.9 Anxiety disorder, unspecified; Z79.899 Other long term (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; Z88.1 Allergy status to other antibiotic agents; Z88.6 Allergy status to analgesic agent; F17.210 Nicotine dependence, cigarettes, uncomplicated
CPT/HCPCS: 52354; 52332; 88305; 88307; C1758; C1769; C2617; J1956; J2003; J2405; J2704; J3010; Q9967

== ENCOUNTER → 2025-06-30 05:55 | Outpatient (BNV) | payer MEDICAID, SELFPAY | PROVIDERS: PCP Dentist General Practice; Visit Provider Urology | DX: C66.2 Malignant neoplasm of left ureter (principal) | CPT/HCPCS: 52332; 52352; 52354; 74420 ==

== ENCOUNTER 2025-07-17 14:36 | Outpatient (AMB) | payer MEDICAID, SELFPAY ==
--- NOTE | 2025-07-17 14:36 | MHC.OFFVIS ---
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 She is a patient of [facility]. She is seen for the following urologic conditions - ureteric cancer Telemedicine Evaluation 15 min Consultation [employer] Misha Video Discussion regarding diagnosis Pathology confirms low-grade noninvasive ureteric cancer Needs to attend office for stent removal At that point we will discuss intravesical therapy Ureteric cancer Initial presentation hematuria through emergency room Found to have mass within mid left ureter Underwent ureteroscopy with removal and laser Pathology confirms low-grade noninvasive ureteric cancer Due to visible satellite superficial lesions recommendation for intravesical therapy induction [facility] Medical History (Updated 06/26/25 @ 11:02 by Lyudmila Geiger RN) Takotsubo cardiomyopathy NSTEMI (non-ST elevated myocardial infarction) Hx of cardiac pacemaker Wide-complex tachycardia Hydronephrosis Parainfluenza infection Closed fracture of neck of right femur Hypokalemia COPD (chronic obstructive pulmonary disease) Ureteral cancer Pacemaker-mediated tachycardia Thrombocytopenia Sick sinus syndrome due to sinoatrial node dysfunction Anxiety Depression Surgical History (Updated 06/30/25 @ 06:19 by Ann Vázquez RN) S/P removal of right ovary Hx of tubal ligation History of carpal tunnel release Hx of appendectomy Hx of cystoscopy Social History Household Members: Children and Friend(s) Housing: House Are you a primary residential care officer to a significant other at home: No Do you presently have visiting nurse or other home services: No Alcohol intake: never Comment: medicated, pain tolerable Patient Tobacco Use Status: Current everyday Tobacco user Tobacco use type: Cigarette Cigarette Packs Per Day: 1 Cigarettes Per Day: 20.0 Years Smoked: 30 e-Cigarette/Vaping Use: Never Used Substance Use Type: Marijuana Advance Directives Date on File: 04/23/21 service: No Review of Systems Const All systems reviewed & are unremarkable except as noted in HPI and below Reports no additional complaints Resp Reports no additional complaints GI Reports no additional complaints Reports as per HPI Musc Reports no additional complaints Physical Exam Telemedicine evaluation Appropriate responses Regular breathing rate and rhythm HEENT Head: Yes normal to inspection Ears: hearing grossly normal bilaterally Eyes General: appearance normal, both eyes and all related structures Neck Neck: Yes normal visual inspection Chest Chest palpation & inspection: normal inspection of the chest Resp Effort & Inspection: normal respiratory effort and able to speak in complete sentences Telehealth Telehealth Telehealth Platform: [employer] Location of provider rendering services: practice address Location of patient: address on file Patient Identification confirmed using: Name, : Yes Telehealth method: video Patient verbally consented to treatment: Yes Patient verbally consented to billing insurance company: Yes Patient informed of any privacy concerns related to visit: Yes Assessment & Plan Assessment & Plan (1) Ureteral cancer: Code(s): C66.9 - Malignant neoplasm of unspecified ureter Category: Medical Plan Follow-up for stent removal Patient Instructions: This note is constructed using voice recognition software. While every effort has been made to ensure accuracy sorority mother errors may have been included. Imaging studies, laboratory and physical exam results were discussed and reviewed in detail. No major barriers to patient understanding were identified. An opportunity to ask questions regarding the treatment plan was provided. All questions were answered. The patient expressed understanding and agreement with the above treatment plan. The patient is aware they should contact our office by phone for worsening of their current condition or the appearance of new urologic symptoms. Compliance is encouraged with any medications and followup testing that is ordered. It is a privilege to participate in the urologic care of your patient. If you have any questions or concerns regarding treatment for the above conditions, or other urologic issues, please do not hesitate to contact me. The office telephone contact is [phone]. Sincerely, Dr Ronald Connelly MD, [facility] - Urology Compassionate Specialist Care for the Genitourinary System Coding Level of Care Code Tele Est Pt Level 3 (71176) Complex visit Add On G2211 Diagnoses Ureteral cancer C66.9
== END 2025-07-17 15:48 | disposition home or self-care (01) ==
PROVIDERS: PCP Dentist General Practice; Visit Provider Urology
DX: C66.9 Malignant neoplasm of unspecified ureter (principal)
CPT/HCPCS: 99213

== ENCOUNTER 2025-07-23 10:59 | Outpatient (AMB) | payer MEDICAID, SELFPAY ==
--- NOTE | 2025-07-23 11:22 | MHC.OFFVIS ---
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 She is a patient of [facility]. She is seen for the following urologic conditions - ureteric cancer Here for stent removal Pathology confirms low-grade noninvasive ureteric cancer Treatment is MMC/Cytarabine induction with delivery via ureteric catheter Catheter would be placed each day in oncology and then medication administered over 60 min with catheter removal Ureteric cancer Initial presentation hematuria through emergency room Found to have mass within mid left ureter Underwent ureteroscopy with removal and laser Pathology confirms low-grade noninvasive ureteric cancer Due to visible satellite superficial lesions recommendation for intravesical therapy induction PFSH Medical History Takotsubo cardiomyopathy NSTEMI (non-ST elevated myocardial infarction) Hx of cardiac pacemaker Wide-complex tachycardia Hydronephrosis Parainfluenza infection Closed fracture of neck of right femur Hypokalemia COPD (chronic obstructive pulmonary disease) Ureteral cancer Pacemaker-mediated tachycardia Thrombocytopenia Sick sinus syndrome due to sinoatrial node dysfunction Anxiety Depression Surgical History S/P removal of right ovary Hx of tubal ligation History of carpal tunnel release Hx of appendectomy Hx of cystoscopy Social History (Reviewed 07/23/25 @ 11: by LEXY Alexandre) Household Members: Children and Friend(s) Housing: House Are you a primary post acute care registered nurse to a significant other at home: No Do you presently have visiting nurse or other home services: No Alcohol intake: never Comment: medicated, pain tolerable Patient Tobacco Use Status: Current everyday Tobacco user Tobacco use type: Cigarette Cigarette Packs Per Day: 1 Cigarettes Per Day: 20.0 Years Smoked: 30 e-Cigarette/Vaping Use: Never Used Substance Use Type: Marijuana Advance Directives Date on File: 04/23/21 service: No Review of Systems Const Denies chills and Denies fever(s) Card Reports no additional complaints and Denies syncope Resp Denies cough GI Denies abdominal pain and Denies heartburn Reports as per HPI and Denies change in libido Neuro Denies syncope Psych Denies change in libido Endo Denies change in libido Physical Exam Const General: cooperative, healthy appearing, comfortable and no acute distress Orientation/consciousness: patient oriented x3 HEENT Face and sinus: Yes normal facial exam Mouth: moist mucous membranes Neck Neck: Yes normal visual inspection, Yes full ROM and Yes trachea midline Chest Chest palpation & inspection: normal inspection of the chest Resp Effort & Inspection: normal respiratory effort, able to speak in complete sentences and no respiratory distress GI Inspection: Yes normal to inspection Back/Spine/Pelvis Cervical Spine: normal cervical lordosis Thoracic/Lumbar Spine: thoracic and lumbar spine normal to inspection Skin General skin exam: no rashes or lesions noted Neuro General: patient oriented x3, gait normal, tone normal and moves all extremities Extrem General: Yes normal to inspection and Yes capillary refill normal Office Procedures Cystoscopy Consent Discussed risk and benefit or proposed procedure with the patient. Information consent for procedure given to the patient. Discussed technical aspects, risks, benefits and alternatives in full. Addressed all of the patient's questions and concerns regarding the procedure. The patient demonstrated knowledge and understanding. They wish to proceed with this procedure. Preparation The patient was prepped in the usual manner. A presser first was present and in the room. Genitalia was prepped with betadine solution in a sterile manner. Lidocaine Jelly 2% was placed into the urethra and 16Fr flexible Olympus cystoscope was inserted into the meatus after adequate lubrication. Procedure Consent confirmed Genitalia prepped and draped using topical antiseptic and lidocaine jelly Cystoscopy performed using a sterile disposable Mobile Patrolvue digital 16 Slovenian cystoscope No abnormality noted of urethra during placement Indwelling stent seen within bladder emerging from left ureteric orifices The stent was grasped with a 3 prong grasper and removed without difficulty The patient tolerated the procedure well [id number] with stent removal DISPOSABLE SCOPE URO-G FLEXIBLE SCOPE Procedure code (CPT) selection complete Office Meds lidocaine HCl 2 % mucosal jelly in applicator Performing Provider: Ronald Connelly MD [place] [facility] [place] [facility] Administered by: Chris Kam LPN on 07/23/25 11:37 Dose Route Admin Location Dispensed Lot Number Expiration Date NDC Educational Recruiter 10 mL intra-urethral 10 mL nitrofurantoin monohydrate/macrocrystals 100 mg capsule Performing Provider: Ronald Connelly MD [place] [facility] [place] [facility] Administered by: Chris Kam LPN on 07/23/25 11:37 Dose Route Admin Location Dispensed Lot Number Expiration Date NDC Educational Recruiter 100 mg PO 1 cap Results AMB Urinalysis, Automated UA Leukoctes 0 Merry/uL Last Edit by Lizz Bolivar [facility] on 07/23/25 11:40 UA Nitrite Negative Last Edit by Lizz Bolivar [facility] on 07/23/25 11:40 UA Urobilinogen 0.2 mg/dL Last Edit by Lizz Bolivar [facility] on 07/23/25 11:40 UA Protein 15 mg/dL Last Edit by Lizz Bolivar [facility] on 07/23/25 11:40 UA pH 7.0 Last Edit by Lizz Bolivar [facility] on 07/23/25 11:40 UA Blood 0 Robbie/uL Last Edit by Lizz Bolivar [facility] on 07/23/25 11:40 UA Specific [place] 1.010 Last Edit by Lizz Bolivar [facility] on 07/23/25 11:40 UA Ketone Negative Last Edit by Lizz Bolivar [facility] on 07/23/25 11:40 UA Bilirubin 0 mg/dL Last Edit by Lizz Bolivar [facility] on 07/23/25 11:40 UA Glucose 0 mg/dL Last Edit by Lizz oBlivar [facility] on 07/23/25 11:40 Results Reviewed Results Reviewed: Laboratory Last Values Urine pH (Auto) 7.0 07/23/25 11:30 Specific [place] (Auto) 1.010 07/23/25 11:30 Urine Protein (Auto) 15 mg/dL 07/23/25 11:30 Glucose (UA)(Auto) 0 mg/dL 07/23/25 11:30 Urine Ketones (Auto) Negative 07/23/25 11:30 Urine Blood (Auto) 0 Robbie/uL 07/23/25 11:30 Urine Nitrite (Auto) Negative 07/23/25 11:30 Urine Bilirubin (Auto) 0 mg/dL 07/23/25 11:30 Urine Urobilinogen (Auto) 0.2 mg/dL 07/23/25 11:30 Leukocyte Esterase (Auto) 0 Merry/uL 07/23/25 11:30 Assessment & Plan Assessment & Plan (1) Ureteral cancer: Code(s): C66.9 - Malignant neoplasm of unspecified ureter Category: Medical Plan Risks, benefits and alternatives to therapy were discussed. These include but are not limited to infection, bleeding, damage to local organs and tissues, need for further interventions. Anesthetic risks regarding cardiac arrhythmia, blood clots, and potential mortality were discussed. The patient understands the typical recovery time and the outpatient nature of the procedure. After consideration of these risks the patient gives full informed consent and they wish to move ahead with the procedure. - cysto with ureteric stent placement followed by MMC with cytarabine instillation - risk of stricture Orders: Orders AMB Urinalysis Automated 07/23/25 Z13.9 - Encounter for screening, unspecified AMB Cystoscopy 07/23/25 C66.9 - Malignant neoplasm of unspecified ureter Patient Instructions: This note is constructed using voice recognition software. While every effort has been made to ensure accuracy sandblaster stone errors may have been included. Imaging studies, laboratory and physical exam results were discussed and reviewed in detail. No major barriers to patient understanding were identified. An opportunity to ask questions regarding the treatment plan was provided. All questions were answered. The patient expressed understanding and agreement with the above treatment plan. The patient is aware they should contact our office by phone for worsening of their current condition or the appearance of new urologic symptoms. Compliance is encouraged with any medications and followup testing that is ordered. It is a privilege to participate in the urologic care of your patient. If you have any questions or concerns regarding treatment for the above conditions, or other urologic issues, please do not hesitate to contact me. The office telephone contact is [phone]. Sincerely, Dr Ronald Connelly MD, [facility] - Urology Compassionate Specialist Care for the Genitourinary System Coding Level of Care Code Est Pt Level 4 (84291) Diagnoses Ureteral cancer C66.9 CPT Codes Cystoscopy - CPT: 30642-[id number] with stent removal ([id number])
== END 2025-07-23 11:57 | disposition home or self-care (01) ==
LOC: HO.HUSH 11:00
PROVIDERS: PCP Dentist General Practice; Visit Provider Urology
DX: C66.9 Malignant neoplasm of unspecified ureter (principal)
CPT/HCPCS: 52310

== ENCOUNTER → 2025-07-23 10:59 | Outpatient (BNVA) | payer MEDICAID, SELFPAY | PROVIDERS: PCP Dentist General Practice; Visit Provider Urology | DX: C66.9 Malignant neoplasm of unspecified ureter (principal) | CPT/HCPCS: 52310; 81003 ==